=== PATIENT | female | born 1980 | race Caucasian/White ===

== ENCOUNTER 2017-11-23 13:15 | Emergency (ER) | payer OTHER ==
[2017-11-23 14:31] LABS: Absolute Lymphocytes (CBC) 1.9 K/uL (0.7-4.9); Absolute Monocytes 0.5 K/uL (0.1-1.3); Absolute Neutrophil 4.6 K/uL (1.8-8.0); Basophils % 0.6 % (0-1.3); Eosinophils % 3.3 % (0-4.4); Hematocrit 38.2 % (36.0-45.0); Lymphocytes % 26.2 % (15.3-44.8); MCH 28.2 pg (27.0-35.0); MCV 85.5 fL (80-100); MPV 8.3 fL (7.6-11.3); Monocytes % 6.8 % (3.3-12.3); RBC Red Blood Cell Count 4.46 M/uL (3.86-4.86)
[2017-11-23] MEDS ORDERED: METOCLOPRAMIDE 10 MG/2mL INJ ONE (14:46)
[2017-11-23] MEDS ORDERED: ONDANSETRON 4 MG/2 ML VIAL ONE (14:46)
[2017-11-23 14:48] LABS: Potassium 3.5 mEq/L (3.6-5.0)
[2017-11-23 14:55] LABS: Bilirubin Direct 0.1 mg/dL (0-0.2); Bilirubin Total 0.5 mg/dL (0.3-1.2); Magnesium 1.5 mg/dL (1.8-2.5); Protein, Total 8.1 g/dL (6.0-8.3)
[2017-11-23] MEDS ORDERED: POTASSIUM 25 MEQ EFFERV TAB ONE (15:29)
[2017-11-23] MEDS ORDERED: Magnesium Sulfate 2gm IVPB 2 G/50 ML BAG IV ONE (15:29)
--- NOTE | 2017-11-23 15:29 | EKG ---
Test Date: 2017-11-23 Test Time: 14:26:09 Internet Merchant: LEONOR MEASUREMENT RESULTS: Intervals: Rate: 73 CO: 142 QRSD: 68 QT: 378 QTc: 416 [place]: P: 28 CO: 142 QRS: 35 T: 39 INTERPRETIVE STATEMENTS: Normal sinus rhythm Normal ECG Compared to ECG 09/28/2016 11:22:09 Sinus tachycardia no longer present Electronically Signed On 11-23-17 15:28:46 CDT by Kris Wilson
--- NOTE | 2017-11-23 16:17 | ER ---
Nurse's Notes [facility] Name: Amanda Guillaume Age: 37 yrs Sex: Female : 1980 Arrival Date: 11/23/2017 Time: 13:17 Bed 5 Private MD: Raffi Prieto Diagnosis: Paresthesia of skin;Hypomagnesemia;Hypokalemia Presentation: 11/23 13:22 Presenting complaint: Patient states: Intermittent leg numbness, dizziness, blurred aj vision, abdominal bloating since Monday. Patient ambulated to triage with steady gait in NAD. Speech is clear, face is symmetrical. Transition of care: patient was not received from another setting of care. Onset of symptoms was November 19, 2017. Care prior to arrival: None. 13:22 Method Of Arrival: Ambulatory aj 13:22 Acuity: KATHI 3 aj Triage Assessment: 13:24 General: Appears in no apparent distress. comfortable, Behavior is calm, cooperative, aj appropriate for age. Pain: Denies pain. Neuro: Level of Consciousness is awake, alert, obeys commands, Oriented to person, place, time, situation. Neuro: Reports blurred vision numbness in abdomen, right leg and left leg. Respiratory: Airway is patent Respiratory effort is even, unlabored, Respiratory pattern is regular, symmetrical. GI: Reports bloating. Derm: Skin is intact, is healthy with good turgor, Skin is pink, warm \T\ dry. normal. 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 - Social history:: Smoking status: Patient uses tobacco products, smokes one-half pack cigarettes per day. Vital Signs: 13:24 BP 148 / 98; Pulse 88; Resp 20; Temp 98.4; Pulse Ox 97% on R/A; Weight 95.25 kg; Height aj 5 ft. 3 in. (160.02 cm); Pain 0/10; 14:35 BP 142 / 86; Pulse 66; Resp 20; Pulse Ox 97% on R/A; bm6 13:24 Body Mass Index 37.20 (95.25 kg, 160.02 cm) ED Course: 13:17 Patient arrived in ED. as 13:18 Raffi Prieto MD is Private Physician. as 13:23 Triage completed. aj 13:24 Arm band placed on right wrist. Patient placed. aj 13:28 Kwaku Jaime PA is PHCP. cp 13:28 Howard Hutton MD is Attending Physician. cp 13:34 Jaden Horton, QUIN is Primary Nurse. sg 14:19 Inserted saline lock: 20 gauge in left antecubital area, using aseptic technique. Blood bm6 collected. 14:28 EKG done, by cable television technician. reviewed by Kwaku ADAM. at1 17:17 No provider procedures requiring assistance completed. IV discontinued, intact, hb bleeding controlled, No redness/swelling at site. Pressure dressing applied. Administered Medications: 14:55 Drug: Reglan 10 mg Route: IVP; Site: left antecubital; sg 15:24 Follow up: Response: No adverse reaction sg 14:55 Drug: Zofran 4 mg Route: IVP; Site: left antecubital; sg 15:24 Follow up: Response: No adverse reaction; Nausea is decreased sg 15:42 Drug: Magnesium Sulfate 2 grams Route: IVPB; Infused Over: 2 hrs; Site: left sg antecubital; 15:42 Drug: Potassium Effervescent Tablet 25 mEq Route: PO; sg 17:00 Drug: TORadol 30 mg Route: IVP; Site: right antecubital; hb 17:17 Follow up: Response: Medication administered at discharge. hb Outcome: 16:16 Discharge ordered by . cp 17:17 Discharged to home ambulatory, with significant other. hb 17:17 Condition: stable 17:17 Discharge instructions given to patient, significant other, Instructed on discharge instructions, follow up and referral plans. medication usage, Demonstrated understanding of instructions, follow-up care, medications, Prescriptions given X 2. 17:17 Patient left the ED. hb Signatures: Jaden Horton RN RN sg Myers, Amanda, RN RN aj Martinez Cleo as patton, Zhanna, school lunch monitor EKG Tat1 Kwaku Jaime PA PA cp Baxter, Heather, RN RN Gabo Padgett bm6
--- NOTE | 2017-11-23 16:17 | EDPHYS ---
Physician Documentation [facility] Name: Amanda Guillaume Age: 37 yrs Sex: Female : 1980 Arrival Date: 11/23/2017 Time: 13:17 Bed 5 Private MD: Raffi Prieto ED Physician Howard Hutton HPI: 11/23 14:11 This 37 yrs old Female presents to ER via Ambulatory with complaints of cp "don't feel well". 14:11 The patient's problem is reported as paresthesias, in right upper extremity, in right cp lower extremity, in left upper extremity, in left lower extremity. 14:11 Onset: The symptoms/episode began/occurred 3 day(s) ago. Duration: The episodes are cp intermittent. Associated signs and symptoms: Pertinent positives: abdominal pain, blurred vision, chest pain, diarrhea, dizziness, nausea, Pertinent negatives: headache, numbness, palpitations, vomiting, weakness. Severity of symptoms: in the emergency department the symptoms are unchanged. Patient's baseline: Neuro: alert and fully oriented, Motor: no deficits, Ambulation: walks without assistance, Speech: normal. 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 - Social history:: Smoking status: Patient uses tobacco products, smokes one-half pack cigarettes per day. ROS: 14:20 Constitutional: Negative for body aches, chills, fever, poor PO intake. cp 14:20 Eyes: Negative for injury, pain, redness, and discharge. cp 14:20 ENT: Negative for drainage from ear(s), ear pain, sore throat, difficulty swallowing, difficulty handling secretions. 14:20 Cardiovascular: Negative for chest pain, edema, palpitations. 14:20 Respiratory: Negative for cough, shortness of breath, wheezing. 14:20 Abdomen/GI: Positive for abdominal pain, nausea, diarrhea, Negative for vomiting, constipation, black/tarry stool, rectal bleeding. 14:20 : Negative for urinary symptoms, vaginal bleeding, vaginal discharge. 14:20 Skin: Negative for cellulitis, rash. 14:20 Neuro: Positive for tingling, of the right hand and left hand, Negative for altered mental status, headache, weakness. 14:20 All other systems are negative. Exam: 14:25 Constitutional: The patient appears in no acute distress, alert, awake, cp non-diaphoretic, non-toxic, well developed, well nourished. 14:25 Head/Face: Normocephalic, atraumatic. Eyes: Pupils equal round and reactive to light, cp extra-ocular motions intact. Lids and lashes normal. Conjunctiva and sclera are non-icteric and not injected. Cornea within normal limits. Periorbital areas with no swelling, redness, or edema. ENT: Nares patent. No nasal discharge, no septal abnormalities noted. Tympanic membranes are normal and external auditory canals are clear. Oropharynx with no redness, swelling, or masses, exudates, or evidence of obstruction, uvula midline. Mucous membranes moist. Neck: Trachea midline, no thyromegaly or masses palpated, and no cervical lymphadenopathy. Supple, full range of motion without nuchal rigidity, or vertebral point tenderness. No Meningismus. Chest/axilla: Normal chest wall appearance and motion. Nontender with no deformity. No lesions are appreciated. 14:25 Cardiovascular: Rate: normal, Rhythm: regular, Pulses: Pulses are 2+ in right radial artery and left radial artery. Edema: is not appreciated, JVD: is not appreciated. 14:25 Respiratory: the patient does not display signs of respiratory distress, Respirations: normal, no use of accessory muscles, no retractions, no splinting, no tachypnea, labored breathing, is not present, Breath sounds: are clear throughout, no decreased breath sounds, no stridor, no wheezing. 14:25 Abdomen/GI: Inspection: abdomen appears normal, Bowel sounds: active, all quadrants, Palpation: soft, in all quadrants, mild abdominal tenderness, in the left upper quadrant and right lower quadrant, rebound tenderness, is not appreciated, voluntary guarding, is not appreciated, involuntary guarding, is not appreciated. 14:25 Back: CVA tenderness, is absent. 14:25 Skin: cellulitis, is not appreciated, no rash present. 14:25 Neuro: Orientation: to person, place \\T\\ time. Mentation: is normal, Cerebellar function: is grossly normal, Motor: moves all fours, strength is normal, Sensation: no obvious gross deficits, Gait: is steady, at a normal pace, without difficulty. 14:28 ECG was reviewed by the Attending Physician. cp 15:00 CT study not indicated or reported. Reason for not performing CT: exam negative for cp focal deficits Vital Signs: 13:24 BP 148 / 98; Pulse 88; Resp 20; Temp 98.4; Pulse Ox 97% on R/A; Weight 95.25 kg; Height aj 5 ft. 3 in. (160.02 cm); Pain 0/10; 14:35 BP 142 / 86; Pulse 66; Resp 20; Pulse Ox 97% on R/A; bm6 13:24 Body Mass Index 37.20 (95.25 kg, 160.02 cm) aj MDM: 13:28 Patient medically screened. cp 14:00 Differential diagnosis: TIA, metabolic disorder, drug effects, cardiac arrythmia, cp anxiety. 16:16 Data reviewed: vital signs, nurses notes, lab test result(s), EKG. 16:16 Test interpretation: by ED physician or midlevel provider: ECG. Counseling: I had a cp detailed discussion with the patient and/or guardian regarding: the historical points, exam findings, and any diagnostic results supporting the discharge/admit diagnosis, lab results, the need for outpatient follow up, a family practitioner, to return to the emergency department if symptoms worsen or persist or if there are any questions or concerns that arise at home. Response to treatment: the patient's symptoms have mildly improved after treatment. 11/23 13:45 Order name: Basic Metabolic Panel; Complete Time: 15:21 cp 11/23 15:21 Interpretation: Normal except: NA 134; K 3.5; CL 100; GFR 67. cp 11/23 13:45 Order name: CBC with Diff; Complete Time: 15:21 cp 11/23 15:21 Interpretation: Normal except: RDW 16.0. cp 11/23 13:45 Order name: Creatinine for Radiology; Complete Time: 15:21 cp 11/23 13:45 Order name: Hepatic Function; Complete Time: 15:21 cp 11/23 15:22 Interpretation: Normal except: SGOT 44; GLOB 4.1; A/G 1.0. cp 11/23 13:45 Order name: Lipase; Complete Time: 15:21 cp 11/23 13:45 Order name: Urine Microscopic Only; Complete Time: 16:57 cp 11/23 16:57 Interpretation: Normal except: SQEPI 5-10. cp 11/23 13:45 Order name: Magnesium; Complete Time: 15:21 cp 11/23 15:22 Interpretation: Abnormal: MG 1.5. cp 11/23 16:15 Order name: Urine Dipstick--Ancillary (enter results); Complete Time: 16:57 mw2 11/23 16:15 Order name: Urine --Ancillary (enter results); Complete Time: 16:57 mw2 11/23 13:45 Order name: IV Saline Lock; Complete Time: 14:23 cp 11/23 13:45 Order name: Labs collected and sent; Complete Time: 14:24 cp 11/23 13:45 Order name: EKG; Complete Time: 13:46 cp 11/23 13:45 Order name: EKG - Nurse/Tech; Complete Time: 14:24 cp EC:28 Rate is 73 beats/min. Rhythm is regular. IL interval is normal. QRS interval is normal. cp QT interval is normal. No ST changes noted. Interpreted by me. Reviewed by me. Administered Medications: 14:55 Drug: Reglan 10 mg Route: IVP; Site: left antecubital; sg 15:24 Follow up: Response: No adverse reaction sg 14:55 Drug: Zofran 4 mg Route: IVP; Site: left antecubital; sg 15:24 Follow up: Response: No adverse reaction; Nausea is decreased sg 15:42 Drug: Magnesium Sulfate 2 grams Route: IVPB; Infused Over: 2 hrs; Site: left sg antecubital; 15:42 Drug: Potassium Effervescent Tablet 25 mEq Route: PO; sg 17:00 Drug: TORadol 30 mg Route: IVP; Site: right antecubital; hb 17:17 Follow up: Response: Medication administered at discharge. hb Disposition: 11/24 08:10 Co-signature as Attending Physician, Howard Hutton MD I agree with the assessment and vt plan of care. Disposition: 11/23/17 16:16 Discharged to Home. Impression: Paresthesia of skin, Hypomagnesemia, Hypokalemia. - Condition is Stable. - Discharge Instructions: Potassium Content of Foods, Hypomagnesemia, Paresthesia, Hypokalemia. - Prescriptions for magnesium - take 400 milligram by ORAL route once daily for 3 days; 3 tablet. Potassium Chloride 10 mEq Oral Capsule, Sustained Release - take 1 tablet by ORAL route every 12 hours for 3 days; 6 tablet. - Work release form, Medication Reconciliation Form, Thank You Letter, Antibiotic Education, Prescription Opioid Use form. - Follow up: Private Physician; When: 1 - 2 days; Reason: Recheck today's complaints. - Problem is new. - Symptoms have improved. Signatures: Dispatcher [employer] EDMS Jaden Horton RN RN sg Myers, Amanda, RN RN aj Page, Corey, PA PA cp Baxter, Heather, RN RN hb Appiah, William, MD MD wa
[2017-11-23 16:19] LABS: Urine Blood NEGATIVE (NEG); Urine Glucose NEGATIVE (NEG); Urine Protein NEGATIVE (NEG); Urine pH 6.5 (5.0-7.0)
[2017-11-23 16:30] LABS: Urine Amorphous Sediment 1+ /HPF (NONE SEEN); Urine Bacteria <20 /HPF (<20); Urine Culture Reflex Order NOT NEEDED; Urine RBC <5 /HPF (NONE SEEN)
[2017-11-23] MEDS ORDERED: KETOROLAC 30 MG/ML INJ ONE (17:02)
[2017-11-23 17:26] VITALS: TEMP 98.4; O2SAT 97
[2017-11-23 17:27] VITALS: BP 142/86
== END 2017-11-23 17:17 | disposition home or self-care (01) ==
LOC: ER 13:15
DX: E83.42 Hypomagnesemia (principal); E87.6 Hypokalemia; F17.210 Nicotine dependence, cigarettes, uncomplicated; I10 Essential (primary) hypertension; F41.9 Anxiety disorder, unspecified; Z91.048 Other nonmedicinal substance allergy status
CPT/HCPCS: 36415; 80048; 80076; 81003; 81015; 81025; 83690; 83735; 85025; 93005; 99284; J2405; J2765; J3475

== ENCOUNTER 2018-08-30 08:07 | Emergency (ER) | payer BC, OTHER ==
[2018-08-30] MEDS ORDERED: NA CHLORIDE 0.9% 1,000 ML ONE (08:58)
[2018-08-30 09:13] LABS: Protime INR 0.87
[2018-08-30 09:18] LABS: Absolute Monocytes 0.6 K/uL (0.1-1.3); Absolute Neutrophil 3.4 K/uL (1.8-8.0); Basophils % 1.4 % (0-1.3); Eosinophils % 4.9 % (0-4.4); Hematocrit 39.5 % (36.0-45.0); Lymphocytes % 30.6 % (15.3-44.8); MPV 7.8 fL (7.6-11.3); Monocytes % 9.5 % (3.3-12.3); RBC Red Blood Cell Count 4.47 M/uL (3.86-4.86)
[2018-08-30 09:46] LABS: ALT/SGPT 52 U/L (12-78); AST/SGOT 41 U/L (15-37); Albumin 3.5 g/dL (3.4-5.0); Alkaline Phosphatase 86 U/L (45-117); BUN Blood Urea Nitrogen 15 mg/dL (7-18); Bicarbonate 26 mmol/L (21-32); Bilirubin Direct < 0.1 mg/dL (0-0.2); Bilirubin Total 0.2 mg/dL (0.2-1.0); Glucose Level 114 mg/dL (74-106); Magnesium 1.9 mg/dL (1.8-2.4); NT PRO-BNP 30 pg/mL (<125); Potassium 3.2 mmol/L (3.5-5.1); Protein, Total 7.7 g/dL (6.4-8.2); Sodium Level 140 mmol/L (136-145); Troponin (Emerg Dept Use Only) 0.03 ng/mL (0.0-0.045)
[2018-08-30 09:46] LABS: Barbiturates NEGATIVE (NEGATIVE); Benzodiazepines NEGATIVE (NEGATIVE); Cocaine NEGATIVE (NEGATIVE); METHAMPHETAM POSITIVE (NEGATIVE); Methadone NEGATIVE (NEGATIVE); Opiates NEGATIVE (NEGATIVE); Phencyclidine NEGATIVE (NEGATIVE); THC Cannibis NEGATIVE (NEGATIVE)
--- NOTE | 2018-08-30 10:04 | RAD REPORT ---
EXAM DESCRIPTION: Karla Single View08/30/2018 8:52 am CLINICAL HISTORY: Chest pain COMPARISON: 2017 FINDINGS: The lungs appear clear of acute infiltrate. The heart is normal size IMPRESSION: No acute abnormalities displayed
--- NOTE | 2018-08-30 10:16 | RAD REPORT ---
EXAM DESCRIPTION: CT - Abdomen Pelvis W Contrast - 08/30/2018 10:02 am CLINICAL HISTORY: Abdominal pain/lower abdominal pain COMPARISON: 2016 TECHNIQUE: Computed axial tomography of the abdomen pelvis was obtained. 100 cc Isovue-300 was admin istered intravenously. Oral contrast was not requested which limits evaluation of bowel. All CT scans are performed using dose optimization technique as appropriate and may include automated exposure control or mA/KV adjustment according to patient size. FINDINGS: Liver , spleen, pancreas, adrenal and kidneys appear unremarkable. There is no evidence of diverticulitis. The appendix is normal The gallbladder has been removed A 15 millimeter regularly shaped left ovarian follicle is present without significant free-fluid IMPRESSION: A 15 millimeter regularly shaped left ovarian follicle is present without significant fr ee-fluid .
[2018-08-30] MEDS ORDERED: ACETAMINOPHEN 325 MG TABLET ONE (10:29)
--- NOTE | 2018-08-30 10:56 | EDPHYS ---
Physician Documentation [facility] Name: Amanda Guillaume Age: 38 yrs Sex: Female : 1980 Arrival Date: 08/30/2018 Time: 08:10 Bed 18 Private MD: Raffi Prieto ED Physician Ernie Bey HPI: 08/30 10:02 This 38 yrs old Female presents to ER via Ambulatory with complaints of Chest kdr Pain, Shoulder Pain, Arm Pain, Palpitations. 10:02 The patient or guardian reports chest pain that is located primarily in the substernal kdr area, anterior chest wall, left. The pain radiates to the left arm, the left shoulder, the left scapula, left back. Associated signs and symptoms: Pertinent positives: abdominal pain, nausea, shortness of breath, The abdominal pain has been ongoing for months, Pertinent negatives: diaphoresis. The chest pain is described as aching, dull, a pressure. Duration: The patient or guardian reports multiple episodes, that are intermittent, that wax and wane, with no pattern. Modifying factors: The symptoms are alleviated by nothing. the symptoms are aggravated by breathing, cough, deep breath. Severity of pain: At its worst the pain was mild moderate just prior to arrival, in the emergency department the pain is unchanged. The patient has experienced similar episodes in the past, a few times, but today's symptoms are worse, more painful. The patient has not recently seen a physician. Historical: - Allergies: 08:32 adhesive; ss 08:32 unknown antibiotic that starts with a "B"; ss - PMHx: 08:32 Anxiety; Hypertension; ss - PSHx: 08:32 TUMMY TUCK; ; Tubal ligation; BREAST REDUCTION; ss - Immunization history:: Adult Immunizations up to date. - Social history:: Smoking status: Patient/guardian denies using tobacco. - Ebola Screening: : Patient denies exposure to infectious person Patient denies travel to an Ebola-affected area in the 21 days before illness onset. ROS: 10:02 Constitutional: Negative for fever, chills, and weight loss, Eyes: Negative for injury, kdr pain, redness, and discharge, Neck: Negative for injury, pain, and swelling, Respiratory: Negative for shortness of breath, cough, wheezing, and pleuritic chest pain, Abdomen/GI: Negative for abdominal pain, nausea, vomiting, diarrhea, and constipation, Back: Negative for injury and pain, : Negative for injury, bleeding, discharge, and swelling, MS/Extremity: Negative for injury and deformity, Skin: Negative for injury, rash, and discoloration, Neuro: Negative for headache, weakness, numbness, tingling, and seizure activity. Psych: Negative for depression, anxiety, suicide ideation, homicidal ideation, and hallucinations, Allergy/Immunology: Negative for hives, rash, and allergies, Endocrine: Negative for neck swelling, polydipsia, polyuria, polyphagia, and marked weight changes, Hematologic/Lymphatic: Negative for swollen nodes, abnormal bleeding, and unusual bruising. 10:02 Cardiovascular: Positive for chest pain, Negative for edema, orthopnea, palpitations, paroxysmal nocturnal dyspnea, acute changes. 10:02 Abdomen/GI: Positive for abdominal pain, nausea, Negative for diarrhea, constipation, abdominal cramps, abdominal distension, anorexia, dysphagia, hematemesis, black/tarry stool, rectal pain, rectal bleeding, bowel incontinence. Exam: 10:02 Constitutional: This is a well developed, well nourished patient who is awake, alert, kdr and in no acute distress. Head/Face: Normocephalic, atraumatic. Eyes: Pupils equal round and reactive to light, extra-ocular motions intact. Lids and lashes normal. Conjunctiva and sclera are non-icteric and not injected. Cornea within normal limits. Periorbital areas with no swelling, redness, or edema. Neck: Trachea midline, no thyromegaly or masses palpated, and no cervical lymphadenopathy. Supple, full range of motion without nuchal rigidity, or vertebral point tenderness. No Meningismus. Chest/axilla: Normal chest wall appearance and motion. Nontender with no deformity. No lesions are appreciated. Cardiovascular: Regular rate and rhythm with a normal S1 and S2. No gallops, murmurs, or rubs. Normal PMI, no JVD. No pulse deficits. Respiratory: Lungs have equal breath sounds bilaterally, clear to auscultation and percussion. No rales, rhonchi or wheezes noted. No increased work of breathing, no retractions or nasal flaring. Abdomen/GI: Soft, non-tender, with normal bowel sounds. No distension or tympany. No guarding or rebound. No evidence of tenderness throughout. Back: No spinal tenderness. No costovertebral tenderness. Full range of motion. MS/ Extremity: Pulses equal, no cyanosis. Neurovascular intact. Full, normal range of motion. Neuro: Awake and alert, GCS 15, oriented to person, place, time, and situation. Cranial nerves II-XII grossly intact. Motor strength 5/5 in all extremities. Sensory grossly intact. Cerebellar exam normal. Normal gait. Psych: Awake, alert, with orientation to person, place and time. Behavior, mood, and affect are within normal limits. Vital Signs: 08:32 BP 122 / 89; Pulse 88; Resp 17; Temp 98.8(TE); Pulse Ox 99% on R/A; Weight 87.09 kg; ss Height 5 ft. 3 in. (160.02 cm); Pain 4/10; 10:25 BP 100 / 58; Pulse 77; Resp 16; Temp 98.4(O); Pulse Ox 99% on R/A; Pain 5/10; ls4 08:32 Body Mass Index 34.01 (87.09 kg, 160.02 cm) ss MDM: 10:02 Data reviewed: vital signs, nurses notes, lab test result(s), EKG, radiologic studies. kdr 10:55 Patient medically screened. [facility] 08/30 08:30 Order name: Basic Metabolic Panel; Complete Time: 10:39 [facility] 08/30 08:30 Order name: CBC with Diff; Complete Time: 10:39 [facility] 08/30 08:30 Order name: LFT's; Complete Time: 10:39 [facility] 08/30 08:30 Order name: Magnesium; Complete Time: 10:39 [facility] 08/30 08:30 Order name: NT PRO-BNP; Complete Time: 10:39 [facility] 08/30 08:30 Order name: PT-INR; Complete Time: 10:39 [facility] 08/30 08:30 Order name: Troponin (emerg Dept Use Only); Complete Time: 10:39 [facility] 08/30 08:30 Order name: Acetaminophen; Complete Time: 10:39 [facility] 08/30 08:30 Order name: ETOH Level; Complete Time: 10:39 [facility] 08/30 08:30 Order name: Ptt, Activated; Complete Time: 10:39 [facility] 08/30 08:30 Order name: Salicylate; Complete Time: 10:39 [facility] 08/30 08:30 Order name: Urine Drug Screen; Complete Time: 10:39 kdr 08/30 08:44 Order name: Lipase; Complete Time: 10:39 kdr 08/30 08:46 Order name: Urine Dipstick--Ancillary (enter results) eb 08/30 08:30 Order name: XRAY Chest (1 view); Complete Time: 10:39 kdr 08/30 08:30 Order name: EKG; Complete Time: 08:31 kdr 08/30 08:30 Order name: Cardiac monitoring; Complete Time: 08:46 kdr 08/30 08:30 Order name: EKG - Nurse/Tech; Complete Time: 08:52 kdr 08/30 08:30 Order name: IV Saline Lock; Complete Time: 09:02 kdr 08/30 08:30 Order name: Labs collected and sent; Complete Time: 09:02 kdr 08/30 08:30 Order name: O2 Per Protocol; Complete Time: 08:46 kdr 08/30 08:30 Order name: O2 Sat Monitoring; Complete Time: 08:46 kdr 08/30 08:30 Order name: Urine Dipstick-Ancillary (obtain specimen); Complete Time: 08:46 kdr 08/30 08:44 Order name: CT Abd/Pelvis - W/Contrast; Complete Time: 10:39 kdr 08/30 08:46 Order name: Urine --Ancillary (enter results) eb Administered Medications: 09:02 Drug: NS 0.9% 1000 ml Route: IV; Rate: 1 bolus; Site: right forearm; hb 10:16 Follow up: Response: No adverse reaction; IV Status: Completed infusion; IV Intake: ls4 1000ml 10:24 Drug: Tylenol 1000 mg Route: PO; ls4 10:56 Follow up: Response: No adverse reaction; Marked relief of symptoms ls4 10:56 Drug: Potassium Chloride 40 mEq Route: PO; ls4 11:09 Follow up: Response: No adverse reaction ls4 Disposition: 08/30/18 10:55 Discharged to Home. Impression: Other chest pain, Hypokalemia. - Condition is Stable. - Discharge Instructions: Nonspecific Chest Pain. - Medication Reconciliation Form, Thank You Letter form. - Follow up: Raffi Prieto MD; When: 2 - 3 days; Reason: If symptoms return, Further diagnostic work-up, Recheck today's complaints, Continuance of care, Re-evaluation by your physician. - Problem is new. - Symptoms have improved. Signatures: Dispatcher [employer] EDMS Ernie Bye MD MD [facility] Kathryn Miranda RN RN Ellen Thrasher RN RN Rocio Mortensen, RN RN ls4 Corrections: (The following items were deleted from the chart) 11:09 10:55 08/30/2018 10:55 Discharged to Home. Impression: Other chest pain; Hypokalemia. ls4 Condition is Stable. Forms are Medication Reconciliation Form, Thank You Letter, Antibiotic Education, Prescription Opioid Use. Follow up: Raffi Prieto; When: 2 - 3 days; Reason: If symptoms return, Further diagnostic work-up, Recheck today's complaints, Continuance of care, Re-evaluation by your physician. Problem is new. Symptoms have improved. kdr
--- NOTE | 2018-08-30 10:56 | ER ---
Nurse's Notes [facility] Name: Amanda Guillaume Age: 38 yrs Sex: Female : 1980 Arrival Date: 08/30/2018 Time: 08:10 Bed 18 Private MD: Raffi Prieto Diagnosis: Other chest pain;Hypokalemia Presentation: 08/30 08:29 Presenting complaint: Patient states: chest discomfort that began yesterday with ss intermittent palpitations that have become more continuous today. Pt reports that her smart watch recorded her heart rate at 180, when she was standing at work. Transition of care: patient was not received from another setting of care. Onset of symptoms was August 29, 2018. Risk Assessment: Do you want to hurt yourself or someone else? Patient reports no desire to harm self or others. Initial Sepsis Screen: Does the patient meet any 2 criteria? No. Patient's initial sepsis screen is negative. Does the patient have a suspected source of infection? No. Patient's initial sepsis screen is negative. Care prior to arrival: None. 08:29 Method Of Arrival: Ambulatory ss 08:29 Acuity: KATHI 3 ss Historical: - Allergies: 08:32 adhesive; ss 08:32 unknown antibiotic that starts with a "B"; ss - PMHx: 08:32 Anxiety; Hypertension; ss - PSHx: 08:32 TUMMY TUCK; ; Tubal ligation; BREAST REDUCTION; ss - Immunization history:: Adult Immunizations up to date. - Social history:: Smoking status: Patient/guardian denies using tobacco. - Ebola Screening: : Patient denies exposure to infectious person Patient denies travel to an Ebola-affected area in the 21 days before illness onset. Screenin:40 Abuse screen: Denies threats or abuse. Denies injuries from another. Nutritional hb screening: No deficits noted. Tuberculosis screening: No symptoms or risk factors identified. Fall Risk None identified. Assessment: 08:40 General: Appears in no apparent distress. Behavior is calm, cooperative. Pain: hb Complains of pain in anterior aspect of left upper chest left shoulder Pain currently is 4 out of 10 on a pain scale. Pain began suddenly, 1 day ago. Neuro: Level of Consciousness is awake, alert, obeys commands, Oriented to person, place, time, situation. Cardiovascular: Heart tones S1 S2 present Capillary refill < 3 seconds Patient's skin is warm and dry. Respiratory: Airway is patent Trachea midline Respiratory effort is even, unlabored, Respiratory pattern is regular, symmetrical, Breath sounds are clear bilaterally. GI: No signs and/or symptoms were reported involving the gastrointestinal system. : No signs and/or symptoms were reported regarding the genitourinary system. EENT: No signs and/or symptoms were reported regarding the EENT system. Derm: Skin is intact, is healthy with good turgor. Musculoskeletal: No signs and/or symptoms reported regarding the musculoskeletal system. 09:30 Reassessment: Patient appears in no apparent distress at this time. No changes from hb previously documented assessment. Patient and/or family updated on plan of care and expected duration. Pain level reassessed. Patient is alert, oriented x 3, equal unlabored respirations, skin warm/dry/pink. 10:26 Reassessment: Patient appears in no apparent distress at this time. Patient and/or ls4 family updated on plan of care and expected duration. Pain level reassessed. Patient is alert, oriented x 3, equal unlabored respirations, skin warm/dry/pink. Patient states symptoms have improved. 11:00 Reassessment: Patient is alert, oriented x 3, equal unlabored respirations, skin ls4 warm/dry/pink. Vital Signs: 08:32 BP 122 / 89; Pulse 88; Resp 17; Temp 98.8(TE); Pulse Ox 99% on R/A; Weight 87.09 kg; ss Height 5 ft. 3 in. (160.02 cm); Pain 4/10; 10:25 BP 100 / 58; Pulse 77; Resp 16; Temp 98.4(O); Pulse Ox 99% on R/A; Pain 5/10; ls4 08:32 Body Mass Index 34.01 (87.09 kg, 160.02 cm) ED Course: 08:10 Patient arrived in ED. rg4 08:10 Raffi Prieto MD is Private Physician. rg4 08:26 EKG done, by sterile processing technician. reviewed by Ernie Bey MD. sm3 08:27 Ernie Bey MD is Attending Physician. kdr 08:31 Triage completed. ss 08:32 Arm band placed on right wrist. ss 08:40 Patient maintains SpO2 saturation greater than 95% on room air. hb 08:40 Patient has correct armband on for positive identification. Placed in gown. Bed in low hb position. Call light in reach. manager monitoring on. Pulse ox on. NIBP on. 08:45 Ellen Thrasher, RN is Primary Nurse. hb 08:51 X-ray completed. Portable x-ray completed in exam room. Patient tolerated procedure jb2 well. 08:51 XRAY Chest (1 view) In Process Unspecified. EDMS 09:08 Initial lab(s) drawn, by me, sent to lab. Inserted saline lock: 22 gauge in left em1 antecubital area, using aseptic technique. Blood collected. 10:01 CT completed. Patient tolerated procedure well. Patient moved to CT via wheelchair. Patient moved back from CT. 10:03 CT Abd/Pelvis - W/Contrast In Process Unspecified. EDMS 10:22 No provider procedures requiring assistance completed. ls4 10:54 Raffi Prieto MD is Referral Physician. kdr 11:10 IV discontinued, intact, bleeding controlled, No redness/swelling at site. Pressure ls4 dressing applied. Administered Medications: 09:02 Drug: NS 0.9% 1000 ml Route: IV; Rate: 1 bolus; Site: right forearm; hb 10:16 Follow up: Response: No adverse reaction; IV Status: Completed infusion; IV Intake: ls4 1000ml 10:24 Drug: Tylenol 1000 mg Route: PO; ls4 10:56 Follow up: Response: No adverse reaction; Marked relief of symptoms ls4 10:56 Drug: Potassium Chloride 40 mEq Route: PO; ls4 11:09 Follow up: Response: No adverse reaction ls4 Intake: 10:16 IV: 1000ml; Total: 1000ml. ls4 Outcome: 10:55 Discharge ordered by . kdr 11:09 Patient left the ED. ls4 11:10 Discharged to home ambulatory, with family. ls4 11:10 Condition: stable 11:10 Discharge instructions given to patient, Instructed on discharge instructions, follow up and referral plans. no drinking with medication, no driving heavy equipment, medication usage, safety practices, Demonstrated understanding of instructions, follow-up care, medications. Signatures: Dispatcher [employer] EDVT Ernie Bey MD MD [facility] Osvaldo Rutherford jb2 [place] Maxwell Eric em1 Kathryn Miranda, RN RN ss Ellen Thrasher, RN RN hb [place] rg4 Mamie Moncada sm3 Rocio Mortensen, RN RN ls4
[2018-08-30] MEDS ORDERED: POTASSIUM CL SA 10 MEQ TAB PO ONE (10:59)
[2018-08-30 11:00] LABS: Urine Blood NEGATIVE (NEG); Urine Glucose NEGATIVE (NEG); Urine Protein TRACE (NEG); Urine pH 6.5 (5.0-7.0)
[2018-08-30 11:15] VITALS: O2SAT 99
[2018-08-30 11:16] VITALS: BP 100/58; TEMP 98.4
--- NOTE | 2018-08-30 11:27 | EKG ---
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
== END 2018-08-30 11:09 | disposition home or self-care (01) ==
LOC: ER 08:07
DX: R07.9 Chest pain, unspecified (principal); E87.6 Hypokalemia; M25.512 Pain in left shoulder; F41.9 Anxiety disorder, unspecified; I10 Essential (primary) hypertension
CPT/HCPCS: 36415; 71045; 74177; 80048; 80076; 80307; 80320; 80329; 81003; 81025; 83690; 83735; 83880; 84484; 85025; 85610; 85730; 93005; J7030; Q9967

== ENCOUNTER 2018-12-25 21:12 | Emergency (ER) | payer BC ==
[2018-12-25] MEDS ORDERED: HYDROCODONE/APAP 10/325 TAB ONE (21:54)
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
[2018-12-26 09:42] VITALS: BP 122/77; TEMP 98.2; O2SAT 100
--- NOTE | 2018-12-26 10:19 | RAD REPORT ---
EXAM DESCRIPTION: RAD - Wrist Left 3 View - 12/25/2018 10:10 pm CLINICAL HISTORY: PAIN Trauma, pain COMPARISON: None FINDINGS: Left elbow, wrist and hand- multiple projections are submitted No acute fracture or dislocation is seen.
--- NOTE | 2018-12-26 10:20 | RAD REPORT ---
EXAM DESCRIPTION: RAD - Elbow Left 3 View - 12/25/2018 10:11 pm CLINICAL HISTORY: PAIN Trauma, pain COMPARISON: None FINDINGS: Left elbow, wrist and hand- multiple projections are submitted No acute fracture or dislocation is seen.
== END 2018-12-25 22:35 | disposition home or self-care (01) ==
LOC: ER 21:12
DX: S60.212A Contusion of left wrist, initial encounter (principal); S60.222A Contusion of left hand, initial encounter; S50.312A Abrasion of left elbow, initial encounter; S80.812A Abrasion, left lower leg, initial encounter; V18.2XXA Unspecified pedal cyclist injured in noncollision transport accident in nontraffic accident, initial encounter; I10 Essential (primary) hypertension; F41.9 Anxiety disorder, unspecified
CPT/HCPCS: 99283

== ENCOUNTER 2019-03-18 09:21 | Emergency (ER) | payer BC ==
[2019-03-18] MEDS ORDERED: HYDROCODONE/APAP 10/325 TAB ONE (10:03)
--- NOTE | 2019-03-18 10:24 | EDPHYS ---
Physician Documentation [facility] Name: Amanda Guillaume Age: 38 yrs Sex: Female : 1980 Arrival Date: 03/18/2019 Time: 09:25 Bed 19 Private MD: Raffi Prieto ED Physician Howard Hutton HPI: 03/18 09:50 This 38 yrs old Female presents to ER via Ambulatory with complaints of pm1 Hemorrhoids. 09:50 The patient presents to the emergency department with pain in the rectal area, pm1 hemorrhoids. Onset: The symptoms/episode began/occurred 2 day(s) ago. Context: the patient has a known history of hemorrhoids. Modifying factors: The symptoms are aggravated by sitting position. Associate signs and symptoms: Pertinent negatives: abdominal pain, constipation, fever. The patient has experienced similar episodes in the past, several times. Patient with history of hemorrhoids for the past 15 years. Patient reports worse for the past 2 days. Patient reports hemorrhoids have gotten softer with use of Anusol and tucks pad. Called Isaiah youngblood but no appointment available today. Contacted Manuel youngblood and directed to be evaluated in ER. Available appointment tomorrow with Isaiah per patient. 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 - Social history:: Smoking status: Patient/guardian denies using tobacco. - Ebola Screening: : No symptoms or risks identified at this time. ROS: 09:50 Constitutional: Negative for fever, chills, and weight loss, Eyes: Negative for injury, pm1 pain, redness, and discharge, ENT: Negative for injury, pain, and discharge, Neck: Negative for injury, pain, and swelling, Cardiovascular: Negative for chest pain, palpitations, and edema, Respiratory: Negative for shortness of breath, cough, wheezing, and pleuritic chest pain, Abdomen/GI: Negative for abdominal pain, nausea, vomiting, diarrhea, and constipation. 09:50 Back: Negative for injury and pain, MS/Extremity: Negative for injury and deformity, Skin: Negative for injury, rash, and discoloration. 09:50 Neuro: Negative for headache, weakness, numbness, tingling, and seizure. Exam: 09:50 Constitutional: This is a well developed, well nourished patient who is awake, alert, pm1 and in no acute distress. Head/Face: Normocephalic, atraumatic. Neck: Trachea midline, no thyromegaly or masses palpated, and no cervical lymphadenopathy. Supple, full range of motion without nuchal rigidity, or vertebral point tenderness. No Meningismus. Chest/axilla: Normal chest wall appearance and motion. Nontender with no deformity. No lesions are appreciated. Cardiovascular: Regular rate and rhythm with a normal S1 and S2. No gallops, murmurs, or rubs. Normal PMI, no JVD. No pulse deficits. Respiratory: Lungs have equal breath sounds bilaterally, clear to auscultation and percussion. No rales, rhonchi or wheezes noted. No increased work of breathing, no retractions or nasal flaring. Abdomen/GI: Soft, non-tender, with normal bowel sounds. No distension or tympany. No guarding or rebound. No evidence of tenderness throughout. 09:50 Back: No spinal tenderness. No costovertebral tenderness. Full range of motion. Skin: Warm, dry with normal turgor. Normal color with no rashes, no lesions, and no evidence of cellulitis. MS/ Extremity: Pulses equal, no cyanosis. Neurovascular intact. Full, normal range of motion. 09:50 Abdomen/GI: Rectal exam: hemorrhoid(s), external, with inflammation, with pain, without bleeding, without thrombosis, [employer]: [facility]. 09:50 Neuro: Orientation: is normal, Motor: is normal, moves all fours. Vital Signs: 09:26 BP 166 / 84; Pulse 83; Resp 16; Temp 97.8; Pulse Ox 100% ; Weight 90.72 kg; Height 5 hb ft. 3 in. (160.02 cm); Pain 6/10; 10:29 BP 151 / 81; Pulse 79; Resp 16; Temp 97.8; Pulse Ox 99% ; bp 09:26 Body Mass Index 35.43 (90.72 kg, 160.02 cm) hb MDM: 09:28 Patient medically screened. pm1 09:46 Data reviewed: vital signs. Data interpreted: Pulse oximetry: on room air is 100 %. pm1 Interpretation: normal. 10:20 Counseling: I had a detailed discussion with the patient and/or guardian regarding: the pm1 historical points, exam findings, and any diagnostic results supporting the discharge/admit diagnosis, the need for outpatient follow up, for definitive care, a general surgeon, to return to the emergency department if symptoms worsen or persist or if there are any questions or concerns that arise at home. Administered Medications: 10:04 Drug: [place] 10 mg-325 mg 1 tabs Route: PO; bp 10:30 Follow up: Response: Pain is decreased bp Disposition: 03/19 07:45 Co-signature as Attending Physician, Howard Hutton MD I agree with the assessment and wa plan of care. Disposition: 03/18/19 10:20 Discharged to Home. Impression: Hemorrhoids. - Condition is Stable. - Discharge Instructions: Hemorrhoids, Surgical Procedures for Hemorrhoids, Nonsurgical Procedures for Hemorrhoids. - Prescriptions for Colace 100 mg Oral Tablet - take 1 tablet by ORAL route every 12 hours; 14 tablet. Tylenol- Codeine #3 300-30 mg Oral Tablet - take 2 tablets by ORAL route every 6 hours As needed; 20 tablet. Anusol- HC 2.5 % Rectal Cream - Apply to affected area 1 application by TOPICAL route every 8 hours As needed; 30 gram. - Medication Reconciliation Form, Thank You Letter, Antibiotic Education, Prescription Opioid Use form. - Follow up: Corky Colon; When: 1 - 2 days; Reason: Recheck today's complaints, Continuance of care, Re-evaluation by your physician. - Problem is new. - Symptoms have improved. Signatures: Giacomo Tran, KEVIN RIVER RAFTING GUIDE pm1 Ellen Thrasher RN RN hb Appiah, William, MD MD md Rory Castro RN RN bp Corrections: (The following items were deleted from the chart) 03/18 10:30 10:20 03/18/2019 10:20 Discharged to Home. Impression: Hemorrhoids. Condition is bp Stable. Discharge Instructions: Hemorrhoids, Surgical Procedures for Hemorrhoids, Nonsurgical Procedures for Hemorrhoids. Prescriptions for Colace 100 mg Oral Tablet - take 1 tablet by ORAL route every 12 hours; 14 tablet, Tylenol-Codeine #3 300-30 mg Oral Tablet - take 2 tablets by ORAL route every 6 hours As needed; 20 tablet, Anusol-HC 2.5 % Rectal Cream - Apply to affected area 1 application by TOPICAL route every 8 hours As needed; 30 gram. and Forms are Medication Reconciliation Form, Thank You Letter, Antibiotic Education, Prescription Opioid Use. Follow up: Corky Colon; When: 1 - 2 days; Reason: Recheck today's complaints, Continuance of care, Re-evaluation by your physician. Problem is new. Symptoms have improved. pm1
--- NOTE | 2019-03-18 10:24 | ER ---
Nurse's Notes [facility] Name: Amanda Guillaume Age: 38 yrs Sex: Female : 1980 Arrival Date: 03/18/2019 Time: 09:25 Bed 19 Private MD: Raffi Prieto Diagnosis: Hemorrhoids Presentation: 03/18 09:25 Presenting complaint: Painful hemorrhoids x 2 days, unrelieved by OTC preparations. hb Transition of care: patient was not received from another setting of care. Onset of symptoms was March 18, 2019. Risk Assessment: Do you want to hurt yourself or someone else? Patient reports no desire to harm self or others. Initial Sepsis Screen: Does the patient meet any 2 criteria? No. Patient's initial sepsis screen is negative. Does the patient have a suspected source of infection? No. Patient's initial sepsis screen is negative. Care prior to arrival: None. 09:25 Method Of Arrival: Ambulatory hb 09:25 Acuity: KATHI 5 bp Triage Assessment: 09:30 General: Appears in no apparent distress. uncomfortable, Behavior is cooperative, bp appropriate for age, anxious. Pain: Complains of pain in gluteal cleft. EENT: No deficits noted. Neuro: No deficits noted. Cardiovascular: No deficits noted. Respiratory: No deficits noted. GI: No signs and/or symptoms were reported involving the gastrointestinal system. : No signs and/or symptoms were reported regarding the genitourinary system. Derm: No deficits noted. Musculoskeletal: No deficits noted. 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 - Social history:: Smoking status: Patient/guardian denies using tobacco. - Ebola Screening: : No symptoms or risks identified at this time. Screenin:31 Abuse screen: Denies threats or abuse. Denies injuries from another. Nutritional bp screening: No deficits noted. Tuberculosis screening: No symptoms or risk factors identified. Fall Risk None identified. Assessment: :31 General: SEE TRIAGE NOTE. bp 10:28 Reassessment: PT D/C HOME AMBULATORY WITH FAMILY, DX WITH HEMORRHOIDS. bp Vital Signs: 09: BP 166 / 84; Pulse 83; Resp 16; Temp 97.8; Pulse Ox 100% ; Weight 90.72 kg; Height 5 hb ft. 3 in. (160.02 cm); Pain 6/10; 10:29 BP 151 / 81; Pulse 79; Resp 16; Temp 97.8; Pulse Ox 99% ; bp 09:26 Body Mass Index 35.43 (90.72 kg, 160.02 cm) hb ED Course: 09:25 Patient arrived in ED. mr 09:25 Raffi Prieto MD is Private Physician. mr 09:26 Triage completed. hb 09:26 Arm band placed on. hb 09:28 Giacomo Tran NP is PHCP. pm1 09:28 Howard Hutton MD is Attending Physician. pm1 09:29 Rory Castro, RN is Primary Nurse. bp 09:31 Patient has correct armband on for positive identification. Bed in low position. Call bp light in reach. Side rails up X2. 09:32 Served as a pet counselor during rectal exam. bp 10:20 Corky Colon MD is Referral Physician. pm1 10:29 Patient did not have IV access during this emergency room visit. bp Administered Medications: 10:04 Drug: [place] 10 mg-325 mg 1 tabs Route: PO; bp 10:30 Follow up: Response: Pain is decreased bp Outcome: 10:20 Discharge ordered by . pm1 10:29 Discharged to home ambulatory, with family. bp 10:29 Condition: stable 10:29 Discharge instructions given to patient, Instructed on discharge instructions, follow up and referral plans. medication usage, Demonstrated understanding of instructions, follow-up care, medications, Prescriptions given X 3. 10:30 Patient left the ED. bp Signatures: Kulkarni, Saray mr Giacomo Tran, KEVIN HAT LACER pm1 Ellen Thrasher, RN RN hb Rory Castro, QUIN RN bp Corrections: (The following items were deleted from the chart) 09:30 09:25 Acuity: KATHI 3 hb bp
[2019-03-18 10:36] VITALS: TEMP 97.8
[2019-03-18 10:37] VITALS: BP 151/81; O2SAT 99
== END 2019-03-18 10:30 | disposition home or self-care (01) ==
LOC: ER 09:21
DX: K64.9 Unspecified hemorrhoids (principal); Z88.1 Allergy status to other antibiotic agents; Z91.048 Other nonmedicinal substance allergy status
CPT/HCPCS: 99283

== ENCOUNTER 2019-03-20 08:24 | Day surgery (SDC) | payer BC ==
--- NOTE | 2019-03-19 15:32 | RAD REPORT ---
EXAM DESCRIPTION: RAD - Chest Pa And Lat (2 Views) - 03/19/2019 3:20 pm CLINICAL HISTORY: Preop chest, pending hemorrhoid surgery COMPARISON: August 2018 TECHNIQUE: PA and lateral views of the chest were obtained. FINDINGS: The lungs are clear. Heart size is normal and central vasculature is within normal limit s. No pleural effusion or pneumothorax seen. No acute bony finding noted. No aortic abnormality. IMPRESSION: No acute cardiopulmonary process. No significant interval change.
[2019-03-19 15:37] LABS: Absolute Lymphocytes (CBC) 2.1 K/uL (0.7-4.9); Basophils % 1.1 % (0-1.3); Hematocrit 38.1 % (36.0-45.0); Lymphocytes % 30.9 % (15.3-44.8); MPV 8.5 fL (7.6-11.3); RBC Red Blood Cell Count 4.28 M/uL (3.86-4.86)
[2019-03-19 15:38] LABS: Potassium 3.8 mmol/L (3.5-5.1)
[2019-03-20] MEDS ORDERED: Ringers Lactate 1,000 ML IV ONE (08:48)
[2019-03-20] MEDS ORDERED: CEFAZOLIN/SWI 1gm 1 GM/10 ML SYR ONE (11:40)
[2019-03-20] MEDS ORDERED: FENTANYL CITR 100 MCG/2 ML ONE (12:06)
[2019-03-20] MEDS ORDERED: PROPOFOL 200 MG/20 ML VIAL IV ONE (12:06)
[2019-03-20] MEDS ORDERED: ONDANSETRON 4 MG/2 ML VIAL ONE (12:07)
[2019-03-20] MEDS ORDERED: MIDAZOLAM HCL 2 MG/2 ML INJ ONE ×2 (12:07→12:23)
[2019-03-20] MEDS ORDERED: LIDOCAINE 2% MPF 5 ML VIAL ONE (12:07)
[2019-03-20] MEDS ORDERED: GLYCOPYRROLATE 0.2 MG/ML SYR ONE ×2 (12:54→12:56)
[2019-03-20] MEDS ORDERED: KETOROLAC 30 MG/ML INJ ONE (12:59)
--- NOTE | 2019-03-20 13:03 | P.BOP ---
Preoperative diagnosis: perianal pain, BRBPR, prolapsed thrombosed necrotic hemorrhoid Postoperative diagnosis: same Primary procedure: 1. EUs, 2. Anoscopy, 3. Rigid proctoscopy, 4. hemorrhoidectomy two bundles Secondary procedure: Right posterolateral and left posterolateral Estimated blood loss: <10cc Specimen: prolapsed thrombosed necrotic hemorrhoid two bundles Findings: two bundles Anesthesia: General Complications: None Transferred to: Recovery Room Condition: Good
[2019-03-20] MEDS: HYDROMORPHONE HCL 1 MG/ML INJ ONE ×2 (13:29→13:35)
[2019-03-20] MEDS ORDERED: CODEINE 30MG/APAP 300MG TAB ONE (14:04)
[2019-03-20 14:25] VITALS: BP 108/55; TEMP 97.5; O2SAT 100
--- NOTE | 2019-03-21 00:22 | DS ---
Date of Discharge: 03/20/2019 Diagnoses: Perianal pain; prolapsed thrombosed necrotic hemorrhoids, 2 bundles; and bright red blood per rectum. Procedures: Examination under anesthesia; anoscopy; rigid proctoscopy; hemorrhoidectomy, 2 bundles, right posterolateral and left posterolateral. Specimen: Two prolapsed necrotic hemorrhoids. Anesthesia: General plus local. Disposition: Patient will be discharged home. Activity: As tolerated. No heavy lifting. Followup: Follow up in my office in 1 week. Call for appointment [phone]. Discharge Instructions: Keep area dry for 24 hours, then may use sitz baths 3 times a day and after every bowel movement. Medications: Tylenol No. 3 q.4 hours p.r.n. pain, Colace 100 p.o. t.i.d. p.r.n. constipation, and Ci pro 500 p.o. q.12. Patient was advised the importance of losing weight, avoid heavy lifting, and follow up with her radu roenterologist after she follow with me. CIRO Voice ID: [id number] Report ID: [id number]
--- NOTE | 2019-03-21 00:22 | OP ---
Date of Procedure: 03/20/2019 Surgeon: Corky Colon MD Preoperative Diagnoses: Perianal pain, bright red blood per rectum, prolapsed thrombosed necrotic he morrhoids x2. Postoperative Diagnoses: Perianal pain, bright red blood per rectum, prolapsed thrombosed necrotic h emorrhoids x2. Procedures: Examination under anesthesia; anoscopy; rigid proctoscopy; hemorrhoidectomy, 2 bundles, right posterolateral and left posterolateral. Specimen: Prolapsed thrombosed necrotic hemorrhoids. Anesthesia: General plus local. Indications: This is a case of a female who comes to us with bright red blood per rectum several ml rs ago with 2 necrotic hemorrhoids present. She was advised the examination under anesthesia, anosco py, rigid proctoscopy, hemorrhoidectomy x2 with benefits and risks including, but not limited to infe ction, bleeding, damage to adjacent structures as complication, anal stricture, anal incontinence, pe rianal pain, CT, and even . She also understands this may not relieve any symptoms. She might need more than one surgical intervention. She is seen not too long ago. She has a colonoscopy and s he said everything is clear with no evidence of bleeding proximally. I do not have the documentation on that. 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 Description Of Procedure: Patient was brought to the operating room, placed in supine position. Ane sthesia was done without complication. Patient was placed in lithotomy position with proper protecti on. Perianal area was prepped and draped in the usual sterile fashion. Rectal examination was done after the time-out was called. A rigid proctoscopy was placed to about 12 cm, cannot advance anymore due to presence of stools. We noticed internal and external hemorrhoids, but there were 2 external hemorrhoids that were prolapsed, thrombosed, hard. Two of them have necrotic tissue over the skin wi th some bleeding coming through them. There is one posterolateral in the left and another one in the right side, so we proceeded to address those 2 bundles. An anoscope was placed over the area with a window on the side once again to visualize the area and the anal canal. We started with the left po sterolateral area first. A wedge incision was made in the skin. Hemorrhoid was from the p vinh. Sphincter was protected and then the hemorrhoid plexus was transected with the Harmonic Scalp el. 3-0 chromic was used to close the anoderm after making sure there is complete hemostasis. The s phincter was protected at the same time. Then, after that, we went to the right posterolateral area. We made a wedge incision in the anoderm, the hemorrhoidal plexus from the sphincter, prot ected the sphincter, transected the hemorrhoid with a Harmonic scalpel. Anoderm approximated with 3- 0 chromic. Local anesthesia was applied to that area. No bleeding. Sphincter was protected at all times. At that moment, I removed the anoscope after putting Surgicel over the area. No bleeding. P atient tolerated the procedure well. Patient was sent to Recovery in stable condition. EMILIE/RAMAN Voice ID: [id number] Report ID: [id number]
== END 2019-03-20 15:05 | disposition home or self-care (01) ==
LOC: OR 08:24
PROVIDERS: ATTEND Surgery
PROC: 0DJD8ZZ Inspection of Lower Intestinal Tract, Via Natural or Artificial Opening Endoscopic (ICD-10-PCS; 2019-03-20)
PROC: 06BY0ZC Excision of Hemorrhoidal Plexus, Open Approach (ICD-10-PCS; principal; 2019-03-20 11:00)
DX: K64.5 Perianal venous thrombosis (principal); I10 Essential (primary) hypertension; Z90.49 Acquired absence of other specified parts of digestive tract; Z87.891 Personal history of nicotine dependence; Z88.2 Allergy status to sulfonamides; Z83.3 Family history of diabetes mellitus; Z82.49 Family history of ischemic heart disease and other diseases of the circulatory system
CPT/HCPCS: 85025; 80048; 36415; 84703; 88304; 71046; 46320; 45300; J2704; J2250; J3010; J1170; J0690; J2405; 88302

== ENCOUNTER 2020-04-18 20:23 | Emergency (ER) | payer BC ==
--- OUTSIDE RECORDS SUMMARY | 2020-04-18 20:27 | XMS REPORT | Summary of Care ---
:1980 Author Organization [facility] - [facility] Address [address] [place] [address] Care Team Providers Name Role Phone LambertkatarinapranavRaffi Madhavi Primary Care Provider Reason for Referral (Routine) Status Reason Specialty Diagnoses / Referred By Referred To Procedures Contact Contact New Request Obstetrics & Diagnoses Abnormal vaginal bleeding Pelvic pain Nuha Harper, Gynecology Procedures CONSULT/REFERRAL SALVAGE SUPERVISOR PASTING MACHINE OFFBEARER [address] [address] MRI/CAT Scan (CHIDI) Status Reason Specialty Diagnoses / Referred By Referred To Procedures Contact Contact New Request Diagnostic Diagnoses Abdominal pain, unspecified abdominal location Pelvic pain Nuha Harper, Radiology Procedures CT ABDOMEN PELVIS WO CONTRAST PASTING MACHINE OFFBEARER [address] [address] Reason for Visit Reason Comments Back Pain low. intermittent Bleeding/Bruising vaginhal, some clotting Abdominal Pain low abd pain Encounter Details Date Type Department Care Team Description 03/31/2020 Urgent Care [facility] Family Lissette Harper, PASTING MACHINE OFFBEARER [address] [address] Abdominal pain, unspecified abdominal lo cation (Primary Dx); Medicine - [place] Provider, [facility] Acute bilateral low back pain without sc iatica; [address] [place] [address] Abnormal v aginal bleeding; Drive Essential hypertension; [place], [place] Pelvic pain [phone] Allergies Active Allergy Reactions Severity Noted Date Comments Sulfa (Sulfonamide Antibiotics) Hives 0 documented as of this encounter (statuses as of 03/31/2020) Medications Medication Sig Dispensed Refills Start Date End Date Status methylPREDNISolone Take by mouth 0 Active (METHYLPRED DP) 4 mg SEE-INSTRUCTIONS tablets . follow package directions pantoprazole sodium Take 40 mg by 0 Active (PANTOPRAZOLE ORAL) mouth. hydroCHLOROthiazide 25 mg Take 25 mg by 0 Active tablet mouth daily. BUPROPION HCL ORAL Take 150 mg by 0 Active mouth. atenoloL 50 mg tablet Take 50 mg by 0 Active mouth daily. busPIRone 7.5 mg tablet Take 7.5 mg by 0 Active mouth 3 (three) times daily. baclofen 10 mg tablet Take 10 mg by 0 Active mouth 3 (three) times daily. documented as of this encounter (statuses as of 03/31/2020) Active Problems No known active problemsdocumented as of this encounter (statuses as of 03/31/2020) Social History Tobacco Use Types Packs/Day Years Used Date Former Smoker Smokeless Tobacco: Never Used Sex Assigned at Date Recorded Not on file COVID-19 Exposure Response Date Recorded In the last month, have you been in contact with No / Unsure 03/31/2020 1:27 PM CDT someone who was confirmed or suspected to have Coronavirus / COVID-19? documented as of this encounter Last Filed Vital Signs Vital Sign Reading Time Taken Comments Blood Pressure 129/91 03/31/2020 1:34 PM CDT Pulse 91 03/31/2020 1:31 PM CDT Temperature 36.4 C (97.5 F) 03/31/2020 1:31 PM CDT Respiratory Rate 20 03/31/2020 1:31 PM CDT Oxygen Saturation 98% 03/31/2020 1:31 PM CDT Inhaled Oxygen Concentration - - Weight 89.8 kg (198 lb) 03/31/2020 1:31 PM CDT Height 160 cm (5' 3") 03/31/2020 1:31 PM CDT Body Mass Index 35.07 03/31/2020 1:31 PM CDT documented in this encounter Patient Instructions Patient InstructionsNuha Harper FNP - 03/31/2020 1:40 PM CDT Patient Education Abdominal Pain Abdominal pain is pain in the stomach or belly area. Everyone has this pain from time to time. In many cases it goes away on its own. But abdominal pain can sometimes be due to a serious problem, such as appendicitis. So its important to know when to get help. Causes of abdominal pain There are many possible causes of abdominal pain. Common causes in adults include: Constipation, diarrhea, or gas Stomach acid flowing back up into the esophagus (acid reflux or heartburn) Severe acid reflux, called GERD (gastroesophageal reflux disease) A sore in the lining of the stomach or small intestine (peptic ulcer) Inflammation of the gallbladder, liver,or pancreas Gallstones or kidney stones Appendicitis Intestinal blockage An internal organ pushing through a muscle or other tissue (hernia) Urinary tract infections In women, menstrual cramps, fibroids, ovarian cysts, pelvic inflammatory disease, or endometriosis Inflammation or infection of the intestines, including Crohn's disease and ulcerative colitis Irritable bowel syndrome Diagnosing the cause of abdominal pain Your healthcare provider will give you a physical exam help find the cause of your pain. If needed, you will have tests. Belly pain has many possible causes. So it can be hard to find the reason for your pain. Giving details about your pain can help. Tell your provider where and when you feel the pain, and what makes it better or worse. Also let your provider know if you have other symptoms such as: Fever Tiredness Upset stomach (nausea) Vomiting Changes in bathroom habits Blood in the stool or black, tarry stool Weight loss that you can't explain (involuntary weight loss?) Also report any family history of stomach or intestinal problems, or cancers. Tell your provider about all your alcohol use and drug use. Tell your provider about all medicines you use, including herbs, vitamins, and supplements. Treating abdominal pain Some causes of pain need emergency medical treatment right away. These include appendicitis or a bowel blockage. Other problems can be treated with rest, fluids, or medicines. Your healthcare provider can give you specific instructions for treatment or self-care based on what is causing your pain. If you have vomiting or diarrhea,sip water or other clear fluids. When you are ready to eat solid foods again, start with small amounts of tobs-xu-zxbtav, low- fat foods. These include apple sauce, toast, or crackers. When to get medical care Call 911or go to the hospital right away if you: Cant pass stool and are vomiting Are vomiting blood or have bloody diarrhea or black, tarry diarrhea Have chest, neck, or shoulder pain Feel like you might pass out Have pain in your shoulder blades with nausea Have sudden, severe belly pain Have new, severepain unlike any you have felt before Have a belly that is rigid, hard, and hurts to touch Call your healthcare provider if you have: Pain for more jitr6svlh Bloating for more than 2days Diarrhea for more qxem0xunu A fever of 100.4F (38C) or higher, or as directed by your healthcare provider Pain that gets worse Weight loss for no reason Continued lack of appetite Blood in your stool How to prevent abdominal pain Here are some tips to help prevent abdominal pain: Eat smaller amounts of food at each meal. Don't eat greasy, fried, or other high-fat foods. Don't eat foods that give you gas. Exercise regularly. Drink plenty of fluids. To help prevent GERD symptoms: Quit smoking. Reduce alcohol and foods that increase stomach acid. Don't use aspirin or gdhn-duw-dfjnwfg pain and fever medicines, if possible. This includes nonsteroidal anti-inflammatory drugs (NSAIDs). Lose excess weight. Finish eating at least 2 hours before you go to bed or lie down. Raise the head of your bed. [employer] last reviewed this educational content on 11/12/201819995399-3673 [employer]. [address] [place] [address], [place] [address]. All rights reserved. This information is not intended as a substitute for professional medical care. Always follow your healthcare professional's instructions. documented in this encounter Progress Notes Nuha Harper FNP - 03/31/2020 1:40 PM CDT Cc: Chief Complaint Patient presents with Back Pain low. intermittent Bleeding/Bruising vaginhal, some clotting Abdominal Pain low abd pain Amanda Guillaume is a 39 year old female. Patient in the past month was having vaginal bleeding with clots, now in the past few days she having suprapubic pain that wraps around the back- sometimes it feels like the pain is just in the lower back. She has a hx of hypertension with elevated blood pressures this visit while complaint with her treatment plan. Abdominal Pain Pain location: Suprapubic Pain quality: shooting Pain radiates to: Back Pain severity: Moderate Onset quality: Gradual Timing: Constant Progression: Unchanged Chronicity: Recurrent Context: previous surgery Context: not alcohol use, not awakening from sleep, not diet changes, not eating, not laxative use, not recent illness, not recent sexual activity, not recent travel, not retching, not sick contacts, not suspicious food intake and not trauma Relieved by: Nothing Worsened by: Nothing Ineffective treatments: None tried Associated symptoms: nausea and vaginal bleeding Associated symptoms: no chest pain, no cough, no dysuria, no fever and no shortness of breath Associated symptoms comment: Vaginal bleeding Nausea: Severity: Mild Onset quality: Gradual Timing: Intermittent Progression: Unchanged Vaginal bleeding: Quality: Clots Severity: Moderate Onset quality: Gradual Progression: Improving Chronicity: Recurrent Risk factors: multiple surgeries and obesity Allergies Amanda is allergic to sulfa (sulfonamide antibiotics). Medications Outpatient Medications Prior to Visit Medication Sig Dispense Refill atenoloL 50 mg tablet Take 50 mg by mouth daily. baclofen 10 mg tablet Take 10 mg by mouth 3 (three) times daily. BUPROPION HCL ORAL Take 150 mg by mouth. busPIRone 7.5 mg tablet Take 7.5 mg by mouth 3 (three) times daily. hydroCHLOROthiazide 25 mg tablet Take 25 mg by mouth daily. methylPREDNISolone (METHYLPRED DP) 4 mg tablets Take by mouth SEE- INSTRUCTIONS. follow package directions pantoprazole sodium (PANTOPRAZOLE ORAL) Take 40 mg by mouth. No facility-administered medications prior to visit. Histories No past medical history on file. No past surgical history on file. Social History Socioeconomic History Marital status: Spouse name: Not on file Number of children: Not on file Years of education: Not on file Highest education level: Not on file Occupational History Not on file Social Needs Financial resource strain: Not on file Food insecurity Worry: Not on file Inability: Not on file Transportation needs Medical: Not on file Non-medical: Not on file Tobacco Use Smoking status: Former Smoker Smokeless tobacco: Never Used Substance and Sexual Activity Alcohol use: Not on file Drug use: Not on file Sexual activity: Not on file Lifestyle Physical activity Days per week: Not on file Minutes per session: Not on file Stress: Not on file Relationships Social connections Talks on phone: Not on file Gets together: Not on file Attends anabaptist service: Not on file Active member of club or organization: Not on file Attends meetings of clubs or organizations: Not on file Relationship status: Not on file Intimate partner violence Fear of current or ex partner: Not on file Emotionally abused: Not on file Physically abused: Not on file Forced sexual activity: Not on file Other Topics Concern Not on file Social History Narrative Not on file No family history on file. Review of Systems Constitutional: Negative. Negative for fever. Respiratory: Negative. Negative for apnea, cough, choking, chest tightness, shortness of breath andwheezing. Cardiovascular: Negative. Negative for chest pain, palpitations and leg swelling. Gastrointestinal: Positive for abdominal pain and nausea. Genitourinary: Positive for vaginal bleeding. Negative for dysuria. Musculoskeletal: Positive for back pain. Skin: Negative. Neurological: Negative. Endocrine: Endocrine negative Vital Signs BP (!) 129/91 | Pulse 91 | Temp 36.4 C (97.5 F) (Oral) | Resp 20 | Ht 5' 3" (1.6 m) | Wt 198 lb (89.8 kg) | SpO2 98% | BMI 35.07 kg/m Physical Exam Vitals signs and nursing note reviewed. Constitutional: Appearance: She is well-developed. HENT: Head: Normocephalic. Right Ear: External ear normal. Left Ear: External ear normal. Nose: Nose normal. Neck: Musculoskeletal: Normal range of motion and neck supple. Cardiovascular: Rate and Rhythm: Normal rate and regular rhythm. Heart sounds: Normal heart sounds. No murmur. No friction rub. No gallop. Pulmonary: Effort: Pulmonary effort is normal. No respiratory distress. Breath sounds: Normal breath sounds. No wheezing or rales. Chest: Chest wall: No tenderness. Abdominal: General: Bowel sounds are normal. There is no distension. Palpations: Abdomen is soft. Tenderness: There is abdominal tenderness in the suprapubic area. Skin: General: Skin is warm and dry. Capillary Refill: Capillary refill takes less than 2 seconds. Coloration: Skin is not pale. Findings: No erythema or rash. Neurological: Mental Status: She is alert and oriented to person, place, and time. Psychiatric: Mood and Affect: Mood normal. Assessment/Plan 1. Abdominal and pelvic pain: S/p tubal ligation, cholecystectomy. will get UA and culture, CBC, CMP, CT abdomen for further eval 2. Abnormal vaginal bleeding: referral made to RELIEF CHARGE NURSE for further eval and tx. 3. Lower back pain, UA and culture, X-ray back Further interventions to follow depending on study result, if worse , new onset of symptoms go to the ER. Clinical references for home care instructions reviewed and copy given. 4. Hypertension: continue current treatment plan and follow up with PCP if no improvement Watch blood pressure: check at least twice weekly. Low salt Low caffeine diet Low alcohol Avoid tobacco products. Heart Healthy Exercise: total of 150 minutes of cardio: walking,swimming, hiking, biking every week. Heart healthy diet: low fat/carb/sugar diet; increase lean meat-chicken, turkey, fish; increase vegetables/fruits ( still be careful because elevated sugar level) ER--> worsening condition; cp, shortness of breath, dizziness, syncope, palpitations, n/v, diaphoresis. Plan of care, desired health behaviors, goals, and medication discussed with patient. Education resources provided and reviewed with AVS. Patient/guardian/family verbalized understanding & agrees to plan of care. This visit did not involve counseling and coordination that comprised more than 50% of the visit time. If applicable, the [facility] database was accessed to review any controlled substance prescription claims data. The [employer] prescription claims data in [employer] was reviewed to assess patient compliance with the medication treatment plan. Miky Martinez RN - 03/31/2020 1:40 PM CDT Amanda Guillaume is a 39 year old female Chief Complaint Patient presents with Back Pain low. intermittent Bleeding/Bruising vaginhal, some clotting Abdominal Pain low abd pain Vitals: 03/31/20 1331 03/31/20 1334 BP: (!) 134/95 (!) 129/91 Pulse: 91 Resp: 20 Temp: 36.4 C (97.5 F) TempSrc: Oral SpO2: 98% Weight: 198 lb (89.8 kg) Height: 5' 3" (1.6 m) [id number] [place], [place] - [address] [facility] [address] Patient AAOx4 and in no acute distress. All Vitals taken, allergies and all medications reviewed, fall risk assessed. Pain level 6. documented in this encounter Miscellaneous Notes Addendum Note - Miky Becerril RN - 03/31/2020 1:40 PM CDT Addended by: MIKY BECERRIL RN on: 03/31/2020 02:11 PM Modules accepted: Orders documented in this encounter Plan of Treatment Date Type Specialty Care Team Description 04/06/2020 Office Visit Obstetrics & Gynecology Renae Caceres PA-C [address] [place] [phone] Name Type Priority Associated Diagnoses Order S chedule CBC WITH DIFF LAB Routine Abdominal pain, Ordered: unspecified abdominal location Pelvic pain COMP. METABOLIC PANEL LAB Routine Abdominal pain, Ord ered: 03/31/2020 ([id number]) unspecified abdominal location Pelvic pain URINALYSIS LAB Routine Abdominal pain, Ordered: unspecified abdominal location Acute bilateral low back pain without sci atica Pelvic pain URINE CULTURE LAB Routine Abdominal pain, Ordered: unspecified abdominal location Acute bilateral low back pain without sci atica Pelvic pain CT ABDOMEN PELVIS WO IMAGING CHIDI Abdominal pain, Expe cted: 03/31/2020, CONTRAST unspecified abdominal s: 03/31/2021 location Pelvic pain XR LUMBAR SPINE 2 VW IMAGING Routine Acute bilateral low back Expected: 03/31/2020, pain without sciatica s: 03/31/2021 Health Maintenance Due Date Last Done Comments VARICELLA VACCINES (1 of 2 - 1983 2-dose childhood series) Depression Screening 1994 DTaP,Tdap,and Td Vaccines (1 - 2001 Tdap) PAP SMEAR 2003 INFLUENZA VACCINE (#1) 2020 PNEUMOCOCCAL 0-64 YEARS COMBINED Aged Out No longer eligible based on SERIES patient's age to complete this topic documented as of this encounter Procedures Procedure Name Priority Date/Time Associated Diagnosis Comme nts POCT TEST Routine 03/31/2020 2:07 Abdominal pain, R esults for this PM CDT unspecified procedure are i n abdominal locati on the results Abnormal vaginal section. bleeding POCT URINALYSIS STAT 03/31/2020 1:41 Abdominal pain, Resul ts for this PM CDT unspecified procedure are i n abdominal locati on the results Pelvic pain section. documented in this encounter Results POCT TEST (03/31/2020 2:07 PM CDT) Pathologist Sig nature POCT PREG Negative On board controls acceptable Yes with C Line POCT PREG LOT # POCT PREG TEST DATE Specimen Urine - URINE, CLEAN CATCH Narrative Performed At accurate development and interpretation of all interna l controls POCT URINALYSIS W SPECIFIC GRAVITY (03/31/2020 1:41 PM CDT) Pathologist Sig nature POCT U SP GRAV 1.025 1.005 - 1.025 mg/dl POCT PH U 5 5 - 8 mg/dl POCT U LEUK EST neg Negative - Negative POCT U NIT neg Negative - Negative POCT U PROT neg Negative - Negative POCT U GLU neg Negative - Negative POCT U KETONE neg Negative - Negative POCT U UROBILI neg 0.2 - 1 mg/dl POCT U BILI neg Negative - Negative POCT U BLD neg Negative - Negative POCT U COLOR yellow POCT U APPEAR clear Specimen Urine - URINE, CLEAN CATCH Narrative Performed At accurate development and interpretation of all interna l controls documented in this encounter Visit Diagnoses Diagnosis Abdominal pain, unspecified abdominal lo cation - Primary Acute bilateral low back pain without sc iatica Abnormal vaginal bleeding Other specified noninflammatory disorder of vagina Essential hypertension Unspecified essential hypertension Pelvic pain Unspecified symptom associated with fema le genital organs documented in this encounter Insurance Payer Benefit Plan Subscriber ID Effective Dates Phone Address Type / Group BCBS OF [facility] [id number] 2018-Neel [phone] [address] [place] t 7 [id number] [place] [address] documented as of this encounter
--- OUTSIDE RECORDS SUMMARY | 2020-04-18 20:27 | XMS REPORT | Summary of Care ---
:1980 Author Organization [facility] - Health Address [address] [place] [address] Care Team Providers Name Role Phone Raffi Prieto Primary Care Provider Encounter Details Date Type Department Care Team Description 03/31/2020 Orders Only [facility] Doctor Unassigned, No [address] [facility] [place] [address] [address] [place] [address] Allergies Active Allergy Reactions Severity Noted Date [...] of this encounter Last Filed Vital Signs Not on filedocumented in this encounter Plan of Treatment Date Type Specialty Care Team Description 04/03/2020 Appointment Radiology Nuha Harper FNP [address] [facility] [facility] [address] [place], [place] [phone] 04/06/2020 Office Visit Obstetrics & Gynecology Renae Caceres PA-C [address] [facility] [address] [place], [place] [phone] Health Maintenance Due Date Last Done Comments [...] Name Priority Date/Time Associated Diagnosis Comme nts CONSENT/REFUSAL FOR Routine 03/31/2020 3:44 PM CDT DIAGNOSIS AND TREATMENT documented in this encounter Results Not on filedocumented in this encounter Insurance Payer Benefit Plan Subscriber ID Effective Dates Phone Address Type / Group [facility] OF [facility] [id number] 2018-Neel [phone] [address] P[place] t [id number] [place] [address] documented as of this encounter
--- OUTSIDE RECORDS SUMMARY | 2020-04-18 20:27 | XMS REPORT | Summary of Care ---
:1980 Author Organization [facility] - [facility] Address [address] [place] [address] Care Team Providers Name Role Phone LambertkatarinapranavRaffi Madhavi Primary Care Provider Reason for Referral (Routine) Status Reason Specialty Diagnoses / Referred By Referred To Procedures Contact Contact New Request Obstetrics & Diagnoses Abnormal vaginal bleeding Pelvic pain Nuha Harper, Gynecology Procedures CONSULT/REFERRAL ENGINEERING TECHNOLOGY INSTRUCTOR HYPO DIPPER [address] [address] MRI/CAT Scan (CHIDI) Status Reason Specialty Diagnoses / Referred By Referred To Procedures Contact Contact New Request Diagnostic Diagnoses Abdominal pain, unspecified abdominal location Pelvic pain Nuha Harper, Radiology Procedures CT ABDOMEN PELVIS WO CONTRAST HYPO DIPPER [address] [address] Reason for Visit Reason Comments Back Pain low. intermittent Bleeding/Bruising vaginhal, some clotting Abdominal Pain low abd pain Encounter Details Date Type Department Care Team Description 03/31/2020 Urgent Care [facility] Family Lissette Harper, HYPO DIPPER [address] [address] Abdominal pain, unspecified abdominal lo cation (Primary Dx); Medicine - [place] Provider, [facility] Acute bilateral low back pain without sc iatica; [address] [place] [address] Abnormal v aginal bleeding; Drive Essential hypertension; [place], [place] Pelvic pain [phone] Allergies Active Allergy Reactions Severity Noted Date [...] foods again, start with small amounts of jdiy-bo-ckwhql, low- fat foods. These include apple sauce, [...] provider if you have: Pain for more vrtz4qvns Bloating for more than 2days Diarrhea for more ospw0ynpi A fever of 100.4F (38C) or higher, [...] increase stomach acid. Don't use aspirin or kihd-scw-xakczai pain and fever medicines, if possible. This includes nonsteroidal anti-inflammatory drugs (NSAIDs). Lose excess weight. Finish eating at least 2 hours before you go to bed or lie down. Raise the head of your bed. [employer] last reviewed this educational content on 11/12/201819994838-9839 The [employer]. [address] [place] [address], [place] [address]. All rights reserved. This information is not [...] file Gets together: Not on file Attends judaism service: Not on file Active member of [...] 2. Abnormal vaginal bleeding: referral made to BUFFER INFLATED PAD for further eval and tx. 3. Lower [...] of the visit time. If applicable, the [facility] database was accessed to review any controlled substance prescription claims data. The [employer] Scripts prescription claims data in Park [employer] was reviewed to assess patient compliance with the medication treatment plan. Laury Martinez RN - 03/31/2020 1:40 PM CDT [...] 5' 3" (1.6 m) [id number] [place], [place] - [address] AT [facility] [address] Patient AAOx4 and in no acute distress. All Vitals taken, allergies and all medications reviewed, fall risk assessed. Pain level 6. documented in this encounter Plan of Treatment Name Type Priority Associated Diagnoses Order S chedule CBC WITH DIFF LAB Routine Abdominal pain, Ordered: unspecified abdominal location Pelvic pain COMP. METABOLIC PANEL LAB Routine Abdominal pain, Ord ered: 03/31/2020 (42719) unspecified abdominal location Pelvic pain URINALYSIS LAB [...] Priority Date/Time Associated Diagnosis Comme nts POCT URINALYSIS STAT 03/31/2020 1:41 PM Abdominal pain, Re sults for this CDT unspecified abdominal proced ure are in location the results Pelvic pain section. documented in this encounter Results POCT URINALYSIS W SPECIFIC GRAVITY (03/31/2020 1:41 [...] Phone Address Type / Group BCBS OF [facility] [id number] 2018-Neel [phone] [address] PPO/POS [place] [id number] [place] [address] documented as of this encounter
--- OUTSIDE RECORDS SUMMARY | 2020-04-18 20:27 | XMS REPORT | Summary of Care ---
:1980 Author Organization [facility] - [facility] Address [address] [place] [address] Care Team Providers Name Role Phone LambertkatarinapranavRaffi Madhavi Primary Care Provider Reason for Referral (Routine) Status Reason Specialty Diagnoses / Referred By Referred To Procedures Contact Contact New Request Obstetrics & Diagnoses Abnormal vaginal bleeding Pelvic pain Nuha Harper, Gynecology Procedures CONSULT/REFERRAL PLASTIC DESIGN APPLIER CONTRACTS ATTORNEY [address] [address] MRI/CAT Scan (CHIDI) Status Reason Specialty Diagnoses / Referred By Referred To Procedures Contact Contact New Request Diagnostic Diagnoses Abdominal pain, unspecified abdominal location Pelvic pain Nuha Harper, Radiology Procedures CT ABDOMEN PELVIS WO CONTRAST CONTRACTS ATTORNEY [address] [address] Reason for Visit Reason Comments Back Pain low. intermittent Bleeding/Bruising vaginhal, some clotting Abdominal Pain low abd pain Encounter Details Date Type Department Care Team Description 03/31/2020 Urgent Care [facility] Family Lissette Harper, CONTRACTS ATTORNEY [address] [address] Abdominal pain, unspecified abdominal lo cation (Primary Dx); Medicine - [place] Provider, [facility] Ur[facility] Care Acute bilateral low back pain without sc iatica; [address] [place] [address] Abnormal v aginal bleeding; Drive Essential hypertension; [place], [place] Pelvic pain [phone] Allergies Active Allergy Reactions Severity Noted Date [...] foods again, start with small amounts of fqgg-tg-vhsgox, low- fat foods. These include apple sauce, [...] provider if you have: Pain for more hpzb7cnej Bloating for more than 2days Diarrhea for more msgx8rbnv A fever of 100.4F (38C) or higher, [...] increase stomach acid. Don't use aspirin or hjxo-xkr-iyrmqzr pain and fever medicines, if possible. This includes nonsteroidal anti-inflammatory drugs (NSAIDs). Lose excess weight. Finish eating at least 2 hours before you go to bed or lie down. Raise the head of your bed. M-KOPA last reviewed this educational content on 11/12/201819994228-0612 The [employer]. [address] [place] [address], [place] [address]. All rights reserved. This information is not [...] file Gets together: Not on file Attends mormon service: Not on file Active member of [...] 2. Abnormal vaginal bleeding: referral made to DISTRICT AGENT for further eval and tx. 3. Lower [...] of the visit time. If applicable, the [facility] database was accessed to review any controlled substance prescription claims data. The [employer] Scripts prescription claims data in C[employer] was reviewed to assess patient compliance with [...] 5' 3" (1.6 m) [id number] [place], [place] - [address] [facility] [address] Patient AAOx4 and in no [...] Visit Obstetrics & Gynecology Renae Caceres PA-C [address] [place] [phone] Name Type Priority Associated Diagnoses Order S chedule CBC WITH DIFF LAB Routine Abdominal pain, Ordered: unspecified abdominal location Pelvic pain COMP. METABOLIC PANEL LAB Routine Abdominal pain, Ord ered: 03/31/2020 (29960) unspecified abdominal location Pelvic pain URINALYSIS LAB [...] Phone Address Type / Group BCBS OF [facility] [id number] 2018-Neel [phone] [address] PPO/POS [place] t 7 [id number] [place] [address] documented as of this encounter
--- OUTSIDE RECORDS SUMMARY | 2020-04-18 20:27 | XMS REPORT | Summary of Care ---
:1980 Author Organization [facility] Address [address] [place] [address] Care Team Providers Name Role Phone Raffi Prieto E Primary Care Provider Reason for Referral MRI/CAT Scan (STAT) Status Reason Specialty Diagnoses / Referred By Referred To Procedures Contact Contact New Request Diagnostic Diagnoses Abdominal pain, unspecified abdominal location Pelvic pain Abdominal pain, unspecified abdominal location Pelvic pain Juana Burnette, Radiology Procedures CT ABDOMEN PELVIS WO CONTRAST CT ABDOMEN PELVIS WO CONTRAST CHG CT SCAN,ABDOMENT AND PELVIS,W/O CONTRAST CT ABDOMEN PELVIS WO CONTRAST COMMERCIAL PEST CONTROL TECHNICIAN [address] [address] (Routine) Status Reason Specialty Diagnoses / Referred By Referred To Procedures Contact Contact New Request Obstetrics & Diagnoses Abnormal vaginal bleeding Pelvic pain Juana Burnette, Gynecology Procedures CONSULT/REFERRAL FIRE AND EXPLOSION INVESTIGATOR COMMERCIAL PEST CONTROL TECHNICIAN [address] [address] Reason for Visit Reason Comments Back Pain low. intermittent Bleeding/Bruising vaginhal, some clotting Abdominal Pain low abd pain Encounter Details Date Type Department Care Team Description 03/31/2020 Urgent Care [facility] Family Lissette Burnette, COMMERCIAL PEST CONTROL TECHNICIAN [address] [address] Abdominal pain, unspecified abdominal lo cation (Primary Dx); [facility] Provider, [facility] Ur[facility] Care Acute bilateral low back pain without sc iatica; [address] [place] [address] Abnormal v aginal bleeding; Drive Essential hypertension; [place], [place] Pelvic pain [phone] Allergies Active Allergy Reactions Severity Noted Date [...] documented in this encounter Patient Instructions Patient InstructionsJuana Burnette FNP - 03/31/2020 1:40 PM CDT Patient [...] foods again, start with small amounts of zydn-jv-hbtuzp, low- fat foods. These include apple sauce, [...] provider if you have: Pain for more mcar0unob Bloating for more than 2days Diarrhea for more tong3iarg A fever of 100.4F (38C) or higher, [...] increase stomach acid. Don't use aspirin or rfkr-uql-qfguymd pain and fever medicines, if possible. This includes nonsteroidal anti-inflammatory drugs (NSAIDs). Lose excess weight. Finish eating at least 2 hours before you go to bed or lie down. Raise the head of your bed. Eyefreight last reviewed this educational content on 11/12/201819999341-0731 The Tri[employer]. [address] [place] [address]. All rights reserved. This information is not intended as a substitute for professional medical care. Always follow your healthcare professional's instructions. documented in this encounter Progress Notes Juana Burnette FNP - 03/31/2020 1:40 PM CDT Cc: [...] file Gets together: Not on file Attends sikh service: Not on file Active member of [...] 2. Abnormal vaginal bleeding: referral made to IRONWORKER APPRENTICE for further eval and tx. 3. Lower [...] of the visit time. If applicable, the [place] FLOW MANAGER database was accessed to review any controlled substance prescription claims data. The [employer] Scripts prescription claims data in [employer] was reviewed to assess patient compliance with [...] (89.8 kg) Height: 5' 3" (1.6 m) [id number] - [place], [place] - [address] AT [facility] Patient AAOx4 and in no acute distress. All Vitals taken, allergies and all medications reviewed, fall risk assessed. Pain level 6. documented in this encounter Miscellaneous Notes Addendum Note - Juana Burnette FNP - 03/31/2020 1:40 PM CDT Addended by: DEBBIE BURNETTE DNP-JUAAN GRANT on: 03/31/2020 03:00 PM Modules accepted: Orders ddendum Note - Miky Becerril RN - 03/31/2020 1:40 PM CDT Addended by: MIKY BECERRIL RN on: 03/31/2020 02:11 PM Modules accepted: Orders documented in this encounter Plan of Treatment Date Type Specialty Care Team Description 03/31/2020 Appointment Radiology Juana Burnette FNP [address] [address] 04/03/2020 Appointment Radiology Juana Burnette FNP [address] [address] 04/06/2020 Office Visit Obstetrics & Gynecology Renae Caceres PA-C [address] [phone] Name Type Priority Associated Diagnoses Order S chedule CBC WITH DIFF LAB Routine Abdominal pain, Ordered: unspecified abdominal location Pelvic pain COMP. METABOLIC PANEL LAB Routine Abdominal pain, Ord ered: 03/31/2020 (26758) unspecified abdominal location Pelvic pain URINALYSIS LAB Routine Abdominal pain, Ordered: unspecified abdominal location Acute bilateral low back pain without sci atica Pelvic pain URINE CULTURE LAB Routine Abdominal pain, Ordered: unspecified abdominal location Acute bilateral low back pain without sci atica Pelvic pain XR LUMBAR SPINE 2 VW IMAGING Routine Acute bilateral low back Expected: 03/31/2020, pain without sciatica s: 03/31/2021 CT ABDOMEN PELVIS WO IMAGING STAT Abdominal pain, Expe cted: 03/31/2020, CONTRAST unspecified abdominal s: 03/31/2021 location Pelvic pain Health Maintenance Due Date Last Done Comments [...] Phone Address Type / Group BCBS OF [facility] [id number] 2018-Neel [phone] [address] PPO/POS [place] t 7 [id number] [place] [address] documented as of this encounter
--- OUTSIDE RECORDS SUMMARY | 2020-04-18 20:27 | XMS REPORT | Summary of Care ---
:1980 Author Organization [facility] Address [address] [place] [address] Care Team Providers Name Role Phone Raffi Prieto E Primary Care Provider Reason for Referral MRI/CAT Scan (STAT) Status Reason Specialty Diagnoses / Referred By Referred To Procedures Contact Contact New Request Diagnostic Diagnoses Abdominal pain, unspecified abdominal location Pelvic pain Abdominal pain, unspecified abdominal location Pelvic pain Juana Burentte, Radiology Procedures CT ABDOMEN PELVIS WO CONTRAST CT ABDOMEN PELVIS WO CONTRAST CHG CT SCAN,ABDOMENT AND PELVIS,W/O CONTRAST CT ABDOMEN PELVIS WO CONTRAST MOBILITY DEVELOPER [address] [address] (Routine) Status Reason Specialty Diagnoses / Referred By Referred To Procedures Contact Contact New Request Obstetrics & Diagnoses Abnormal vaginal bleeding Pelvic pain Juana Burnette, Gynecology Procedures CONSULT/REFERRAL COMPUTER SYSTEMS MANAGER MOBILITY DEVELOPER [address] [address] Reason for Visit Reason Comments Back Pain low. intermittent Bleeding/Bruising vaginhal, some clotting Abdominal Pain low abd pain Encounter Details Date Type Department Care Team Description 03/31/2020 Urgent Care [facility] Family Lissette Burnette, MOBILITY DEVELOPER [address] [address] Abdominal pain, unspecified abdominal lo cation (Primary Dx); [facility] Provider, [facility] Ur[facility] Care Acute bilateral low back pain without sc iatica; [address] [place] [address] Abnormal v aginal bleeding; Drive Essential hypertension; [place], [place] Pelvic pain [phone] Allergies Active Allergy Reactions Severity Noted Date [...] foods again, start with small amounts of uqfq-xy-oqzyaq, low- fat foods. These include apple sauce, [...] provider if you have: Pain for more pood1aqwp Bloating for more than 2days Diarrhea for more azgj4vtmv A fever of 100.4F (38C) or higher, [...] increase stomach acid. Don't use aspirin or hypk-cpw-mkdrdoy pain and fever medicines, if possible. This includes nonsteroidal anti-inflammatory drugs (NSAIDs). Lose excess weight. Finish eating at least 2 hours before you go to bed or lie down. Raise the head of your bed. WallCompass last reviewed this educational content on 11/12/201819992507-4183 The [employer]. [address] [place] [address]. All rights reserved. This information is not [...] file Gets together: Not on file Attends tenriism service: Not on file Active member of [...] 2. Abnormal vaginal bleeding: referral made to PATIENT CLERICAL ASSISTANT for further eval and tx. 3. Lower [...] of the visit time. If applicable, the [place] DIRECTOR DANCE database was accessed to review any controlled substance prescription claims data. The [employer] Script[employer] prescription claims data in iCAD was reviewed to assess patient compliance with [...] (89.8 kg) Height: 5' 3" (1.6 m) [id number] - [place], [place] - [address] AT [facility] Patient AAOx4 and in no acute distress. All Vitals taken, allergies and all medications reviewed, fall risk assessed. Pain level 6. documented in this encounter Miscellaneous Notes Addendum Note - Juana Burnette FNP - 03/31/2020 1:40 PM CDT Addended by: DEBBIE BURNETTE DNP-JUANA GRANT on: 03/31/2020 03:00 PM Modules accepted: Orders ddendum Note - Miky Becerril RN - 03/31/2020 1:40 PM CDT Addended by: MIKY BECERRIL RN on: 03/31/2020 02:11 PM Modules accepted: Orders documented in this encounter Plan of Treatment Date Type Specialty Care Team Description 04/03/2020 Appointment Radiology Juana Burnette FNP [address] [address] 04/03/2020 Appointment Radiology Juana Burnette FNP [address] [address] 04/06/2020 Office Visit Obstetrics & Gynecology Renae Caceres PA-C [address] [address] Name Type Priority Associated Diagnoses Order S chedule CBC WITH DIFF LAB Routine Abdominal pain, Ordered: unspecified abdominal location Pelvic pain COMP. METABOLIC PANEL LAB Routine Abdominal pain, Ord ered: 03/31/2020 (53137) unspecified abdominal location Pelvic pain URINALYSIS LAB [...] Phone Address Type / Group BCBS OF [facility] [id number] 2018-Neel [phone] [address] PPO/POS [place] t 7 [id number] [place] [address] documented as of this encounter
--- OUTSIDE RECORDS SUMMARY | 2020-04-18 20:27 | XMS REPORT | Continuity of Care Document ---
:1980 Author Organization [facility] t Address [address] [place] [address] [address] [place] [address] Care Team Providers Name Role Phone Gaurav TSAI Attending Clinician Unavailable Kallie Saini DO Attending Clinician Morris MARTINEZ Attending Clinician Problems This patient has no known problems. Allergies, Adverse Reactions, Alerts This patient has no known allergies or adverse reactions. Medications This patient has no known medications. Procedures This patient has no known procedures. Encounters Start End Encounter Admission Attending Care Care Encounter Source Date/Time Date/Time Type Type Clinicians Facility Department ID 2020-04-17 2020-04-17 Telephone LUIS Nolasco [id number] 00:00:00 00:00:00 Kwaku LOTT [id number] [facility] [id number] 2020-04-16 2020-04-16 Emergency BOUCHRA Saini [id number] 08:38:00 09:34:00 Ayala Ramos [id number] [facility] [id number] [place] [id number] 2020-04-06 2020-04-06 Office BOUCHRA Caceres [id number] 15:11:54 16:41:11 Visit Renae Ramos [id number] [facility] [id number] [facility] [phone] [facility] [address] Building Results This patient has no known results.
--- OUTSIDE RECORDS SUMMARY | 2020-04-18 20:27 | XMS REPORT | Summary of Care ---
:1980 Author Organization [facility] - [facility] Address [address] [place] [address] Care Team Providers Name Role Phone LambertRaffi amin Madhavi Primary Care Provider Encounter Details Date Type Department Care Team Description 03/31/2020 Letter (Out) [facility] Pulmatrix Message s Doctor Unassigned, No [address] [facility] [place] [address] [facility] [phone] [place] [address] Allergies Not on Filedocumented as of this encounter (statuses as of 03/31/2020) Medications Not on filedocumented as of this encounter (statuses as of 03/31/2020) Active Problems Not on filedocumented as of this encounter (statuses as of 03/31/2020) Social History Tobacco Use Types Packs/Day Years Used Date Never Assessed Sex Assigned at Date Recorded Not on file documented as of this encounter Last Filed Vital Signs Not on filedocumented in this encounter Plan of Treatment Date Type Specialty Care Team Description 03/31/2020 Urgent Care Family Medicine Nuha Harper FNP [address] [address] Arrived Provider, [facility] Health Maintenance Due Date Last Done Comments VARICELLA VACCINES (1 of 2 - 1983 2-dose childhood series) Depression Screening 1994 DTaP,Tdap,and Td Vaccines (1 - 2001 Tdap) PAP SMEAR 2003 INFLUENZA VACCINE (#1) 2020 PNEUMOCOCCAL 0-64 YEARS COMBINED Aged Out No longer eligible based on SERIES patient's age to complete this topic documented as of this encounter Results Not on filedocumented in this encounter Insurance Payer Benefit Plan Subscriber ID Effective Dates Phone Address Type / Group BCBS OF [employer] OF [place] [id number] 2018-Neel [phone] [address] PPO/POS [place] t 7 [id number] [place] [address] documented as of this encounter
--- OUTSIDE RECORDS SUMMARY | 2020-04-18 20:28 | XMS REPORT | Summary of Care ---
:1980 Author Organization [facility] Address [address] [place] [address] Care Team Providers Name Role Phone Raffi Prieto Primary Care Provider Reason for Referral (Routine) Status Reason Specialty Diagnoses / Referred By Referred To Procedures Contact Contact New Request OB-GYNECOLOGY Diagnoses Generalized abdominal pain Ayala Saini Procedures Discharge Follow-Up: Specialty Service OB-GYNECOLOGY; 1 Week J, DO [address] [phone] MRI/CAT Scan (STAT) Status Reason Specialty Diagnoses / Referred By Referred To Procedures Contact Contact New Request Diagnostic Diagnoses Generalized abdominal pain Ayala Saini Radiology Procedures CT ABDOMEN PELVIS W CONTRAST J, DO [address] [place] [address] Reason for Visit Auth/Cert Status Reason Specialty Diagnoses / Referred By Referred To Procedures Contact Contact Emergency Medicine Diagnoses NAUSEA;ABD PAIN;BACK PAIN [facility] [address] [phone] Fax: Encounter Details Date Type Department Care Team Description 03/31/2020 Emergency ADC-Emergency Ayala Saini General ized abdominal Department DO pain (Primary Dx) [address] [place] [address] [phone] Allergies Active Allergy Reactions Severity Noted Date [...] 0 Active mouth 3 (three) times daily. cefpodoxime 100 mg Take 1 tablet by 14 tablet 0 03/31/2020 Active tabletIndications: mouth 2 (two) 0 Generalized abdominal times daily for pain 7 days. ondansetron (ZOFRAN ODT) Take 1 tablet by 14 tablet 0 03/31/20 20 Active 4 mg disintegrating mouth every 8 tabletIndications: (eight) hours as Generalized abdominal needed for pain Nausea and Vomiting (N/V). acetaminophen-codeine Take 1 tablet by 30 tablet 0 03/31/2020 Active (TYLENOL-CODEINE #3) mouth every 4 300-30 mg (four) hours as tabletIndications: acute needed for Pain pain (scale 1-3). Indications: acute pain documented as of this encounter (statuses as [...] in contact with No / Unsure 03/31/2020 3:53 PM CDT someone who was confirmed or suspected to have Coronavirus / COVID-19? documented as of this encounter Last Filed Vital Signs Vital Sign Reading Time Taken Comments Blood Pressure 118/89 03/31/2020 7:00 PM CDT Pulse 61 03/31/2020 7:00 PM CDT Temperature 37.1 C (98.7 F) 03/31/2020 3:51 PM CDT Respiratory Rate 20 03/31/2020 6:00 PM CDT Oxygen Saturation 97% 03/31/2020 7:00 PM CDT Inhaled Oxygen Concentration - - Weight 89.8 kg (198 lb) 03/31/2020 3:51 PM CDT Height 160 cm (5' 3") 03/31/2020 3:51 PM CDT Body Mass Index 35.07 03/31/2020 3:51 PM CDT documented in this encounter Discharge Instructions Ayala Calixto DO - 03/31/2020DIAGNOSIS 1. Ovarian cyst 2. Nausea 3. UTI NO LIFE-THREATENING FINDINGS ON TODAY'S EXAM. PROCEDURES IN THE ER TODAY: Blood work Urine test CT abdomen/pelvis MEDICATIONS ADMINISTERED IN THE ER TODAY: Morphine Zofran IV fluids Rocephin YOUR PRESCRIPTIONS AND [id number] MEDICATION RECOMMENDATIONS: Vantin by mouth twice a day. Please complete your entire course of antibiotics. Zofran by mouth every 8 hours as needed for nausea. SPECIAL CARE INSTRUCTIONS: None FOLLOW-UP RECOMMENDATIONS: RECOMMEND FOLLOW-UP WITH A PRIMARY CARE PROVIDER OR SPECIALIST IN 2-5 DAYS, ESPECIALLY IF NO IMPROVEMENT IN SYMPTOMS. TO FOLLOW-UP WITHIN THE [facility], TRY THESE OPTIONS (CLINIC APPOINTMENTS AVAILABLE ON [id number] BASIS): 1. SCHEDULE AN APPOINTMENT ONLINE AT WWW.[facility] 2. OR CALL THE [facility] ACCESS CENTER AT OR 3. OR CALL YOUR [facility] PHYSICIAN'S OFFICE DIRECTLY IF YOU ARE ALREADY AN ESTABLISHED [facility] PATIENT. OR, YOU MAY FOLLOW-UP WITH A PROVIDER OF YOUR CHOICE, SUCH : 1. A PHYSICIAN OF YOUR CHOICE 2. [facility], . LOCATIONS IN [facility] 3. [facility], [address] [place] [address]; [phone] RETURN TO ER FOR WORSENING OF SYMPTOMS. AttachmentsThe following attachments cannot be sent through Care Everywhere. Abdominal Pain, Adult (Algerian)Bladder Infection, Female (Adult) (Algerian) documented in this encounter ED Notes Jovana Greer RN - 03/31/2020 3:53 PM CDTCC: Pt arrived to ER from home. Presents with abdominal pain x 4 days started Monday and got worse. Pt states she has been bleeding on and off for a month. PMHx: essential tremors, HTN, Anxiety, Depression, GERD, Chronic back pain. PSH: Cholie, x 2, tubal, tummy tuck, breast reduction. MEDS: See Hx LMP: 02/20 Tetanus: Not UTD Awake, alert, oriented, resp reg unlabored, skin warm, color appropriate for race, moves all ext without difficulty, amb without assit Appears in no distress Ayala Saini DO - 03/31/2020 3:44 PM CDT [facility] Emergency Department Note Patient Name: Amanda Guillaume Date of : 1980 39 year old female Treatment Room: MO1/MO1 Primary Care Physician: Raffi Prieto Jr Patient Escorted by: Self [9] Mode of Arrival: Personal means [1] EMS Treatment Prior to ED Arrival: Travel and Exposure Screening: Symptoms Does patient have any of these symptoms?: (not recorded) Exposure Screening Has patient had contact with someone with a communicable disease in the last month?: (not recorded) Diseases exposed to:: (not recorded) Is Patient ?: (not recorded) Exposure Date: (not recorded) Chief Complaint: No chief complaint on file. History of Present Illness: Patient presents for eval for abdominal pain to lower quadrants since Monday - today is Monday. Nausea but no vomiting. Did not eat today due to nausea. No dysuria. Had her menses for the past month and has just stopped bleeding. Tried Motrin and Tylenol for pain and not really helping. Has h/o GB removal as well as and tummy tuck. Went to urgent care and had UA that was clean and UPT that was negative and sent for eval. Past Medical History/Immunizations: History reviewed. No pertinent past medical history. Allergies: Allergies Allergen Reactions Sulfa (Sulfonamide Antibiotics) Hives Past Social History: Tobacco Use Former Smoker. Smokeless Tobacco: Never used smokeless tobacco. Past Surgical History: History reviewed. No pertinent surgical history. Review of Systems: Review of Systems Constitutional: Negative for chills and fever. Respiratory: Negative for choking and shortness of breath. Cardiovascular: Negative for chest pain. Gastrointestinal: Positive for abdominal pain and nausea. Negative for vomiting. Genitourinary: Negative for dysuria. Musculoskeletal: Negative for arthralgias, neck pain and neck stiffness. Skin: Negative for wound. Neurological: Negative for dizziness. Psychiatric/Behavioral: Negative for agitation. Endocrine: Negative for goiter. Physical Exam: ED Triage Vitals [03/31/20 1551] Weight 89.8 kg (198 lb) Actual or estimated Estimated by patient/family report Height 1.6 m (5' 3") BP (!) 141/96 Pulse 72 Resp 20 Temp 37.1 C (98.7 F) Temp source Oral SpO2 99 % Measured on Room air Physical Exam Vitals signs and nursing note reviewed. Constitutional: Appearance: Normal appearance. HENT: Head: Normocephalic and atraumatic. Cardiovascular: Rate and Rhythm: Normal rate. Pulmonary: Effort: Pulmonary effort is normal. No respiratory distress. Abdominal: General: Abdomen is flat. Palpations: Abdomen is soft. Tenderness: There is abdominal tenderness. There is no guarding or rebound. Comments: Tenderness to lower abdomen, no rebound or guarding Musculoskeletal: Normal range of motion. Skin: General: Skin is warm. Neurological: General: No focal deficit present. Mental Status: She is alert. Psychiatric: Mood and Affect: Mood normal. Radiology: Hospital Encounter on 03/31/20 CT ABDOMEN PELVIS W CONTRAST Narrative EXAM: CT ABDOMEN AND PELVIS WITH CONTRAST HISTORY: abdominal pain to lower quadrants since Monday - today is Monday. ?Nausea but no vomiting. COMPARISON: None. TECHNIQUE AND FINDINGS: Contiguous axial imaging from the level of the lung bases through the proximal thighs was performed after the administration of intravenous Omnipaque contrast. Coronal and sagittal reconstructions were obtained. Auto mA and/or iterative reconstruction were used to reduce radiation dose. FINDINGS: LOWER THORAX: The lungs bases are clear. LIVER: A 2.3 cm hyperattenuating focus is seen in hepatic segment III (2:28) Normal contour. GALLBLADDER AND BILIARY TREE: Cholecystectomy clips are noted. No biliary ductal dilation. SPLEEN: No splenomegaly. PANCREAS: No ductal dilation or masses. ADRENAL GLANDS: No adrenal nodules. KIDNEYS: No hydronephrosis, stones, or masses. PERITONEUM AND RETROPERITONEUM: No free air or fluid. LYMPH NODES: No lymphadenopathy. GI TRACT: No dilation or wall thickening. The appendix is normal (2:82). PELVIS/BLADDER: Unremarkable. A 1.7 cm right ovarian cyst with intermediate fluid density, may represent hemorrhagic or corpus luteal cyst. VESSELS: Unremarkable. BONES AND SOFT TISSUES: No suspicious lytic or sclerotic bony lesions. Impression No acute abdominopelvic process is identified. A 2.3 cm hyperattenuating hepatic segment III lesion. Further evaluation with multiphasic hepatic mass protocol CT/MR is recommended. Cholecystectomy. 1.7 cm right ovarian hemorrhagic/corpus luteal cyst. Preliminary Report Dictated by Resident: Glenda Preciado Lab Results (24h): Recent Results (from the past 24 hour(s)) POCT URINALYSIS W SPECIFIC GRAVITY Collection Time: 03/31/20 1:41 PM Result Value Ref Range POCT U SP GRAV 1.025 1.005 - [...] U COLOR yellow POCT U APPEAR clear POCT TEST Collection Time: 03/31/20 2:07 PM Result Value Ref Range POCT PREG Negative On board controls acceptable with C Line Yes POCT PREG LOT # POCT PREG TEST DATE Urinalysis Collection Time: 03/31/20 4:33 PM Result Value Ref Range APPEARANCE Hazy (A) Clear COLOR Yellow Yellow PH 6.0 4.8 - 8.0 SP GRAVITY 1.023 1.003 - 1.030 GLU U QUAL Normal Normal BLOOD Negative Negative KETONES Negative Negative PROTEIN 30 mg/dL (A) Negative UROBILIN Normal Normal BILIRUBIN Negative Negative NITRITE Negative Negative LEUK JOY 75/uL (A) Negative RBC/HPF 1 0 - 3 HPF WBC/HPF 1 0 - 5 HPF BACTERIA Few (A) Negative MUCOUS Slight (A) Negative LPF SQ EPITH 9 HPF HYAL CAST 1 <=2 LPF CBC with Differential Collection Time: 03/31/20 4:33 PM Result Value Ref Range WBC 10.81 4.30 - 11.10 10*3/L RBC 4.95 3.93 - 5.25 10*6/L HGB 15.3 (H) 11.6 - 15.0 g/dL HCT 44.2 35.7 - 45.2 % MCV 89.3 80.6 - 95.5 fL MCH 30.9 25.9 - 32.8 pg MCHC 34.6 31.6 - 35.1 g/dL RDW-SD 42.3 39.0 - 49.9 fL RDW-CV 13.2 12.0 - 15.5 % PLT 328 166 - 358 10*3/L MPV 9.9 9.5 - 12.9 fL NRBC/100 WBC 0.0 0.0 - 10.0 /100 WBCs NRBC x10^3 <0.01 10*3/L GRAN MAT (NEUT) % 79.9 % IMM GRAN % 0.50 % LYMPH % 14.7 % MONO % 3.6 % EOS % 0.7 % BASO % 0.6 % GRAN MAT x10^3(ANC) 8.63 (H) 1.88 - 7.09 10*3/uL IMM GRAN x10^3 0.05 0.00 - 0.06 10*3/uL LYMPH x10^3 1.59 1.32 - 3.29 10*3/uL MONO x10^3 0.39 0.33 - 0.92 10*3/uL EOS x10^3 0.08 0.03 - 0.39 10*3/uL BASO x10^3 0.07 0.01 - 0.07 10*3/uL Basic Metabolic Panel (NA, K, CL, CO2, GLUCOSE, BUN, CREATININE, CA) Collection Time: 03/31/20 4:33 PM Result Value Ref Range NA 138 135 - 145 mmol/L K 4.6 3.5 - 5.0 mmol/L CL 106 98 - 108 mmol/L CO2 TOTAL 21 (L) 23 - 31 mmol/L AGAP 11 2 - 16 BUN 18 7 - 23 mg/dL GLUCOSE 111 (H) 70 - 110 mg/dL CREATININE 1.01 0.50 - 1.04 mg/dL CALCIUM 9.7 8.6 - 10.6 mg/dL eGFR Calculation (Non-) 61.7 mL/min/1.73m2 eGFR Calculation () 74.8 mL/min/1.73m2 Hepatic Function Panel (ALB, T.PRO, BILI T, BU/BC, ALT, AST, ALK PHOS) Collection Time: 03/31/20 4:33 PM Result Value Ref Range TOTAL BILI 0.7 0.1 - 1.1 mg/dL BILI UNCON 0.6 0.1 - 1.1 mg/dL BILI CONJ 0.0 0.0 - 0.3 mg/dL T PROTEIN 8.8 (H) 6.3 - 8.2 g/dL ALBUMIN 4.8 3.5 - 5.0 g/dL ALK PHOS 77 34 - 122 U/L ALTv 38 (H) 5 - 35 U/L AST(SGOT) 57 (H) 13 - 40 U/L Lipase Serum Collection Time: 03/31/20 4:33 PM Result Value Ref Range LIPASE 147 0 - 220 U/L Orders and Treatments: Orders Placed This Encounter Procedures Urinalysis CBC with Differential Basic Metabolic Panel (NA, K, CL, CO2, GLUCOSE, BUN, CREATININE, CA) Hepatic Function Panel (ALB, T.PRO, BILI T, BU/BC, ALT, AST, ALK PHOS) Lipase Serum Orders Placed This Encounter Medications morpHINE injection 4 mg ondansetron (ZOFRAN (PF)) injection 4 mg NaCl 0.9% (NS) bolus infusion 1,000 mL ED COURSE patient presents for eval for abdominal pain since Monday - today is Monday. Nausea but no vomiting. No dysuria. Tried Tylenol and Motrin for pain and not helping. Did not eat today due to nausea. No diarrhea. Seen at urgent care and sent for eval. VSS here in the EC. Has mild tenderness to lower abdomen. UPT negative. UA clean. Will give pain meds. Will check labs. Will obtain CT a/p. Final dispo pending. 1700 - labs OK. UA shows infection. Will give rocephin IV. Pending CT a/p. 1855 - CT shows ovarian cyst right side. Patient doing better. Able to tolerate by mouth without difficulty. Stable here in the EC and is ok for discharge home with PCP f/u. MDM: Coding Diagnosis/Impression: ICD-10-CM ICD-9-CM 1. Generalized abdominal pain R10.84 789.07 Disposition/Condition: ED Disposition None Discharge Medications: Patient's Medications START taking these medications No medications on file CONTINUE taking these medications which have NOT CHANGED ATENOLOL 50 MG TABLET Take 50 mg by mouth daily. BACLOFEN 10 MG TABLET Take 10 mg by mouth 3 (three) times daily. BUPROPION HCL ORAL Take 150 mg by mouth. BUSPIRONE 7.5 MG TABLET Take 7.5 mg by mouth 3 (three) times daily. HYDROCHLOROTHIAZIDE 25 MG TABLET Take 25 mg by mouth daily. METHYLPREDNISOLONE (METHYLPRED DP) 4 MG TABLETS Take by mouth SEE- INSTRUCTIONS. follow package directions PANTOPRAZOLE SODIUM (PANTOPRAZOLE ORAL) Take 40 mg by mouth. START taking Modified Medications as Prescribed No medications on file STOP taking these medications No medications on file Follow-up: Electronically signed by: Ayala Saini DO 03/31/2020 4:16 PM documented in this encounter Miscellaneous Notes ED Nurse Note - Zhanna Sadler RN - 03/31/2020 7:04 PM CDTPt given printed and verbal discharge instructions regarding generalized abd pain, encouraged hydration, Prescriptions provided- Tylenol #3 Discussed Tylenol #3 side affects and to avoid driving/operating machinery/or engaging in activities requiring alertness while taking. Pt verbalized understanding of instructions,pt encouraged to follow up with pcp Advised to seek medical attention for new/prolonged/worsening of symptoms, No adverse reaction to meds given in ER noted upon discharge PIV d'cd, dressing to site, catheter in tact. Awake, alert oriented, resp reg unlabored, skin w/d, pt leaving in no apparent distress, documented in this encounter Plan of Treatment Date Type Specialty Care Team Description 04/03/2020 Appointment Radiology Nuha Harper FNP [address] [facility] [phone] 04/06/2020 Office Visit Obstetrics & Gynecology Renae Caceres PA-C [address] [facility] [address] [phone] Name Type Priority Associated Diagnoses Date/Ti me CT ABDOMEN PELVIS W IMAGING STAT Generalized abdominal 03/31/2020 5:44 PM CONTRAST pain CDT Health Maintenance Due Date Last Done Comments [...] Name Priority Date/Time Associated Diagnosis Comme nts CT ABDOMEN PELVIS W STAT 03/31/2020 5:44 PM Generalized ab dominal CONTRAST CDT pain Procedure Note - [facility], Radia nt Results Inft User - 03/31/2020 6:51 PM CDT EXAM: CT ABDOMEN AND PELVIS WITH CONTRAST HISTORY: abdominal pain to l ower quadrants since Monday - today is Monday. ?Nausea but no vomi ting. COMPARISON: None. TECHNIQUE AND FINDINGS: Cont iguous axial imaging from the level of the lung bases through the proximal t highs was performed after the administration of intravenous Omnipaque contra st. Coronal and sagittal reconstructions were obtained. Auto mA and/or it erative reconstruction were used to reduce radiation dose. FINDINGS: LOWER THORAX: The lungs base s are clear. LIVER: A 2.3 cm hyperattenua ting focus is seen in hepatic segment III (2:28) Normal contour. GALLBLADDER AND BILIARY TREE : Cholecystectomy clips are noted. No biliary ductal dilation. SPLEEN: No splenomegaly. PANCREAS: No ductal dilation or masses. ADRENAL GLANDS: No adrenal n odules. KIDNEYS: No hydronephrosis, stones, or masses. PERITONEUM AND RETROPERITONE UM: No free air or fluid. LYMPH NODES: No lymphadenopa thy. GI TRACT: No dilation or wal l thickening. The appendix is normal (2:82). PELVIS/BLADDER: Unremarkable . A 1.7 cm right ovarian cyst with intermediate fluid density, may represent hemorrhagic or corpus luteal cyst. VESSELS: Unremarkable. BONES AND SOFT TISSUES: No s uspicious lytic or sclerotic bony lesions. IMPRESSION No acute abdominopelvic proc ess is identified. A 2.3 cm hyperattenuating he patic segment III lesion. Further evaluation with multiphasic hepatic mas s protocol CT/MR is recommended. Cholecystectomy. 1.7 cm right ovarian hemorrh agic/corpus luteal cyst. Preliminary Report Dictated by Resident: Glenda Preciado URINALYSIS STAT 03/31/2020 4:33 PM Generalized Results for this CDT abdominal pain procedure are in the results section. CBC WITH DIFF STAT 03/31/2020 4:33 PM Generalized Results for this CDT abdominal pain procedure are in the results section. BASIC METABOLIC STAT 03/31/2020 4:33 PM Generalized Resul ts for this PANEL (NA, K, CL, CDT abdominal pain procedur e are in CO2, GLUCOSE, BUN, the resul ts CREATININE, CA) section. HEPATIC FUNCTION STAT 03/31/2020 4:33 PM Generalized Resu lts for this PANEL (88015) CDT abdominal pain procedure ar e in (ALB,T.PRO,BILI the results T,BU/BC,ALT,AST,ALK section. PHOS) LIPASE STAT 03/31/2020 4:33 PM Generalized Results for this CDT abdominal pain procedure are in the results section. NOTICE OF PRIVACY Routine 03/31/2020 3:44 PM PRACTICES CDT documented in this encounter Results Lipase Serum (03/31/2020 4:33 PM CDT) Pathologist Sig nature LIPASE 147 0 - 220 U/L [facility] Specimen Blood - VENOUS Performing Organization Address City/State/Zipcode Phone Number [facility] CLIA: [id number] [place], [place] [id number] LAB[address]AT[address] Hepatic Function Panel (ALB, T.PRO, BILI T, BU/BC, ALT, AST, ALK PHOS) (03/31/2020 4:33 PM CDT) Pathologist Sig nature TOTAL BILI 0.7 0.1 - 1.1 mg/dL [facility] BILI UNCON 0.6 0.1 - 1.1 mg/dL [facility] BILI CONJ 0.0 0.0 - 0.3 mg/dL [facility] T PROTEIN 8.8 (H) 6.3 - 8.2 g/dL [facility] ALBUMIN 4.8 3.5 - 5.0 g/dL [facility] ALK PHOS 77 34 - 122 U/L [facility] ALTv 38 (H) 5 - 35 U/L [facility] AST(SGOT) 57 (H) 13 - 40 U/L [facility] Specimen Blood - VENOUS Performing Organization Address City/State/Zipcode Phone Number [facility] CLIA: [id number] [place] [address] Basic Metabolic Panel (NA, K, CL, CO2, GLUCOSE, BUN, CREATININE, CA) (03/31/2020 4:33 PM CDT) [facility] NA 138 135 - 145 [facility] mmol/L [facility] K 4.6 3.5 - 5.0 [facility] mmol/L [facility] CL 106 98 - 108 mmol/L [facility] CO2 TOTAL 21 (L) 23 - 31 mmol/L [facility] AGAP 11 2 - 16 [facility] BUN 18 7 - 23 mg/dL [facility] GLUCOSE 111 (H) 70 - 110 mg/dL [facility] CREATININE 1.01 0.50 - 1.04 [facility] mg/dL [facility] CALCIUM 9.7 8.6 - 10.6 [facility] mg/dL [facility] eGFR Calculation 61.7 mL/min/1.73m2 [facility] ([facility] [place]) eGFR Calculation 74.8 mL/min/1.73m2 [facility] () [facility] Specimen Blood - VENOUS Narrative Performed At Association of Glomerular Filtration Rate (GFR) [facility] and Staging of Kidney Disease* + + +- + | GFR (mL/min/1.73 m2) | With Kidney Damage | Without Kidney Damage + + +- + | >90 | Stage one | Normal + + +- + | 60-89 | Stage two | Decreased GFR + + +- + | 30-59 | Stage three | Stage three + + +- + | 15-29 | Stage four | Stage four + + +- + | <15 (or dialysis) | Stage five | Stage five + + +- + *Each stage assumes the associated GFR level has been in effect for at least three months. Stages 1 to 5, with or without kidney disease, indicate chronic kidney disease. Notes: Determination of stages one and two (with eGFR >59mL/min/1.73 m2) requires estimation of kidney damage for at least three months as defined by structural or functional abnormalities of the kidney, manifested by either: Pathological abnormalities or Markers of kidney damage (including abnormalities in the composition of the blood or urine or abnormalities in imaging tests). Performing Organization Address City/State/Zipcode Phone Number [facility] CLIA: [id number] [place] [address] CBC with Differential (03/31/2020 4:33 PM CDT) Pathologist Sig nature WBC 10.81 4.30 - 11.10 [facility] 10*3/L [facility] RBC 4.95 3.93 - 5.25 [facility] 10*6/L [facility] HGB 15.3 (H) 11.6 - 15.0 [facility] g/dL [facility] HCT 44.2 35.7 - 45.2 % [facility] MCV 89.3 80.6 - 95.5 fL [facility] MCH 30.9 25.9 - 32.8 pg [facility] MCHC 34.6 31.6 - 35.1 [facility] g/dL [facility] RDW-SD 42.3 39.0 - 49.9 fL [facility] RDW-CV 13.2 12.0 - 15.5 % [facility] PLT 328 166 - 358 [facility] 10*3/L [facility] MPV 9.9 9.5 - 12.9 fL [facility] NRBC/100 WBC 0.0 0.0 - 10.0 /100 [facility] WBCs [facility] NRBC x10^3 <0.01 10*3/L [facility] GRAN MAT (NEUT) % 79.9 % [facility] IMM GRAN % 0.50 % [facility] LYMPH % 14.7 % [facility] MONO % 3.6 % [facility] EOS % 0.7 % [facility] BASO % 0.6 % [facility] GRAN MAT x10^3(ANC) 8.63 (H) 1.88 - 7.09 [facility] 10*3/uL [facility] IMM GRAN x10^3 0.05 0.00 - 0.06 [facility] 10*3/uL [facility] LYMPH x10^3 1.59 1.32 - 3.29 [facility] 10*3/uL [facility]ITAL [facility] MONO x10^3 0.39 0.33 - 0.92 [facility] 10*3/uL [facility]PITAL [facility] EOS x10^3 0.08 0.03 - 0.39 [facility] 10*3/uL [facility]ITAL [facility] BASO x10^3 0.07 0.01 - 0.07 [facility] 10*3/uL [facility] Specimen Blood - VENOUS Performing Organization Address [facility] Phone Number [facility] CLIA: [id number] [place] [address] Urinalysis (03/31/2020 4:33 PM CDT) APPEARANCE Hazy (A) Clear [facility] COLOR Yellow Yellow [facility] PH 6.0 4.8 - 8.0 [facility] SP GRAVITY 1.023 1.003 - 1.030 [facility] GLU U QUAL Normal Normal [facility] BLOOD NegativeComment: Negative [facility] INTERFERENCE FROM HOSPITAL LABORATORY ASCORBIC ACID MAY CAUSE FALSE NEGATIVE RESULT KETONES Negative Negative [facility] PROTEIN 30 mg/dL (A) Negative [facility] UROBILIN Normal Normal [facility] [facility] BILIRUBIN Negative Negative [facility] NITRITE Negative Negative [facility] LEUK JOY 75/uL (A) Negative [facility] RBC/HPF 1 0 - 3 HPF [facility] WBC/HPF 1 0 - 5 HPF [facility] BACTERIA Few (A) Negative [facility] MUCOUS Slight (A) Negative LPF [facility] SQ EPITH 9 HPF [facility] HYAL CAST 1 <=2 LPF [facility] Specimen Urine - URINE, CLEAN CATCH Performing Organization Address [facility] Phone Number [facility] CLIA: [id number] [place] [address] documented in this encounter Visit Diagnoses Diagnosis Generalized abdominal pain - Primary Abdominal pain, generalized documented in this encounter Administered Medications Medication Order MAR Action Action Date Dose Rate Site cefTRIAXone (ROCEPHIN) 1,000 mg Given 03/31/2020 5:52 PM CDT 1, 000 mg in NaCl 0.9% (NS) 50 mL MINI-BAG 1,000 mg, IV Piggyback, ONCE, 1 dose, 03/31/20 at 1830, 50 mL, Reason for Anti-Infective: Empiric Therapy for Suspected Infection, Empiric Therapy Site: Urine, Duration of therapy: 72 hours iohexol (OMNIPAQUE 350 BULK-100 mL) Given 03/31/2020 5:42 PM CD T 110 mL injection 110 mL 110 mL, Intravenous, ONCE, 1 dose, 03/31/20 at 1800, Routine morpHINE injection 4 mg Given 03/31/2020 4:32 PM CDT 4 mg 4 mg, Slow IV Push, ONCE, 1 dose, 03/31/20 at 1715, STAT NaCl 0.9% (NS) bolus infusion New Bag 03/31/2020 4:32 PM CDT 1,000 mL 999 mL/hr 1,000 mL at 999 mL/hr, 1,000 mL, IV Infusion, ONCE, 1 dose, 03/31/20 at 1615, CHIDI ondansetron (ZOFRAN (PF)) injection 4 mg Given 03/31/2020 4:32 PM CDT 4 mg 4 mg, Slow IV Push, ONCE, 1 dose, 03/31/20 at 1715, CHIDI documented in this encounter Insurance Payer Benefit Plan Subscriber ID Effective Dates Phone Address Type / Group BCBS [facility] [id number] 2018-Neel [phone] [address] PPO/POS [place] t 7 [id number] [place] [address] documented as of this encounter
--- OUTSIDE RECORDS SUMMARY | 2020-04-18 20:28 | XMS REPORT | Summary of Care ---
:1980 Author Organization [facility] Address [address] [place] [address] Care Team Providers Name Role Phone Raffi Prieto Primary Care Provider Reason for Referral Radiology Services (Routine) Status Reason Specialty Diagnoses / Referred By Referred To Procedures Contact Contact New Request Diagnostic Diagnoses Abnormal vaginal bleeding Pain pelvic Vanaphan, Radiology Procedures US PELVIS COMPLETE WITH TRANSVAGINAL MICHELLE Macdonald [address] [address] Reason for Visit Reason Comments Vaginal Bleeding (Routine) Status Reason Specialty Diagnoses / Referred By Referred To Procedures Contact Contact New Request Obstetrics & Diagnoses Abnormal vaginal bleeding Pelvic pain Anene, Nuha, Gynecology Procedures CONSULT/REFERRAL [facility] CONSULTANT [address] [address] Encounter Details Date Type Department Care Team Description 04/06/2020 Office Visit [facility] Women's Renae Caceres Abno rmal vaginal bleeding (Primary Dx); [facility] MICHELLE Pain pelvic 146 [facility] 146 [facility], [address] [place] [address] [place], [place] [phone] Allergies Active Allergy Reactions Severity Noted Date Comments Sulfa (Sulfonamide Antibiotics) Hives 0 documented as of this encounter (statuses as of 04/06/2020) Medications Medication Sig Dispensed Refills Start Date [...] Pain pain (scale 1-3). Indications: acute pain clonazePAM 0.5 mg tablet TAKE 1 TABLET 0 03/23/2020 Active (0.5 MG) BY MOUTH 2 TIMES PER DAY NEEDED documented as of this encounter (statuses as of 04/06/2020) Active Problems No known active problemsdocumented as of this encounter (statuses as of 04/06/2020) Social History Tobacco Use Types Packs/Day Years Used Date Former Smoker Cigarettes Quit: 2017 Smokeless Tobacco: Never Used Alcohol Use Drinks/Week oz/Week Comments Yes socially Alcohol Habits Answer Date Recorded How often do you have a drink containing alcohol? Monthly or less 04/06/2020 How many drinks containing alcohol do you have on a Not aske d 04/06/2020 typical day when you are drinking? How often do you have six or more drinks on one Not asked 04/06/2020 occasion? Sex Assigned at Date Recorded Not on file COVID-19 Exposure Response Date Recorded In the last month, have you been in contact with No / Unsure 04/06/2020 3:07 PM CDT someone who was confirmed or suspected to have Coronavirus / COVID-19? documented as of this encounter Last Filed Vital Signs Vital Sign Reading Time Taken Comments Blood Pressure 111/75 04/06/2020 3:54 PM CDT Pulse 74 04/06/2020 3:54 PM CDT Temperature 37.2 C (99 F) 04/06/2020 3:54 PM CDT Respiratory Rate 18 04/06/2020 3:54 PM CDT Oxygen Saturation - - Inhaled Oxygen Concentration - - Weight 90.7 kg (200 lb) 04/06/2020 3:54 PM CDT Height 161.3 cm (5' 3.5") 04/06/2020 3:54 PM CDT Body Mass Index 34.87 04/06/2020 3:54 PM CDT documented in this encounter Progress Notes Renae Caceres PA-C - 04/06/2020 3:30 PM CDT CC: Pelvic pain and AUB HPI: Amanda Guillaume is a 39 year old female presented for pelvic pain. Pain first started in in February.Patient reports her menses has always been regular and normal but in February 21 she had a period that lasted x 1 wk and it stopped for a few days, and then another menses that lasted for another week (very heavy /painful), and then stopped for a couple of days, then restarted again for another week. . Pain had worsened on 03/31/2020. Pelvic pain is usually located on right and does not radiate. (the cyst that was present was on the right side). Pain feels sharp/dull. nothing makes pain better. nothing make pain worse. Severity 6/10 currently. GI: no constipation. no diarrhea. no bloody stool. no straining. no pain relief with BM. no pain with BM. . Urinary: no urgency. no frequency. no nocturia. no dysuria. no UTI. no hematuria. no incontinence. Patient did report they dx her with a UTI at the ER. Patient was given abx and states she still has 2 days left. Dyspareunia: none. . Musculoskeletal: neg Sexually active: yes. H/o STDs: none EXAM: CT ABDOMEN AND PELVIS WITH CONTRAST on 03/31/2020 HISTORY: abdominal pain to lower quadrants since [...] No suspicious lytic or sclerotic bony lesions. IMPRESSION No acute abdominopelvic process is identified. A 2.3 cm hyperattenuating hepatic segment III lesion. Further evaluation with multiphasic hepatic mass protocol CT/MR is recommended. Cholecystectomy. 1.7 cm right ovarian hemorrhagic/corpus luteal cyst. ROS: no fever, no chills, no chest pain, no SOB, +RLQ abdominal pain, + nausea, no vomiting, no vaginal discharge, no vaginal bleeding Patient has had a BTL. Patient had last pap in 06/2019 with her PCP and it was normal. Patient reports does not want to take any control because she had a bad experience with them and has a fear of having a stroke. Patient reports had lab work done with her PCP. Will request records. Past Surgical History: Procedure Laterality Date BREAST SURGERY breast reduction SECTION CHOLECYSTECTOMY COLONOSCOPY COSMETIC SURGERY tummy tuck & breast reduction DILATION AND CURETTAGE (SHX) TUBAL LIGATION Past Medical History: Diagnosis Date Anxiety Depression Hypertension Pap smear abnormality of cervix HPV- 2007 Transfusion history when born Allergies Allergen Reactions Sulfa (Sulfonamide Antibiotics) Hives Social History Socioeconomic History Marital status: Spouse [...] file Tobacco Use Smoking status: Former Smoker Types: Cigarettes Quit date: 2017 Years since quittin.6 Smokeless tobacco: Never Used Substance and Sexual Activity Alcohol use: Yes Frequency: Monthly or less Comment: socially Drug use: Never Sexual activity: Yes Partners: Male Lifestyle Physical activity Days per week: Not on file Minutes per session: Not on file Stress: Not on file Relationships Social connections Talks on phone: Not on file Gets together: Not on file Attends religion service: Not on file Active member of [...] Concern Not on file Social History Narrative Denies physical and sexual abuse. Family History Problem Relation Age of Onset Thyroid Mother Hypertension Mother Hypertension Father Heart Father triple bypass PR (myocardial infarction) Maternal Grandmother PR (myocardial infarction) Paternal Grandfather BP: (111)/(75) Temp: [37.2 C (99 F)] Temp source: Oral (04/06 1554) Pulse: [74] Resp: [18] SpO2: -- Height: [5' 3.5" (161.3 cm)] Weight: [200 lb (90.7 kg)] BMI (calculated): [34.87] NAD RRR CTAB Soft, none tender. Pelvic exam: Normal external genitalia, normal contraction and relaxation of the bulbocavernous muscles, no tenderness to palpation of the levator ani muscles, no tenderness to palpation of the urethra or bladder, no tenderness to palpation of the obturator muscle Speculum exam: no pain with insertion of the speculum. +RLQ adnexal tenderness. Abnormal vaginal bleeding (primary encounter diagnosis) Plan: [facility] ONLY - VAGINAL PATHOGENS BY NUCLEIC ACID TESTING, US PELVIS COMPLETE WITH TRANSVAGINAL Pain pelvic Plan: US PELVIS COMPLETE WITH TRANSVAGINAL Follow-up prn WWE. Advised patient to follow-up with GI regarding liver. Patient advised to follow-up with PCP. Will request records of last pap and lab work. Otc Tylenol prn pain. Patient education given about lifestyle changes, exercise, sleep, stress control, and diet. Patient voices understanding. Renae Caceres PA-C 04/06/2020 4:41 PM documented in this encounter Plan of Treatment Date Type Specialty Care Team Description 04/12/2021 Office Visit Obstetrics & Gynecology Renae Caceres PA-C [address] [place] [phone] Name Type Priority Associated Diagnoses Order S chedule [facility] ONLY - VAGINAL LAB Routine Abnormal vaginal Orde red: 04/06/2020 PATHOGENS BY NUCLEIC ACID bleeding TESTING US PELVIS COMPLETE WITH IMAGING Routine Abnormal vaginal Expected: TRANSVAGINAL bleeding 04/06/2020, Expires: Pain pelvic 04/06/2021 Health Maintenance Due Date Last Done Comments [...] Results Not on filedocumented in this encounter Visit Diagnoses Diagnosis Abnormal vaginal bleeding - Primary Other specified noninflammatory disorder of vagina Pain pelvic Unspecified symptom associated with fema le genital organs documented in this encounter Insurance Payer Benefit Plan Subscriber ID Effective Dates Phone Address Type / Group [facility] [id number] 2018-Neel [phone] [address] PPO/POS [place] t 7 [id number] [place] [address] documented as of this encounter
--- OUTSIDE RECORDS SUMMARY | 2020-04-18 20:28 | XMS REPORT | Summary of Care ---
:1980 Author Organization [facility] Address [address] [place] [address] Care Team Providers Name Role Phone Raffi [...] PELVIS,W/O CONTRAST CT ABDOMEN PELVIS WO CONTRAST STARTER MECHANIC [address] [address] (Routine) Status Reason Specialty Diagnoses / Referred By Referred To Procedures Contact Contact New Request Obstetrics & Diagnoses Abnormal vaginal bleeding Pelvic pain Juana Burnette, Gynecology Procedures CONSULT/REFERRAL RV TECHNICIAN STARTER MECHANIC [address] [address] Reason for Visit Reason Comments Back Pain low. intermittent Bleeding/Bruising vaginhal, some clotting Abdominal Pain low abd pain Encounter Details Date Type Department Care Team Description 03/31/2020 Urgent Care [facility] Family Lissette Burnette, STARTER MECHANIC [address] [address] Abdominal pain, unspecified abdominal lo cation (Primary Dx); [facility] [place] Provider, [facility] Acute bilateral low back pain without sc iatica; [address] [place] [address] Abnormal v aginal bleeding; Drive Essential hypertension; [place], [place] Pelvic pain [phone] Allergies Active Allergy Reactions Severity Noted Date [...] foods again, start with small amounts of [id number], low- fat foods. These include apple sauce, [...] provider if you have: Pain for more [id number] Bloating for more than 2days Diarrhea for more [id number] A fever of 100.4F (38C) or higher, [...] increase stomach acid. Don't use aspirin or [id number] pain and fever medicines, if possible. This includes nonsteroidal anti-inflammatory drugs (NSAIDs). Lose excess weight. Finish eating at least 2 hours before you go to bed or lie down. Raise the head of your bed. [employer] last reviewed this educational content on 11/12/201819998115-8829 [employer]. [address] [place] [address]. All rights reserved. This information is not [...] file Gets together: Not on file Attends methodist service: Not on file Active member of [...] 2. Abnormal vaginal bleeding: referral made to [facility]ET[facility] for further eval and tx. 3. Lower [...] the visit time. If applicable, the [place] EMAIL [employer]IST database was accessed to review any controlled substance prescription claims data. The [employer] prescription claims data in [place] was reviewed to assess patient compliance with [...] (89.8 kg) Height: 5' 3" (1.6 m) [facility]/pharmacy #[id number] - [place], [place] - [address] AT [facility] Patient AAOx4 and in no acute distress. [...] Appointment Radiology Juana Burnette FNP [address] [place] [phone] 04/06/2020 Office Visit Obstetrics & Gynecology Renae Caceres PA-C [address] [phone] Name Type Priority Associated Diagnoses Order S chedule CBC WITH DIFF LAB Routine Abdominal pain, Ordered: unspecified abdominal location Pelvic pain COMP. METABOLIC PANEL LAB Routine Abdominal pain, Ord ered: 03/31/2020 ([id number]) unspecified abdominal location Pelvic pain URINALYSIS LAB [...] Phone Address Type / Group BCBS OF [facility] [id number] 2018-Neel [phone] [address] PPO/POS [place] t 7 [id number] [place] [address] documented as of this encounter
--- OUTSIDE RECORDS SUMMARY | 2020-04-18 20:28 | XMS REPORT | Summary of Care ---
:1980 Author Organization [facility] - Health Address [address] [place] [address] Care Team Providers Name Role Phone Lambertbrennan Madhavi Primary Care Provider Reason for Visit Reason Comments Chest Pain Auth/Cert Status Reason Specialty Diagnoses / Referred By Referred To Procedures Contact Contact Emergency Medicine [facility] Em ergency Dept [address] [place] [address] Fax: Encounter Details Date Type Department Care Team Description 04/16/2020 Emergency ADC-Emergency Ayala Saini DO Cough (Primary Dx) Department [address] [place] [address] Dr winn [address] [address] [phone] Allergies Active Allergy Reactions Severity Noted Date Comments Sulfa (Sulfonamide Antibiotics) Hives 0 documented as of this encounter (statuses as of 04/16/2020) Medications Medication Sig Dispensed Refills Start Date [...] 0 Active mouth 3 (three) times daily. ondansetron (ZOFRAN ODT) Take 1 tablet by [...] as of this encounter (statuses as of 04/16/2020) Active Problems No known active problemsdocumented as of this encounter (statuses as of 04/16/2020) Social History Tobacco Use Types Packs/Day Years Used Date Former Smoker Cigarettes Quit: 2018 Smokeless Tobacco: Never Used Alcohol Use Drinks/Week [...] been in contact with No / Unsure 04/16/2020 8:33 AM CDT someone who was confirmed or suspected to have Coronavirus / COVID-19? documented as of this encounter Last Filed Vital Signs Vital Sign Reading Time Taken Comments Blood Pressure 129/89 04/16/2020 8:35 AM CDT Pulse 96 04/16/2020 8:35 AM CDT Temperature 37 C (98.6 F) 04/16/2020 8:35 AM CDT Respiratory Rate 16 04/16/2020 8:35 AM CDT Oxygen Saturation 98% 04/16/2020 8:35 AM CDT Inhaled Oxygen Concentration - - Weight 90.7 kg (200 lb) 04/16/2020 8:35 AM CDT Height 160 cm (5' 3") 04/16/2020 8:35 AM CDT Body Mass Index 35.43 04/16/2020 8:35 AM CDT documented in this encounter Discharge Instructions Ayala Calixto, - 04/16/2020DIAGNOSIS 1. Sinus congestion 2. URI - possible COVID NO LIFE-THREATENING FINDINGS ON TODAY'S EXAM. PROCEDURES IN THE ER TODAY: Covid test MEDICATIONS ADMINISTERED IN THE ER TODAY: Motrin YOUR PRESCRIPTIONS AND [id number] MEDICATION RECOMMENDATIONS: You may use over the counter anti-inflammatories such as Advil or Motrin three times a day with foodas needed for pain. You may use over the counter decongestants such as seng-D or claritin-D. Please drink plenty of fluids and use sinus washes several times a day. SPECIAL CARE INSTRUCTIONS: None FOLLOW-UP RECOMMENDATIONS: RECOMMEND FOLLOW-UP WITH A PRIMARY CARE PROVIDER OR SPECIALIST IN 2-5 DAYS, ESPECIALLY IF NO IMPROVEMENT IN SYMPTOMS. TO FOLLOW-UP WITHIN THE [facility], TRY THESE OPTIONS (CLINIC APPOINTMENTS AVAILABLE ON IXCO-AF-FWVI BASIS): 1. SCHEDULE AN APPOINTMENT ONLINE AT [facility] 2. OR CALL THE [facility] AT OR 3. OR CALL YOUR [facility] PHYSICIAN'S OFFICE DIRECTLY IF YOU ARE ALREADY AN ESTABLISHED [facility] PATIENT. OR, YOU MAY FOLLOW-UP WITH A PROVIDER OF YOUR CHOICE, SUCH : 1. A PHYSICIAN OF YOUR CHOICE 2. [facility], . LOCATIONS IN [facility] 3. [facility], [address] [place] [address]; [phone] RETURN TO ER FOR WORSENING OF SYMPTOMS. AttachmentsThe following attachments cannot be sent through Care Everywhere. Coronavirus Disease 2019: Caring for Yourself and Others (Burkinan)Sinusitis (No Antibiotics) (Burkinan)documented in this encounter ED Notes Michelle Porras RN - 04/16/2020 8:34 AM CDTPatient states: "I started having chest pains the last few days but I thought it was anxiety, but the congestion and clearing my throat started last night." Patient reports many s/s of covid. Pmhx: HTN, anxiety, Ayala Cruz DO - 04/16/2020 8:30 AM CDT [facility] Emergency Department Note Patient Name: Amanda Guillaume Date of : 1980 39 year old female Treatment Room: [address] Primary Care Physician: Raffi Prieto Jr Patient Escorted by: Self [9] Mode of Arrival: Personal means [1] EMS Treatment Prior to ED Arrival: CHECKROOM CHIEF treatment: None Travel and Exposure Screening: Symptoms Does patient have any of these symptoms?: (not recorded) Exposure Screening Has patient had contact with someone with a communicable disease in the last month?: (not recorded) Diseases exposed to:: (not recorded) Is Patient ?: (not recorded) Exposure Date: (not recorded) Chief Complaint: Chief Complaint Patient presents with Chest Pain History of Present Illness: Patient presents for eval for chest pain x 4-5 days. Worse with coughing, deep breathing and movingarms. No change with exertion. Had Tylenol yesterday and helped a little bit. No Motrin use. C/o sweats but denies fevers. Also with cough, sore throat and facial congestion. 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 Does not smoke. Has htn but no DM. Also c/o loss of smell. Decreased po intake. No n/v or diarrhea. Here for eval. Past Medical History/Immunizations: Past Medical History: Diagnosis Date Anxiety Depression Hypertension Pap smear abnormality of cervix HPV- 2007 Transfusion history when born Tetanus received in last 5 years: No Childhood immunizations: Up-to-date Allergies: Allergies Allergen Reactions Sulfa (Sulfonamide Antibiotics) Hives Past Social History: Tobacco Use Former Smoker; Quit 2018; Smoked: Cigarettes. Smokeless Tobacco: Never used smokeless tobacco. Alcohol Use Yes. Frequency of alcohol consumption: Monthly or less Comments: socially Drug Use Never. Sexual Activity Sexually active; Partners: Male. Past Surgical History: Past Surgical History: Procedure Laterality Date BREAST SURGERY breast reduction SECTION CHOLECYSTECTOMY COLONOSCOPY COSMETIC SURGERY tummy tuck & breast reduction DILATION AND CURETTAGE (SHX) TUBAL LIGATION Review of Systems: Review of Systems Constitutional: Positive for fever. Negative for chills. HENT: Positive for congestion, sinus pressure and sore throat. Respiratory: Positive for cough. Negative for shortness of breath. Cardiovascular: Negative for chest pain. Gastrointestinal: Negative for abdominal pain, nausea and vomiting. Genitourinary: Negative for dysuria. Musculoskeletal: Positive for arthralgias. Negative for neck pain and neck stiffness. Skin: Negative for wound. Neurological: Negative for dizziness. Psychiatric/Behavioral: Negative for agitation. Physical Exam: ED Triage Vitals [04/16/20 0835] Weight 90.7 kg (200 lb) Actual or estimated Estimated by patient/family report Height 1.6 m (5' 3") BP 129/89 Pulse 96 Resp 16 Temp 37 C (98.6 F) Temp source Oral SpO2 98 % Measured on Room air Physical Exam Vitals signs and nursing note reviewed. Constitutional: Appearance: Normal appearance. She is normal weight. HENT: Head: Normocephalic and atraumatic. Nose: Nose normal. Neck: Musculoskeletal: Normal range of motion and neck supple. Cardiovascular: Rate and Rhythm: Normal rate. Pulmonary: Effort: Pulmonary effort is normal. No respiratory distress. Chest: Chest wall: Tenderness (anterior chest wall tenderness) present. Abdominal: General: Abdomen is flat. There is no distension. Tenderness: There is no abdominal tenderness. There is no guarding. Musculoskeletal: Normal range of motion. Comments: Tenderness to right SCM with tightness Skin: General: Skin is warm and dry. Neurological: General: No focal deficit present. Mental Status: She is alert. Radiology: No results found for this visit on 04/16/20. Lab Results (24h): No results found for this or any previous visit (from the past 24 hour(s)). Orders and Treatments: Orders Placed This Encounter Procedures CORONAVIRUS COVID-19 TESTING Orders Placed This Encounter Medications ibuprofen (IBU) tablet 400 mg ED COURSE patient presents for eval for chest/back pain for several days. Worse with coughing or moving arms. Subjective fevers. Denies sick contacts. Does not smoke. No sense of smell. Also with facial congestion and sore throat. Used Tylenol yesterday. 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 VSS here in the [place]. Has anterior chest wall tenderness. Right SCM tenderness and tightness. Suspect covid. Will give Motrin. Will send PCR. Stable here in the [facility] and is ok for discharge home with PCP f/u. MDM: Coding Diagnosis/Impression: ICD-10-CM ICD-9-CM 1. Cough R05 786.2 Disposition/Condition: ED Disposition None Discharge Medications: Patient's Medications START taking these medications No medications on file CONTINUE taking these medications which have NOT CHANGED ACETAMINOPHEN-CODEINE (TYLENOL-CODEINE #3) 300-30 MG TABLET Take 1 tablet by mouth every 4 (four) hours as needed for Pain (scale 1-3). Indications: acute pain ATENOLOL 50 MG TABLET Take 50 mg by mouth daily. BACLOFEN 10 MG TABLET Take 10 mg by mouth 3 (three) times daily. BUPROPION HCL ORAL Take 150 mg by mouth. BUSPIRONE 7.5 MG TABLET Take 7.5 mg by mouth 3 (three) times daily. CLONAZEPAM 0.5 MG TABLET TAKE 1 TABLET (0.5 MG) BY MOUTH 2 TIMES PER DAY NEEDED HYDROCHLOROTHIAZIDE 25 MG TABLET Take 25 mg by mouth daily. METHYLPREDNISOLONE (METHYLPRED DP) 4 MG TABLETS Take by mouth SEE- INSTRUCTIONS. follow package directions ONDANSETRON (ZOFRAN ODT) 4 MG DISINTEGRATING TABLET Take 1 tablet by mouth every 8 (eight) hoursas needed for Nausea and Vomiting (N/V). PANTOPRAZOLE SODIUM (PANTOPRAZOLE ORAL) Take 40 mg by mouth. START taking Modified Medications as Prescribed No medications on file STOP taking these medications No medications on file Follow-up: Electronically signed by: Ayala Saini DO 04/16/2020 9:04 AM documented in this encounter Miscellaneous Notes ED Nurse Note - Evelyn East RN - 04/16/2020 9:33 AM CDTPt given printed and verbal discharge instructions regarding COVID symptoms, encouraged hydration. 0 Prescriptions provided Discussed ibuprofen and to take with food to avoid GI distress. Pt verbalized understanding of instructions, pt awake alert oriented, resp reg unlabored, skin w/d, color appropriate for race, moves all ext well,pt encouraged to follow up with PCP. Advised to seek medical attention for new/prolonged/worsening of symptoms, Symptoms improved No adverse reaction to meds given in ER noted upon discharge Awake, alert oriented, resp reg unlabored, skin w/d, pt leaving amb with steady gait, in no apparent distress. Discussed CDC Guidelines regarding self quarantine. Patient given detailed instructions regarding the specifications of self quarantine and the [place] Public Health Department regulations regarding COVID-19 Isolation practices. Handout given to patient by Atilio East RN. documented in this encounter Plan of Treatment Date Type Specialty Care Team Description 04/12/2021 Office Visit Obstetrics & Gynecology Renae Caceres PA-C [address] [place] [address] [phone] Name Type Priority Associated Diagnoses Order S chedule CORONAVIRUS COVID-19 LAB Routine Cough ONCE fo r 1 Occurrences TESTING starting 2019 until 04/16/2020 Health Maintenance Due Date Last Done Comments [...] Name Priority Date/Time Associated Diagnosis Comme nts NOTICE OF PRIVACY Routine 04/16/2020 8:31 AM CDT PRACTICES CONSENT/REFUSAL FOR Routine 04/16/2020 8:31 AM CDT DIAGNOSIS AND TREATMENT documented in this encounter Results Not on filedocumented in this encounter Visit Diagnoses Diagnosis Cough - Primary documented in this encounter Administered Medications Medication Order MAR Action Action Date Dose Rate Site ibuprofen (IBU) tablet 400 mg Given 04/16/2020 9:14 AM CDT 400 mg 400 mg, Oral, ONCE, 1 dose, Cindy 04/16/20 at 0915, CHIDI documented in this encounter Additional Health Concerns Infection Onset Date Last Indicated Resolved Time COVID-19 Rule Out 04/16/2020 04/16/2020 documented as of this encounter Insurance Payer Benefit Plan Subscriber ID Effective Dates Phone Address Type / Group BCBS OF [facility] [id number] 2018-Neel [phone] [address] PPO/POS [place] t [id number] [place] [address] documented as of this encounter
--- OUTSIDE RECORDS SUMMARY | 2020-04-18 20:28 | XMS REPORT | Summary of Care ---
:1980 Author Organization [facility] - Health Address [address] [place] [address] Care Team Providers Name Role Phone Raffi Prieto Primary Care Provider Encounter Details Date Type Department Care Team Description 04/06/2020 Orders Only [facility] Doctor Unassigned, No [address] [facility] [place] [address] [address] [place] [address] Allergies Active Allergy Reactions Severity Noted Date [...] Visit Obstetrics & Gynecology Renae Caceres PA-C [address] [place] [address] [phone] Health Maintenance Due Date Last Done [...] Name Priority Date/Time Associated Diagnosis Comme nts NO SHOW OR MISSED Routine 04/06/2020 3:10 PM APPOINTMENT POLICY CDT ACKNOWLEDGEMENT documented in this encounter Results Not on filedocumented in this encounter Insurance Payer Benefit Plan Subscriber ID Effective Dates Phone Address Type / Group BCBS OF [facility] [id number] 2018-Neel [phone] [address] PPO/POS [place] t 7 [id number] [place] [address] documented as of this encounter
--- OUTSIDE RECORDS SUMMARY | 2020-04-18 20:28 | XMS REPORT | Summary of Care ---
:1980 Author Organization [facility] Address [address] [place] [address] Care Team Providers Name Role Phone Raffi Prieto Primary Care Provider Reason for Referral Radiology Services (Routine) Status Reason Specialty Diagnoses / Referred By Referred To Procedures Contact Contact New Request Diagnostic Diagnoses Abnormal vaginal bleeding Pain pelvic Vanaphan, Radiology Procedures US PELVIS COMPLETE WITH TRANSVAGINAL MICHELLE Macdonald [address] [address] Reason for Visit Reason Comments Vaginal Bleeding (Routine) Status Reason Specialty Diagnoses / Referred By Referred To Procedures Contact Contact New Request Obstetrics & Diagnoses Abnormal vaginal bleeding Pelvic pain Anene, Nuha, Gynecology Procedures 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 [address] [address] Encounter Details Date Type Department Care Team Description 04/06/2020 Office Visit [facility] Women's Renae Caceres Abno rmal vaginal bleeding (Primary Dx); [facility] MICHELLE Pain pelvic 146 [facility] 146 [facility], [address] [place] [address] [place], [place] [phone] Allergies Active Allergy Reactions Severity Noted [...] file Gets together: Not on file Attends scientology service: Not on file Active member of [...] Mother Hypertension Father Heart Father triple bypass [place] (myocardial infarction) Maternal Grandmother [place] (myocardial infarction) Paternal Grandfather BP: (111)/(75) Temp: [...] Visit Obstetrics & Gynecology Renae Caceres PA-C [address] [place] [address] [phone] Name Type Priority Associated Diagnoses Order [...] Effective Dates Phone Address Type / Group [facility] [id number] 2018-Neel [phone] [address] PPO/POS [place] t 7 [id number] [place] [address] documented as of this encounter
--- OUTSIDE RECORDS SUMMARY | 2020-04-18 20:29 | XMS REPORT | Summary of Care ---
:1980 Author Organization [facility] - [facility] Address [address] [place] [address] Care Team Providers Name Role Phone Ida Madhavi Primary Care Provider Reason for Visit Reason Comments Results covid Encounter Details Date Type Department Care Team Description 04/17/2020 Telephone [facility]ESS [facility]ENTER Kwaku Nolasco RN Results (covid) [address] [place] [phone] [place] [id number] Allergies Active Allergy Reactions Severity Noted Date Comments Sulfa (Sulfonamide Antibiotics) Hives 0 documented as of this encounter (statuses as of 04/17/2020) Medications Medication Sig Dispensed Refills Start Date [...] as of this encounter (statuses as of 04/17/2020) Active Problems No known active problemsdocumented as of this encounter (statuses as of 04/17/2020) Social History Tobacco Use Types Packs/Day Years [...] Signs Not on filedocumented in this encounter Miscellaneous Notes Telephone Encounter - Kwaku Nolasco RN - 04/17/2020 12:31 AM CDT Access Center Nurse: Chart Review: Results CORONAVIRUS COVID-19 TESTING (Order [id number]) Patient Release Status: This result is viewable by the patient in [facility]. Result Information Flag: Normal Status: Final result (Collected: 04/16/2020 09:15) Provider Status: Open CORONAVIRUS COVID-19 TESTING Order: [id number] Status: Final result Visible to patient: Yes [facility] Dx: Cough Specimen Information: NASOPHARYNGEAL SWAB Component Ref Range & Units 1d ago SARS-CoV-2 PCR Not Detected Not Detected Results for AMANDA GILLIAM ( ) as of 04/17/2020 00:32 Ref. Range 04/16/2020 09:15 SARS-CoV-2 PCR Latest Ref Range: Not Detected Not Detected TraceLink message sent to patient to notify of negative COVID 19 test results. Kwaku Nolasco RN [facility] - Telephone Triage Nurse documented in this encounter Plan of Treatment Date Type Specialty Care Team Description 04/12/2021 Office Visit Obstetrics & Gynecology Renae Caceres PA-C [address] [place] [address] [phone] Health Maintenance Due Date Last Done [...] Phone Address Type / Group BCBS OF [facility] [id number] 2018-Neel [phone] [address] PPO/POS [place] t [id number] [place] [address] documented as of this encounter
[2020-04-18 20:57] LABS: Basophils % 0.7 % (0-1.3); Lymphocytes % 33.1 % (15.3-44.8); MPV 7.9 fL (7.6-11.3); RBC Red Blood Cell Count 4.71 M/uL (3.86-4.86)
[2020-04-18 21:03] LABS: Protime INR 0.94
--- NOTE | 2020-04-18 21:04 | RAD REPORT ---
EXAM DESCRIPTION: RAD - Chest Single View - 04/18/2020 8:56 pm CLINICAL HISTORY: PAIN Chest pain. COMPARISON: Chest Pa And Lat (2 Views) dated 03/19/2019; Chest Single View dated 08/30/2018; Chest Sing le View dated 12/07/2016; Chest Single View dated 03/08/2016 FINDINGS: Portable technique limits examination quality. The lungs are grossly clear. The heart is normal in size. No displaced fractures. IMPRESSION: No acute intrathoracic process suspected.
[2020-04-18 21:29] LABS: ALT/SGPT 36 U/L (12-78); AST/SGOT 20 U/L (15-37); Albumin 3.9 g/dL (3.4-5.0); Alkaline Phosphatase 79 U/L (45-117); BUN Blood Urea Nitrogen 13 mg/dL (7-18); Bicarbonate 25 mmol/L (21-32); Bilirubin Direct < 0.1 mg/dL (0-0.2); Bilirubin Total 0.3 mg/dL (0.2-1.0); Glucose Level 96 mg/dL (74-106); Magnesium 1.8 mg/dL (1.8-2.4); NT PRO-BNP 37 pg/mL (<125); Potassium 3.4 mmol/L (3.5-5.1); Protein, Total 8.3 g/dL (6.4-8.2); Sodium Level 140 mmol/L (136-145); Troponin (Emerg Dept Use Only) < 0.02 ng/mL (0.0-0.045)
--- NOTE | 2020-04-18 22:04 | EDPHYS ---
Physician Documentation [facility] Name: Amanda Guillaume Age: 39 yrs Sex: Female : 1980 Arrival Date: 04/18/2020 Time: 20:25 Bed 6 Private MD: Raffi Prieto ED Physician Neftaly Chandler HPI: 04/18 22:29 This 39 yrs old Female presents to ER via Ambulatory with complaints of Blood tw4 Pressure Problem, Chest Pain. 22:29 The patient or guardian reports chest pain that is located primarily in the anterior tw4 chest wall. The pain does not radiate. Associated signs and symptoms: The patient has no apparent associated signs or symptoms. The chest pain is described as aching. Duration: The patient or guardian reports a single episode, that is now resolved. Duration: The patient or guardian reports a single episode. Severity of pain: At its worst the pain was mild in the emergency department the pain is unchanged. The patient has not experienced similar symptoms in the past. 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 - Social history:: Smoking status: Patient/guardian denies using tobacco, the patient reports quitting approximately 2 years ago. ROS: 22:29 Constitutional: Negative for fever, chills, and weight loss, Eyes: Negative for injury, tw4 pain, redness, and discharge, Respiratory: Negative for shortness of breath, cough, wheezing, and pleuritic chest pain, Back: Negative for injury and pain, MS/Extremity: Negative for injury and deformity, Skin: Negative for injury, rash, and discoloration. 22:29 Abdomen/GI: Negative for abdominal pain, nausea, vomiting, diarrhea, and constipation. 22:29 Cardiovascular: Positive for chest pain, Negative for edema, orthopnea, palpitations, paroxysmal nocturnal dyspnea. Exam: 22:31 Constitutional: This is a well developed, well nourished patient who is awake, alert, tw4 and in no acute distress. Head/Face: Normocephalic, atraumatic. Chest/axilla: Normal chest wall appearance and motion. Nontender with no deformity. No lesions are appreciated. Cardiovascular: Regular rate and rhythm with a normal S1 and S2. No gallops, murmurs, or rubs. Normal PMI, no JVD. No pulse deficits. Respiratory: Lungs have equal breath sounds bilaterally, clear to auscultation and percussion. No rales, rhonchi or wheezes noted. No increased work of breathing, no retractions or nasal flaring. Abdomen/GI: Soft, non-tender, with normal bowel sounds. No distension or tympany. No guarding or rebound. No evidence of tenderness throughout. Back: No spinal tenderness. No costovertebral tenderness. Full range of motion. MS/ Extremity: Pulses equal, no cyanosis. Neurovascular intact. Full, normal range of motion. Neuro: Awake and alert, GCS 15, oriented to person, place, time, and situation. Cranial nerves II-XII grossly intact. Motor strength 5/5 in all extremities. Sensory grossly intact. Cerebellar exam normal. Normal gait. Vital Signs: 20:35 BP 136 / 95; Pulse 91; Resp 16 S; Temp 98.6(TE); Pulse Ox 100% on R/A; Weight 90.72 kg ca1 (R); Height 5 ft. 3 in. (160.02 cm) (R); 21:10 BP 114 / 81; Pulse 82; Resp 19; Pulse Ox 97% ; ea 22:10 BP 98 / 61; Pulse 78; Resp 18; Temp 98.4; Pulse Ox 98% ; ea 20:35 Body Mass Index 35.43 (90.72 kg, 160.02 cm) ca1 MDM: 20:31 Patient medically screened. tw4 22:31 Differential diagnosis: acute pericarditis, coronary artery disease pneumonia, tw4 pulmonary embolus, stable angina. HEART Score: History: Slightly Suspicious (0), ECG: Normal (0), Age: < or = 45 years (0), Risk Factors: No Risk Factors Known (0), Troponin: < or = 1 x Normal Limit (0), Total Score = 0. Data reviewed: vital signs, nurses notes. Data reviewed: lab test result(s), cardiac enzymes, CBC, hepatic panel, EKG. Counseling: I had a detailed discussion with the patient and/or guardian regarding: the historical points, exam findings, and any diagnostic results supporting the discharge/admit diagnosis, lab results, radiology results. Special discussion: I discussed with the patient/guardian in detail that at this point there is no indication for admission to the hospital. It is understood, however, that if the symptoms persist or worsen the patient needs to return immediately for re-evaluation. 04/18 20:31 Order name: Basic Metabolic Panel 04/18 20: Order name: CBC with Diff; Complete Time: 22:03 04/18 20:31 Order name: LFT's; Complete Time: 22:04/18 20:31 Order name: Magnesium; Complete Time: 22:04/18 20:31 Order name: NT PRO-BNP; Complete Time: 22:03 04/18 20:31 Order name: PT-INR; Complete Time: 22:04/18 20:31 Order name: Troponin (emerg Dept Use Only); Complete Time: 22:03 04/18 20:31 Order name: XRAY Chest (1 view); Complete Time: 22:03 04/18 20:31 Order name: EKG; Complete Time: 20:33 04/18 20:31 Order name: Cardiac monitoring; Complete Time: 20:44 04/18 20:31 Order name: EKG - Nurse/Tech; Complete Time: 20:44 04/18 20:31 Order name: IV Saline Lock; Complete Time: 20:44 04/18 20:31 Order name: Labs collected and sent; Complete Time: 20:44 04/18 20:33 Order name: Basic Metabolic Panel; Complete Time: 22:03 EDMS 04/18 20:31 Order name: O2 Per Protocol; Complete Time: 20:38 04/18 20:31 Order name: O2 Sat Monitoring; Complete Time: 20:38 tw4 EC:31 Rate is 94 beats/min. Rhythm is regular. QRS [place] is Normal. IN interval is normal. QRS tw4 interval is normal. QT interval is normal. No Q waves. T waves are Normal. No ST changes noted. Clinical impression: Normal ECG. Interpreted by me. Reviewed by me. Administered Medications: No medications were administered Disposition: 04/18/20 22:04 Discharged to Home. Impression: Other chest pain, Anxiety disorder, unspecified. - Condition is Stable. - Discharge Instructions: Nonspecific Chest Pain, Generalized Anxiety Disorder. - Medication Reconciliation Form, Thank You Letter, Antibiotic Education, Prescription Opioid Use form. - Follow up: Raffi Prieto MD; When: Upon discharge from the Emergency Department; Reason: Recheck today's complaints, Continuance of care, Re-evaluation by your physician. - Problem is new. - Symptoms have improved. Signatures: Dispatcher [employer] EDLA Snow Martinez RN RN Neftaly Ching MD MD tw4 Taryn Snow RN RN ca1 Corrections: (The following items were deleted from the chart) 22:18 22:04 04/18/2020 22:04 Discharged to Home. Impression: Other chest pain; Anxiety ea disorder, unspecified. Condition is Stable. Forms are Medication Reconciliation Form, Thank You Letter, Antibiotic Education, Prescription Opioid Use. Follow up: Raffi Prieto; When: Upon discharge from the Emergency Department; Reason: Recheck today's complaints, Continuance of care, Re-evaluation by your physician. Problem is new. Symptoms have improved. tw4
--- NOTE | 2020-04-18 22:04 | ER ---
Nurse's Notes [facility] Name: Amanda Guillaume Age: 39 yrs Sex: Female : 1980 Arrival Date: 04/18/2020 Time: 20:25 Bed 6 Private MD: Raffi Prieto Diagnosis: Other chest pain;Anxiety disorder, unspecified Presentation: 04/18 20:35 Chief complaint: Patient states: Lightheaded since last night. BP goes up and down. ca1 Chest pain x 3 days ago. Appears crying and anxious at triage. Reports tingling on whole face. Coronavirus screen: Client denies travel out of the [place] in the last 14 days. At this time, the client does not indicate any symptoms associated with coronavirus-19. The client reports previous COVID testing was negative. Date of collection: April 16, 2020. Ebola Screen: Patient negative for fever greater than or equal to 101.5 degrees Fahrenheit, and additional compatible Ebola Virus Disease symptoms Patient denies exposure to infectious person. Patient denies travel to an Ebola-affected area in the 21 days before illness onset. No symptoms or risks identified at this time. Initial Sepsis Screen: Does the patient meet any 2 criteria? No. Patient's initial sepsis screen is negative. Does the patient have a suspected source of infection? No. Patient's initial sepsis screen is negative. Risk Assessment: Do you want to hurt yourself or someone else? Patient reports no desire to harm self or others. Onset of symptoms was April 16, 2020. 20:35 Method Of Arrival: Ambulatory ca1 20:35 Acuity: KATHI 3 ca1 Triage Assessment: 20:38 General: Appears in no apparent distress. comfortable, Behavior is cooperative, ca1 anxious, crying. Pain: Complains of pain in chest Pain does not radiate. Pain currently is 6 out of 10 on a pain scale. Pain began 2-3 days ago. Is intermittent. EENT: No deficits noted. No signs and/or symptoms were reported regarding the EENT system. Neuro: Level of Consciousness is awake, alert, obeys commands, Oriented to person, place, time, situation. Cardiovascular: Heart tones S1 S2 present Capillary refill < 3 seconds Patient's skin is warm and dry. Respiratory: Airway is patent Respiratory effort is even, unlabored, Respiratory pattern is regular, symmetrical, Breath sounds are clear bilaterally. GI: Abdomen is round non-distended, Bowel sounds present X 4 quads. Abd is soft and non tender X 4 quads. : No signs and/or symptoms were reported regarding the genitourinary system. Derm: Skin is intact, is healthy with good turgor, Skin is pink, warm \\T\\ dry. Musculoskeletal: Circulation, motion, and sensation intact. Capillary refill < 3 seconds. 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 - Social history:: Smoking status: Patient/guardian denies using tobacco, the patient reports quitting approximately 2 years ago. Screenin:40 Abuse screen: Denies threats or abuse. Denies injuries from another. Nutritional ca1 screening: No deficits noted. Tuberculosis screening: No symptoms or risk factors identified. Fall Risk IV access (20 points). Assessment: 20:40 Reassessment: see triage assessment. Pain:. ca1 21:04 Reassessment: Patient and/or family updated on plan of care and expected duration. Pain ea level reassessed. Patient is alert, oriented x 3, equal unlabored respirations, skin warm/dry/pink. 22:17 Reassessment: Patient and/or family updated on plan of care and expected duration. Pain ea level reassessed. Patient is alert, oriented x 3, equal unlabored respirations, skin warm/dry/pink. Discharge instruction given to patient, verbalized the understanding of instruction. Pt left ED ambulatory tolerating well. Vital Signs: 20:35 BP 136 / 95; Pulse 91; Resp 16 S; Temp 98.6(TE); Pulse Ox 100% on R/A; Weight 90.72 kg ca1 (R); Height 5 ft. 3 in. (160.02 cm) (R); 21:10 BP 114 / 81; Pulse 82; Resp 19; Pulse Ox 97% ; ea 22:10 BP 98 / 61; Pulse 78; Resp 18; Temp 98.4; Pulse Ox 98% ; ea 20:35 Body Mass Index 35.43 (90.72 kg, 160.02 cm) ca1 ED Course: 20:25 Patient arrived in ED. am2 20:26 Raffi Prieto MD is Private Physician. am2 20:31 Neftaly Chandler MD is Attending Physician. tw4 20:35 Taryn Snow, QUIN is Primary Nurse. ca1 20:37 Triage completed. ca1 20:38 Arm band placed on right wrist. ca1 20:40 Patient has correct armband on for positive identification. Placed in gown. Bed in low ca1 position. Call light in reach. Side rails up X 1. radiation monitor on. Pulse ox on. NIBP on. Warm blanket given. 20:41 No provider procedures requiring assistance completed. Patient maintains SpO2 ca1 saturation greater than 95% on room air. 20:44 Taryn Snow RN is Primary Nurse. ca1 20:51 PT-INR Sent. ds4 20:52 EKG done, by ED staff, reviewed by Neftaly Chandler MD. ds4 20:52 Inserted saline lock: 20 gauge in left antecubital area, using aseptic technique. Blood mg2 collected. 20:56 XRAY Chest (1 view) In Process Unspecified. EDMS 22:03 Raffi Prieto MD is Referral Physician. tw4 22:15 IV discontinued, intact, bleeding controlled, No redness/swelling at site. Pressure ea dressing applied. Administered Medications: No medications were administered Outcome: 22:04 Discharge ordered by . tw4 22:16 Discharged to home ambulatory. ea 22:16 Condition: stable 22:16 Discharge instructions given to patient, Instructed on discharge instructions, follow up and referral plans. Demonstrated understanding of instructions, follow-up care. 22:18 Patient left the ED. ea Signatures: Dispatcher [employer] EDMS [place] ds4 Zhanna Waldron am2 Snow Martinez RN Neftaly Martinez ea, MD MD tw4 Blake Collier RN RN mg2 Taryn Snow RN RN ca1 Corrections: (The following items were deleted from the chart) 20:38 20:35 Chief complaint: Patient states: Lightheaded since last night. BP goes up and ca1 down. Chest pain x 3 days ago. Appears crying and anxious at triage. ca1 22:18 22:17 Reassessment: Patient and/or family updated on plan of care and expected ea duration. Pain level reassessed. Patient is alert, oriented x 3, equal unlabored respirations, skin warm/dry/pink. Discharge instruction given to patient, verbalized the understanding of instruction. ea
[2020-04-19 19:54] VITALS: TEMP 98.6
[2020-04-19 19:55] VITALS: BP 114/81; O2SAT 97
--- NOTE | 2020-04-21 05:22 | EKG ---
Test Date: 2020-04-18 Test Time: 20:46:01 Client Technical Professional: FARRUKH MEASUREMENT RESULTS: Intervals: Rate: 94 CA: 150 QRSD: 78 QT: 346 QTc: 432 [place]: P: 54 CA: 150 QRS: 49 T: 52 INTERPRETIVE STATEMENTS: Normal sinus rhythm Normal ECG Compared to ECG 08/30/2018 08:19:15 No significant changes Electronically Signed On 04-21-20 05:20:41 CDT by Kris Wilson
== END 2020-04-18 22:18 | disposition home or self-care (01) ==
LOC: ER 20:23
DX: F41.9 Anxiety disorder, unspecified (principal); R07.89 Other chest pain; I10 Essential (primary) hypertension; Z88.1 Allergy status to other antibiotic agents; Z91.048 Other nonmedicinal substance allergy status
CPT/HCPCS: 36415; 71045; 80048; 80076; 83735; 83880; 84484; 85025; 85610; 93005; 99285

== ENCOUNTER 2022-10-27 09:24 | Day surgery (SDC) | payer BC ==
[2022-10-25 09:53] LABS: Absolute Lymphocytes (CBC) 1.7 K/uL (0.7-4.9); Hematocrit 40.7 % (36.0-45.0); MCV 92.5 fL (80-100); RBC Red Blood Cell Count 4.41 M/uL (3.86-4.86)
[2022-10-25 09:58] LABS: Specific Gravity 1.016 (1.005-1.030); Urine Bacteria None Seen /HPF (<20); Urine Bilirubin NEGATIVE (Negative); Urine Blood Negative (Negative); Urine Clarity Clear (Clear); Urine Color Light-Yellow (Yellow); Urine Glucose NEGATIVE (Negative); Urine Mucus Slight /HPF (None Seen); Urine Protein NEGATIVE (Negative); Urine RBC <5 /HPF (None Seen); Urine Urobilinogen Normal (Normal)
[2022-10-27] MEDS ORDERED: Ringers Lactate 1,000 ML IV ONE (10:03)
[2022-10-27] MEDS ORDERED: SCOPOLAMINE HYDROBROMIDE PATCH TD ONE (10:04)
[2022-10-27] MEDS: CEFAZOLIN SODIUM 2 GM/VIAL ONE ×2 (10:37→11:19)
[2022-10-27] MEDS: BUPIVACAINE 0.25% PF 30 ML VIAL ONE ×2 (10:37→12:07)
[2022-10-27 10:38] VITALS: O2SAT 100
[2022-10-27] MEDS ORDERED: propofoL 200 MG/20 ML VIAL IV ONE (10:40)
[2022-10-27] MEDS ORDERED: MIDAZOLAM HCL 2 MG/2 ML INJ ONE (10:41)
[2022-10-27] MEDS ORDERED: ROCURONIUM 50 MG/5 ML VIAL IV ONE (10:41)
[2022-10-27] MEDS ORDERED: FENTANYL CITR 250 MCG/5 ML ONE (10:42)
[2022-10-27] MEDS ORDERED: NEOSTIGMINE 1 MG/ML -10 ML VIAL ONE (10:47)
[2022-10-27] MEDS ORDERED: GLYCOPYRROLATE 0.2 MG/ML SYR ONE (10:47)
[2022-10-27] MEDS ORDERED: LIDOCAINE 2% MPF 5 ML VIAL ONE (10:47)
[2022-10-27] MEDS ORDERED: ONDANSETRON 4 MG/2 ML VIAL ONE (10:47)
[2022-10-27] MEDS ORDERED: clonazePAM 0.5 MG TAB PO PRN (13:52)
[2022-10-27] MEDS ORDERED: MEPERIDINE HCL 25 MG/ML SYR ONE (13:52)
[2022-10-27] MEDS ORDERED: SIMETHICONE 80 MG TAB PO PRN (13:52)
[2022-10-27] MEDS: HYDROMORPHONE HCL 1 MG/ML INJ ONE ×4 (13:52→14:02)
[2022-10-27] MEDS ORDERED: IBUPROFEN 200 MG TAB PO PRN (13:53)
[2022-10-27] MEDS ORDERED: MEPERIDINE HCL 25 MG/ML SYR IM PRN (13:53)
[2022-10-27] MEDS ORDERED: HYDROCODONE/APAP 5/325 MG TAB PO PRN (13:53)
[2022-10-27] MEDS ORDERED: PROMETHAZINE INJ 25 MG/ML AMP IV PRN (13:53)
--- NOTE | 2022-10-27 14:01 | P.BOP ---
Preoperative diagnosis: Menorrhagia(AUB-A/O)Dysmenorrhea, Deep dyspareunia Postoperative diagnosis: same, Endometriosis (b/l USL, post CDS, b/l mesosalpinges) Primary procedure: Diag Hysteroscopy, Endometrial ablation w/Novasure,Diag laparoscopy, Secondary procedure: Bilateral salpingectomy, Endometriosis excision Tin Worker: Shruthi Calvo Estimated blood loss: min Specimen: endo rt and left USL, bilat tubes Findings: DiscreteEndoImplants,b/l USL excised,CDS fulgration,mesosalpinges scar?endo Anesthesia: General Complications: None Transferred to: Recovery Room Condition: Good
[2022-10-27] MEDS ORDERED: HYDROCODONE/APAP 5/325 MG TAB ONE (15:07)
[2022-10-27 15:18] VITALS: BP 104/47; TEMP 97.6
--- NOTE | 2022-10-27 15:42 | OP ---
Date of Procedure: 10/27/2022 Surgeon: Karoline Hendricks MD [place] Production Line: Shruthi Reyna. Preoperative Diagnoses: Menorrhagia (AUB-O/A), dysmenorrhea, deep dyspareunia. Postoperative Diagnoses: Menorrhagia (AUB-O/A), dysmenorrhea, deep dyspareunia and endometriosis of the bilateral uterosacral ligaments, posterior cul-de-sac, bilateral nasal salpinges. Procedures Performed: Diagnostic hysteroscopy, endometrial ablation with NovaSure, diagnostic laparo scopy, bilateral salpingectomy for removal of endometriosis and for pain, and endometriosis excision for the endometriotic implants on bilateral uterosacral ligaments, fulguration of the posterior cul-d e-sac implants, and excision of the medial salpinges alongside the tubes to remove the scar and possi ble endometriosis implants. Anesthesia: General endotracheal. Estimated Blood Loss: Minimal. Specimens: Endometriosis from the right and left uterosacral ligaments, bilateral tubes along with m esosalpinges on their respective sides. For the ablation, her cavity length was 4.5 cm, width 3.6 cm . Power 87 farmer and T was 1 minute 50 seconds. Excellent ablation effect noted after the ablation was performed and there were no interruptions. Discrete endometriosis implants were seen on bilateral uterosacral ligaments, especially more on the right than the left. These were completely excised until normal tissues were seen and posterior cul- de-sac single very small implant was seen in the posterior cul-de-sac, which was picked up and fulgur ated. No other posterior cul-de-sac implants were seen. The deep dyspareunia could be related to th e endometriosis on her uterosacral ligaments, which has been excised. Complications: No other complications. Drains: No drains. Condition: Stable. Indications: The patient is a 42-year-old female with heavy bleeding, severe cramps with periods, an d deep dyspareunia. She had preoperative testing including transvaginal ultrasound and endometrial s ampling. No atypia or malignancy was seen. Offered all the conservative treatment options. She has had a tubal ligation for control with a second section; however, with a deep dyspareu aiden and dysmenorrhea, there was possibility of endometriosis. Offered the conservative treatment opt ions, she had failed conservative management in the past, so offered the endometrial ablation alone o r endometrial ablation with laparoscopy, endometriosis excision due to her deep dyspareunia. This wa s found to be beneficial to her and therefore we discussed about removing the tubes and en dosalpingiosis, which could also be contributing to her pain, so she was consented and brought to the OR. After informed consent was verified, she was taken back to the OR. She had started her period today. 2 g of Ancef were given. SCDs were placed. She was placed in a supine fashion on the operating ta ble. General anesthesia was given. She was then placed in a dorsal lithotomy position using Ruddy s tirrups. Abdomen prepped with ChloraPrep, vulva, vagina, and perineum with Betadine and draped in a sterile fashion. Speculum placed to expose the cervix. Anterior lip grasped with 2 Allis clamps. Cervix was dilated to 20-Sing[place]an. Then, the diagnostic SlimLine hysteroscope was introduced into the uterine cavity and cavity was assessed. Measurements taken directly off the uterine cavity, which came up to 4.5 cm. T hen, the device was primed and inserted into the uterine cavity and deployed. Cavity integrity test was done once the cervix was plugged with the occluder. The cavity test passed without any problems quickly. Then, the ablation cycle was started and continued for 1 minute 50 seconds in an interrupte d fashion. Then, the device was undeployed in the usual way and hysteroscopy was performed. There w as excellent ablation effect. A diagnostic uterine manipulator was introduced into the place and fix ed here. Simon was placed to drain the bladder and connected to a drainage bag. This area was drape d. A 1 cm infraumbilical similar incision was made with a scalpel using the open laparoscopy technique. Fascia was incised, tagged with 0 Vicryl sutures. There were 2 layers of fascia here as she had an abdominoplasty. Then, I went through the peritoneum sharply with scissors. Then, tagged 0 Vicryl ordaz tures were placed on each edge for retraction. S retractor was placed and Andres introduced. Site o f entry was checked and was unremarkable. Upper abdominal surfaces were checked as well. No gross e vidence of hemangioma on the liver. No endometriosis in the upper abdominal cavity. The patient was placed in Trendelenburg. Two 5 ports were placed, 1 in the left lower quadrant and 1 in the suprapubic area under direct vision. Then, after survey of the peritoneal cavity, the impres michael was as above dictated in the findings, so was to proceed with the surgery. The mesosalpinges were visualized and the dissection of the distal tube was taken down carefully with out disturbing the IP ligament and the ovarian blood supply. Once the tube was removed all the way t o the cornual end, this was detached and left in the anterior cul-de-sac. Similar dissection perform ed on the right side to take the tube out from the cornual end all the way to the distal mesosalpinx including the scar tissue, possible endometriosis, and this was excised and placed in the anterior cu l-de-sac. All these specimens were pulled out through the suprapubic site and [facility] and labeled. Endometriosis was noted on the uterosacral ligaments on both sides, the right more prominent than the left as there were hemosiderin like deposits here with tissue. The peritoneum between the distal ureter and the uterosacral ligament implants were incised with the help of sharp scissors and this was extended superiorly and inferiorly. Then using the LigaSure, the implant was excised off the uterosacral ligament and then the entire implants surrounding peritoneal tissues were excised. Similarly on the right side, circumferentially incision was made along the pe ritoneum. Then, the implant was excised and handed out for permanent pathology. Dissection was louise ied to the medial aspect of the ureter on the peritoneum on the right side carefully dissecting and e xcising the end. Thorough irrigation and suction were performed. The endometriosis on the superficial peritoneum and posterior cul-de-sac was picked up with a curved Agnes and fulgurated with bipolar. Thorough irrig ation and suction were performed, completely hemostatic all pedicles. Tolerated the procedure well. All the trocars were removed under direct vision. Fascia and skin injected with Marcaine 0.25% 30 c c in total at the beginning and the end of the case. Fascia at the umbilicus closed with the help of 0 Vicryl sutures, tied to each other after the gas was desufflated. The patient was placed in supin e fashion. Two sutures were placed in the midline and then 5-0 Monocryl in a continuous running fas ion was used to close the infraumbilical incision and interrupted same sutures placed in the other 2. Instrument, needle, and sponge counts were correct at the end of the case. The patient tolerated t he procedure well. EBL was minimal. Her was called and debriefed on her findings. She will follow up in 1 week and then later in a month. BENTLEY/RAMAN Voice ID: [id number] Report ID: [id number]
[2022-10-27] MEDS ORDERED: BUSPIRONE HCL 15 MG TABLET PO SCH (21:00)
[2022-10-27] MEDS ORDERED: BUPROPION HCL XL 150 MG TAB PO SCH (21:00)
[2022-10-28] MEDS ORDERED: HOME MED 1 EA UNK (Omeprazole [Omeprazole] 20 MG Capsule.Dr) PO SCH (09:00)
[2022-10-28] MEDS ORDERED: MV MIN PO SCH (09:00)
[2022-10-28] MEDS ORDERED: VIT C PO SCH (09:00)
[2022-10-28] MEDS ORDERED: atenoloL 50 MG TAB PO SCH (09:00)
[2022-10-28] MEDS ORDERED: HOME MED 1 EA UNK (L.Acidoph,Paracasei, B.Lactis [Probiotic] Capsule) PO SCH (09:00)
[2022-10-28] MEDS ORDERED: [UNRECOGNIZED DRUG - OTHER] PO SCH (09:00)
[2022-10-28] MEDS ORDERED: VITAMIN C PO SCH (09:00)
[2022-10-28] MEDS ORDERED: hydroCHLOROthiazide 25 MG TAB PO SCH (09:00)
[2022-10-28] MEDS ORDERED: BIOTIN PO SCH (09:00)
[2022-10-28] MEDS ORDERED: LYSINE PO SCH (09:00)
[2022-10-28] MEDS ORDERED: GLUT PO SCH (09:00)
== END 2022-10-27 15:35 | disposition home or self-care (01) ==
LOC: PRE 09:24 → OR 15:35
PROVIDERS: ADMIT Obstetrics & Gynecology; ATTEND Obstetrics & Gynecology
PROC: 0UT74ZZ Resection of Bilateral Fallopian Tubes, Percutaneous Endoscopic Approach (ICD-10-PCS; 2022-10-27)
PROC: 0UBF4ZZ Excision of Cul-de-sac, Percutaneous Endoscopic Approach (ICD-10-PCS; 2022-10-27)
PROC: 0DBW4ZZ Excision of Peritoneum, Percutaneous Endoscopic Approach (ICD-10-PCS; 2022-10-27)
PROC: 0U5B8ZZ Destruction of Endometrium, Via Natural or Artificial Opening Endoscopic (ICD-10-PCS; principal; 2022-10-27 11:00)
DX: N92.0 Excessive and frequent menstruation with regular cycle (principal); N94.6 Dysmenorrhea, unspecified; N94.12 Deep dyspareunia; N93.9 Abnormal uterine and vaginal bleeding, unspecified; N80.3C3 Endometriosis of bilateral uterosacral ligament(s), unspecified depth; N80.329 Endometriosis of the posterior cul-de-sac, unspecified depth
CPT/HCPCS: 36415; 81001; 81025; 85025; 86850; 86900; 86901; 88305; J1170; J2001; J2175; J2250; J2405; J2704; J2710; J3010; J7120

== ENCOUNTER 2023-01-29 20:16 | Observation (INO) | payer BC ==
--- OUTSIDE RECORDS SUMMARY | 2023-01-29 20:20 | XMS REPORT | Continuity of Care Document ---
:1980 Author Organization [facility] t Address [address] [place] [id number] [place] [id number] Care Team Providers Name Role Phone TAD LONGORIA JR Primary Care Physician Unavailable RENAE VILLARREAL Attending Clinician Unavailable ROHITH DARLING Attending Clinician Unavailable Rohith Darling MD Attending Clinician Doctor Unassigned, [place] Attending Clinician Unavailable 2, [facility] Attending Clinician Unavailable Renae Villarreal PA-C Attending Clinician Mariana Joy MA Attending Clinician Unavailable NYDIA BOBBY Attending Clinician Unavailable Valentin Montilla DO Attending Clinician Gaurav TSAI, Kwaku Attending Clinician Unavailable Ayala Saini DO Attending Clinician NUHA HARPER Attending Clinician Unavailable Provider, [facility] Attending Clinician Unavailable Nuha Oviedo Attending Clinician Payers Payer Name Policy Type Policy Number Effective Date Expiration Date S jennie [facility] [id number] 2018 00:00:00 Problems Condition Condition Condition Status Onset Resolution Last Treating Co mments Source Name Details Category Date Date Treatment Clinician Date Obesity Obesity Disease Active Univers (BMI (BMI 4-26 ity of 30-39.9) 30-39.9) 00:00: [address] Restless Restless Disease Active Unive rs legs legs 4-18 ity of 00:00: [address] Infectious Infectious Disease Active U nivers mononucleo mononucleo 4-18 it y of sis sis 00:00: [place] [facility] Hypertensi Hypertensi Disease Active U nivers ve ve 4-18 ity of disorder disorder 00:00: [place] [facility] Depressive Depressive Disease Active U nivers disorder disorder 4-18 ity of 00:00: [facility] Insomnia Insomnia Disease Active Unive rs 9-17 ity of 00:00: [facility] Branch Hypoglycem Hypoglycem Disease Active U nivers ia ia 9-17 ity of 00:00: [place] [facility] No known No known Disease Unive rs active active ity of problems problems [facility] Allergies, Adverse Reactions, Alerts Allergy Allergy Status Severity Reaction(s) Onset Inactive Treating Comm ents Source Name Type Date Date Clinician SULFAMET DRUG Active Hives Univers HOXAZOLE 1-04 ity of -TRIMETH 00:00: [place] OPR [facility] Sulfamet Drug Active Hives Univers hoxazole Allergy 1-04 ity of -Trimeth 00:00: [place] opr 00 [facility] Sulfa Drug Active Hives 2019-0 Univers (Sulfona Allergy 8-18 ity of mide 00:00: [place] Antibiot 00 Medical ics) Branch SULFA Drug Active Hives 2020-0 Univers (SULFONA Class 8-18 ity of MIDE 00:00: [place] ANTIBIOT 00 Medical ICS) Branch Sulfa Drug Active Hives 2020-0 Univers (Sulfona Allergy 8-18 ity of mide 00:00: [place] Antibiot 00 Medical ics) Branch NO KNOWN Drug Active Univers ALLERGIE Class ity of S [facility] Social History Social Habit Start Date Stop Date Quantity Comments Source History of Cigarette Smoker Universi ty of tobacco use [facility] Exposure to 2022-09-02 2022-09-12 Not sure University of SARS-CoV-2 00:00:00 12:40:00 [facility] (event) [place] Alcohol intake 2022-09-12 2022-09-12 Current drinker of Un iversity of 00:00:00 00:00:00 alcohol (finding) [facility] edical [place] Alcohol Comment 2022-08-24 2022-08-24 occasionally Univers ity of 00:00:00 00:00:00 [facility] Tobacco use and 2022-08-24 2022-08-24 Smokeless tobacco Un iversity of exposure 00:00:00 00:00:00 non-user [place] [facility] History [facility] 2020-04-06 2020-04-06 2 University o f Alcohol Frequency 00:00:00 00:00:00 [place] M edical Branch History [facility] 2020-04-06 2020-04-06 99 University o f Alcohol Std 00:00:00 00:00:00 [place] Medical Drinks Branch History [facility] 2020-04-06 2020-04-06 99 University o f Alcohol Binge 00:00:00 00:00:00 [place] Medic al Branch Sex [birth year] At [birth year] Universit y of 00:00:00 00:00:00 [facility] Smoking Status Start Date Stop Date Source Unknown if ever smoked [facility] y [facility] Ex-smoker 2022-08-24 00:00:00 2022-08-24 00:00:00 [facility] ty [facility] Medications Ordered Filled Start Stop Current Ordering Indication Dosage Frequency Signature Comments Components Source Medication Medication Date Date Medication? Clinician (SIG) Name Name baclofen 10 Yes 10mg Take 10 mg Univers mg tablet 1-11 by mouth 3 ity of 14:05: (three) [place] 06 times Medical daily. Branch baclofen 10 Yes 10mg Take 10 mg Univers mg tablet 1-11 by mouth 3 ity of 14:05: (three) [place] 06 times Medical daily. Branch baclofen 10 Yes 10mg Take 10 mg Univers mg tablet 1-11 by mouth 3 ity of 14:05: (three) [place] 06 times Medical daily. Branch baclofen 10 Yes 10mg Take 10 mg Univers mg tablet 1-11 by mouth 3 ity of 14:05: (three) [place] 06 times Medical daily. Branch baclofen 10 Yes 10mg Take 10 mg Univers mg tablet 1-11 by mouth 3 ity of 14:05: (three) [place] 06 times Medical daily. Branch baclofen 10 Yes 10mg Take 10 mg Univers mg tablet 1-11 by mouth 3 ity of 14:05: (three) [place] 06 times Medical daily. Branch miSOPROStoL Yes [id number] Take one Univers 200 mcg 1-11 tablet ity of tablet 00:00: night [place] 00 before Medical procedure, Branch then take one tablet morning of procedure miSOPROStoL 0 Yes [id number] Take one Univers 200 mcg 1-11 tablet ity of tablet 00:00: night [place] 00 before Medical procedure, Branch then take one tablet morning of procedure miSOPROStoL 0 3- No [id number] Take one Univers 200 mcg 1-11 -30 tablet ity of tablet 00:00: 00:00 night [place] 00 :00 before Medical procedure, Branch then take one tablet morning of procedure miSOPROStoL 0 2022- No [id number] Take one Univers 200 mcg 1-11 -30 tablet ity of tablet 00:00: 00:00 night [place] 00 :00 before Medical procedure, Branch then take one tablet morning of procedure omeprazole 2022-0 Yes Univers 20 mg 1-03 ity of capsule 00:00: [address] omeprazole 2022-0 Yes Univers 20 mg 1-03 ity of capsule 00:00: [place] [facility] omeprazole 2022-0 Yes Univers 20 mg 1-03 ity of capsule 00:00: [place] [facility] omeprazole 2022-0 Yes Univers 20 mg 1-03 ity of capsule 00:00: [address] omeprazole 2022-0 Yes Univers 20 mg 1-03 ity of capsule 00:00: [place] [facility] omeprazole 2022-0 Yes Univers 20 mg 1-03 ity of capsule 00:00: [address] omeprazole 2022-0 Yes Univers 20 mg 1-03 ity of capsule 00:00: [address] omeprazole 2022-0 Yes Univers 20 mg 1-03 ity of capsule 00:00: [address] ibuprofen 2019-0 2020- No 400mg 400 mg, Uni vers (IBU) 04-16 09-03 Oral, ity of tablet 400 14:15: 14:14 ONCE, 1 [place] as mg 00 :00 dose, [facility] Medical 04/16/20 at [place] 0915, CHIDI methylPREDN 2019-0 Yes Take by Uni vers ISolone 8-24 mouth ity of (METHYLPRED 21:02: SEE-INSTRU [facility]) 4 mg 36 CTIONS. Medical tablets follow [place] package directions pantoprazol 2019-0 Yes 40mg Take 40 mg Univers e sodium 8-24 by mouth. ity of (PANTOPRAZO 21:02: [place] LE ORAL) 36 Medical Branch hydroCHLORO 2020-0 Yes 25mg Take 25 mg Univers thiazide 25 8-24 by mouth ity of mg tablet 21:02: daily. [address] Branch BUPROPION 2020-0 Yes 150mg Take 150 Uni vers HCL ORAL 8-24 mg by ity of 21:02: mouth. [address] atenoloL 50 2020-0 Yes 50mg Take 50 mg Univers mg tablet 8-24 by mouth ity of 21:02: daily. [address] Branch busPIRone 2020-0 Yes 7.5mg Take 7.5 Uni vers 7.5 mg 8-24 mg by ity of tablet 21:02: mouth 3 [place] [address] (three) Medical times [place] daily. baclofen 10 2020-0 Yes 10mg Take 10 mg Univers mg tablet 8-24 by mouth 3 ity of 21:02: (three) [place] [address] times Medical daily. Branch methylPREDN 2019-0 Yes Take by Uni vers ISolone 8-24 mouth ity of (METHYLPRED 21:02: SEE-INSTRU [facility]) 4 mg 36 CTIONS. Medical tablets follow Branch package directions pantoprazol 2020-0 Yes 40mg Take 40 mg Univers e sodium 8-24 by mouth. ity of (PANTOPRAZO 21:02: [place] LE ORAL) [address] [place] [address] Branch hydroCHLORO 2020-0 Yes 25mg Take 25 mg Univers thiazide 25 8-24 by mouth ity of mg tablet 21:02: daily. [address] BUPROPION 2020-0 Yes 150mg Take 150 Uni vers HCL ORAL 8-24 mg by ity of 21:02: mouth. [address] Branch atenoloL 50 2020-0 Yes 50mg Take 50 mg Univers mg tablet 8-24 by mouth ity of 21:02: daily. [address] busPIRone 2020-0 Yes 7.5mg Take 7.5 Uni vers 7.5 mg 8-24 mg by ity of tablet 21:02: mouth 3 [place] [address] (three) Medical times Branch daily. baclofen 10 2020-0 Yes 10mg Take 10 mg Univers mg tablet 8-24 by mouth 3 ity of 21:02: (three) [place] [address] times Medical daily. Branch methylPREDN 2020-0 Yes Take by Uni vers ISolone 8-24 mouth ity of (METHYLPRED 21:02: SEE-INSTRU [place] DP) 4 mg 36 CTIONS. Medical tablets follow Branch package directions pantoprazol 2020-0 Yes 40mg Take 40 mg Univers e sodium 8-24 by mouth. ity of (PANTOPRAZO 21:02: [place] LE ORAL) [address] [place] [address] Branch hydroCHLORO 2020-0 Yes 25mg Take 25 mg Univers thiazide 25 8-24 by mouth ity of mg tablet 21:02: daily. [address] Branch BUPROPION 2020-0 Yes 150mg Take 150 Uni vers HCL ORAL 8-24 mg by ity of 21:02: mouth. [address] atenoloL 50 2020-0 Yes 50mg Take 50 mg Univers mg tablet 8-24 by mouth ity of 21:02: daily. [address] busPIRone 2020-0 Yes 7.5mg Take 7.5 Uni vers 7.5 mg 8-24 mg by ity of tablet 21:02: mouth 3 [place] [address] ([facility]) Medical times [place] daily. baclofen 10 2019-0 Yes 10mg Take 10 mg Univers mg tablet 8-24 by mouth 3 ity of 21:02: (three) [address] daily[address] Branch methylPREDN 2019-0 Yes Take by Uni vers ISolone 8-24 mouth ity of (METHYLPRED 21:02: SEE-INSTRU [place] DP) 4 mg 36 CTIONS. Medical tablets follow Branch package directions pantoprazol 2020-0 Yes 40mg Take 40 mg Univers e sodium 8-24 by mouth. ity of (PANTOPRAZO 21:02: [place] LE ORAL) [address] [place] [address] Branch hydroCHLORO 2020-0 Yes 25mg Take 25 mg Univers thiazide 25 8-24 by mouth ity of mg tablet 21:02: daily. [address] BUPROPION 2020-0 Yes 150mg Take 150 Uni vers HCL ORAL 8-24 mg by ity of 21:02: mouth. [address] atenoloL 50 2020-0 Yes 50mg Take 50 mg Univers mg tablet 8-24 by mouth ity of 21:02: daily. [address] busPIRone 2020-0 Yes 7.5mg Take 7.5 Uni vers 7.5 mg 8-24 mg by ity of tablet 21:02: mouth 3 [place] [address] (three) Medical times [place] daily. baclofen 10 2020-0 Yes 10mg Take 10 mg Univers mg tablet 8-24 by mouth 3 ity of 21:02: (three) [place] [address] times Medical daily. Branch methylPREDN 2020-0 Yes Take by Uni vers ISolone 8-24 mouth ity of (METHYLPRED 21:02: SEE-INSTRU [place] DP) 4 mg 36 CTIONS. Medical tablets follow Branch package directions pantoprazol 2020-0 Yes 40mg Take 40 mg Univers e sodium 8-24 by mouth. ity of (PANTOPRAZO 21:02: [place] LE ORAL) Medical Branch hydroCHLORO 2020-0 Yes 25mg Take 25 mg Univers thiazide 25 8-24 by mouth ity of mg tablet 21:02: daily. [address] BUPROPION 2020-0 Yes 150mg Take 150 Uni vers HCL ORAL 8-24 mg by ity of 21:02: mouth. [address] atenoloL 50 2019-0 Yes 50mg Take 50 mg Univers mg tablet 8-24 by mouth ity of 21:02: daily. [address] busPIRone 2020-0 Yes 7.5mg Take 7.5 Uni vers 7.5 mg 8-24 mg by ity of tablet 21:02: mouth 3 [place] [address] (three) Medical times [place] daily. baclofen 10 2020-0 Yes 10mg Take 10 mg Univers mg tablet 8-24 by mouth 3 ity of 21:02: (three) [place] [address] times Medical daily. Branch methylPREDN 2019-0 Yes Take by Uni vers ISolone 8-24 mouth ity of (METHYLPRED 21:02: SEE-INSTRU [place] DP) 4 mg 36 CTIONS. Medical tablets follow Branch package directions pantoprazol 2020-0 Yes 40mg Take 40 mg Univers e sodium 8-24 by mouth. ity of (PANTOPRAZO 21:02: [place] LE ORAL) [address] [place] [address] Branch hydroCHLORO 2020-0 Yes 25mg Take 25 mg Univers thiazide 25 8-24 by mouth ity of mg tablet 21:02: daily. [address] BUPROPION 2020-0 Yes 150mg Take 150 Uni vers HCL ORAL 8-24 mg by ity of 21:02: mouth. [address] atenoloL 50 2019-0 Yes 50mg Take 50 mg Univers mg tablet 8-24 by mouth ity of 21:02: daily. [place] 36 Medical Branch busPIRone 2020-0 Yes 7.5mg Take 7.5 Uni vers 7.5 mg 8-24 mg by ity of tablet 21:02: mouth 3 [place] [address] (three) Medical times [place] daily. baclofen 10 2020-0 Yes 10mg Take 10 mg Univers mg tablet 8-24 by mouth 3 ity of 21:02: (three) [place] [address] times Medical daily. Branch methylPREDN 2020-0 Yes Take by Uni vers ISolone 8-24 mouth ity of (METHYLPRED 21:02: SEE-INSTRU [place] DP) 4 mg 36 CTIONS. Medical tablets follow Branch package directions pantoprazol 2020-0 Yes 40mg Take 40 mg Univers e sodium 8-24 by mouth. ity of (PANTOPRAZO 21:02: [place] LE ORAL) 36 Medical Branch hydroCHLORO 2020-0 Yes 25mg Take 25 mg Univers thiazide 25 8-24 by mouth ity of mg tablet 21:02: daily. [place] [address] Medical Branch BUPROPION 2020-0 Yes 150mg Take 150 Uni vers HCL ORAL 8-24 mg by ity of 21:02: mouth. [place] [address] Medical Branch atenoloL 50 2020-0 Yes 50mg Take 50 mg Univers mg tablet 8-24 by mouth ity of 21:02: daily. [place] [address] Medical Branch busPIRone 2020-0 Yes 7.5mg Take 7.5 Uni vers 7.5 mg 8-24 mg by ity of tablet 21:02: mouth 3 [place] [address] (three) Medical times [place] daily. baclofen 10 2020-0 Yes 10mg Take 10 mg Univers mg tablet 8-24 by mouth 3 ity of 21:02: (three) [place] [address] times Medical daily. Branch methylPREDN 2020-0 Yes Take by Uni vers ISolone 8-24 mouth ity of (METHYLPRED 21:02: SEE-INSTRU [place] DP) 4 mg 36 CTIONS. Medical tablets follow Branch package directions pantoprazol 2020-0 Yes 40mg Take 40 mg Univers e sodium 8-24 by mouth. ity of (PANTOPRAZO 21:02: [place] LE ORAL) Medical Branch hydroCHLORO 2020-0 Yes 25mg Take 25 mg Univers thiazide 25 8-24 by mouth ity of mg tablet 21:02: daily. [place] [address] Medical Branch BUPROPION 2020-0 Yes 150mg Take 150 Uni vers HCL ORAL 8-24 mg by ity of 21:02: mouth. [address] atenoloL 50 2020-0 Yes 50mg Take 50 mg Univers mg tablet 8-24 by mouth ity of 21:02: daily. [address] Branch busPIRone 2020-0 Yes 7.5mg Take 7.5 Uni vers 7.5 mg 8-24 mg by ity of tablet 21:02: mouth 3 [place] [address] (three) Medical times [place] daily. baclofen 10 2020-0 Yes 10mg Take 10 mg Univers mg tablet 8-24 by mouth 3 ity of 21:02: (three) [place] [address] times Medical daily. Branch methylPREDN 2020-0 Yes Take by Uni vers ISolone 8-24 mouth ity of (METHYLPRED 21:02: SEE-INSTRU [place] DP) 4 mg 36 CTIONS. Medical tablets follow Branch package directions pantoprazol 2020-0 Yes 40mg Take 40 mg Univers e sodium 8-24 by mouth. ity of (PANTOPRAZO 21:02: [place] LE ORAL) [address] [place] [address] hydroCHLORO 2020-0 Yes 25mg Take 25 mg Univers thiazide 25 8-24 by mouth ity of mg tablet 21:02: daily. [address] Branch BUPROPION 2020-0 Yes 150mg Take 150 Uni vers HCL ORAL 8-24 mg by ity of 21:02: mouth. [address] atenoloL 50 2020-0 Yes 50mg Take 50 mg Univers mg tablet 8-24 by mouth ity of 21:02: daily. [address] busPIRone 2020-0 Yes 7.5mg Take 7.5 Uni vers 7.5 mg 8-24 mg by ity of tablet 21:02: mouth 3 [place] [address] (three) Medical times [place] daily. baclofen 10 2020-0 Yes 10mg Take 10 mg Univers mg tablet 8-24 by mouth 3 ity of 21:02: (three) [place] [address] times Medical daily. Branch methylPREDN 2020-0 Yes Take by Uni vers ISolone 8-24 mouth ity of (METHYLPRED 21:02: SEE-INSTRU [place] DP) 4 mg 36 CTIONS. Medical tablets follow Branch package directions pantoprazol 2020-0 Yes 40mg Take 40 mg Univers e sodium 8-24 by mouth. ity of (PANTOPRAZO 21:02: [place] LE ORAL) Medical Branch hydroCHLORO 2020-0 Yes 25mg Take 25 mg Univers thiazide 25 8-24 by mouth ity of mg tablet 21:02: daily. [address] Branch BUPROPION 2020-0 Yes 150mg Take 150 Uni vers HCL ORAL 8-24 mg by ity of 21:02: mouth. [address] Branch atenoloL 50 2020-0 Yes 50mg Take 50 mg Univers mg tablet 8-24 by mouth ity of 21:02: daily. [address] Branch busPIRone 2020-0 Yes 7.5mg Take 7.5 Uni vers 7.5 mg 8-24 mg by ity of tablet 21:02: mouth 3 [place] [address] (three) Medical times [place] daily. baclofen 10 2020-0 Yes 10mg Take 10 mg Univers mg tablet 8-24 by mouth 3 ity of 21:02: ([facility]) [place] [address] times Medical daily. Branch methylPREDN 2020-0 Yes Take by Uni vers ISolone 8-24 mouth ity of (METHYLPRED 21:02: SEE-INSTRU [place] DP) 4 mg 36 CTIONS. Medical tablets follow Branch package directions pantoprazol 2020-0 Yes 40mg Take 40 mg Univers e sodium 8-24 by mouth. ity of (PANTOPRAZO 21:02: [place] LE ORAL) Medical Branch hydroCHLORO 2020-0 Yes 25mg Take 25 mg Univers thiazide 25 8-24 by mouth ity of mg tablet 21:02: daily. [address] BUPROPION 2020-0 Yes 150mg Take 150 Uni vers HCL ORAL 8-24 mg by ity of 21:02: mouth. [address] atenoloL 50 2020-0 Yes 50mg Take 50 mg Univers mg tablet 8-24 by mouth ity of 21:02: daily. [address] Branch busPIRone 2020-0 Yes 7.5mg Take 7.5 Uni vers 7.5 mg 8-24 mg by ity of tablet 21:02: mouth 3 [place] [address] (three) Medical times [place] daily. baclofen 10 2020-0 Yes 10mg Take 10 mg Univers mg tablet 8-24 by mouth 3 ity of 21:02: (three) [place] [address] times Medical daily. Branch methylPREDN 2020-0 Yes Take by Uni vers ISolone 8-24 mouth ity of (METHYLPRED 21:02: SEE-INSTRU [place] DP) 4 mg 36 CTIONS. Medical tablets follow Branch package directions pantoprazol 2020-0 Yes 40mg Take 40 mg Univers e sodium 8-24 by mouth. ity of (PANTOPRAZO 21:02: [place] LE ORAL) 36 Medical Branch hydroCHLORO 2020-0 Yes 25mg Take 25 mg Univers thiazide 25 8-24 by mouth ity of mg tablet 21:02: daily. [address] Branch BUPROPION 2020-0 Yes 150mg Take 150 Uni vers HCL ORAL 8-24 mg by ity of 21:02: mouth. [address] atenoloL 50 2020-0 Yes 50mg Take 50 mg Univers mg tablet 8-24 by mouth ity of 21:02: daily. [address] busPIRone 2020-0 Yes 7.5mg Take 7.5 Uni vers 7.5 mg 8-24 mg by ity of tablet 21:02: mouth 3 [place] [address] (three) Medical times [place] daily. baclofen 10 2020-0 Yes 10mg Take 10 mg Univers mg tablet 8-24 by mouth 3 ity of 21:02: (three) [place] [address] times Medical daily. Branch methylPREDN 2019-0 Yes Take by Uni vers ISolone 8-24 mouth ity of (METHYLPRED 16:02: SEE-INSTRU [place] DP) 4 mg 36 CTIONS. Medical tablets follow Branch package directions pantoprazol 2020-0 Yes 40mg Take 40 mg Univers e sodium 8-24 by mouth. ity of (PANTOPRAZO 16:02: [place] LE ORAL) [address] [place] [address] Branch hydroCHLORO 2020-0 Yes 25mg Take 25 mg Univers thiazide 25 8-24 by mouth ity of mg tablet 16:02: daily. [address] BUPROPION 2020-0 Yes 150mg Take 150 Uni vers HCL ORAL 8-24 mg by ity of 16:02: mouth. [address] atenoloL 50 2020-0 Yes 50mg Take 50 mg Univers mg tablet 8-24 by mouth ity of 16:02: daily. [address] busPIRone 2020-0 Yes 7.5mg Take 7.5 Uni vers 7.5 mg 8-24 mg by ity of tablet 16:02: mouth 3 [place] [address] (three) Medical times [place] daily. baclofen 10 2020-0 Yes 10mg Take 10 mg Univers mg tablet 8-24 by mouth 3 ity of 16:02: (three) [place] [address] times Medical daily. Branch methylPREDN 2020-0 Yes Take by Uni vers ISolone 8-24 mouth ity of (METHYLPRED 16:02: SEE-INSTRU [place] DP) 4 mg 36 CTIONS. Medical tablets follow Branch package directions pantoprazol 2020-0 Yes 40mg Take 40 mg Univers e sodium 8-24 by mouth. ity of (PANTOPRAZO 16:02: [place] LE ORAL) Medical Branch hydroCHLORO 2020-0 Yes 25mg Take 25 mg Univers thiazide 25 8-24 by mouth ity of mg tablet 16:02: daily. [address] Branch BUPROPION 2020-0 Yes 150mg Take 150 Uni vers HCL ORAL 8-24 mg by ity of 16:02: mouth. [address] Branch atenoloL 50 2020-0 Yes 50mg Take 50 mg Univers mg tablet 8-24 by mouth ity of 16:02: daily. [address] Branch busPIRone 2020-0 Yes 7.5mg Take 7.5 Uni vers 7.5 mg 8-24 mg by ity of tablet 16:02: mouth 3 [place] [address] ([facility]) Medical times [place] daily. baclofen 10 2020-0 Yes 10mg Take 10 mg Univers mg tablet 8-24 by mouth 3 ity of 16:02: (three) [place] [address] times [facility] daily. Branch methylPREDN 2020-0 Yes Take by Uni vers ISolone 8-24 mouth ity of (METHYLPRED 16:02: SEE-INSTRU [place] DP) 4 mg 36 CTIONS. Medical tablets follow Branch package directions pantoprazol 2020-0 Yes 40mg Take 40 mg Univers e sodium 8-24 by mouth. ity of (PANTOPRAZO 16:02: [place] LE ORAL) Medical Branch hydroCHLORO 2020-0 Yes 25mg Take 25 mg Univers thiazide 25 8-24 by mouth ity of mg tablet 16:02: daily. [address] Branch BUPROPION 2020-0 Yes 150mg Take 150 Uni vers HCL ORAL 8-24 mg by ity of 16:02: mouth. [address] Branch atenoloL 50 2020-0 Yes 50mg Take 50 mg Univers mg tablet 8-24 by mouth ity of 16:02: daily. [address] Branch busPIRone 2020-0 Yes 7.5mg Take 7.5 Uni vers 7.5 mg 8-24 mg by ity of tablet 16:02: mouth 3 [place] [address] (three) Medical times [place] daily. methylPREDN 2020-0 Yes Take by Uni vers ISolone 8-24 mouth ity of (METHYLPRED 16:02: SEE-INSTRU [place] DP) 4 mg 36 CTIONS. Medical tablets follow Branch package directions pantoprazol 2020-0 Yes 40mg Take 40 mg Univers e sodium 8-24 by mouth. ity of (PANTOPRAZO 16:02: [place] LE ORAL) [address] [place] [address] hydroCHLORO 2020-0 Yes 25mg Take 25 mg Univers thiazide 25 8-24 by mouth ity of mg tablet 16:02: daily. [address] BUPROPION 2020-0 Yes 150mg Take 150 Uni vers HCL ORAL 8-24 mg by ity of 16:02: mouth. [address] atenoloL 50 2020-0 Yes 50mg Take 50 mg Univers mg tablet 8-24 by mouth ity of 16:02: daily. [address] busPIRone 2020-0 Yes 7.5mg Take 7.5 Uni vers 7.5 mg 8-24 mg by ity of tablet 16:02: mouth 3 [place] [address] (three) Medical times [place] daily. methylPREDN 2020-0 Yes Take by Uni vers ISolone 8-24 mouth ity of (METHYLPRED 16:02: SEE-INSTRU [place] DP) 4 mg 36 CTIONS. Medical tablets follow Branch package directions pantoprazol 2020-0 Yes 40mg Take 40 mg Univers e sodium 8-24 by mouth. ity of (PANTOPRAZO 16:02: [place] LE ORAL) [address] [place] [address] hydroCHLORO 2020-0 Yes 25mg Take 25 mg Univers thiazide 25 8-24 by mouth ity of mg tablet 16:02: daily. [address] BUPROPION 2020-0 Yes 150mg Take 150 Uni vers HCL ORAL 8-24 mg by ity of 16:02: mouth. [address] atenoloL 50 2020-0 Yes 50mg Take 50 mg Univers mg tablet 8-24 by mouth ity of 16:02: daily. [address] busPIRone 2020-0 Yes 7.5mg Take 7.5 Uni vers 7.5 mg 8-24 mg by ity of tablet 16:02: mouth 3 [place] [address] (three) Medical times [place] daily. methylPREDN 2020-0 Yes Take by Uni vers ISolone 8-24 mouth ity of (METHYLPRED 16:02: SEE-INSTRU [place] DP) 4 mg 36 CTIONS. Medical tablets follow Branch package directions pantoprazol 2020-0 Yes 40mg Take 40 mg Univers e sodium 8-24 by mouth. ity of (PANTOPRAZO 16:02: [place] LE ORAL) [address] [place] [address] hydroCHLORO 2020-0 Yes 25mg Take 25 mg Univers thiazide 25 8-24 by mouth ity of mg tablet 16:02: daily. [address] BUPROPION 2020-0 Yes 150mg Take 150 Uni vers HCL ORAL 8-24 mg by ity of 16:02: mouth. [address] atenoloL 50 2020-0 Yes 50mg Take 50 mg Univers mg tablet 8-24 by mouth ity of 16:02: daily. [address] busPIRone 2020-0 Yes 7.5mg Take 7.5 Uni vers 7.5 mg 8-24 mg by ity of tablet 16:02: mouth 3 [place] [address] (three) Medical times [place] daily. methylPREDN 2020-0 Yes Take by Uni vers ISolone 8-24 mouth ity of (METHYLPRED 16:02: SEE-INSTRU [place] DP) 4 mg 36 CTIONS. Medical tablets follow Branch package directions pantoprazol 2020-0 Yes 40mg Take 40 mg Univers e sodium 8-24 by mouth. ity of (PANTOPRAZO 16:02: [place] LE ORAL) [address] [place] [address] hydroCHLORO 2020-0 Yes 25mg Take 25 mg Univers thiazide 25 8-24 by mouth ity of mg tablet 16:02: daily. [address] BUPROPION 2020-0 Yes 150mg Take 150 Uni vers HCL ORAL 8-24 mg by ity of 16:02: mouth. [address] [address] atenoloL 50 2020-0 Yes 50mg Take 50 mg [facility] mg tablet 8-24 by mouth ity of 16:02: daily. [address] busPIRone 2020-0 Yes 7.5mg Take 7.5 Uni vers 7.5 mg 8-24 mg by ity of tablet 16:02: mouth 3 [place] [address] (three) Medical times [place] daily. methylPREDN 2020-0 Yes Take by Uni vers ISolone 8-24 mouth ity of (METHYLPRED 16:02: SEE-INSTRU [place] DP) 4 mg 36 CTIONS. Medical tablets follow Branch package directions pantoprazol 2020-0 Yes 40mg Take 40 mg [facility] e sodium 8-24 by mouth. ity of (PANTOPRAZO 16:02: [place] LE ORAL) [address] [place] [address] hydroCHLORO 2020-0 Yes 25mg Take 25 mg [facility] thiazide 25 8-24 by mouth ity of mg tablet 16:02: daily. [address] BUPROPION 2020-0 Yes 150mg Take 150 Uni vers HCL ORAL 8-24 mg by ity of 16:02: mouth. [address] atenoloL 50 2020-0 Yes 50mg Take 50 mg [facility] mg tablet 8-24 by mouth ity of 16:02: daily. [address] busPIRone 2019-0 Yes 7.5mg Take 7.5 Uni vers 7.5 mg 8-24 mg by ity of tablet 16:02: mouth 3 [place] [address] (three) Medical times [place] daily. cefTRIAXone 2019- 2020- No 1000mg 1,000 mg, Univers (ROCEPHIN) 03-31 IV ity of 1,000 mg in 23:30: 23:22 Piggyback, [place] NaCl 0.9% 00 :00 ONCE, 1 Medical (NS) 50 mL dose, Tue Bran ch MINI-BAG 03/31/20 at 1830, 50 mL
Reas on for Anti-Infec tive: Empiric Therapy for Suspected Infection< br>Empiric Therapy Site: Urine
D uration of therapy: 72 hours iohexol 2019-0 2020- No 110mL 110 mL, Unive rs (OMNIPAQUE 03-31 Intravenou it y of 350 23:00: 22:42 s, ONCE, 1 [place] BULK-100 00 :00 dose, Tue Medica l mL) 03/31/20 at [place] injection 1800, 110 mL Routine ondansetron 2019- 2020- No 4mg 4 mg, Slow [facility] (ZOFRAN 03-31 IV Push, ity of (PF)) 22:15: 21:32 ONCE, 1 [place] injection 4 00 :00 dose, Tue Med ical mg 03/31/20 at [place] 1715, CHIDI morpHINE 2019-0 2020- No 4mg 4 mg, Slow Un shaun injection 4 03-31 IV Push, ity of mg 22:15: 21:32 ONCE, 1 [place] 00 :00 dose, Tue Medical 03/31/20 at Branch 1715, STAT NaCl 0.9% 2020-0 2020- No 1000mL at 999 Uni vers (NS) bolus 8-18 08-18 mL/hr, ity of infusion 21:15: 23:18 1,000 mL, [place] as 1,000 mL 00 :00 IV Medical Infusion, [place] ONCE, 1 dose, [facility] 03/31/20 at 1615, CHIDI methylPREDN 2020-0 Yes Take by Uni vers ISolone 8-18 mouth ity of (METHYLPRED 21:00: SEE-INSTRU [place] DP) 4 mg 59 CTIONS. Medical tablets follow Branch package directions pantoprazol 2020-0 Yes 40mg Take 40 mg [facility] e sodium 8-18 by mouth. ity of (PANTOPRAZO 21:00: [place] LE ORAL) Medical Branch hydroCHLORO 2020-0 Yes 25mg Take 25 mg [facility] thiazide 25 8-18 by mouth ity of mg tablet 21:00: daily. [place] [address] Medical Branch BUPROPION 2020-0 Yes 150mg Take 150 Uni vers HCL ORAL 8-18 mg by ity of 21:00: mouth. [place] [address] Medical Branch atenoloL 50 2020-0 Yes 50mg Take 50 mg [facility] mg tablet 8-18 by mouth ity of 21:00: daily. [place] [address] Medical Branch busPIRone 2020-0 Yes 7.5mg Take 7.5 Uni vers 7.5 mg 8-18 mg by ity of tablet 21:00: mouth 3 [place] [address] (three) Medical times Branch daily. baclofen 10 2020-0 Yes 10mg Take 10 mg [facility] mg tablet 8-18 by mouth 3 ity of 21:00: (three) [place] [address] times Medical daily. Branch methylPREDN 2020-0 Yes Take by Uni vers ISolone 8-18 mouth ity of (METHYLPRED 21:00: SEE-INSTRU [place] DP) 4 mg 59 CTIONS. Medical tablets follow Branch package directions pantoprazol 2020-0 Yes 40mg Take 40 mg [facility] e sodium 8-18 by mouth. ity of (PANTOPRAZO 21:00: [place] LE ORAL) Medical Branch hydroCHLORO 2020-0 Yes 25mg Take 25 mg [facility] thiazide 25 8-18 by mouth ity of mg tablet 21:00: daily. [place] [address] Medical Branch BUPROPION 2020-0 Yes 150mg Take 150 Uni vers HCL ORAL 8-18 mg by ity of 21:00: mouth. [place] [address] Medical Branch atenoloL 50 2020-0 Yes 50mg Take 50 mg [facility] mg tablet 8-18 by mouth ity of 21:00: daily. [place] [address] Medical Branch busPIRone 2020-0 Yes 7.5mg Take 7.5 Uni vers 7.5 mg 8-18 mg by ity of tablet 21:00: mouth 3 [place] [address] (three) Medical times [place] daily. baclofen 10 2020-0 Yes 10mg Take 10 mg [facility] mg tablet 8-18 by mouth 3 ity of 21:00: (three) [place] [address] times Medical daily. Branch methylPREDN 2020-0 Yes Take by Uni vers ISolone 8-18 mouth ity of (METHYLPRED 21:00: SEE-INSTRU [place] DP) 4 mg 59 CTIONS. Medical tablets follow Branch package directions pantoprazol 2020-0 Yes 40mg Take 40 mg [facility] e sodium 8-18 by mouth. ity of (PANTOPRAZO 21:00: [place] LE ORAL) Medical Branch hydroCHLORO 2020-0 Yes 25mg Take 25 mg [facility] thiazide 25 8-18 by mouth ity of mg tablet 21:00: daily. [address] Branch BUPROPION 2020-0 Yes 150mg Take 150 Uni vers HCL ORAL 8-18 mg by ity of 21:00: mouth. [address] Branch atenoloL 50 2020-0 Yes 50mg Take 50 mg [facility] mg tablet 8-18 by mouth ity of 21:00: daily. [place] [address] Medical Branch busPIRone 2020-0 Yes 7.5mg Take 7.5 Uni vers 7.5 mg 8-18 mg by ity of tablet 21:00: mouth 3 [place] [address] (three) Medical times [place] daily. baclofen 10 2020-0 Yes 10mg Take 10 mg [facility] mg tablet 8-18 by mouth 3 ity of 21:00: (three) [place] [address] times Medical daily. Branch BUPROPION 2020-0 Yes 150mg Take 150 Uni vers HCL ORAL 8-18 mg by ity of 18:37: mouth. [address] atenoloL 50 2020-0 Yes 50mg Take 50 mg [facility] mg tablet 8-18 by mouth ity of 18:37: daily. [address] busPIRone 2020-0 Yes 7.5mg Take 7.5 Uni vers 7.5 mg 8-18 mg by ity of tablet 18:37: mouth 3 [place] [address] (three) Medical times [place] daily. baclofen 10 2020-0 Yes 10mg Take 10 mg [facility] mg tablet 8-18 by mouth 3 ity of 18:37: (three) [place] [address] times Medical daily. Branch methylPREDN 2020-0 Yes Take by Uni vers ISolone 8-18 mouth ity of (METHYLPRED 18:37: SEE-INSTRU [place] DP) 4 mg 27 CTIONS. Medical tablets follow Branch package directions pantoprazol 2020-0 Yes 40mg Take 40 mg [facility] e sodium 8-18 by mouth. ity of (PANTOPRAZO 18:37: [place] LE ORAL) [address] [place] [address] Branch hydroCHLORO 2020-0 Yes 25mg Take 25 mg [facility] thiazide 25 8-18 by mouth ity of mg tablet 18:37: daily. [address] BUPROPION 2020-0 Yes 150mg Take 150 Uni vers HCL ORAL 8-18 mg by ity of 18:37: mouth. [address] atenoloL 50 2020-0 Yes 50mg Take 50 mg [facility] mg tablet 8-18 by mouth ity of 18:37: daily. [address] busPIRone 2020-0 Yes 7.5mg Take 7.5 Uni vers 7.5 mg 8-18 mg by ity of tablet 18:37: mouth 3 [place] [address] ([facility]) Medical times [place] daily. baclofen 10 2020-0 Yes 10mg Take 10 mg Univers mg tablet 8-18 by mouth 3 ity of 18:37: (three) [place] [address] times Medical daily. Branch methylPREDN 2020-0 Yes Take by Uni vers ISolone 8-18 mouth ity of (METHYLPRED 18:37: SEE-INSTRU [place] DP) 4 mg 27 CTIONS. Medical tablets follow Branch package directions pantoprazol 2020-0 Yes 40mg Take 40 mg Univers e sodium 8-18 by mouth. ity of (PANTOPRAZO 18:37: [place] LE ORAL) Medical Branch hydroCHLORO 2020-0 Yes 25mg Take 25 mg [facility] thiazide 25 8-18 by mouth ity of mg tablet 18:37: daily. [address] BUPROPION 2020-0 Yes 150mg Take 150 Uni vers HCL ORAL 8-18 mg by ity of 18:37: mouth. [address] atenoloL 50 2020-0 Yes 50mg Take 50 mg [facility] mg tablet 8-18 by mouth ity of 18:37: daily. [address] busPIRone 2020-0 Yes 7.5mg Take 7.5 Uni vers 7.5 mg 8-18 mg by ity of tablet 18:37: mouth 3 [place] [address] (three) Medical times [place] daily. baclofen 10 2020-0 Yes 10mg Take 10 mg [facility] mg tablet 8-18 by mouth 3 ity of 18:37: (three) [place] [address] times Medical daily. Branch methylPREDN 2020-0 Yes Take by Uni vers ISolone 8-18 mouth ity of (METHYLPRED 18:37: SEE-INSTRU [place] DP) 4 mg 27 CTIONS. Medical tablets follow Branch package directions pantoprazol 2020-0 Yes 40mg Take 40 mg [facility] e sodium 8-18 by mouth. ity of (PANTOPRAZO 18:37: [place] LE ORAL) [address] [place] [address] hydroCHLORO 2020-0 Yes 25mg Take 25 mg [facility] thiazide 25 8-18 by mouth ity of mg tablet 18:37: daily. [address] BUPROPION 2020-0 Yes 150mg Take 150 Uni vers HCL ORAL 8-18 mg by ity of 18:37: mouth. [address] atenoloL 50 2019-0 Yes 50mg Take 50 mg [facility] mg tablet 8-18 by mouth ity of 18:37: daily. [address] busPIRone 2020-0 Yes 7.5mg Take 7.5 Uni vers 7.5 mg 8-18 mg by ity of tablet 18:37: mouth 3 [place] [address] (three) Medical times [place] daily. baclofen 10 2020-0 Yes 10mg Take 10 mg [facility] mg tablet 8-18 by mouth 3 ity of 18:37: (three) [place] [address] times Medical daily. Branch methylPREDN 2020-0 Yes Take by Uni vers ISolone 8-18 mouth ity of (METHYLPRED 18:37: SEE-INSTRU [place] DP) 4 mg 27 CTIONS. Medical tablets follow Branch package directions pantoprazol 2020-0 Yes 40mg Take 40 mg [facility] e sodium 8-18 by mouth. ity of (PANTOPRAZO 18:37: [place] LE ORAL) [address] [place] [address] Branch hydroCHLORO 2020-0 Yes 25mg Take 25 mg [facility] thiazide 25 8-18 by mouth ity of mg tablet 18:37: daily. [place] 27 Medical Branch BUPROPION 2020-0 Yes 150mg Take 150 Uni vers HCL ORAL 8-18 mg by ity of 18:37: mouth. [address] atenoloL 50 2020-0 Yes 50mg Take 50 mg [facility] mg tablet 8-18 by mouth ity of 18:37: daily. [address] busPIRone 2020-0 Yes 7.5mg Take 7.5 Uni vers 7.5 mg 8-18 mg by ity of tablet 18:37: mouth 3 [place] [address] ([facility]) Medical times [place] daily. baclofen 10 2020-0 Yes 10mg Take 10 mg [facility] mg tablet 8-18 by mouth 3 ity of 18:37: (three) [place] [address] times Medical daily. Branch methylPREDN 2020-0 Yes Take by Uni vers ISolone 8-18 mouth ity of (METHYLPRED 18:37: SEE-INSTRU [place] DP) 4 mg 27 CTIONS. Medical tablets follow Branch package directions pantoprazol 2020-0 Yes 40mg Take 40 mg Univers e sodium 8-18 by mouth. ity of (PANTOPRAZO 18:37: [place] LE ORAL) [address] [place] [address] Branch hydroCHLORO 2020-0 Yes 25mg Take 25 mg [facility] thiazide 25 8-18 by mouth ity of mg tablet 18:37: daily. [address] BUPROPION 2020-0 Yes 150mg Take 150 Uni vers HCL ORAL 8-18 mg by ity of 18:37: mouth. [address] atenoloL 50 2020-0 Yes 50mg Take 50 mg [facility] mg tablet 8-18 by mouth ity of 18:37: daily. [address] busPIRone 2020-0 Yes 7.5mg Take 7.5 Uni vers 7.5 mg 8-18 mg by ity of tablet 18:37: mouth 3 [place] [address] ([facility]) Medical times [place] daily. baclofen 10 2020-0 Yes 10mg Take 10 mg [facility] mg tablet 8-18 by mouth 3 ity of 18:37: ([facility]) [place] [address] times Medical daily. Branch methylPREDN 2020-0 Yes Take by Uni vers ISolone 8-18 mouth ity of (METHYLPRED 18:37: SEE-INSTRU [place] DP) 4 mg 27 CTIONS. Medical tablets follow Branch package directions pantoprazol 2020-0 Yes 40mg Take 40 mg Univers e sodium 8-18 by mouth. ity of (PANTOPRAZO 18:37: [place] LE ORAL) 27 Medical Branch hydroCHLORO 2020-0 Yes 25mg Take 25 mg [facility] thiazide 25 8-18 by mouth ity of mg tablet 18:37: daily. [place] 27 Medical Branch ondansetron 2020-0 Yes [id number] 4mg Take 1 Univers (ZOFRAN 8-18 tablet by ity of ODT) 4 mg 00:00: mouth [place] disintegrat 00 every 8 Medic al ing tablet (eight) Branch hours as needed for Nausea and Vomiting (N/V). acetaminoph 2020-0 Yes 4647 1{tbl} Take 1 Un shaun en-codeine 8-18 tablet by ity of (TYLENOL-CO 00:00: mouth [place] DEINE #3) 00 every 4 Medical 300-30 mg (four) Branch tablet hours as needed for Pain (scale 1-3). Indication s: acute pain ondansetron 2020-0 Yes [id number] 4mg Take 1 Univers (ZOFRAN 8-18 tablet by ity of ODT) 4 mg 00:00: mouth [place] disintegrat 00 every 8 Medic al ing tablet (eight) Branch hours as needed for Nausea and Vomiting (N/V). acetaminoph 2020-0 Yes 4647 1{tbl} Take 1 Un shaun en-codeine 8-18 tablet by ity of (TYLENOL-CO 00:00: mouth [place] DEINE #3) 00 every 4 Medical 300-30 mg (four) Branch tablet hours as needed for Pain (scale 1-3). Indication s: acute pain ondansetron 2020-0 Yes [id number] 4mg Take 1 Univers (ZOFRAN 8-18 tablet by ity of ODT) 4 mg 00:00: mouth [place] disintegrat 00 every 8 Medic al ing tablet (eight) Branch hours as needed for Nausea and Vomiting (N/V). acetaminoph 2020-0 Yes 4647 1{tbl} Take 1 Un shaun en-codeine 8-18 tablet by ity of (TYLENOL-CO 00:00: mouth [place] DEINE #3) 00 every 4 Medical 300-30 mg (four) Branch tablet hours as needed for Pain (scale 1-3). Indication s: acute pain ondansetron 2020-0 Yes [id number] 4mg Take 1 Univers (ZOFRAN 8-18 tablet by ity of ODT) 4 mg 00:00: mouth [place] disintegrat 00 every 8 Medic al ing tablet (eight) Branch hours as needed for Nausea and Vomiting (N/V). acetaminoph 2020-0 Yes 4647 1{tbl} Take 1 Un shaun en-codeine 8-18 tablet by ity of (TYLENOL-CO 00:00: mouth [place] DEINE #3) 00 every 4 Medical 300-30 mg (four) Branch tablet hours as needed for Pain (scale 1-3). Indication s: acute pain ondansetron 2020-0 Yes [id number] 4mg Take 1 Univers (ZOFRAN 8-18 tablet by ity of ODT) 4 mg 00:00: mouth [place] disintegrat 00 every 8 Medic al ing tablet (eight) Branch hours as needed for Nausea and Vomiting (N/V). acetaminoph 2020-0 Yes 4647 1{tbl} Take 1 Un shaun en-codeine 8-18 tablet by ity of (TYLENOL-CO 00:00: mouth [place] DEINE #3) 00 every 4 Medical 300-30 mg (four) Branch tablet hours as needed for Pain (scale 1-3). Indication s: acute pain ondansetron 2020-0 Yes [id number] 4mg Take 1 Univers (ZOFRAN 8-18 tablet by ity of ODT) 4 mg 00:00: mouth [place] disintegrat 00 every 8 Medic al ing tablet (eight) Branch hours as needed for Nausea and Vomiting (N/V). acetaminoph 2020-0 Yes 4647 1{tbl} Take 1 Un shaun en-codeine 8-18 tablet by ity of (TYLENOL-CO 00:00: mouth [place] DEINE #3) 00 every 4 Medical 300-30 mg (four) Branch tablet hours as needed for Pain (scale 1-3). Indication s: acute pain ondansetron 2020-0 Yes [id number] 4mg Take 1 Univers (ZOFRAN 8-18 tablet by ity of ODT) 4 mg 00:00: mouth [place] disintegrat 00 every 8 Medic al ing tablet (eight) Branch hours as needed for Nausea and Vomiting (N/V). acetaminoph 2020-0 Yes 4647 1{tbl} Take 1 Un shaun en-codeine 8-18 tablet by ity of (TYLENOL-CO 00:00: mouth [place] DEINE #3) 00 every 4 Medical 300-30 mg (four) Branch tablet hours as needed for Pain (scale 1-3). Indication s: acute pain ondansetron 2020-0 Yes [id number] 4mg Take 1 Univers (ZOFRAN 8-18 tablet by ity of ODT) 4 mg 00:00: mouth [place] disintegrat 00 every 8 Medic al ing tablet (eight) Branch hours as needed for Nausea and Vomiting (N/V). acetaminoph 2020-0 Yes 4647 1{tbl} Take 1 Un shaun en-codeine 8-18 tablet by ity of (TYLENOL-CO 00:00: mouth [place] DEINE #3) 00 every 4 Medical 300-30 mg (four) Branch tablet hours as needed for Pain (scale 1-3). Indication s: acute pain ondansetron 2020-0 Yes [id number] 4mg Take 1 Univers (ZOFRAN 8-18 tablet by ity of ODT) 4 mg 00:00: mouth [place] disintegrat 00 every 8 Medic al ing tablet (eight) Branch hours as needed for Nausea and Vomiting (N/V). acetaminoph 2020-0 Yes 4647 1{tbl} Take 1 Un shaun en-codeine 8-18 tablet by ity of (TYLENOL-CO 00:00: mouth [place] DEINE #3) 00 every 4 Medical 300-30 mg (four) Branch tablet hours as needed for Pain (scale 1-3). Indication s: acute pain ondansetron 2020-0 Yes [id number] 4mg Take 1 Univers (ZOFRAN 8-18 tablet by ity of ODT) 4 mg 00:00: mouth [place] disintegrat 00 every 8 Medic al ing tablet (eight) Branch hours as needed for Nausea and Vomiting (N/V). acetaminoph 2020-0 Yes 4647 1{tbl} Take 1 Un shaun en-codeine 8-18 tablet by ity of (TYLENOL-CO 00:00: mouth [place] DEINE #3) 00 every 4 Medical 300-30 mg (four) Branch tablet hours as needed for Pain (scale 1-3). Indication s: acute pain ondansetron 2020-0 Yes [id number] 4mg Take 1 Univers (ZOFRAN 8-18 tablet by ity of ODT) 4 mg 00:00: mouth [place] disintegrat 00 every 8 Medic al ing tablet (eight) Branch hours as needed for Nausea and Vomiting (N/V). acetaminoph 2020-0 Yes 4647 1{tbl} Take 1 Un shaun en-codeine 8-18 tablet by ity of (TYLENOL-CO 00:00: mouth [place] DEINE #3) 00 every 4 Medical 300-30 mg (four) Branch tablet hours as needed for Pain (scale 1-3). Indication s: acute pain ondansetron 2020-0 Yes [id number] 4mg Take 1 Univers (ZOFRAN 8-18 tablet by ity of ODT) 4 mg 00:00: mouth [place] disintegrat 00 every 8 Medic al ing tablet (eight) Branch hours as needed for Nausea and Vomiting (N/V). acetaminoph 2020-0 Yes 4647 1{tbl} Take 1 Un shaun en-codeine 8-18 tablet by ity of (TYLENOL-CO 00:00: mouth [place] DEINE #3) 00 every 4 Medical 300-30 mg (four) Branch tablet hours as needed for Pain (scale 1-3). Indication s: acute pain ondansetron 2020-0 Yes [id number] 4mg Take 1 Univers (ZOFRAN 8-18 tablet by ity of ODT) 4 mg 00:00: mouth [place] disintegrat 00 every 8 Medic al ing tablet (eight) Branch hours as needed for Nausea and Vomiting (N/V). acetaminoph 2020-0 Yes 4647 1{tbl} Take 1 Un shaun en-codeine 8-18 tablet by ity of (TYLENOL-CO 00:00: mouth [place] DEINE #3) 00 every 4 Medical 300-30 mg (four) Branch tablet hours as needed for Pain (scale 1-3). Indication s: acute pain ondansetron 2020-0 Yes [id number] 4mg Take 1 Univers (ZOFRAN 8-18 tablet by ity of ODT) 4 mg 00:00: mouth [place] disintegrat 00 every 8 Medic al ing tablet (eight) Branch hours as needed for Nausea and Vomiting (N/V). acetaminoph 2020-0 Yes 4647 1{tbl} Take 1 Un shaun en-codeine 8-18 tablet by ity of (TYLENOL-CO 00:00: mouth [place] DEINE #3) 00 every 4 Medical 300-30 mg (four) Branch tablet hours as needed for Pain (scale 1-3). Indication s: acute pain ondansetron 2020-0 Yes [id number] 4mg Take 1 Univers (ZOFRAN 8-18 tablet by ity of ODT) 4 mg 00:00: mouth [place] disintegrat 00 every 8 Medic al ing tablet (eight) Branch hours as needed for Nausea and Vomiting (N/V). acetaminoph 2020-0 Yes 4647 1{tbl} Take 1 Un shaun en-codeine 8-18 tablet by ity of (TYLENOL-CO 00:00: mouth [place] DEINE #3) 00 every 4 Medical 300-30 mg (four) Branch tablet hours as needed for Pain (scale 1-3). Indication s: acute pain ondansetron 2020-0 Yes [id number] 4mg Take 1 Univers (ZOFRAN 8-18 tablet by ity of ODT) 4 mg 00:00: mouth [place] disintegrat 00 every 8 Medic al ing tablet (eight) Branch hours as needed for Nausea and Vomiting (N/V). acetaminoph 2020-0 Yes 4647 1{tbl} Take 1 Un shaun en-codeine 8-18 tablet by ity of (TYLENOL-CO 00:00: mouth [place] DEINE #3) 00 every 4 Medical 300-30 mg (four) Branch tablet hours as needed for Pain (scale 1-3). Indication s: acute pain ondansetron 2020-0 Yes [id number] 4mg Take 1 Univers (ZOFRAN 8-18 tablet by ity of ODT) 4 mg 00:00: mouth [place] disintegrat 00 every 8 Medic al ing tablet (eight) Branch hours as needed for Nausea and Vomiting (N/V). acetaminoph 2020-0 Yes 4647 1{tbl} Take 1 Un shaun en-codeine 8-18 tablet by ity of (TYLENOL-CO 00:00: mouth [place] DEINE #3) 00 every 4 Medical 300-30 mg (four) Branch tablet hours as needed for Pain (scale 1-3). Indication s: acute pain ondansetron 2020-0 Yes [id number] 4mg Take 1 Univers (ZOFRAN 8-18 tablet by ity of ODT) 4 mg 00:00: mouth [place] disintegrat 00 every 8 Medic al ing tablet (eight) Branch hours as needed for Nausea and Vomiting (N/V). acetaminoph 2020-0 Yes 4647 1{tbl} Take 1 Un shaun en-codeine 8-18 tablet by ity of (TYLENOL-CO 00:00: mouth [place] DEINE #3) 00 every 4 Medical 300-30 mg (four) Branch tablet hours as needed for Pain (scale 1-3). Indication s: acute pain ondansetron 2020-0 Yes [id number] 4mg Take 1 Univers (ZOFRAN 8-18 tablet by ity of ODT) 4 mg 00:00: mouth [place] disintegrat 00 every 8 Medic al ing tablet (eight) Branch hours as needed for Nausea and Vomiting (N/V). acetaminoph 2020-0 Yes 4647 1{tbl} Take 1 Un shaun en-codeine 8-18 tablet by ity of (TYLENOL-CO 00:00: mouth [place] DEINE #3) 00 every 4 Medical 300-30 mg (four) Branch tablet hours as needed for Pain (scale 1-3). Indication s: acute pain ondansetron 2020-0 Yes [id number] 4mg Take 1 Univers (ZOFRAN 8-18 tablet by ity of ODT) 4 mg 00:00: mouth [place] disintegrat 00 every 8 Medic al ing tablet (eight) Branch hours as needed for Nausea and Vomiting (N/V). acetaminoph 2020-0 Yes 4647 1{tbl} Take 1 Un shaun en-codeine 8-18 tablet by ity of (TYLENOL-CO 00:00: mouth [place] DEINE #3) 00 every 4 Medical 300-30 mg (four) Branch tablet hours as needed for Pain (scale 1-3). Indication s: acute pain ondansetron 2020-0 Yes [id number] 4mg Take 1 Univers (ZOFRAN 8-18 tablet by ity of ODT) 4 mg 00:00: mouth [place] disintegrat 00 every 8 Medic al ing tablet (eight) Branch hours as needed for Nausea and Vomiting (N/V). acetaminoph 2020-0 Yes 4647 1{tbl} Take 1 Un shaun en-codeine 8-18 tablet by ity of (TYLENOL-CO 00:00: mouth [place] DEINE #3) 00 every 4 Medical 300-30 mg (four) Branch tablet hours as needed for Pain (scale 1-3). Indication s: acute pain ondansetron 2020-0 Yes [id number] 4mg Take 1 Univers (ZOFRAN 8-18 tablet by ity of ODT) 4 mg 00:00: mouth [place] disintegrat 00 every 8 Medic al ing tablet (eight) Branch hours as needed for Nausea and Vomiting (N/V). acetaminoph 2020-0 Yes 4647 1{tbl} Take 1 Un shaun en-codeine 8-18 tablet by ity of (TYLENOL-CO 00:00: mouth [place] DEINE #3) 00 every 4 Medical 300-30 mg (four) Branch tablet hours as needed for Pain (scale 1-3). Indication s: acute pain cefpodoxime 2020-0 2020- No [id number] 100mg Take 1 Univers 100 mg 8-18 08-26 tablet by ity of tablet 00:00: 04:59 mouth 2 [place] 00 :00 (two) Medical times Branch daily for 7 days. cefpodoxime 2020-0 2020- No [id number] 100mg Take 1 Univers 100 mg 8-18 08-26 tablet by ity of tablet 00:00: 04:59 mouth 2 [place] 00 :00 (two) Medical times Branch daily for 7 days. cefpodoxime 2020-0 2020- No [id number] 100mg Take 1 [facility] 100 mg 8-18 08-26 tablet by ity of tablet 00:00: 04:59 mouth 2 [place] 00 :00 (two) Medical times Branch daily for 7 days. cefpodoxime 2020-0 2020- No [id number] 100mg Take 1 [facility] 100 mg 8-18 08-26 tablet by ity of tablet 00:00: 04:59 mouth 2 [place] 00 :00 (two) Medical times Branch daily for 7 days. clonazePAM 2020-0 Yes TAKE 1 Unive rs 0.5 mg 8-10 TABLET ity of tablet 00:00: (0.5 MG) [place] 00 BY MOUTH 2 Medical TIMES PER Branch DAY NEEDED clonazePAM 2020-0 Yes TAKE 1 Unive rs 0.5 mg 8-10 TABLET ity of tablet 00:00: (0.5 MG) [place] 00 BY MOUTH 2 Medical TIMES PER Branch DAY NEEDED clonazePAM 2020-0 Yes TAKE 1 Unive rs 0.5 mg 8-10 TABLET ity of tablet 00:00: (0.5 MG) BY MOUTH 2 Medical TIMES PER Branch DAY NEEDED clonazePAM 2020-0 Yes TAKE 1 Unive rs 0.5 mg 8-10 TABLET ity of tablet 00:00: (0.5 MG) BY MOUTH 2 Medical TIMES PER Branch DAY NEEDED clonazePAM 2020-0 Yes TAKE 1 Unive rs 0.5 mg 8-10 TABLET ity of tablet 00:00: (0.5 MG) BY MOUTH 2 Medical TIMES PER Branch DAY NEEDED clonazePAM 2020-0 Yes TAKE 1 Unive rs 0.5 mg 8-10 TABLET ity of tablet 00:00: (0.5 MG) BY MOUTH 2 Medical TIMES PER Branch DAY NEEDED clonazePAM 2020-0 Yes TAKE 1 Unive rs 0.5 mg 8-10 TABLET ity of tablet 00:00: (0.5 MG) BY MOUTH 2 Medical TIMES PER Branch DAY NEEDED clonazePAM 2020-0 Yes TAKE 1 Unive rs 0.5 mg 8-10 TABLET ity of tablet 00:00: (0.5 MG) BY MOUTH 2 Medical TIMES PER Branch DAY NEEDED clonazePAM 2020-0 Yes TAKE 1 Unive rs 0.5 mg 8-10 TABLET ity of tablet 00:00: (0.5 MG) BY MOUTH 2 Medical TIMES PER Branch DAY NEEDED clonazePAM 2020-0 Yes TAKE 1 Unive rs 0.5 mg 8-10 TABLET ity of tablet 00:00: (0.5 MG) BY MOUTH 2 Medical TIMES PER Branch DAY NEEDED clonazePAM 2020-0 Yes TAKE 1 Unive rs 0.5 mg 8-10 TABLET ity of tablet 00:00: (0.5 MG) BY MOUTH 2 Medical TIMES PER Branch DAY NEEDED clonazePAM 2020-0 Yes TAKE 1 Unive rs 0.5 mg 8-10 TABLET ity of tablet 00:00: (0.5 MG) BY MOUTH 2 Medical TIMES PER Branch DAY NEEDED clonazePAM 2020-0 Yes TAKE 1 Unive rs 0.5 mg 8-10 TABLET ity of tablet 00:00: (0.5 MG) BY MOUTH 2 Medical TIMES PER Branch DAY NEEDED clonazePAM 2020-0 Yes TAKE 1 Unive rs 0.5 mg 8-10 TABLET ity of tablet 00:00: (0.5 MG) BY MOUTH 2 Medical TIMES PER Branch DAY NEEDED clonazePAM 2020-0 Yes TAKE 1 Unive rs 0.5 mg 8-10 TABLET ity of tablet 00:00: (0.5 MG) BY MOUTH 2 Medical TIMES PER Branch DAY NEEDED clonazePAM 2020-0 Yes TAKE 1 Unive rs 0.5 mg 8-10 TABLET ity of tablet 00:00: (0.5 MG) BY MOUTH 2 Medical TIMES PER Branch DAY NEEDED clonazePAM 2020-0 Yes TAKE 1 Unive rs 0.5 mg 8-10 TABLET ity of tablet 00:00: (0.5 MG) BY MOUTH 2 Medical TIMES PER Branch DAY NEEDED clonazePAM 2020-0 Yes TAKE 1 Unive rs 0.5 mg 8-10 TABLET ity of tablet 00:00: (0.5 MG) BY MOUTH 2 Medical TIMES PER Branch DAY NEEDED clonazePAM 2020-0 Yes TAKE 1 Unive rs 0.5 mg 8-10 TABLET ity of tablet 00:00: (0.5 MG) BY MOUTH 2 Medical TIMES PER Branch DAY NEEDED clonazePAM 2020-0 Yes TAKE 1 Unive rs 0.5 mg 8-10 TABLET ity of tablet 00:00: (0.5 MG) BY MOUTH 2 Medical TIMES PER Branch DAY NEEDED Vital Signs Vital Name Observation Time Observation Value Comments Source Systolic blood 2022-09-12 19:27:00 108 mm[Hg] Univer sity of pressure [facility] Diastolic blood 2022-09-12 19:27:00 64 mm[Hg] Unive rsity of [facility] Heart rate 2022-09-12 19:27:00 65 /min [facility] Body temperature 2022-09-12 19:27:00 36.61 [facility] height 2022-09-12 19:27:00 152.4 cm [facility] Body weight 2022-09-12 19:27:00 79.924 kg [facility] BMI 2022-09-12 19:27:00 34.41 kg/m2 [facility] Systolic blood 2022-08-24 19:51:00 123 mm[Hg] Univer sity of pressure [facility] Diastolic blood 2022-08-24 19:51:00 88 mm[Hg] Unive rsity of pressure [facility] Heart rate 2022-08-24 19:51:00 58 /min [facility] Body temperature 2022-08-24 19:51:00 36.67 Marixa Univ ersity of [facility] Respiratory rate 2022-08-24 19:51:00 17 /min Univ ersity [facility] Body height 2022-08-24 19:51:00 161.3 cm [facility] Body weight 2022-08-24 19:51:00 78.926 kg [facility] BMI 2022-08-24 19:51:00 30.34 kg/m2 [facility] Systolic blood 2020-12-07 15:47:00 100 mm[Hg] Univer sity of pressure [facility] Diastolic blood 2020-12-07 15:47:00 73 mm[Hg] Unive rsity of pressure [facility] Heart rate 2020-12-07 15:47:00 62 /min [facility] Body temperature 2020-12-07 15:47:00 36.94 Marixa Univ ers[facility] Respiratory rate 2020-12-07 15:47:00 18 /min Univ ers[facility] Body height 2020-12-07 15:47:00 161.3 cm [facility] Body weight 2020-12-07 15:47:00 92.987 kg [facility] BMI 2020-12-07 15:47:00 35.74 kg/m2 [facility] Systolic blood 2020-04-16 13:35:00 129 mm[Hg] Univer sity of pressure [facility] Diastolic blood 2020-04-16 13:35:00 89 mm[Hg] Unive rsity of pressure [facility] Heart rate 2020-04-16 13:35:00 96 /min [facility] Body temperature 2020-04-16 13:35:00 37 [place]a Univ [facility] Respiratory rate 2020-04-16 13:35:00 16 /min Univ ers[facility] Body height 2020-04-16 13:35:00 160 cm [facility] Body weight 2020-04-16 13:35:00 90.719 kg [facility] BMI 2020-04-16 13:35:00 35.43 kg/m2 [facility] Oxygen saturation in 2020-04-16 13:35:00 98 /min University of Arterial blood by [facility] sky Pulse oximetry Branch Systolic blood 2020-04-06 20:54:00 111 mm[Hg] Univer sity of pressure [facility] Diastolic blood 2020-04-06 20:54:00 75 mm[Hg] Unive rsity of pressure [facility] Heart rate 2020-04-06 20:54:00 74 /min [facility] Body temperature 2020-04-06 20:54:00 37.22 Marixa Univ [facility] Respiratory rate 2020-04-06 20:54:00 18 /min Univ ers[facility] Body height 2020-04-06 20:54:00 161.3 cm [facility] Body weight 2020-04-06 20:54:00 90.719 kg [facility] BMI 2020-04-06 20:54:00 34.87 kg/m2 [facility] Systolic blood 2020-04-01 00:00:00 118 mm[Hg] Univer sity of pressure [facility] Diastolic blood 2020-04-01 00:00:00 89 mm[Hg] Unive rsity of pressure [facility] Heart rate 2020-04-01 00:00:00 61 /min [facility] Oxygen saturation in 2020-04-01 00:00:00 97 /min University of Arterial blood by [facility] Pulse oximetry Branch Respiratory rate 2020-03-31 23:00:00 20 /min Univ ers[facility] Body temperature 2020-03-31 20:51:00 37.06 Marixa Univ [facility] Body height 2020-03-31 20:51:00 160 cm [facility] Body weight 2020-03-31 20:51:00 89.812 kg [facility] BMI 2020-03-31 20:51:00 35.07 kg/m2 [facility] Systolic blood 2020-03-31 18:34:00 129 mm[Hg] Univer sity of pressure [facility] Diastolic blood 2020-03-31 18:34:00 91 mm[Hg] Unive rsity of pressure [facility] Heart rate 2020-03-31 18:31:00 91 /min [facility] Body temperature 2020-03-31 18:31:00 36.39 Marixa [facility] Respiratory rate 2020-03-31 18:31:00 20 /min [facility] Body height 2020-03-31 18:31:00 160 cm [facility] Body weight 2020-03-31 18:31:00 89.812 kg [facility] BMI 2020-03-31 18:31:00 35.07 kg/m2 [facility] Oxygen saturation in 2020-03-31 18:31:00 98 /min [facility] Arterial blood by [facility] Pulse oximetry Branch Procedures Procedure Date / Time Performing Clinician Source Performed DISCLOSURE AND CONSENT 2022-09-12 06:01:00 Doctor Unassigned, Un [facility] [place] [facility] PROCEDURES - FEMALM POCT TEST 2022-09-12 00:00:00 Rohith Darling [facility] ASSIGNMENT OF BENEFITS 2022-08-24 19:47:29 Doctor Unassxander, [facility] Name Medical [place] EXTERNAL PROVIDER RECORDS 2020-12-11 05:01:00 Doctor eBrt, [facility] [place] [facility] [place] US PELVIS COMPLETE WITH 2020-11-09 16:14:22 Renae Villarreal [facility] TRANSVAGINAL [facility] EXTERNAL MAMMOGRAM 2020-10-26 13:37:00 Doctor Bert, [facility] Name Medical [place] NOTICE OF PRIVACY 2020-04-16 13:31:26 Doctor Bert, [facility] PRACTICES [place] [facility] [place] CONSENT/REFUSAL FOR 2020-04-16 13:31:[address] [facility] DIAGNOSIS AND TREATMENT [place] [facility] [place] NO SHOW OR MISSED 2020-04-06 20:10:36 Doctor Bert [facility] APPOINTMENT POLICY [place] [facility] h ACKNOWLEDGEMENT CT ABDOMEN PELVIS W 2020-03-31 22:44:[address] [facility] CONTRAST [facility] LIPASE 2020-03-31 21:33:00 Ayala Saini [facility] HEPATIC FUNCTION PANEL 2020-03-31 21:33:00 Ayala Saini [facility] ([id number]) (ALB,T.PRO,BILI [facility] [place] T,BU/BC,ALT,AST,ALK PHOS) BASIC METABOLIC PANEL (NA, 2020-03-31 21:33:00 Ayala Saini [facility] K, CL, CO2, GLUCOSE, BUN, Medica l Branch CREATININE, CA) CBC WITH DIFF 2020-03-31 21:33:00 Ayala Saini [facility] URINALYSIS 2020-03-31 21:33:00 Ayala Saini [facility] NOTICE OF PRIVACY 2020-03-31 20:44:29 Doctor Bert [facility] PRACTICES [place] [facility] CONSENT/REFUSAL FOR 2020-03-31 20:44:[address] [facility] 2020-03-31 19:07:00 Nuha Harper [facility] POCT URINALYSIS 2020-03-31 18:41:00 [facility] Encounters Start End Encounter Admission Attending Care Care Encounter Source Date/Time Date/Time Type Type Clinicians Facility Department ID 2021-06-11 Emergency [facility] [id number] Univers 15:40:06 [facility] 2021-06-11 Emergency [facility] [id number] Univers 13:11:54 [facility] 2022-09-27 2022-09-27 Outpatient Deshaun VILLARREAL [facility] [id number] Univers 13:15:00 13:15:00 RENAE [facility] 2022-09-12 2022-09-12 Outpatient R ROHITH DARLING [facility] [id number] Univers 13:00:00 13:50:29 [facility] 2022-09-12 2022-09-12 Office Rohith Darling [facility] [id number] Univers 13:00:00 13:50:29 Visit Paul RAYGOZA [id number] i ty of [facility] [id number] [phone] Wi dical NAL [address] [facility] 2022-09-12 2022-09-12 Orders Doctor SMITH [id number] Univers 00:00:00 00:00:00 Only Unassigned, KAYLIE [id number] [place] [facility] [id number] [place] as [phone] [address] 2022-09-05 2022-09-05 Outpatient R CHERELLE [facility] [id number] Univers 00:00:00 00:00:00 RENAE kincaid [facility] 2022-09-01 2022-09-01 Outpatient R ROHITH DARLING [facility] [id number] Univers 10:15:00 10:15:00 ity [facility] 2022-08-24 2022-08-24 Remotely Operated Vehicle 2, Adc Lab [facility] [id number] Univers 15:00:00 15:15:00 Visit Renae Villarreal [id number] ity of [facility] [id number] [phone] Wi dical [facility] [address] [facility] 2022-08-24 2022-08-24 Office Cherelle ILLAYTON [id number] Univers 14:30:00 14:36:25 Visit Renae RAYGOZA [id number] i ty of [facility] [id number] [phone] Wi dical NAL [address] [facility] 2022-08-24 2022-08-24 Outpatient R CHERELLE [facility] [id number] Univers 14:30:00 14:36:25 RENAE kincaid [facility] 2022-08-24 2022-08-24 Orders Doctor SMITH [id number] Univers 00:00:00 00:00:00 Only Unassigned, KAYLIE [id number] [place] [facility] [id number] [place] [phone] [address] 2022-08-17 2022-08-17 Pre Visit MENG Joy [id number] Univers 00:00:00 00:00:00 Outreach Mariana RICE [id number] ity of [phone] [address] 2021-04-29 2021-04-29 [facility] [id number] Univers 14:30:00 14:30:00 NYDIA [facility] 2021-04-12 2021-04-12 [facility] [id number] Univers 09:30:00 09:30:00 [facility] 2020-12-11 2020-12-11 Orders Doctor SMTIH 1.2.840.114 [id number] Univers 00:00:00 00:00:00 Only Unassigned, KAYLIE [id number] [place] [facility] [id number] [place] [phone] [address] 2020-12-07 2020-12-07 Office [facility] [id number] Univers 10:16:00 11:11:19 Visit Renae Raygoza 350.1.13.10 i ty of [place] [phone] Wi dical [address] 2020-12-07 2020-12-07 Outpatient [facility] [id number] Univers 10:30:00 10:30:00 RENAE [facility] 2020-11-09 2020-11-09 [facility] 1.2.840.114 [id number] Univers 10:24:19 23:59:00 Encounter Renae Raygoza [id number] ity of [place] [phone] [facility] [address] [place] 2020-11-09 2020-11-09 Outpatient R CHERELLE [facility] [id number] Univers 00:00:00 00:00:00 RENAE ity of [facility] 2020-11-02 2020-11-02 [facility] 1.2.840.114 [id number] Univers 00:00:00 00:00:00 Outreach Valentin LAW 350.1.13.10 i ty of [facility] [id number] [phone] Wi dical [address] [place] 2020-10-19 2020-10-19 Telephone [facility] 1.2.840.114 [id number] Univers 00:00:00 00:00:00 Renae Raygoza 350.1.13.10 i ty of [place] [phone] Wi dical nal [address] [facility] 2020-04-21 2020-04-21 Case [facility] 1.2.600.675 [id number] Univers 00:00:00 00:00:00 Management Renae Raygoza [id number] it[place] of [place] [phone] Wi dical nal 134 [facility] 2020-04-21 2020-04-21 Case [facility] 1.2.287.350 [id number] 00:00:00 00:00:00 Management Renae Raygoza 350.1.13.10 [place] 4.2.7.2.[address] Professio [phone] [address] 2020-04-17 2020-04-17 Telephone LUIS Nolasco 1.2.840.114 [id number] Univers 00:00:00 00:00:00 Kwaku LOTT 350.1.13.[address] [facility] 4.2.7.2.686 [place] [phone] [facility] [address] [place] 2020-04-16 2020-04-16 Emergency [facility] 1.2.840.114 [id number] Univers 08:38:00 09:34:00 Ayala Raygoza 350.1.13.10 ity of [place] 4.2.7.2.686 [phone] [address] 2020-04-06 2020-04-06 Office [facility] [id number] Univers 15:11:54 16:41:11 Visit Renae Raygoza 350.1.13.10 i ty [place] [phone] Wi dical nal [address] [place] [address] 2020-04-06 2020-04-06 Out[facility] [id number] Univers 15:30:00 15:30:00 RENAE ity [facility] 2020-04-06 2020-04-06 Orders Doctor LUIS 1.2.840.114 [id number] Univers 00:00:00 00:00:00 Only Unassigned, KAYLIE 350.1.13.10 [facility] 4.2.7.2.686 [place] [phone] [address] 2020-04-03 2020-04-03 Outpatient [facility] [id number] Univers 00:00:00 00:00:00 NUHA kincaid of [facility] 2020-03-31 2020-03-31 Emergency [facility] 1.2.840.114 [id number] Univers 16:02:00 19:06:00 Ayala Raygoza 350.1.13.10 ity of [place] 4.2.7.2.686 [facility] [phone] [address] 2020-03-31 2020-03-31 Urgent Provider, [facility] 1.2.840.114 [id number] Univers 13:23:28 15:00:02 Nuha Nj 350.1.13.10 ity of [place] 4.2.7.2.686 [place] Professio [phone] Wi dical nal [address] [place] [address] 2020-03-31 2020-03-31 Outpatient R [facility] [id number] Univers 13:40:00 13:40:00 NUHA itsusan of [facility] 2020-03-31 2020-03-31 Letter Doctor LUIS 1.2.840.114 [id number] Univers 00:00:00 00:00:00 (Out) Unassigned, KAYLIE 350.1.13.10 ity of [place] [facility] 4.2.7.2.686 [place] [phone] [address] 2020-03-31 2020-03-31 Orders Doctor LUIS 1.2.840.114 [id number] Univers 00:00:00 00:00:00 Only Unassigned, KAYLIE 350.1.13.10 ity of [place] [facility] 4.2.7.2.686 [place] as [phone] [facility] [address] [place] Results Test Description Test Time Test Comments Results Result Comments Source POCT TEST 2022-09-12 19:23:00 Test Item Value Reference Range Interpretation Comme nts POCT PREG (test code = 1605) Negative On board controls acceptable with C Line (test code = 3574) Yes POCT PREG LOT # (test code = 3575) POCT PREG TEST DATE (test code = 3576) [id number] 19:23:00 Test Item Value Reference Range Interpretation Comments POCT PREG (test code = 1605) Negative On board controls acceptable with C Yes Line (test code = 3574) POCT PREG LOT # (test code = 3575) POCT PREG TEST DATE (test code = 3576) [facility] COMPLETE WITH [id number] 17:23:46 Endometrial stripe measures up to 1.4 cm and is within limits forpremenopausal status. No discernible endometrial lesions identified. Left ovarian cystic structure measuring up to 2.3 cm probably represents acyst or crenulated follicle. PELVIC ULTRASOUND (TRANSVAGINAL AND LIMITED TRANSABDOMINAL) TECHNIQUE: Transvaginal and limited transabdominal sonography of the pelviswas performed. INDICATION: vaginal bleeding, pelvic pain COMPARISON: CT from 03/31/2020 FINDINGS: Uterus measures 9.0 x 4.3 x 5.2 cm. The endometrial echo measures 1.4 cm inthickness. Posterior uterine fundus contains a 1.6 x 1.4 x 1.3 cm fibroidCervix contains a few nabothian cysts. Suggestion of scar inanterior lower uterine segment. Ovaries are normal in size and configuration. The right ovary measures 2.3x 2.3 x 2.1 cm. The left ovary measures 3.8 x 2.8 x 2.8 cm and contains acomplex 2.3 cm cystic structure thought to represent a cyst. No free fluid. [facility], Radiant Results Inft User - 11/09/2020 12:24 PM CDTPELVIC ULTRASOUND (TRANSVAGINAL AND LIMITED TRANSABDOMINAL)TECHNIQUE: Transvaginal and limited transabdominal sonography of the pelviswas performed.INDICATION: vaginal bleeding, pelvic pain COMPARISON: CT from FINDINGS:Uterus measures 9.0 x 4.3 x 5.2 cm. The endometrial echo measures 1.4 cm inthickness. Posterior uterine fundus contains a 1.6 x 1.4 x 1.3 cm fibroidCervix contains a few nabothian cysts. Suggestion of scar inanterior lower uterine segment.Ovaries are normal in size and configuration. The right ovary measures 2.3x 2.3 x 2.1 cm. The left ovary measures 3.8 x 2.8 x 2.8 cm and contains acomplex 2.3 cm cystic structure thought to represent a cyst.No free fluid.IMPRESSIONEndometrial stripe measures up to 1.4 cm and is within limits forpremenopausal status. No discernible endometrial lesions identified.Left ovarian cystic structure measuring up to 2.3 cm probably represents acyst or crenulated follicle.[facility] [id number] 22:01:00 Test Item Value Reference Range Interpretation Comments APPEARANCE (test code = Hazy Clear A 9757867862) COLOR (test code = Yellow Yellow 4109490573) PH (test code = 4.8-8.0 5968637937) SP GRAVITY (test code = 1.003-1.030 5185866951) GLU U QUAL (test code = Normal Normal 5562280800) BLOOD (test code = Negative Negative INTERFERE NCE FROM 8405601857) ASCORBIC ACID M AY CAUSE FALSE NEG ATIVE RESULT KETONES (test code = Negative Negative 0714270118) PROTEIN (test code = 30 mg/dL Negative A 2887-8) UROBILIN (test code = Normal Normal 6000797176) BILIRUBIN (test code = Negative Negative 7667540052) NITRITE (test code = Negative Negative 1219525201) LEUK JOY (test code = 75/uL Negative A 9217660269) RBC/HPF (test code = See_Comment [Autom ated message] 7848016564) The system [employer] generated this result transmitted ref erence range: 0 - 3 HP F. The reference range was not used to int erpret this result as normal/abnormal . WBC/HPF (test code = See_Comment [Autom ated message] 6368886268) The system [employer] generated this result transmitted ref erence range: 0 - 5 HP F. The reference range was not used to int erpret this result as normal/abnormal . BACTERIA (test code = Few Negative A 9305594623) MUCOUS (test code = Slight Negative LPF A 9296676894) SQ EPITH (test code = HPF 4133715378) HYAL CAST (test code = See_Comment [Aut omated message] 5298634433) The system [employer] generated this result transmitted ref erence range: <=2 LPF. The reference range was not used to int erpret this result as normal/abnormal . Lab Interpretation (test Abnormal code = 24070-6) [facility] Metabolic Panel (NA, K, CL, CO2, GLUCOSE, BUN, CREATININE, CA)2020-03-31 22:00:00 Test Item Value Reference Range Interpretation Comments NA (test code = 138 mmol/L 135-145 2180711188) K (test code = 4.6 mmol/L 3.5-5 3963205929) CL (test code = 106 mmol/L 98-108 8860828260) CO2 TOTAL (test code = 21 mmol/L 23-31 L 4559580142) AGAP (test code = 2-16 0002483557) BUN (test code = 18 mg/dL 7-23 3515476857) GLUCOSE (test code = 111 mg/dL 70-110 H 3482067709) CREATININE (test code = 1.01 mg/dL 0.5-1.04 0007735940) CALCIUM (test code = 9.7 mg/dL 8.6-10.6 4091104985) eGFR Calculation mL/min/1.73m2 (Non-) (test code = 1537556356) eGFR Calculation mL/min/1.73m2 () (test code = 5657571411) CHRISTIAN (test code = CHRISTIAN) Association of Glomerular Filtration Rate (GFR) and Staging of Kidney Disease* + --+ --+ ------+| GFR (mL/min/1.73 m2) ?| With Kidney Damage ?| ?Without Kidney Damage+ --------+ --------+ +| ?>90 ?| ?Stage one ?| ? Normal ?+ ---+ ---+ -------+| ?60-89 ?| ?Stage two ?| ? Decreased GFR ? + --+ --+ ------+| ?30-59 ?| ?Stage three ?| ? Stage three ? + --+ --+ ------+| ?15-29 ?| ?Stage four ? | ? Stage four ?+ ---+ ---+ -------+| ?<15 (or dialysis) ? ?| ?Stage five ? | ? Stage five ?+ ---+ ---+ -------+ *Each stage assumes the associated GFR level has been in effect for at least three months. ?Stages 1 to 5, with or without kidney disease, indicate chronic kidney disease. Notes: Determination of stages one and two (with eGFR >59mL/min/1.73 m2) requires estimation of kidney damage for at least three months as defined by structural or functional abnormalities of the kidney, manifested by either:Pathological abnormalities or Markers of kidney damage (including abnormalities in the composition of the blood or urine or abnormalities in imaging tests). Lab Interpretation Abnormal (test code = 56804-7) [facility] (ALB, T.PRO, BILI T, BU/BC, ALT, AST, ALK PHOS)2020-03-31 22:00:00 Test Item Value Reference Range Interpretation Comments TOTAL BILI (test code = 9320134819) 0.7 mg/dL 0.1-1.1 BILI UNCON (test code = 4985365254) 0.6 mg/dL 0.1-1.1 BILI CONJ (test code = 1945095818) 0.0 mg/dL 0-0.3 T PROTEIN (test code = 5772967865) 8.8 g/dL 6.3-8.2 H ALBUMIN (test code = 8381063212) 4.8 g/dL 3.5-5 ALK PHOS (test code = 5028315596) 77 U/L 34-122 ALTv (test code = 1742-6) 38 U/L 5-35 H AST(SGOT) (test code = 3639105832) 57 U/L 13-40 H Lab Interpretation (test code = Abnormal 00597-0) [facility] Center[facility] [id number] 22:00:00 Test Item Value Reference Range Interpretation Comments LIPASE (test code = 1102738805) 147 U/L 0-220 Lab Interpretation (test code = Normal 50723-6) [facility] with [id number] 21:49:00 Test Item Value Reference Range Interpretation Comments WBC (test code = See_Comment [Automated 5076-2) message] The sy stem which generated this result transmitted reference range : 4.30 - 11.10 10*3/?L. The reference range was not used to interpret this result as normal/abnormal . RBC (test code = See_Comment [Automated 712-8) message] The sy stem which generated this result transmitted reference range : 3.93 - 5.25 10*6/?L. The reference range was not used to interpret this result as normal/abnormal . HGB (test code = 15.3 g/dL 11.6-15 H 718-7) HCT (test code = 44.2 % 35.7-45.2 4544-3) MCV (test code = 89.3 fL 80.6-95.5 787-2) MCH (test code = 30.9 pg 25.9-32.8 785-6) MCHC (test code = 34.6 g/dL 31.6-35.1 786-4) RDW-SD (test code = 42.3 fL 39-49.9 57789-5) RDW-CV (test code = 13.2 % 12-15.5 788-0) PLT (test code = See_Comment [Automated 227-3) message] The sy stem which generated this result transmitted reference range : 166 - 358 10*3/ ?L. The reference r jesika was not used to interpret this result as normal/abnormal . MPV (test code = 9.9 fL 9.5-12.9 36774-6) NRBC/100 WBC (test See_Comment [Automat ed code = 4494080246) message] The system which generated this result transmitted reference range : 0.0 - 10.0 /100 WBCs. The refer ence range was not u sed to interpret th is result as normal/abnormal . NRBC x10^3 (test code <0.01 See_Comment [Auto mated = 0617592750) message] The s ystem which generated this result transmitted reference range : 10*3/?L. The reference range was not used to interpret this result as normal/abnormal . GRAN MAT (NEUT) % 79.9 % (test code = 770-8) IMM GRAN % (test code 0.50 % = 9829735758) LYMPH % (test code = 14.7 % 736-9) MONO % (test code = 3.6 % 5905-5) EOS % (test code = 0.7 % 713-8) BASO % (test code = 0.6 % 706-2) GRAN MAT x10^3(ANC) 8.63 10*3/uL 1.88-7.09 H (test code = 9621364591) IMM GRAN x10^3 (test 0.05 10*3/uL 0-0.06 code = 8662180684) LYMPH x10^3 (test code 1.59 10*3/uL 1.32-3.29 = 731-0) MONO x10^3 (test code 0.39 10*3/uL 0.33-0.92 = 742-7) EOS x10^3 (test code = 0.08 10*3/uL 0.03-0.39 711-2) BASO x10^3 (test code 0.07 10*3/uL 0.01-0.07 = 704-7) Lab Interpretation Abnormal (test code = 79440-1) [facility]PO[facility] [id number] 19:11:00 Test Item Value Reference Range Interpretation Comments POCT PREG (test code = Negative 1605) On board controls Yes acceptable with C Line (test code = 3574) POCT PREG LOT # (test code = 3575) POCT PREG TEST DATE (test code = 3576) CHRISTIAN (test code = CHRISTIAN) accurate development and interpretation of all internal controls Lab Interpretation Normal (test code = 38571-4) [facility] [id number] 19:11:00 Test Item Value Reference Range Interpretation Comments POCT PREG (test code = Negative 1605) On board controls Yes acceptable with C Line (test code = 3574) POCT PREG LOT # (test code = 3575) POCT PREG TEST DATE (test code = 3576) CHRISTIAN (test code = CHRISTIAN) accurate development and interpretation of all internal controls Lab Interpretation Normal (test code = 76660-1) [facility] [id number] 19:11:00 Test Item Value Reference Range Interpretation Comments POCT PREG (test code = Negative 1605) On board controls Yes acceptable with C Line (test code = 3574) POCT PREG LOT # (test code = 3575) POCT PREG TEST DATE (test code = 3576) CHRISTIAN (test code = CHRISTIAN) accurate development and interpretation of all internal controls Lab Interpretation Normal (test code = 97981-9) [facility] [id number] 19:11:00 Test Item Value Reference Range Interpretation Comments POCT PREG (test code = Negative 1605) On board controls Yes acceptable with C Line (test code = 3574) POCT PREG LOT # (test code = 3575) POCT PREG TEST DATE (test code = 3576) CHRISTIAN (test code = CHRISTIAN) accurate development and interpretation of all internal controls Lab Interpretation Normal (test code = 97663-8) [facility] [id number] 19:11:00 Test Item Value Reference Range Interpretation Comments POCT PREG (test code = Negative 1605) On board controls Yes acceptable with C Line (test code = 3574) POCT PREG LOT # (test code = 3575) POCT PREG TEST DATE (test code = 3576) CHRISTIAN (test code = CHRISTIAN) accurate development and interpretation of all internal controls Lab Interpretation Normal (test code = 20178-9) [facility] URINALYSIS W SPECIFIC [id number] 18:42:00 Test Item Value Reference Range Interpretation Comments POCT U SP GRAV (test 1.025 mg/dl 1.005-1.025 code = 3255) POCT PH U (test code = 5 mg/dl 5-8 3254) POCT U LEUK EST (test neg Negative - code = 3263) Negative POCT U NIT (test code neg Negative - = 3262) Negative POCT U PROT (test code neg Negative - = 3259) Negative POCT U GLU (test code neg Negative - = 3256) Negative POCT U KETONE (test neg Negative - code = 3258) Negative POCT U UROBILI (test neg 0.2-1 code = 3260) POCT U BILI (test code neg Negative - = 3261) Negative POCT U BLD (test code neg Negative - = 3257) Negative POCT U COLOR (test yellow code = 3266) POCT U APPEAR (test clear code = 3267) CHRISTIAN (test code = CHRISTIAN) accurate development and interpretation of all internal controls Lab Interpretation Normal (test code = 28545-2) [facility] URINALYSIS W SPECIFIC [id number] 18:42:00 Test Item Value Reference Range Interpretation Comments POCT U SP GRAV (test 1.025 mg/dl 1.005-1.025 code = 3255) POCT PH U (test code = 5 mg/dl 5-8 3254) POCT U LEUK EST (test neg Negative - code = 3263) Negative POCT U NIT (test code neg Negative - = 3262) Negative POCT U PROT (test code neg Negative - = 3259) Negative POCT U GLU (test code neg Negative - = 3256) Negative POCT U KETONE (test neg Negative - code = 3258) Negative POCT U UROBILI (test neg 0.2-1 code = 3260) POCT U BILI (test code neg Negative - = 3261) Negative POCT U BLD (test code neg Negative - = 3257) Negative POCT U COLOR (test yellow code = 3266) POCT U APPEAR (test clear code = 3267) CHRISTIAN (test code = CHRISTIAN) accurate development and interpretation of all internal controls Lab Interpretation Normal (test code = 65120-1) [facility] URINALYSIS W SPECIFIC [id number] 18:42:00 Test Item Value Reference Range Interpretation Comments POCT U SP GRAV (test 1.025 mg/dl 1.005-1.025 code = 3255) POCT PH U (test code = 5 mg/dl 5-8 3254) POCT U LEUK EST (test neg Negative - code = 3263) Negative POCT U NIT (test code neg Negative - = 3262) Negative POCT U PROT (test code neg Negative - = 3259) Negative POCT U GLU (test code neg Negative - = 3256) Negative POCT U KETONE (test neg Negative - code = 3258) Negative POCT U UROBILI (test neg 0.2-1 code = 3260) POCT U BILI (test code neg Negative - = 3261) Negative POCT U BLD (test code neg Negative - = 3257) Negative POCT U COLOR (test yellow code = 3266) POCT U APPEAR (test clear code = 3267) CHRISTIAN (test code = CHRISTIAN) accurate development and interpretation of all internal controls Lab Interpretation Normal (test code = 47260-6) [facility] URINALYSIS W SPECIFIC [id number] 18:42:00 Test Item Value Reference Range Interpretation Comments POCT U SP GRAV (test 1.025 mg/dl 1.005-1.025 code = 3255) POCT PH U (test code = 5 mg/dl 5-8 3254) POCT U LEUK EST (test neg Negative - code = 3263) Negative POCT U NIT (test code neg Negative - = 3262) Negative POCT U PROT (test code neg Negative - = 3259) Negative POCT U GLU (test code neg Negative - = 3256) Negative POCT U KETONE (test neg Negative - code = 3258) Negative POCT U UROBILI (test neg 0.2-1 code = 3260) POCT U BILI (test code neg Negative - = 3261) Negative POCT U BLD (test code neg Negative - = 3257) Negative POCT U COLOR (test yellow code = 3266) POCT U APPEAR (test clear code = 3267) CHRISTIAN (test code = CHRISTIAN) accurate development and interpretation of all internal controls Lab Interpretation Normal (test code = 49418-6) [facility] URINALYSIS W SPECIFIC [id number] 18:42:00 Test Item Value Reference Range Interpretation Comments POCT U SP GRAV (test 1.025 mg/dl 1.005-1.025 code = 3255) POCT PH U (test code = 5 mg/dl 5-8 3254) POCT U LEUK EST (test neg Negative - code = 3263) Negative POCT U NIT (test code neg Negative - = 3262) Negative POCT U PROT (test code neg Negative - = 3259) Negative POCT U GLU (test code neg Negative - = 3256) Negative POCT U KETONE (test neg Negative - code = 3258) Negative POCT U UROBILI (test neg 0.2-1 code = 3260) POCT U BILI (test code neg Negative - = 3261) Negative POCT U BLD (test code neg Negative - = 3257) Negative POCT U COLOR (test yellow code = 3266) POCT U APPEAR (test clear code = 3267) CHRISTIAN (test code = CHRISTIAN) accurate development and interpretation of all internal controls Lab Interpretation Normal (test code = 83703-0) [facility] [id number] 18:42:00 Test Item Value Reference Range Interpretation Comments POCT U SP GRAV (test 1.025 mg/dl 1.005-1.025 code = 3255) POCT PH U (test code = 5 mg/dl 5-8 3254) POCT U LEUK EST (test neg Negative - code = 3263) Negative POCT U NIT (test code neg Negative - = 3262) Negative POCT U PROT (test code neg Negative - = 3259) Negative POCT U GLU (test code neg Negative - = 3256) Negative POCT U KETONE (test neg Negative - code = 3258) Negative POCT U UROBILI (test neg 0.2-1 code = 3260) POCT U BILI (test code neg Negative - = 3261) Negative POCT U BLD (test code neg Negative - = 3257) Negative POCT U COLOR (test yellow code = 3266) POCT U APPEAR (test clear code = 3267) CHRISTIAN (test code = CHRISTIAN) accurate development and interpretation of all internal controls Lab Interpretation Normal (test code = 46243-9) [facility]"
[2023-01-29 21:45] LABS: Absolute Lymphocytes (CBC) 2.3 K/uL (0.7-4.9); Hematocrit 44.5 % (36.0-45.0); Lymphocytes % 35.3 % (15.3-44.8); MCV 91.6 fL (80-100); MPV 7.9 fL (7.6-11.3); RBC Red Blood Cell Count 4.86 M/uL (3.86-4.86); Specific Gravity < 1.005 (1.005-1.030)
[2023-01-29 21:52] LABS: Protime INR 1.01
--- NOTE | 2023-01-29 22:01 | RAD REPORT ---
EXAM DESCRIPTION: [place] Single View01/29/2023 9:48 pm CLINICAL HISTORY: CHEST PAIN COMPARISON: Chest Single View dated 04/18/2020; Chest Pa And Lat (2 Views) dated 03/19/2019; Chest Singl e View dated 08/30/2018; Chest Single View dated 12/07/2016 TECHNIQUE: Portable AP view of the chest. FINDINGS: The lungs are clear. No pneumothorax or effusion. The cardiomediastinal contours are unre markable. IMPRESSION: No acute cardiopulmonary process.
[2023-01-29 22:05] LABS: ALT/SGPT 44 U/L (13-56); AST/SGOT 33 U/L (15-37); Albumin 3.9 g/dL (3.4-5.0); Alkaline Phosphatase 69 U/L (45-117); BUN Blood Urea Nitrogen 15 mg/dL (7-18); Bicarbonate 28 mEq/L (21-32); Bilirubin Direct 0.1 mg/dL (0-0.2); Bilirubin Indirect, Calculated 0.3 mg/dL (0.2-0.8); Bilirubin Total 0.4 mg/dL (0.2-1.0); Glomerular Filtration Rate 66 ml/min (=/>90); Glucose Level 86 mg/dL (74-106); NT PRO-BNP 251 pg/mL (<125); Potassium 3.5 mEq/L (3.5-5.1); Sodium Level 137 mEq/L (136-145)
[2023-01-29 22:06] LABS: C-Reactive Protein < 2.90 mg/L (<3.00); Specific Gravity < 1.005 (1.005-1.030); Urine Bacteria None Seen /HPF (<20); Urine Bilirubin NEGATIVE (Negative); Urine Blood Negative (Negative); Urine Clarity Clear (Clear); Urine Color Colorless (Yellow); Urine Glucose NEGATIVE (Negative); Urine Protein NEGATIVE (Negative); Urine RBC None Seen /HPF (None Seen); Urine Urobilinogen Normal (Normal)
[2023-01-29 22:08] LABS: Troponin High Sensitivity 64.2 pg/mL (<58.9)
--- NOTE | 2023-01-29 22:21 | EDPHYS ---
Physician Documentation [facility] Name: Amanda Guillaume Age: 42 yrs Sex: Female : 1980 Arrival Date: 01/29/2023 Time: 20:16 Bed 4 Private MD: ED Physician Monroe Arroyo HPI: 01/29 20:28 This 42 yrs old Female presents to ER via Unassigned with complaints of sp4 Shortness Of Breath, Numbness Of Face, Dizziness. 20:52 42-year-old female presents with 2 weeks of generalized dizziness, feeling unwell, sp4 shortness of breath, chest discomfort, facial numbness, and overall not feeling right. Patient was told by her physician that her kidney function is suboptimal and that her potassium is low. Patient takes losartan, atenolol, buspirone. Patient has history of anxiety, depression, hypertension. . Historical: - Allergies: 20:35 adhesive; kd3 20:35 Bactrim; kd3 - PMHx: 20:36 Anxiety; Hypertension; Depression; kd3 - Immunization history:: Adult Immunizations up to date. - Social history:: Smoking status: Patient denies any tobacco usage or history of. - Family history:: not pertinent. ROS: 20:52 Constitutional: Negative for fever, chills, and weight loss, positive generalized sp4 weakness, dizziness, facial numbness, chest discomfort, shortness of breath Eyes: Negative for injury, pain, redness, and discharge, ENT: Negative for injury, pain, and discharge, Neck: Negative for injury, pain, and swelling, Cardiovascular: Negative for chest pain, palpitations, and edema, positive for chest discomfort Respiratory: Negative for cough, wheezing, and pleuritic chest pain, positive for dyspnea Abdomen/GI: Negative for abdominal pain, nausea, vomiting, diarrhea, and constipation, Back: Negative for injury and pain, : Negative for injury, bleeding, discharge, and swelling, MS/Extremity: Negative for injury and deformity, Skin: Negative for injury, rash, and discoloration, Neuro: Negative for headache, weakness, numbness, tingling, and seizure, Psych: Negative for depression, anxiety, Allergy/Immunology: Negative for hives, rash, and allergies Endocrine: Negative for neck swelling, polydipsia, polyuria, polyphagia, and weight changes Hematologic/Lymphatic: Negative for swollen nodes, abnormal bleeding, and unusual bruising Exam: 20:52 Constitutional: This is a well developed, well nourished patient who is awake, alert, sp4 and in no acute distress. Head/Face: Normocephalic, atraumatic. Eyes: Pupils equal round and reactive to light, extra-ocular motions intact. Lids and lashes normal. Conjunctiva and sclera are not injected. Cornea within normal limits. Periorbital areas with no swelling, redness, or edema. ENT: Nares patent. No nasal discharge, no septal abnormalities noted. Tympanic membranes are normal and external auditory canals are clear. Oropharynx with no redness, swelling, or masses, exudates, or evidence of obstruction, uvula midline. Mucous membranes moist. Neck: Trachea midline, no thyromegaly or masses palpated, and no cervical lymphadenopathy. Supple, full range of motion without nuchal rigidity, or vertebral point tenderness. Chest/axilla: Normal chest wall appearance and motion. Nontender with no deformity. No lesions are appreciated. Cardiovascular: Regular rate and rhythm with a normal S1 and S2. No gallops, murmurs, or rubs. Normal PMI, no JVD. No pulse deficits. Respiratory: Lungs have equal breath sounds bilaterally, clear to auscultation and percussion. No rales, rhonchi or wheezes noted. No increased work of breathing, no retractions or nasal flaring. Abdomen/GI: Soft, non-tender, with normal bowel sounds. No distension or tympany. No guarding or rebound. No evidence of tenderness throughout. Back: No spinal tenderness. No costovertebral tenderness. Skin: Warm, dry with normal turgor. Normal color with no rashes, no lesions, and no evidence of cellulitis. MS/ Extremity: Pulses equal, no cyanosis. Neurovascular intact. Full, normal range of motion. Neuro: Awake and alert, GCS 15, oriented to person, place, time, and situation. Cranial nerves II-XII grossly intact. Motor strength 5/5 in all extremities. Sensory grossly intact. Psych: Awake, alert, with orientation to person, place and time. Behavior, mood, and affect are within normal limits 22:03 ECG was reviewed by the Attending Physician. EKG reveals normal sinus rhythm at a rate sp4 of 67, no ST elevation or depression, no ectopy, normal EKG, EKG time 2138 Vital Signs: 20:32 Weight 73.94 kg; Height 5 ft. 3 in. ; kd3 20:56 BP 125 / 83; Pulse 72; Resp 16; Pulse Ox 98% on R/A; ll3 21:30 BP 115 / 87; Pulse 82; Resp 16 S; Pulse Ox 99% on R/A; ha1 22:30 BP 124 / 90; Pulse 78; Resp 14; Pulse Ox 100% on R/A; ll3 23:45 BP 126 / 74; Pulse 85; Resp 15; Pulse Ox 100% on R/A; ll3 20:32 Body Mass Index 28.87 (73.94 kg, 160.02 cm) kd3 MDM: 20:37 Patient medically screened. sp4 22:03 Differential diagnosis: Anemia Anxiety Reaction asthma, pneumonia, Pneumothorax sp4 Psychogenic Unstable Angina. Data reviewed: vital signs, nurses notes, old medical records, lab test result(s), EKG, radiologic studies, plain films. 22:18 ED course: Patient has elevated troponin which is a mild elevation but significant to sp4 admit patient for cardiac work-up, patient was staffed with admitting team and will consult cardiology as well for in-hospital work-up for NSTEMI. 01/29 20:35 Order name: Basic Metabolic Panel; Complete Time: 22:08 [facility] 01/29 20:35 Order name: CBC with Diff; Complete Time: 21:47 4 01/29 20:35 Order name: LFT's; Complete Time: 22:08 [facility] 01/29 20:35 Order name: Magnesium; Complete Time: 22:08 [facility] 01/29 20:35 Order name: NT PRO-BNP; Complete Time: 22:08 [facility] 01/29 20:35 Order name: PT-INR; Complete Time: 22:04 [facility] 01/29 20:35 Order name: Troponin HS; Complete Time: 22:08 [facility] 01/29 20:36 Order name: TSH; Complete Time: 22:08 [facility] 01/29 20:36 Order name: T4 Free; Complete Time: 22:08 [facility] 01/29 20:36 Order name: CRP; Complete Time: 22:08 [facility] 01/29 20:36 Order name: Test, Urine; Complete Time: 22:04 4 01/29 20:36 Order name: Urinalysis W/Microscopic; Complete Time: 22:07 4 01/29 20:35 Order name: XRAY Chest (1 view); Complete Time: 22:04 4 01/29 20:37 Order name: CT Head Brain wo Cont; Complete Time: 00:05 4 01/29 22:27 Order name: Chest For PE Angio CT; Complete Time: 00:05 4 01/29 20:35 Order name: EKG; Complete Time: 20:36 sp4 01/29 20:35 Order name: Cardiac monitoring; Complete Time: 20:50 4 01/29 20:35 Order name: EKG - Nurse/Tech; Complete Time: 21:44 [facility] 01/29 20:35 Order name: IV Saline Lock; Complete Time: 21:30 4 01/29 20:35 Order name: Labs collected and sent; Complete Time: 21:30 [facility] 01/29 20:35 Order name: O2 Per Protocol; Complete Time: 20:50 [facility] 01/29 20:35 Order name: O2 Sat Monitoring; Complete Time: 20:50 sp4 Administered Medications: 22:29 Drug: LORazepam PO 2 mg Route: PO; 3 01/30 00:52 Follow up: Response: No adverse reaction 3 01/29 22:29 Drug: Aspirin PO Chewable Tablet 324 mg Route: PO; ll3 01/30 00:51 Follow up: Response: No adverse reaction 3 01/29 22:29 Drug: Enoxaparin Sub-Q 80 mg Route: Sub-Q; Site: abdomen; ll3 01/30 00:51 Follow up: Response: No adverse reaction 3 01/29 23:51 Drug: Diazepam IVP 5 mg Route: IVP; Site: left antecubital; 3 01/30 00:51 Follow up: Response: No adverse reaction ll3 Disposition Summary: 01/29/23 22:20 Hospitalization Ordered Hospitalization Status: Inpatient Admission sp4 Provider: Huey Taylor sp4 Location: Telemetry/MedSurg (Inpatient) sp4 Condition: Stable sp4 Problem: new sp4 Symptoms: have improved sp4 Bed/Room Type: Standard sp4 Room Assignment: 229(01/29/23 23:18) kd3 Diagnosis - Non-ST elevated PA, dizziness, generalized weakness sp4 Forms: - Medication Reconciliation Form sp4 - SBAR form sp4 Signatures: Dispatcher [employer] EDJo-Ann Marx RN RN ll3 Lela Lan RN RN kd3 Amy Reddy, PAManoj MARTINEZ sb4 Monroe Arroyo MD MD sp4 Corrections: (The following items were deleted from the chart) 01/29 20:36 20:35 Allergies: unknown antibiotic that starts with a "B"; kd3 kd3 23:18 22:20 sp4 kd3
--- NOTE | 2023-01-29 22:21 | ER ---
Nurse's Notes [facility] Name: Amanda Guillaume Age: 42 yrs Sex: Female : 1980 Arrival Date: 01/29/2023 Time: 20:16 Bed 4 Private MD: Diagnosis: Non-ST elevated MO, dizziness, generalized weakness Presentation: 01/29 20:32 Chief complaint: Patient states: I have been feeling bad for about 2 weeks now and I kd3 have been feeling dizziness with some shortness of breath on and off. I think that maybe I am dehydrated. I have been told that my potassium is low. I have not had any nausea, vomiting or diarrhea. I just generally don't feel well. Coronavirus screen: Vaccine status: Patient reports being unvaccinated. Ebola Screen: No symptoms or risks identified at this time. Initial Sepsis Screen: Does the patient meet any 2 criteria? No. Patient's initial sepsis screen is negative. Does the patient have a suspected source of infection? No. Patient's initial sepsis screen is negative. Risk Assessment: Do you want to hurt yourself or someone else? Patient reports no desire to harm self or others. Onset of symptoms was January 29, 2023. 20:32 Method Of Arrival: Ambulatory kd3 20:32 Acuity: KATHI 3 kd3 Triage Assessment: 20:36 General: Appears in no apparent distress. Behavior is calm, cooperative. Pain: Denies kd3 pain. Respiratory: Reports shortness of breath at rest Onset: The symptoms/episode began/occurred gradually, the patient has moderate shortness of breath. Historical: - Allergies: 20:35 adhesive; kd3 20:35 Bactrim; kd3 - PMHx: 20:36 Anxiety; Hypertension; Depression; kd3 - Immunization history:: Adult Immunizations up to date. - Social history:: Smoking status: Patient denies any tobacco usage or history of. - Family history:: not pertinent. Screenin:00 Abuse screen: Denies threats or abuse. Denies injuries from another. Nutritional ha1 screening: No deficits noted. Tuberculosis screening: No symptoms or risk factors identified. 01/30 00:51 [facility] ED Fall Risk Assessment (Adult) History of falling in the last 3 months, ll3 including since admission No falls in past 3 months (0 pts) Confusion or Disorientation No (0 pts) Intoxicated or Sedated No (0 pts) Impaired Gait No (0 pts) Mobility Assist Device Used No (0 pt) Altered Elimination No (0 pt) Score/Fall Risk Level 0 - 2 = Low Risk Oriented to surroundings, Maintained a safe environment, Educated pt \\T\\ family on fall prevention, incl call for assistance when getting out of bed. Assessment: 01/29 20:30 General: Appears comfortable, Behavior is calm, cooperative. Pain: Denies pain. Neuro: ha1 Level of Consciousness is awake, alert, obeys commands, Oriented to person, place, time, situation. Cardiovascular: Heart tones S1 S2 present Patient's skin is warm and dry. Rhythm is sinus rhythm. Respiratory: Airway is patent Respiratory effort is even, unlabored, Breath sounds are clear bilaterally. Musculoskeletal: Circulation, motion, and sensation intact. Range of motion: intact in all extremities, Reports weakness in generelized. 21:30 Reassessment: Patient and/or family updated on plan of care and expected duration. Pain ha1 level reassessed. Patient is alert, oriented x 3, equal unlabored respirations, skin warm/dry/pink. 22:30 Reassessment: Patient and/or family updated on plan of care and expected duration. Pain ha1 level reassessed. Patient is alert, oriented x 3, equal unlabored respirations, skin warm/dry/pink. 23:30 Reassessment: Patient and/or family updated on plan of care and expected duration. Pain ha1 level reassessed. Patient is alert, oriented x 3, equal unlabored respirations, skin warm/dry/pink. patient reports tingling on the left side of her body. Notified Dr. Arroyo. Vital Signs: 20:32 Weight 73.94 kg; Height 5 ft. 3 in. ; kd3 20:56 BP 125 / 83; Pulse 72; Resp 16; Pulse Ox 98% on R/A; ll3 21:30 BP 115 / 87; Pulse 82; Resp 16 S; Pulse Ox 99% on R/A; ha1 22:30 BP 124 / 90; Pulse 78; Resp 14; Pulse Ox 100% on R/A; ll3 23:45 BP 126 / 74; Pulse 85; Resp 15; Pulse Ox 100% on R/A; ll3 20:32 Body Mass Index 28.87 (73.94 kg, 160.02 cm) kd3 ED Course: 20:20 Patient arrived in ED. ja2 20:28 Monroe Arroyo MD is Attending Physician. sp4 20:35 Triage completed. kd3 20:36 Arm band placed on right wrist. kd3 21:30 Urinalysis W/Microscopic Sent. ha1 21:30 Test, Urine Sent. ha1 21:30 CRP Sent. ha1 21:30 T4 Free Sent. ha1 21:30 TSH Sent. ha1 21:30 Basic Metabolic Panel Sent. ha1 21:30 CBC with Diff Sent. ha1 21:30 LFT's Sent. ha1 21:30 Magnesium Sent. ha1 21:31 NT PRO-BNP Sent. ha1 21:31 PT-INR Sent. ha1 21:31 Troponin HS Sent. ha1 21:49 XRAY Chest (1 view) In Process Unspecified. EDMS 22:19 Huey Taylor is Hospitalizing Provider. sp4 01/30 00:04 CT Head Brain wo Cont Sent. sb4 00:04 Chest For PE Angio CT Sent. sb4 00:50 No provider procedures requiring assistance completed. Patient admitted, IV remains in ll3 place. 00:51 Patient has correct armband on for positive identification. Bed in low position. Call ll3 light in reach. Side rails up X 1. Adult w/ patient. Administered Medications: 01/29 22:29 Drug: LORazepam PO 2 mg Route: PO; ll3 01/30 00:52 Follow up: Response: No adverse reaction ll3 01/29 22:29 Drug: Aspirin PO Chewable Tablet 324 mg Route: PO; ll3 01/30 00:51 Follow up: Response: No adverse reaction ll3 01/29 22:29 Drug: Enoxaparin Sub-Q 80 mg Route: Sub-Q; Site: abdomen; ll3 01/30 00:51 Follow up: Response: No adverse reaction ll3 01/29 23:51 Drug: Diazepam IVP 5 mg Route: IVP; Site: left antecubital; kd3 01/30 00:51 Follow up: Response: No adverse reaction ll3 Medication: 00:51 VIS not applicable for this client. ll3 Outcome: 01/29 22:20 Decision to Hospitalize by Provider. sp4 01/30 00:50 Admitted to Med/surg accompanied by tech, via wheelchair, room 229, with chart, Report ll3 called to QUIN Mccoy Condition: stable Instructed on the need for admit, Demonstrated understanding of instructions. 00:56 Patient left the ED. ll3 Signatures: Dispatcher [employer] EDMS Andrea ThaoJo-Ann Pizarro RN RN ll3 Lela Lan RN RN kd3 Lizzeth Connolly RN RN ha1 Amy Reddy PABreannaC PA-C [email or web address] Monroe Arroyo MD MD sp4 Corrections: (The following items were deleted from the chart) 01/29 20:36 20:35 Allergies: unknown antibiotic that starts with a "B"; kd3 kd3
--- NOTE | 2023-01-29 22:27 | P.HP ---
Certification for Inpatient Patient admitted to: Observation With expected LOS: <2 Midnights Patient will require the following post-hospital care: None Practitioner: I am a practitioner with admitting privileges, knowledge of patient current condition, hospital course, and medical plan of care. Services: Services provided to patient in accordance with Admission requirements found in Title 42 Section 412.3 of the Code of Federal Regulations Patient History Date of Service: 01/29/23 Primary Care Provider: Ida Reason for admission: NSTEMI History of Present Illness: Ms. Guillaume is a 42 year old female with past medical history of hypertension and depression/anxiety who presented to the emergency department with 2 weeks of shortness of breath, chest discomfort, dizziness, and overall feeling unwell. She was found to have a slightly elevated troponin- 64.2. Her EKG showed NSR. Chest xray negative. TSH was also elevated but T4 within normal limits. She was given aspirin and lovenox in the emergency department. Vital signs have been stable. Will admit for further management. Allergies Sulfa (Sulfonamide Antibiotics) Allergy (Verified 10/25/22 09:13) Itching/Hives/Rash adhesive Adverse Reaction (Verified 10/25/22 09:13) Blisters Home medications list reviewed: Yes Home Medications: hydroCHLOROthiazide [Hydrodiuril] 25 mg PO DAILY 12/12/16 Bupropion *Xl* [Wellbutrin XL] 150 mg PO BID 03/19/19 Buspirone HCl [Buspar] 7.5 mg PO BID 03/19/19 atenoloL [Atenolol] 50 mg PO DAILY 03/19/19 L.acidoph,Paracasei, B.lactis [Probiotic] 1 each PO DAILY 10/25/22 Mv-Min/Vit C/Glut/Lysine/Hb124 [Immune Support Chewable Tablet] 1 each PO DAILY 10/25/22 Omeprazole 20 mg PO DAILY 10/25/22 Simethicone [Gas Relief] 80 mg PO BIDP PRN 10/25/22 Vitamin C/Biotin [Qxwq-Depq-Mzmtz Gummies] 1 each PO DAILY 10/25/22 clonazePAM [Klonopin] 0.5 mg PO BEDTIME PRN PRN 10/25/22 - Past Medical/Surgical History Diabetic: No -: Hypertension -: Anxiety -: Depression Psychosocial/ Personal History: Patient is . - Family History Father -: Heart disease - Social History Place of Residence: Home Review of Systems General: Other (Dizziness) Respiratory: Shortness of Breath Cardiovascular: Chest Pain Physical Examination - Vital Signs Blood Pressure: 115/87 Pulse: 82 Respirations: 16 Pulse Ox (%): 99 - Physical Exam General: Alert, In no apparent distress HEENT: Atraumatic, EOMI, Sclerae nonicteric Neck: Supple, 2+ carotid pulse no bruit Respiratory: Clear to auscultation bilaterally, Normal air movement Cardiovascular: Regular rate/rhythm, Normal S1 S2 Gastrointestinal: Normal bowel sounds, No tenderness Musculoskeletal: No tenderness Integumentary: No rashes Neurological: Normal speech, Normal affect - Studies Laboratory Data (last 24 hrs) 01/29/23 21:26: PT 11.1, INR 1.01 01/29/23 21:26: WBC 6.60, Hgb 14.9, Hct 44.5, Plt Count 286 01/29/23 21:26: Sodium 137, Potassium 3.5, BUN 15, Creatinine 1.09 H, Glucose 86, Magnesium 2.0, Total Bilirubin 0.4, AST 33, ALT 44, Alkaline Phosphatase 69 Assessment and Plan - Problems (Diagnosis) (1) NSTEMI (non-ST elevation myocardial infarction) Current Visit: Yes Status: Acute (2) Hypertension Current Visit: Yes Status: Chronic Qualifiers: Hypertension type: primary hypertension Qualified Code(s): I10 - Essential (primary) hypertension (3) Anxiety Current Visit: Yes Status: Acute - Plan Patient is admitted for further management of NSTEMI. Cardiology consult. Monitor on telemetry. Trend troponin. Initial 64.2. Aspirin, atorvastatin, therapeutic lovenox. Obtain lipid panel and echocardiogram. Monitor and replete electrolytes per protocol. Reconcile and continue home medications. Of note, she has been taking Wegovy for weight loss for about 3 months, her dose was significantly increased last week. Discharge Plan: Home Plan to discharge in: 24 Hours - Advance Directives Does patient have a Living Will: No Does patient have a Durable POA for Healthcare: No - Code Status/Comfort Care Code Status Assessed: Yes Code Status: Full Code Physician Review: Patient Assessed, Agree with Above Assessment and Plan Critical Care: No Time Spent Managing Pts Care (In Minutes): 50
[2023-01-29] MEDS ORDERED: ASPIRIN 81 MG CHEWABLE TABLET ONE (22:29)
[2023-01-29] MEDS ORDERED: LORAZEPAM 1 MG TABLET ONE (22:29)
[2023-01-29] MEDS ORDERED: ENOXAPARIN 80 MG/0.8 ML SQ ONE (22:30)
[2023-01-29] MEDS ORDERED: DIAZEPAM 10 MG/2 ML INJ SYRINGE ONE (23:54)
[2023-01-30] MEDS ORDERED: ONDANSETRON 4 MG/2 ML VIAL IV PRN (00:18)
[2023-01-30] MEDS ORDERED: ACETAMINOPHEN 500 MG TAB PO PRN (00:18)
[2023-01-30 01:25] VITALS: BMI 29.2
[2023-01-30 01:28] VITALS: O2SAT 99
[2023-01-30] MEDS ORDERED: clonazePAM 0.5 MG TAB PO PRN (02:54)
[2023-01-30 02:57] LABS: Troponin High Sensitivity 68.7 pg/mL (<58.9)
[2023-01-30] MEDS ORDERED: KCL 20 MEQ/100 mL IVPB 20 MEQ/100 ML BAG IV ONE (06:15)
[2023-01-30] MEDS ORDERED: NA CHLORIDE 0.9% 250 ML ONE (06:28)
[2023-01-30] MEDS ORDERED: PANTOPRAZOLE 40MG TABLET PO SCH (06:30)
[2023-01-30] MEDS ORDERED: atenoloL 50 MG TAB PO SCH (09:00)
[2023-01-30] MEDS ORDERED: BUSPIRONE HCL 15 MG TABLET PO SCH (09:00)
[2023-01-30] MEDS ORDERED: LOSARTAN POTASSIUM 50 MG TABLET PO SCH (09:00)
[2023-01-30] MEDS ORDERED: REGADENOSON 0.4 MG/5 ML SYR IV ONE (09:00)
[2023-01-30] MEDS ORDERED: ASPIRIN EC 81 MG TAB PO SCH (09:00)
[2023-01-30] MEDS ORDERED: BUPROPION HCL XL 150 MG TAB PO SCH (09:00)
[2023-01-30] MEDS ORDERED: ENOXAPARIN 80 MG/0.8 ML SQ SCH (09:00)
--- NOTE | 2023-01-30 09:35 | RAD REPORT ---
EXAM DESCRIPTION: NM - Rest Stress Cardiac Imaging - 01/30/2023 9:19 am CLINICAL HISTORY: Chest pain. /elevated troponin COMPARISON: None. TECHNIQUE: The patient was administered 10.2 mCi of Tc 99m Sestamibi prior to resting SPECT imaging of the heart. The patient was then administered 30.1 MCi of Tc 99m Sestamibi following exercise or ph armacologic stress. Multiplanar SPECT images were reviewed. FINDINGS: There is uniformity of radiotracer uptake involving the entire left ventricular myocardiu m on rest and stress images. The left ventricular ejection fraction equals 77% IMPRESSION: Negative for a myocardial perfusion defect
[2023-01-30 09:40] VITALS: BP 111/69; TEMP 98.5
--- NOTE | 2023-01-30 11:02 | P.DS ---
Admission Date: 01/29/23 Discharge Date: 01/30/23 Primary Care Provider: Ida Disposition: ROUTINE DISCHARGE Discharge Condition: FAIR Reason for Admission: NSTEMI - Problems (1) Elevated troponin Status: Acute (2) Anxiety Status: Acute (3) Hypertension Status: Chronic Qualifiers: Hypertension type: primary hypertension Qualified Code(s): I10 - Essential (primary) hypertension Brief History of Present Illness: Ms. Guillaume is a 42 year old female with past medical history of hypertension and depression/anxiety who presented to the emergency department with 2 weeks of shortness of breath, chest discomfort, dizziness, and overall feeling unwell. She was found to have a slightly elevated troponin- 64.2. Her EKG showed NSR. Chest xray negative. TSH was also elevated but T4 within normal limits. She was given aspirin and lovenox in the emergency department. Vital signs have been stable. Patient hospitalized for further management. Hospital Course: Patient placed under observation on the medical floor. Troponin was mildly elevated but trended flat. Nuclear stress test done did not show any stress- induced ischemia. It was reported as normal. No ACS. Patient noted to have borderline low BP which could be contributing to his symptoms of dizziness and fatigue. She also mentioned she has lost weight considerably over the past 10 to 12-months. She is informed to stop taking her antihypertensives and to monitor her BP daily for need to restart them. She is discharged to follow-up with her PCP for further work-up. Vital Signs/Physical Exam: Temp Pulse Resp BP Pulse Ox 98.5 F 76 14 111/69 99 01/30/23 08:00 01/30/23 08:00 01/30/23 08:00 01/30/23 08:00 01/30/23 08:00 General: Alert, In no apparent distress, Oriented x3 HEENT: Atraumatic, PERRLA, Mucous membr. moist/pink Neck: Supple, JVD not distended, No Thyromegaly Respiratory: Clear to auscultation bilaterally, Normal air movement Cardiovascular: No edema, Regular rate/rhythm, Normal S1 S2 Gastrointestinal: Soft and benign, Non-distended, No tenderness Musculoskeletal: No swelling Integumentary: No rashes, No cyanosis Neurological: Normal strength at 5/5 x4 extr Laboratory Data at Discharge: WBC 6.60 thou/uL (4.3-10.9) 06/18/23 21:26 Hgb 14.9 g/dL (12.0-15.0) 01/29/23 21:26 Hct 44.5 % (36.0-45.0) 01/29/23 21:26 Plt Count 286 thou/uL (152-406) 01/29/23 21:26 PT 11.1 SECONDS (9.5-12.5) 01/29/23 21:26 INR 1.01 01/29/23 21:26 Sodium 137 mEq/L (136-145) 01/29/23 21:26 Potassium 3.5 mEq/L (3.5-5.1) 01/29/23 21:26 BUN 15 mg/dL (7-18) 01/29/23 21:26 Creatinine 1.09 mg/dL (0.55-1.02) H 01/29/23 21:26 Glucose 86 mg/dL (74-106) 01/29/23 21:26 Magnesium 2.0 mg/dL (1.6-2.4) 01/29/23 21:26 Total Bilirubin 0.4 mg/dL (0.2-1.0) 01/29/23 21:26 AST 33 U/L (15-37) 01/29/23 21:26 ALT 44 U/L (13-56) 01/29/23 21:26 Alkaline Phosphatase 69 U/L (45-117) 01/29/23 21:26 Triglycerides 146 mg/dL (<150) 01/30/23 02:19 Cholesterol 141 mg/dL (<200) 01/30/23 02:19 HDL Cholesterol 41 mg/dL (40-60) 01/30/23 02:19 Cholesterol/HDL Ratio 3.44 01/30/23 02:19 Home Medications: Bupropion *Xl* [Wellbutrin XL*] 150 mg PO DAILY 03/19/19 Buspirone HCl [Buspar] 7.5 mg PO BID 03/19/19 L.acidoph,Paracasei, B.lactis [Probiotic] 1 each PO DAILY 10/25/22 Omeprazole 20 mg PO DAILY 10/25/22 Simethicone [Gas Relief] 80 mg PO BIDP PRN 10/25/22 Vitamin C/Biotin [Hair, Skin and Nails Gummies] 1 each PO DAILY 10/25/22 clonazePAM [Klonopin] 0.5 mg PO BEDTIME PRN PRN 10/25/22 Physician Discharge Instructions: PROBLEM: (NSTEMI) GOAL: Clear understanding of disease process INSTRUCTIONS: Return to ER if symptoms worsen. Call second floor nursing station for any questions at [phone]. Follow up with PCP in 1-2 weeks. Diet: AHA Activity: Ad amanda Diet: AHA Activity: Ad amanda Followup: Raffi Prieto MD [Primary Care Provider] - Time spent managing pt's care (in minutes): 28
--- NOTE | 2023-01-30 13:43 | RAD REPORT ---
EXAM DESCRIPTION: CT - Chest For Pe Angio - 01/30/2023 6:16 am CLINICAL HISTORY: The patient is 42 years old and is Female; DYSPNEA TECHNIQUE: Axial computed tomographic angiography images of the chest with intravenous contrast. S agittal and coronal reformatted images were created and reviewed. This CT exam was performed using one or more of the following dose reduction techniques: automated exposure control, adjustment of t he mA and/or kV according to patient size, and/or use of iterative reconstruction technique. MIP reconstructed images were created and reviewed. COMPARISON: No relevant prior studies available. FINDINGS: PULMONARY ARTERIES: Unremarkable. No pulmonary embolism. AORTA: No acute findings. No thoracic aortic aneurysm. LUNGS: Unremarkable. No mass. No consolidation. PLEURAL SPACE: Unremarkable. No significant effusion. No pneumothorax. HEART: Unremarkable. No cardiomegaly. No significant pericardial effusion. No evidence of R V dysfunction. BONES/JOINTS: No acute fracture. No dislocation. SOFT TISSUES: Unremarkable. LYMPH NODES: Unremarkable. No enlarged lymph nodes. IMPRESSION: Normal chest CTA. No pulmonary embolism. Electronically signed by: Holly You MD 01/29/2023 11:42 PM CDT Due to temporary technical issues with the PACS/Fluency reporting system, reports are being signed by the in house radiologist without review as a courtesy to ensure prompt reporting. The interpreting r adiologist is fully responsible for the content of the report.
--- NOTE | 2023-01-30 13:45 | RAD REPORT ---
EXAM DESCRIPTION: CT - Head Brain Wo Cont - 01/30/2023 6:15 am CLINICAL HISTORY: The patient is 42 years old and is Female; DIZZINESS TECHNIQUE: Axial computed tomography images of the head/brain without intravenous contrast. Sagitt al and coronal reformatted images were created and reviewed. This CT exam was performed using one o r more of the following dose reduction techniques: automated exposure control, adjustment of the mA and/or kV according to patient size, and/or use of iterative reconstruction technique. COMPARISON: No relevant prior studies available. FINDINGS: BRAIN: Unremarkable. The coles-white matter differentiation is preserved . No hemorrhag e. No significant white matter disease. No edema. No extra-axial fluid collections. VENTRICLES: Unremarkable. No ventriculomegaly. BONES/JOINTS: No acute fracture. SOFT TISSUES: Unremarkable. SINUSES: Unremarkable as visualized. No acute sinusitis. MASTOID AIR CELLS: Unremarkable as visualized. No mastoid effusion. ORBITS: Unremarkable as visualized. IMPRESSION: No acute intracranial findings. Electronically signed by: Holly You MD 01/29/2023 11:39 PM CDT Due to temporary technical issues with the PACS/Fluency reporting system, reports are being signed by the in house radiologist without review as a courtesy to ensure prompt reporting. The interpreting r adiologist is fully responsible for the content of the report.
--- NOTE | 2023-01-30 17:50 | EKG ---
Test Date: 2023-01-29 Test Time: 21:38:13 Medicaid Biller: [place] MEASUREMENT RESULTS: Intervals: Rate: 67 FL: 148 QRSD: 80 QT: 386 QTc: 407 [place]: P: 46 FL: 148 QRS: 59 T: 69 INTERPRETIVE STATEMENTS: Normal sinus rhythm Normal ECG Compared to ECG 04/18/2020 20:46:01 No significant changes Electronically Signed On 01-30-23 17:48:56 CDT by Jonathan Pena
[2023-01-30] MEDS ORDERED: ATORVASTATIN 40 MG TAB PO SCH (21:00)
--- NOTE | 2023-01-31 07:09 | TREADPHA ---
DX: POSITIVE TROPONIN Date of Study: 01/30/2023 Ht: 5' 3 " Wt: 165 lb 6.4 oz Consulting Physician: ISABEL MEDICATIONS: TYLENOL, ASPIRIN, TENORMIM, LIPITOR, WELLBUTRIN, BUSPIRONE, KLONOPIN, LOVENOX, COZAAR, ZOFRAN, PROTONIX, POTASSIUM CHLORIDE HISTORY: 42 YEAR OLD WITH COMPLAINTS OF CHEST PAIN. HISTORY OF HYPERTENSION, HYPERLIPIDEMIA, FORMER SMOKER ONE PACK PER DAY, QUIT SIX YEARS AGO. SMOKED FOR TWENTY YEARS. FAMILY HISTORY OF CORONARY ARTERY DISEASE. REPORTS OF MARIJUANA USE. DENIES ALCOHOL USE OR PREVIOUS HEART SURGERIES. PHYSICIAL EXAMINATION: RESTING B.P.: 119/84 RESTING H.R.: 73 RESTING EKG: NORMAL SINUS RHYTHM, WITHIN NORMAL LIMITS PROTOCOL: PHARMACOLOGIC EXERCISE TIME: 3:30 B.P. AT PEAK STRESS: 110/78 IMPRESSION: LEXISCAN INJECTED. CARDIOLITE GIVEN PER PROTOCOL. SEE NUCLEAR MEDICINE REPORT. NO SUPRAVENTRICULAR TACHYCARDIA, VENTRICULAR TACHYCARDIA, PREMATURE VENTRICULAR COMPLEXES, PREMATURE ATRIAL COMPLEXES NOTED. COMPLAINTS OF CHEST DISCOMFORT THREE OUT OF TEN ON PAIN SCALE, DOES NOT RADIATE. DENIES SHORTNESS OF BREATH. NO ELECTROCARDIOGRAM CHANGES WITH LEXISCAN.
== END 2023-01-30 11:44 | disposition home or self-care (01) ==
LOC: ER 20:16 → ERHOLD 22:21 → 2ND 23:22
PROVIDERS: ADMIT Internal Medicine; ATTEND Internal Medicine
DX: I21.4 Non-ST elevation (NSTEMI) myocardial infarction (principal); I10 Essential (primary) hypertension; F41.9 Anxiety disorder, unspecified; R77.8 Other specified abnormalities of plasma proteins; F32.A Depression, unspecified
CPT/HCPCS: 93005; 93017; 85025; 81001; 80048; 36415; 83735; 81025; 85610; 80061; 80076; 84443; 84484 ×3; 84439; 83880; 86140; 70450; 71275; 71045; 78452; 96372; 96374; 99285; Q9967; J3480; J2785; J3360; J2405; J7050; A9500; G0378 ×3

== ENCOUNTER 2023-04-16 20:34 | Emergency (ER) | payer BC ==
--- OUTSIDE RECORDS SUMMARY | 2023-04-16 21:24 | XMS REPORT | Continuity of Care Document ---
:1980 Author Organization [facility] t Address [address] [facility] [address] [place] [id number] Care Team Providers Name Role Phone TAD LONGORIA JR Primary Care Physician Unavailable RADHA ROJAS Attending Clinician Unavailable [email or web address] Attending Clinician Unavailable RENAE VILLARREAL Attending Clinician Unavailable ROHITH DARLING Attending Clinician Unavailable Rohith Darling MD Attending Clinician Doctor Unassigned, [place] Attending Clinician Unavailable 2, [facility] Attending Clinician Unavailable Renae Villarreal PA-C Attending Clinician Mariana Joy MA Attending Clinician Unavailable NYDIA BOBBY Attending Clinician Unavailable Valentin Montilla DO Attending Clinician Kwaku Nolasco RN Attending Clinician Unavailable Ayala Saini DO Attending Clinician NUHA HARPER Attending Clinician Unavailable [facility] Attending Clinician Unavailable Nuha [place]o Attending Clinician [email or web address] Admitting Clinician Unavailable Payers Payer Name Policy Type Policy Number Effective Date Expiration Date S ource [employer] [id number] 2018 00:00:00 [place] [id number] 2018 00:00:00 [place] Problems Condition Condition Condition Status Onset Resolution Last Treating Co mments Source Name Details Category Date Date Treatment Clinician Date Obesity Obesity Disease Active Univers (BMI (BMI 4-26 ity of 30-39.9) 30-39.9) 00:00: [place] [facility] Restless Restless Disease Active Unive rs legs legs 4-18 ity of 00:00: [place] [facility] Branch Infectious Infectious Disease Active U nivers mononucleo mononucleo 4-18 it y of sis sis 00:00: [facility] Hypertensi Hypertensi Disease Active U nivers ve ve 4-18 ity of disorder disorder 00:00: [place] [facility] Depressive Depressive Disease Active U nivers disorder disorder 4-18 ity of 00:00: [facility] Branch Insomnia Insomnia Disease Active Unive rs 9-17 ity of 00:00: [facility] Branch Hypoglycem Hypoglycem Disease Active U nivers ia ia 9-17 ity of 00:00: [place] [facility] No known No known Disease Unive rs active active ity of problems problems [facility] Allergies, Adverse Reactions, Alerts Allergy Allergy Status Severity Reaction(s) Onset Inactive Treating Comm ents Source Name Type Date Date Clinician SULFAMET DRUG Active Hives Univers HOXAZOLE 1-04 ity of -TRIMETH 00:00: [place] OPR 00 [facility] Sulfamet Drug Active Hives Univers hoxazole Allergy 1-04 ity of -Trimeth 00:00: [place] opr 00 [facility] Sulfa Drug Active Hives 0 Univers (Sulfona Allergy 8-18 ity of mide 00:00: [place] Antibiot 00 Medical ics) Branch SULFA Drug Active Hives 0 Univers (SULFONA Class 8-18 ity of MIDE 00:00: [place] ANTIBIOT 00 Medical ICS) Branch Sulfa Drug Active Hives 2020-0 Univers (Sulfona Allergy 8-18 ity of mide 00:00: [place] Antibiot 00 Medical ics) Branch NO KNOWN Drug Active Univers ALLERGIE Class ity of S [facility] Social History Social Habit Start Date Stop Date Quantity Comments Source History of Cigarette Smoker Universi ty of tobacco use [facility] Exposure to 2022-09-02 2022-09-12 Not sure University of SARS-CoV-2 00:00:00 12:40:00 [facility] (event) Branch Alcohol intake 2022-09-12 2022-09-12 Current drinker of Un iversity of 00:00:00 00:00:00 alcohol (finding) [place] [facility] Alcohol Comment 2022-08-24 2022-08-24 occasionally Univers ity of 00:00:00 00:00:00 [facility] Tobacco use and 2022-08-24 2022-08-24 Smokeless tobacco Un iversity of exposure 00:00:00 00:00:00 non-user [place] [facility] History [facility] 2020-04-06 2020-04-06 2 University o f Alcohol Frequency 00:00:00 00:00:00 [place] M edical Branch History [facility] 2020-04-06 2020-04-06 99 University o f Alcohol Std 00:00:00 00:00:00 [place] Medical Drinks Branch History [facility] 2020-04-06 2020-04-06 99 University o f Alcohol Binge 00:00:00 00:00:00 [facility] Sex Ass[birth year] At [birth year] Universit y of 00:00:00 00:00:00 [facility] Smoking Status Start Date Stop Date Source Unknown if ever smoked [facility] acute hospital Ex-smoker 2022-08-24 00:00:00 2022-08-24 [facility] Medications Ordered Filled Start Stop Current [...] by mouth 3 ity of 14:05: (three) [place] 06 times Medical daily. Branch baclofen 10 2022-0 Yes 10mg Take 10 mg Univers mg tablet 1-11 by mouth 3 ity of 14:05: (three) [place] 06 times Medical daily. Branch miSOPROStoL 2022-0 Yes [id number] Take one Univers 200 mcg 1-11 tablet ity of tablet 00:00: night [place] 00 before Medical procedure, Branch then take one tablet morning of procedure miSOPROStoL 2022-0 Yes [id number] Take one Univers 200 mcg 1-11 tablet ity of tablet 00:00: night [place] 00 before Medical procedure, Branch then take one tablet morning of procedure miSOPROStoL 2022-0 2023- No [id number] Take one Univers 200 mcg 1-11 -30 tablet ity of tablet 00:00: 00:00 night [place] 00 :00 before Medical procedure, Branch then take one tablet morning of procedure miSOPROStoL 2022-0 2023- No [id number] Take one Univers 200 mcg 1-11 -30 tablet ity of tablet 00:00: 00:00 night [place] 00 :00 before Medical procedure, Branch then take one tablet morning of procedure omeprazole 3-0 Yes Univers 20 mg 1-03 ity of capsule 00:00: [place] 00 [facility] Branch omeprazole 3-0 Yes Univers 20 mg 1-03 ity of capsule 00:00: [place] [facility] omeprazole 3-0 Yes Univers 20 mg 1-03 ity of capsule 00:00: [place] [facility] omeprazole 3-0 Yes Univers 20 mg 1-03 ity of capsule 00:00: [place] [facility] Branch omeprazole 3-0 Yes Univers 20 mg 1-03 ity of capsule 00:00: [place] [facility] Branch omeprazole 3-0 Yes Univers 20 mg 1-03 ity of capsule 00:00: [place] [facility] omeprazole 3-0 Yes Univers 20 mg 1-03 ity of capsule 00:00: [address] omeprazole 3-0 Yes Univers 20 mg 1-03 ity of capsule 00:00: [place] [id number] Medical [place] ibuprofen 2020-0 2020- No 400mg 400 mg, Uni vers (IBU) 04-16 Oral, ity of tablet 400 14:15: 14:14 ONCE, 1 [place] as mg 00 :00 dose, [facility] 04/16/20 at Branch 0915, [facility] methylPREDN 2020-0 Yes Take by Uni vers ISolone 8-24 mouth ity of (METHYLPRED 21:02: SEE-INSTRU [place] DP) 4 mg 36 CTIONS. Medical tablets follow Branch package directions pantoprazol 2020-0 Yes 40mg Take 40 mg Univers e sodium 8-24 by mouth. ity of (PANTOPRAZO 21:02: [place] LE ORAL) [address] [place] [address] hydroCHLORO 2020-0 Yes 25mg Take 25 mg Univers thiazide 25 8-24 by mouth ity of mg tablet 21:02: daily. [address] BUPROPION 2020-0 Yes 150mg Take 150 Uni vers HCL ORAL 8-24 mg by ity of 21:02: mouth. [address] atenoloL 50 2020-0 Yes 50mg Take 50 mg Univers mg tablet 8-24 by mouth ity of 21:02: daily. [address] busPIRone 2020-0 Yes 7.5mg Take 7.5 Uni vers 7.5 mg 8-24 mg by ity of tablet 21:02: mouth 3 [place] [address] (three) Medical times Branch daily. baclofen 10 2020-0 Yes 10mg Take 10 mg Univers mg tablet 8-24 by mouth 3 ity of 21:02: (three) [place] [address] times [facility] daily. Branch methylPREDN 2020-0 Yes Take by Uni vers ISolone 8-24 mouth ity of ([facility]PRED [facility] mg 36 CTIONS. Medical tablets follow Branch package directions pantoprazol 2020-0 Yes 40mg Take 40 mg Univers e sodium 8-24 by mouth. ity of (PANTOPRAZO 21:02: [place] LE ORAL) [address] [place] [address] hydroCHLORO 2020-0 Yes 25mg Take 25 mg Univers thiazide 25 8-24 by mouth ity of mg tablet 21:02: daily. [address] BUPROPION 2020-0 Yes 150mg Take 150 Uni vers HCL ORAL 8-24 mg by ity of 21:02: mouth. [address] atenoloL 50 2020-0 Yes 50mg Take 50 mg Univers mg tablet 8-24 by mouth ity of 21:02: daily. [address] busPIRone 2020-0 Yes 7.5mg Take 7.5 Uni vers 7.5 mg 8-24 mg by ity of tablet 21:02: mouth 3 [place] [address] (three) Medical times [place] daily. baclofen 10 2020-0 Yes 10mg Take 10 mg Univers mg tablet 8-24 by mouth 3 ity of 21:02: (three) [place] [address] times Medical daily. Branch methylPREDN 2020-0 Yes [...] mouth ity of mg tablet 21:02: daily. [address] Branch BUPROPION 2020-0 Yes 150mg Take 150 Uni vers HCL ORAL 8-24 mg by ity of 21:02: mouth. [address] atenoloL 50 2020-0 Yes 50mg Take 50 mg Univers mg tablet 8-24 by mouth ity of 21:02: daily. [address] Branch busPIRone 2020-0 Yes 7.5mg Take 7.5 Uni vers 7.5 mg 8-24 mg by ity of tablet 21:02: mouth 3 [place] [address] ([facility]) Medical times [place] daily. baclofen 10 2020-0 Yes 10mg Take 10 mg Univers mg tablet 8-24 by mouth 3 ity of 21:02: (three) [place] [address] times Medical daily. Branch methylPREDN 2020-0 Yes [...] mouth ity of mg tablet 21:02: daily. [address] BUPROPION 2020-0 Yes 150mg Take 150 Uni vers HCL ORAL 8-24 mg by ity of 21:02: mouth. [address] Branch atenoloL 50 2020-0 Yes 50mg Take 50 mg Univers mg tablet 8-24 by mouth ity of 21:02: daily. [address] busPIRone 2020-0 Yes 7.5mg Take 7.5 Uni vers 7.5 mg 8-24 mg by ity of tablet 21:02: mouth 3 [place] [address] (three) Medical times [place] daily. baclofen 10 2020-0 Yes 10mg Take 10 mg Univers mg tablet 8-24 by mouth 3 ity of 21:02: (three) [place] [address] times Medical daily. Branch methylPREDN 2020-0 Yes Take by Uni vers ISolone 8-24 mouth ity of (METHYLPRED 21:02: SEE-INSTRU [place] DP) 4 mg 36 CTIONS. Medical tablets follow Branch package directions pantoprazol 2020-0 Yes 40mg Take 40 mg Univers e sodium 8-24 by mouth. ity of (PANTOPRAZO 21:02: [place] LE ORAL) [address] [place] [address] hydroCHLORO 2020-0 Yes 25mg Take 25 mg Univers thiazide 25 8-24 by mouth ity of mg tablet 21:02: daily. [address] BUPROPION 2020-0 Yes 150mg Take 150 Uni vers HCL ORAL 8-24 mg by ity of 21:02: mouth. [address] atenoloL 50 2020-0 Yes 50mg Take 50 mg Univers mg tablet 8-24 by mouth ity of 21:02: daily. [address] busPIRone 2020-0 Yes 7.5mg Take 7.5 Uni vers 7.5 mg 8-24 mg by ity of tablet 21:02: mouth 3 [place] [address] (three) Medical times [place] daily. baclofen 10 2020-0 Yes 10mg Take 10 mg Univers mg tablet 8-24 by mouth 3 ity of 21:02: (three) [place] [address] times Medical daily. Branch methylPREDN 2020-0 Yes [...] mouth ity of mg tablet 21:02: daily. [place] 36 Medical Branch BUPROPION 2020-0 Yes 150mg Take 150 Uni vers HCL ORAL 8-24 mg by ity of 21:02: mouth. [address] Branch atenoloL 50 2020-0 Yes 50mg Take 50 mg Univers mg tablet 8-24 by mouth ity of 21:02: daily. [address] Branch busPIRone 2020-0 Yes 7.5mg Take 7.5 Uni vers 7.5 mg 8-24 mg by ity of tablet 21:02: mouth 3 [place] [address] (three) Medical times [place] daily. baclofen 10 2020-0 Yes 10mg Take 10 mg Univers mg tablet 8-24 by mouth 3 ity of 21:02: (three) [place] [address] times Medical daily. Branch methylPREDN 2020-0 Yes Take by Uni vers ISolone 8-24 mouth ity of (METHYLPRED 21:02: SEE-INSTRU [place] DP) 4 mg 36 CTIONS. Medical tablets follow Branch package directions pantoprazol 2020-0 Yes 40mg Take 40 mg Univers e sodium 8-24 by mouth. ity of (PANTOPRAZO 21:02: [place] LE ORAL) Medical Branch hydroCHLORO 2020-0 Yes 25mg Take 25 mg Univers thiazide 25 8-24 by mouth ity of mg tablet 21:02: daily. [address] Branch BUPROPION 2020-0 Yes 150mg Take 150 Uni vers HCL ORAL 8-24 mg by ity of 21:02: mouth. [address] Branch atenoloL 50 2020-0 Yes 50mg Take 50 mg Univers mg tablet 8-24 by mouth ity of 21:02: daily. [address] Branch busPIRone 2020-0 Yes 7.5mg Take 7.5 Uni vers 7.5 mg 8-24 mg by ity of tablet 21:02: mouth 3 [place] [address] ([facility]) Medical times [place] daily. baclofen 10 2020-0 Yes 10mg Take 10 mg Univers mg tablet 8-24 by mouth 3 ity of 21:02: ([facility]) [place] [address] times Medical daily. Branch methylPREDN 2020-0 Yes Take by Uni vers ISolone 8-24 mouth ity of (METHYLPRED 21:02: SEE-INSTRU [place] DP) 4 mg 36 CTIONS. Medical tablets follow Branch package directions pantoprazol 2020-0 Yes 40mg Take 40 mg Univers e sodium 8-24 by mouth. ity of (PANTOPRAZO 21:02: [place] LE ORAL) [address] [place] [address] Branch hydroCHLORO 2020-0 Yes 25mg Take 25 mg Univers thiazide 25 8-24 by mouth ity of mg tablet 21:02: daily. [address] Branch BUPROPION 2020-0 Yes 150mg Take 150 Uni vers HCL ORAL 8-24 mg by ity of 21:02: mouth. [address] Branch atenoloL 50 2020-0 Yes 50mg Take 50 mg Univers mg tablet 8-24 by mouth ity of 21:02: daily. [address] Branch busPIRone 2020-0 Yes 7.5mg Take 7.5 Uni vers 7.5 mg 8-24 mg by ity of tablet 21:02: mouth 3 [place] [address] (three) Medical times [place] daily. baclofen 10 2020-0 Yes 10mg Take 10 mg Univers mg tablet 8-24 by mouth 3 ity of 21:02: (three) [place] [address] times Medical daily. Branch methylPREDN 2020-0 Yes Take by Uni vers ISolone 8-24 mouth ity of (METHYLPRED 21:02: SEE-INSTRU [place] DP) 4 mg 36 CTIONS. Medical tablets follow Branch package directions pantoprazol 2020-0 Yes 40mg Take 40 mg Univers e sodium 8-24 by mouth. ity of (PANTOPRAZO 21:02: [place] LE ORAL) [address] [place] [address] Branch hydroCHLORO 2020-0 Yes 25mg Take 25 mg Univers thiazide 25 8-24 by mouth ity of mg tablet 21:02: daily. [address] BUPROPION 2020-0 Yes 150mg Take 150 Uni vers HCL ORAL 8-24 mg by ity of 21:02: mouth. [address] Branch atenoloL 50 2020-0 Yes 50mg Take 50 mg Univers mg tablet 8-24 by mouth ity of 21:02: daily. [address] Branch busPIRone 2020-0 Yes 7.5mg Take 7.5 Uni vers 7.5 mg 8-24 mg by ity of tablet 21:02: mouth 3 [place] [address] (three) Medical times [place] daily. baclofen 10 2020-0 Yes 10mg Take 10 mg Univers mg tablet 8-24 by mouth 3 ity of 21:02: (three) [place] [address] times Medical daily. Branch methylPREDN 2020-0 Yes Take by Uni vers ISolone 8-24 mouth ity of (METHYLPRED 21:02: SEE-INSTRU [place] DP) 4 mg 36 CTIONS. Medical tablets follow Branch package directions pantoprazol 2020-0 Yes 40mg Take 40 mg Univers e sodium 8-24 by mouth. ity of (PANTOPRAZO 21:02: [place] LE ORAL) [address] [place] [address] Branch hydroCHLORO 2020-0 Yes 25mg Take 25 mg Univers thiazide 25 8-24 by mouth ity of mg tablet 21:02: daily. [address] BUPROPION 2020-0 Yes 150mg Take 150 Uni vers HCL ORAL 8-24 mg by ity of 21:02: mouth. [address] atenoloL 50 2020-0 Yes 50mg Take 50 mg Univers mg tablet 8-24 by mouth ity of 21:02: daily. [address] busPIRone 2020-0 Yes 7.5mg Take 7.5 Uni vers 7.5 mg 8-24 mg by ity of tablet 21:02: mouth 3 [place] [address] (three) Medical times [place] daily. baclofen 10 2019-0 Yes 10mg Take 10 mg Univers mg tablet 8-24 by mouth 3 ity of 21:02: (three) [place] [address] times [facility] daily. Branch methylPREDN 2019-0 Yes Take by Uni vers ISolone 8-24 mouth ity of (METHYLPRED 21:02: SEE-INSTRU [place] DP) 4 mg 36 CTIONS. Medical tablets follow Branch package directions pantoprazol 2020-0 Yes 40mg Take 40 mg Univers e sodium 8-24 by mouth. ity of (PANTOPRAZO 21:02: [place] LE ORAL) [address] [place] [address] Branch hydroCHLORO 2020-0 Yes 25mg Take 25 mg Univers thiazide 25 8-24 by mouth ity of mg tablet 21:02: daily. [address] BUPROPION 2020-0 Yes 150mg Take 150 Uni vers HCL ORAL 8-24 mg by ity of 21:02: mouth. [address] atenoloL 50 2020-0 Yes 50mg Take 50 mg Univers mg tablet 8-24 by mouth ity of 21:02: daily. [address] busPIRone 2020-0 Yes 7.5mg Take 7.5 Uni vers 7.5 mg 8-24 mg by ity of tablet 21:02: mouth 3 [place] [address] (three) Medical times [place] daily. baclofen 10 2020-0 Yes 10mg Take 10 mg Univers mg tablet 8-24 by mouth 3 ity of 21:02: (three) [place] [address] times Medical daily. Branch methylPREDN 2020-0 Yes Take by Uni vers ISolone 8-24 mouth ity of (METHYLPRED 21:02: SEE-INSTRU [place] DP) 4 mg 36 CTIONS. Medical tablets follow Branch package directions pantoprazol 2020-0 Yes 40mg Take 40 mg Univers e sodium 8-24 by mouth. ity of (PANTOPRAZO 21:02: [place] LE ORAL) [address] [place] [address] Branch hydroCHLORO 2020-0 Yes 25mg Take 25 mg Univers thiazide 25 8-24 by mouth ity of mg tablet 21:02: daily. [address] BUPROPION 2020-0 Yes 150mg Take 150 Uni vers HCL ORAL 8-24 mg by ity of 21:02: mouth. [address] atenoloL 50 2019-0 Yes 50mg Take 50 mg Univers mg tablet 8-24 by mouth ity of 21:02: daily. [address] busPIRone 2020-0 Yes 7.5mg Take 7.5 Uni vers 7.5 mg 8-24 mg by ity of tablet 21:02: mouth 3 [place] [address] ([facility]) Medical times Branch daily. baclofen 10 2019-0 Yes 10mg Take 10 mg Univers mg tablet 8-24 by mouth 3 ity of 21:02: (three) [place] [address] times Medical daily. Branch methylPREDN 2019-0 Yes Take by Uni vers ISolone 8-24 mouth ity of (METHYLPRED 16:02: SEE-INSTRU [place] DP) 4 mg 36 CTIONS. Medical tablets follow Branch package directions pantoprazol 2020-0 Yes 40mg Take 40 mg Univers e sodium 8-24 by mouth. ity of (PANTOPRAZO 16:02: [place] LE ORAL) [address] [place] [address] Branch hydroCHLORO 2020-0 Yes 25mg Take 25 mg Univers thiazide 25 8-24 by mouth ity of mg tablet 16:02: daily. [address] BUPROPION 2020-0 Yes 150mg Take 150 Uni vers HCL ORAL 8-24 mg by ity of 16:02: mouth. [address] atenoloL 50 2020-0 Yes 50mg Take 50 mg Univers mg tablet 8-24 by mouth ity of 16:02: daily. [address] busPIRone 2020-0 Yes 7.5mg Take 7.5 Uni vers 7.5 mg 8-24 mg by ity of tablet 16:02: mouth 3 [place] [address] (three) Medical times [place] daily. baclofen 10 2020-0 Yes 10mg Take 10 mg Univers mg tablet 8-24 by mouth 3 ity of 16:02: (three) [place] [address] times Medical daily. Branch methylPREDN 2020-0 Yes Take by Uni vers ISolone 8-24 mouth ity of (METHYLPRED 16:02: SEE-INSTRU [place] DP) 4 mg 36 CTIONS. Medical tablets follow Branch package directions pantoprazol 2020-0 Yes 40mg Take 40 mg Univers e sodium 8-24 by mouth. ity of (PANTOPRAZO 16:02: [place] LE ORAL) Medical Branch hydroCHLORO 2020-0 Yes 25mg Take 25 mg Univers thiazide 25 8-24 by mouth ity of mg tablet 16:02: daily. [address] Branch BUPROPION 2020-0 Yes 150mg Take 150 Uni vers HCL ORAL 8-24 mg by ity of 16:02: mouth. [address] atenoloL 50 2020-0 Yes 50mg Take 50 mg Univers mg tablet 8-24 by mouth ity of 16:02: daily. [address] Branch busPIRone 2020-0 Yes 7.5mg Take 7.5 Uni vers 7.5 mg 8-24 mg by ity of tablet 16:02: mouth 3 [place] [address] ([facility]) Medical times [place] daily. baclofen 10 2020-0 Yes 10mg Take 10 mg Univers mg tablet 8-24 by mouth 3 ity of 16:02: (three) [place] [address] times Medical daily. Branch methylPREDN 2020-0 Yes Take by Uni vers ISolone 8-24 mouth ity of (METHYLPRED 16:02: SEE-INSTRU [place] DP) 4 mg 36 CTIONS. Medical tablets follow Branch package directions pantoprazol 2020-0 Yes 40mg Take 40 mg Univers e sodium 8-24 by mouth. ity of (PANTOPRAZO 16:02: [place] LE ORAL) Medical Branch hydroCHLORO 2020-0 Yes 25mg Take 25 mg Univers thiazide 25 8-24 by mouth ity of mg tablet 16:02: daily. [address] BUPROPION 2020-0 Yes 150mg Take 150 Uni vers HCL ORAL 8-24 mg by ity of 16:02: mouth. [address] Branch atenoloL 50 2020-0 Yes 50mg Take 50 mg Univers mg tablet 8-24 by mouth ity of 16:02: daily. [address] busPIRone 2020-0 Yes 7.5mg Take 7.5 Uni vers 7.5 mg 8-24 mg by ity of tablet 16:02: mouth 3 [place] [address] (three) Medical times [place] daily. methylPREDN 2020-0 Yes Take by Uni vers ISolone 8-24 mouth ity of (METHYLPRED 16:02: SEE-INSTRU [place] DP) 4 mg 36 CTIONS. Medical tablets follow Branch package directions pantoprazol 2020-0 Yes 40mg Take 40 mg Univers e sodium 8-24 by mouth. ity of (PANTOPRAZO 16:02: [place] LE ORAL) [address] [place] [address] hydroCHLORO 2020-0 Yes 25mg Take 25 mg Univers thiazide 25 8-24 by mouth ity of mg tablet 16:02: daily. [address] BUPROPION 2020-0 Yes 150mg Take 150 Uni vers HCL ORAL 8-24 mg by ity of 16:02: mouth. [address] atenoloL 50 2020-0 Yes 50mg Take 50 mg Univers mg tablet 8-24 by mouth ity of 16:02: daily. [address] busPIRone 2020-0 Yes 7.5mg Take 7.5 Uni vers 7.5 mg 8-24 mg by ity of tablet 16:02: mouth 3 [place] [address] (three) Medical times [place] daily. methylPREDN 2020-0 Yes Take by Uni vers ISolone 8-24 mouth ity of (METHYLPRED 16:02: SEE-INSTRU [place] DP) 4 mg 36 CTIONS. Medical tablets follow Branch package directions pantoprazol 2020-0 Yes 40mg Take 40 mg Univers e sodium 8-24 by mouth. ity of (PANTOPRAZO 16:02: [place] LE ORAL) [address] [place] [address] hydroCHLORO 2020-0 Yes 25mg Take 25 mg Univers thiazide 25 8-24 by mouth ity of mg tablet 16:02: daily. [address] BUPROPION 2020-0 Yes 150mg Take 150 Uni vers HCL ORAL 8-24 mg by ity of 16:02: mouth. [address] atenoloL 50 2020-0 Yes 50mg Take 50 mg Univers mg tablet 8-24 by mouth ity of 16:02: daily. [address] busPIRone 2020-0 Yes 7.5mg Take 7.5 Uni vers 7.5 mg 8-24 mg by ity of tablet 16:02: mouth 3 [place] [address] (three) Medical times [place] daily. methylPREDN 2020-0 Yes Take by Uni vers ISolone 8-24 mouth ity of (METHYLPRED 16:02: SEE-INSTRU [place] DP) 4 mg 36 CTIONS. Medical tablets follow Branch package directions pantoprazol 2020-0 Yes 40mg Take 40 mg Univers e sodium 8-24 by mouth. ity of (PANTOPRAZO 16:02: [place] LE ORAL) Medical Branch hydroCHLORO 2020-0 Yes 25mg Take 25 mg Univers thiazide 25 8-24 by mouth ity of mg tablet 16:02: daily. [address] BUPROPION 2020-0 Yes 150mg Take 150 Uni vers HCL ORAL 8-24 mg by ity of 16:02: mouth. [address] atenoloL 50 2020-0 Yes 50mg Take 50 mg Univers mg tablet 8-24 by mouth ity of 16:02: daily. [address] busPIRone 2020-0 Yes 7.5mg Take 7.5 Uni vers 7.5 mg 8-24 mg by ity of tablet 16:02: mouth 3 [place] [address] (three) Medical times [place] daily. methylPREDN 2020-0 Yes Take by Uni vers ISolone 8-24 mouth ity of (METHYLPRED 16:02: SEE-INSTRU [place] DP) 4 mg 36 CTIONS. Medical tablets follow Branch package directions pantoprazol 2020-0 Yes 40mg Take 40 mg Univers e sodium 8-24 by mouth. ity of (PANTOPRAZO 16:02: [place] LE ORAL) [address] [place] [address] Branch hydroCHLORO 2020-0 Yes 25mg Take 25 mg Univers thiazide 25 8-24 by mouth ity of mg tablet 16:02: daily. [address] Branch BUPROPION 2020-0 Yes 150mg Take 150 Uni vers HCL ORAL 8-24 mg by ity of 16:02: mouth. [address] atenoloL 50 2020-0 Yes 50mg Take 50 mg Univers mg tablet 8-24 by mouth ity of 16:02: daily. [address] busPIRone 2020-0 Yes 7.5mg Take 7.5 Uni vers 7.5 mg 8-24 mg by ity of tablet 16:02: mouth 3 [place] [address] (three) Medical times [place] daily. methylPREDN 2020-0 Yes Take by Uni vers ISolone 8-24 mouth ity of (METHYLPRED 16:02: SEE-INSTRU [place] DP) 4 mg 36 CTIONS. Medical tablets follow [place] package directions pantoprazol 2020-0 Yes 40mg Take 40 mg Univers e sodium 8-24 by mouth. ity of (PANTOPRAZO 16:02: [place] LE ORAL) [address] [place] [address] Branch hydroCHLORO 2020-0 Yes 25mg Take 25 mg Univers thiazide 25 8-24 by mouth ity of mg tablet 16:02: daily. [address] BUPROPION 2020-0 Yes 150mg Take 150 Uni vers HCL ORAL 8-24 mg by ity of 16:02: mouth. [address] atenoloL 50 2020-0 Yes 50mg Take 50 mg Univers mg tablet 8-24 by mouth ity of 16:02: daily. [address] busPIRone 2020-0 Yes 7.5mg Take 7.5 Uni vers 7.5 mg 8-24 mg by ity of tablet 16:02: mouth 3 [place] [address] (three) Medical times [place] daily. cefTRIAXone 2019-0 2020- No 1000mg 1,000 mg, Univers (ROCEPHIN) 03-31 IV ity of 1,000 mg in 23:30: 23:22 [place], [place] NaCl 0.9% 00 :00 ONCE, 1 Medical (NS) 50 mL dose, Tue Bran ch MINI-BAG 03/31/20 at 1830, 50 mL
Reas on for Anti-Infec tive: Empiric Therapy for Suspected Infection< br>Empiric Therapy Site: Urine
D uration of therapy: 72 hours iohexol 2019-0 2020- No 110mL 110 mL, Unive rs (OMNIPAQUE 03-31 Intravenou it y of 350 23:00: 22:42 s, ONCE, 1 [place] BULK-100 00 :00 dose, Tue Medica l mL) 03/31/20 at [place] injection 1800, 110 mL Routine ondansetron 2019-0 2020- No 4mg 4 mg, Slow Univers (ZOFRAN 03-31 IV Push, ity of (PF)) 22:15: 21:32 ONCE, 1 [place] injection 4 00 :00 dose, Tue Med ical mg 03/31/20 at Branch 1715, CHIDI morpHINE 2020-0 2020- No 4mg 4 mg, Slow Un shaun injection 4 03-31 08-18 IV Push, ity of mg 22:15: 21:32 ONCE, 1 [place] 00 :00 dose, Tue Medical 03/31/20 at Branch 1715, STAT NaCl 0.9% 2020-0 2020- No 1000mL at 999 Uni vers (NS) bolus 03-31 08-18 mL/hr, ity of infusion 21:15: 23:18 1,000 mL, [place] as 1,000 mL 00 :00 IV Medical Infusion, [place] ONCE, 1 dose, 03/31/20 at 1615, CHIDI methylPREDN 2020-0 Yes Take by Uni vers ISolone 8-18 mouth ity of (METHYLPRED 21:00: SEE-INSTRU [place] DP) 4 mg 59 CTIONS. Medical tablets follow Branch package directions pantoprazol 2020-0 Yes 40mg Take 40 mg Univers e sodium 8-18 by mouth. ity of (PANTOPRAZO 21:00: [place] LE ORAL) 59 Medical Branch hydroCHLORO 2020-0 Yes 25mg Take 25 mg Univers thiazide 25 8-18 by mouth ity of mg tablet 21:00: daily. [place] [address] Medical Branch BUPROPION 2020-0 Yes 150mg Take 150 Uni vers HCL ORAL 8-18 mg by ity of 21:00: mouth. [place] [address] Medical Branch atenoloL 50 2020-0 Yes 50mg Take 50 mg Univers mg tablet 8-18 by mouth ity of 21:00: daily. [address] Branch busPIRone 2020-0 Yes 7.5mg Take 7.5 Uni vers 7.5 mg 8-18 mg by ity of tablet 21:00: mouth 3 [place] [address] (three) Medical times Branch daily. baclofen 10 2020-0 Yes 10mg Take 10 mg Univers mg tablet 8-18 by mouth 3 ity of 21:00: (three) [place] 59 times Medical daily. Branch methylPREDN 2020-0 Yes Take by Uni vers ISolone 8-18 mouth ity of (METHYLPRED 21:00: SEE-INSTRU [place] DP) 4 mg 59 CTIONS. Medical tablets follow Branch package directions pantoprazol 2020-0 Yes 40mg Take 40 mg Univers e sodium 8-18 by mouth. ity of (PANTOPRAZO 21:00: [place] LE ORAL) 59 Medical Branch hydroCHLORO 2020-0 Yes 25mg Take 25 mg Univers thiazide 25 8-18 by mouth ity of mg tablet 21:00: daily. [place] [address] Medical Branch BUPROPION 2020-0 Yes 150mg Take 150 Uni vers HCL ORAL 8-18 mg by ity of 21:00: mouth. [place] [address] Medical Branch atenoloL 50 2020-0 Yes 50mg Take 50 mg Univers mg tablet 8-18 by mouth ity of 21:00: daily. [place] [address] Medical Branch busPIRone 2020-0 Yes 7.5mg Take 7.5 Uni vers 7.5 mg 8-18 mg by ity of tablet 21:00: mouth 3 [place] [address] (three) Medical times Branch daily. baclofen 10 2020-0 Yes 10mg Take 10 mg Univers mg tablet 8-18 by mouth 3 ity of 21:00: (three) [place] [address] times Medical daily. Branch methylPREDN 2020-0 Yes Take by Uni vers ISolone 8-18 mouth ity of (METHYLPRED 21:00: SEE-INSTRU [facility]) 4 mg 59 CTIONS. Medical tablets follow Branch package directions pantoprazol 2020-0 Yes 40mg Take 40 mg Univers e sodium 8-18 by mouth. ity of (PANTOPRAZO 21:00: [place] LE ORAL) 59 Medical Branch hydroCHLORO 2020-0 Yes 25mg Take 25 mg Univers thiazide 25 8-18 by mouth ity of mg tablet 21:00: daily. [place] [address] Medical Branch BUPROPION 2020-0 Yes 150mg Take 150 Uni vers HCL ORAL 8-18 mg by ity of 21:00: mouth. [place] [address] Medical Branch atenoloL 50 2020-0 Yes 50mg Take 50 mg Univers mg tablet 8-18 by mouth ity of 21:00: daily. [place] [address] Medical Branch busPIRone 2020-0 Yes 7.5mg Take 7.5 Uni vers 7.5 mg 8-18 mg by ity of tablet 21:00: mouth 3 [place] [address] (three) Medical times Branch daily. baclofen 10 2020-0 Yes 10mg Take 10 mg Univers mg tablet 8-18 by mouth 3 ity of 21:00: (three) [place] 59 times Medical daily. Branch BUPROPION 2020-0 Yes 150mg Take 150 Uni vers HCL ORAL 8-18 mg by ity of 18:37: mouth. [address] atenoloL 50 2020-0 Yes 50mg Take 50 mg Univers mg tablet 8-18 by mouth ity of 18:37: daily. [address] busPIRone 2020-0 Yes 7.5mg Take 7.5 Uni vers 7.5 mg 8-18 mg by ity of tablet 18:37: mouth 3 [place] [address] (three) Medical times [place] daily. baclofen 10 2020-0 Yes 10mg Take 10 mg Univers mg tablet 8-18 by mouth 3 ity of 18:37: (three) [place] [address] times Medical daily. Branch methylPREDN 2020-0 Yes Take by Uni vers ISolone 8-18 mouth ity of (METHYLPRED 18:37: SEE-INSTRU [place] DP) 4 mg 27 CTIONS. Medical tablets follow Branch package directions pantoprazol 2020-0 Yes 40mg Take 40 mg Univers e sodium 8-18 by mouth. ity of (PANTOPRAZO 18:37: [place] LE ORAL) [address] [place] [address] hydroCHLORO 2020-0 Yes 25mg Take 25 mg Univers thiazide 25 8-18 by mouth ity of mg tablet 18:37: daily. [address] BUPROPION 2020-0 Yes 150mg Take 150 Uni vers HCL ORAL 8-18 mg by ity of 18:37: mouth. [address] atenoloL 50 2020-0 Yes 50mg Take 50 mg Univers mg tablet 8-18 by mouth ity of 18:37: daily. [address] busPIRone 2020-0 Yes 7.5mg Take 7.5 Uni vers 7.5 mg 8-18 mg by ity of tablet 18:37: mouth 3 [place] [address] ([facility]) Medical times [place] daily. baclofen 10 2020-0 Yes 10mg Take 10 mg Univers mg tablet 8-18 by mouth 3 ity of 18:37: ([facility]) [place] [address] times Medical daily. Branch methylPREDN 2020-0 Yes [...] mouth ity of mg tablet 18:37: daily. [address] BUPROPION 2020-0 Yes 150mg Take 150 Uni vers HCL ORAL 8-18 mg by ity of 18:37: mouth. [address] atenoloL 50 2020-0 Yes 50mg Take 50 mg Univers mg tablet 8-18 by mouth ity of 18:37: daily. [address] busPIRone 2020-0 Yes 7.5mg Take 7.5 Uni vers 7.5 mg 8-18 mg by ity of tablet 18:37: mouth 3 [place] [address] (three) Medical times [place] daily. baclofen 10 2020-0 Yes 10mg Take 10 mg Univers mg tablet 8-18 by mouth 3 ity of 18:37: ([facility]) [place] [address] times Medical daily. Branch methylPREDN 2020-0 Yes Take by Uni vers ISolone 8-18 mouth ity of (METHYLPRED 18:37: SEE-INSTRU [place] DP) 4 mg 27 CTIONS. Medical tablets follow Branch package directions pantoprazol 2020-0 Yes 40mg Take 40 mg Univers e sodium 8-18 by mouth. ity of (PANTOPRAZO 18:37: [place] LE ORAL) [address] [place] [address] Branch hydroCHLORO 2020-0 Yes 25mg Take 25 mg Univers thiazide 25 8-18 by mouth ity of mg tablet 18:37: daily. [address] BUPROPION 2020-0 Yes 150mg Take 150 Uni vers HCL ORAL 8-18 mg by ity of 18:37: mouth. [address] atenoloL 50 2020-0 Yes 50mg Take 50 mg Univers mg tablet 8-18 by mouth ity of 18:37: daily. [address] busPIRone 2020-0 Yes 7.5mg Take 7.5 Uni vers 7.5 mg 8-18 mg by ity of tablet 18:37: mouth 3 [place] [address] (three) Medical times [place] daily. baclofen 10 2020-0 Yes 10mg Take 10 mg Univers mg tablet 8-18 by mouth 3 ity of 18:37: (three) [place] [address] times Medical daily. Branch methylPREDN 2020-0 Yes Take by Uni vers ISolone 8-18 mouth ity of (METHYLPRED 18:37: SEE-INSTRU [place] DP) 4 mg 27 CTIONS. Medical tablets follow Branch package directions pantoprazol 2020-0 Yes 40mg Take 40 mg Univers e sodium 8-18 by mouth. ity of (PANTOPRAZO 18:37: [place] LE ORAL) [address] [place] [address] hydroCHLORO 2020-0 Yes 25mg Take 25 mg Univers thiazide 25 8-18 by mouth ity of mg tablet 18:37: daily. [address] BUPROPION 2020-0 Yes 150mg Take 150 Uni vers HCL ORAL 8-18 mg by ity of 18:37: mouth. [address] atenoloL 50 2020-0 Yes 50mg Take 50 mg Univers mg tablet 8-18 by mouth ity of 18:37: daily. [address] busPIRone 2020-0 Yes 7.5mg Take 7.5 Uni vers 7.5 mg 8-18 mg by ity of tablet 18:37: mouth 3 [place] [address] (three) Medical times [place] daily. baclofen 10 2020-0 Yes 10mg Take 10 mg Univers mg tablet 8-18 by mouth 3 ity of 18:37: (three) [address] daily[address] Branch methylPREDN 2019-0 Yes Take by Uni vers ISolone 8-18 mouth ity of (METHYLPRED 18:37: SEE-INSTRU [place] DP) [facility] follow Branch package directions pantoprazol 2020-0 Yes 40mg Take 40 mg Univers e sodium 8-18 by mouth. ity of (PANTOPRAZO 18:37: [place] LE ORAL) [address] [place] [address] hydroCHLORO 2020-0 Yes 25mg Take 25 mg Univers thiazide 25 8-18 by mouth ity of mg tablet 18:37: daily. [address] BUPROPION 2020-0 Yes 150mg Take 150 Uni vers HCL ORAL 8-18 mg by ity of 18:37: mouth. [address] atenoloL 50 2020-0 Yes 50mg Take 50 mg Univers mg tablet 8-18 by mouth ity of 18:37: daily. [address] busPIRone 2020-0 Yes 7.5mg Take 7.5 Uni vers 7.5 mg 8-18 mg by ity of tablet 18:37: mouth 3 [place] [address] (three) Medical times [place] daily. baclofen 10 2020-0 Yes 10mg Take 10 mg Univers mg tablet 8-18 by mouth 3 ity of 18:37: (three) [place] [address] times Medical daily. Branch methylPREDN 2020-0 Yes [...] mouth ity of mg tablet 18:37: daily. [place] [address] Medical Branch ondansetron 2020-0 Yes [id number] 4mg Take 1 Univers (ZOFRAN 8-18 tablet [...] Indication s: acute pain ondansetron 2020-0 Yes [id number] 4mg Take 1 Univers (ZOFRAN 8-18 tablet [...] Indication s: acute pain ondansetron 2020-0 Yes [id number] 4mg Take 1 Univers (ZOFRAN 8-18 tablet [...] Indication s: acute pain ondansetron 2020-0 Yes [id number] 4mg Take 1 Univers (ZOFRAN 8-18 tablet [...] Indication s: acute pain ondansetron 2020-0 Yes [id number] 4mg Take 1 Univers (ZOFRAN 8-18 tablet [...] Indication s: acute pain ondansetron 2020-0 Yes [id number] 4mg Take 1 Univers (ZOFRAN 8-18 tablet [...] Indication s: acute pain ondansetron 2020-0 Yes [id number] 4mg Take 1 Univers (ZOFRAN 8-18 tablet [...] Indication s: acute pain ondansetron 2020-0 Yes [id number] 4mg Take 1 Univers (ZOFRAN 8-18 tablet [...] Indication s: acute pain ondansetron 2020-0 Yes [id number] 4mg Take 1 Univers (ZOFRAN 8-18 tablet [...] Indication s: acute pain ondansetron 2020-0 Yes [id number] 4mg Take 1 Univers (ZOFRAN 8-18 tablet [...] Indication s: acute pain ondansetron 2020-0 Yes [id number] 4mg Take 1 Univers (ZOFRAN 8-18 tablet [...] Indication s: acute pain ondansetron 2020-0 Yes [id number] 4mg Take 1 Univers (ZOFRAN 8-18 tablet [...] Indication s: acute pain ondansetron 2020-0 Yes [id number] 4mg Take 1 Univers (ZOFRAN 8-18 tablet [...] Indication s: acute pain ondansetron 2020-0 Yes [id number] 4mg Take 1 Univers (ZOFRAN 8-18 tablet [...] Indication s: acute pain ondansetron 2020-0 Yes [id number] 4mg Take 1 Univers (ZOFRAN 8-18 tablet [...] Indication s: acute pain ondansetron 2020-0 Yes [id number] 4mg Take 1 Univers (ZOFRAN 8-18 tablet [...] Indication s: acute pain ondansetron 2020-0 Yes [id number] 4mg Take 1 Univers (ZOFRAN 8-18 tablet [...] Indication s: acute pain ondansetron 2020-0 Yes [id number] 4mg Take 1 Univers (ZOFRAN 8-18 tablet [...] Indication s: acute pain ondansetron 2020-0 Yes [id number] 4mg Take 1 Univers (ZOFRAN 8-18 tablet [...] Indication s: acute pain ondansetron 2020-0 Yes [id number] 4mg Take 1 Univers (ZOFRAN 8-18 tablet [...] Indication s: acute pain ondansetron 2020-0 Yes [id number] 4mg Take 1 Univers (ZOFRAN 8-18 tablet [...] Indication s: acute pain ondansetron 2020-0 Yes [id number] 4mg Take 1 Univers (ZOFRAN 8-18 tablet [...] s: acute pain cefpodoxime 2020-0 2020- No [id number] 100mg Take 1 Univers 100 mg 8-18 08-26 tablet by ity of tablet 00:00: 04:59 mouth 2 [place] 00 :00 (two) Medical times Branch daily for 7 days. cefpodoxime 2020-0 2020- No [id number] 100mg Take 1 Univers 100 mg 8-18 08-26 tablet by ity of tablet 00:00: 04:59 mouth 2 [place] 00 :00 (two) Medical times Branch daily for 7 days. cefpodoxime 2020-0 2020- No [id number] 100mg Take 1 Univers 100 mg 8-18 08-26 tablet by ity of tablet 00:00: 04:59 mouth 2 [place] 00 :00 (two) Medical times Branch daily for 7 days. cefpodoxime 2020-0 2020- No [id number] 100mg Take 1 Univers 100 mg 8-18 [...] 19:27:00 108 mm[Hg] Univer sity of pressure [facility] Diastolic blood 2022-09-12 19:27:00 64 mm[Hg] Unive rsity of pressure [facility] Heart rate 2022-09-12 19:27:00 65 /[facility] Body temperature 2022-09-12 19:27:00 36.61 Marixa Univ ersity of [place] [facility] Body height 2022-09-12 19:27:00 152.4 cm Universi ty of [place] [facility] Body weight 2022-09-12 19:27:00 79.924 kg Universi ty of [place] [facility] BMI 2022-09-12 19:27:00 34.41 kg/m2 Universi ty of [place] [facility] Systolic blood 2022-08-24 19:51:00 123 mm[Hg] Univer sity of pressure [place] [facility] Diastolic blood 2022-08-24 19:51:00 88 mm[Hg] Unive rsity of pressure [place] [facility] Heart rate 2022-08-24 19:51:00 58 /min Universi ty of [place] [facility] Body temperature 2022-08-24 19:51:00 36.67 [place] Univ ersity of [place] [facility] Respiratory rate 2022-08-24 19:51:00 17 /min Univ ersity of [place] [facility] Body height 2022-08-24 19:51:00 161.3 cm Universi ty [facility] [place] [facility] Body weight 2022-08-24 19:51:00 78.926 kg Universi ty of [place] [facility] BMI 2022-08-24 19:51:00 30.34 kg/m2 Universi ty [facility] [place] [facility] Systolic blood 2020-12-07 15:47:00 100 mm[Hg] Univer sity of pressure [place] [facility] Diastolic blood 2020-12-07 15:47:00 73 mm[Hg] Unive rsity of pressure [place] [facility] Heart rate 2020-12-07 15:47:00 62 /min Universi ty of [place] [facility] Body temperature 2020-12-07 15:47:00 36.94 [place] Univ ersity of [place] [facility] Respiratory rate 2020-12-07 15:47:00 18 /min Univ ersity of [place] [facility] Body height 2020-12-07 15:47:00 161.3 cm Universi ty [facility] [place] [facility] Body weight 2020-12-07 15:47:00 92.987 kg Universi ty [facility] [place] [facility] BMI 2020-12-07 15:47:00 35.74 kg/m2 Universi ty [facility] [place] [facility] Systolic blood 2020-04-16 13:35:00 129 mm[Hg] Univer sity of pressure [place] [facility] Diastolic blood 2020-04-16 13:35:00 89 mm[Hg] Unive rsity of pressure [place] [facility] Heart rate 2020-04-16 13:35:00 96 /min Universi ty [facility] [place] [facility] Body temperature 2020-04-16 13:35:00 37 [place] Univ ersity of [place] [facility] Respiratory rate 2020-04-16 13:35:00 16 /min Univ ersity of [place] [facility] Body height 2020-04-16 13:35:00 160 cm Universi ty [facility] [place] [facility] Body weight 2020-04-16 13:35:00 90.719 kg Universi ty [facility] [place] [facility] BMI 2020-04-16 13:35:00 35.43 kg/m2 Universi ty [facility] [place] [facility] Oxygen saturation in 2020-04-16 13:35:00 98 /min University of Arterial blood by [place] [employer] Pulse oximetry Branch Systolic blood 2020-04-06 20:54:00 111 mm[Hg] Univer sity of pressure [place] [facility] Diastolic blood 2020-04-06 20:54:00 75 mm[Hg] Unive rsity of pressure [place] [facility] Heart rate 2020-04-06 20:54:00 74 /min Universi ty [facility] [place] [facility] Body temperature 2020-04-06 20:54:00 37.22 Marixa Univ ersity [facility] [place] [facility] Respiratory rate 2020-04-06 20:54:00 18 /min Univ ersity of [place] [facility] Body height 2020-04-06 20:54:00 161.3 cm Universi ty [facility] [place] [facility] Body weight 2020-04-06 20:54:00 90.719 kg [facility]i ty [facility] [place] [facility] BMI 2020-04-06 20:54:00 34.87 kg/m2 [facility]i [facility] [place] [facility] Systolic blood 2020-04-01 00:00:00 118 mm[Hg] Univer sity of pressure [place] [facility] Diastolic blood 2020-04-01 00:00:00 89 mm[Hg] Unive rsity of pressure [place] [facility] Heart rate 2020-04-01 00:00:00 61 /min Universi ty [facility] [place] [facility] Oxygen saturation in 2020-04-01 00:00:00 97 /min University of Arterial blood by [employer] sky Pulse oximetry Branch Respiratory rate 2020-03-31 23:00:00 20 /min Univ ersity of [place] [facility] Body temperature 2020-03-31 20:51:00 37.06 Marixa [facility] Body height 2020-03-31 20:51:00 160 cm Universi ty of [facility] Body weight 2020-03-31 20:51:00 89.812 kg Universi ty [facility] BMI 2020-03-31 20:51:00 35.07 kg/m2 Universi ty [facility] Systolic blood 2020-03-31 18:34:00 129 mm[Hg] Univer sity of pressure [facility] Diastolic blood 2020-03-31 18:34:00 91 mm[Hg] Unive rsity of pressure [facility] Heart rate 2020-03-31 18:31:00 91 /min Universi ty [facility] Body temperature 2020-03-31 18:31:00 36.39 Marixa [facility] Respiratory rate 2020-03-31 18:31:00 20 /min [facility] Body height 2020-03-31 18:31:00 160 cm Universi ty [facility] Body weight 2020-03-31 18:31:00 89.812 kg Universi ty [facility] BMI 2020-03-31 18:31:00 35.07 kg/m2 Universi ty [facility] Oxygen saturation in 2020-03-31 18:31:00 98 /min [facility] Arterial blood by [facility] Pulse oximetry Branch Procedures Procedure Date / Time Performing Clinician Source Performed DISCLOSURE AND CONSENT 2022-09-12 06:01:00 [facility] [place] [facility] PROCEDURES - FEMALM POCT TEST 2022-09-12 00:00:00 Rohith Darling [facility] ASSIGNMENT OF BENEFITS 2022-08-24 19:47:29 Doctor Unassigned, Un [facility] [place] [facility] EXTERNAL PROVIDER RECORDS 2020-12-11 05:01:00 Doctor Bert, [facility] [place] [facility] [place] US PELVIS COMPLETE WITH 2020-11-09 16:14:22 Renae Villarreal [facility] TRANSVAGINAL [facility] EXTERNAL MAMMOGRAM 2020-10-26 13:37:00 Doctor Bert, [facility] [place] [facility] [place] NOTICE OF PRIVACY 2020-04-16 13:31:26 Doctor Bert, [facility] PRACTICES [place] [facility] [place] CONSENT/REFUSAL FOR 2020-04-16 13:31:16 Doctor Bert [facility] NO [facility] OR MISSED 2020-04-06 20:10:36 Doctor Bert [facility] APPOINTMENT POLICY [place] [facility] h ACKNOWLEDGEMENT CT ABDOMEN PELVIS W 2020-03-31 22:44:57 Ayala Saini [facility] CONTRAST [facility] Branch LIPASE 2020-03-31 21:33:00 Ayala Saini [facility] HEPATIC FUNCTION PANEL 2020-03-31 21:33:00 Ayala Saini [facility] ([id number]) (ALB,T.PRO,BILI Medical Branch T,BU/BC,ALT,AST,ALK PHOS) BASIC METABOLIC PANEL (NA, 2020-03-31 21:33:00 Ayala Saini [facility] K, CL, CO2, GLUCOSE, BUN, Medica l Branch CREATININE, CA) CBC WITH DIFF 2020-03-31 21:33:00 Ayala aSini [facility] URINALYSIS 2020-03-31 21:33:00 Ayala Saini [facility] NOTICE OF PRIVACY 2020-03-31 20:44:29 Doctor Bert, [facility] CONSENT/REFUSAL FOR 2020-03-31 20:44:20 Doctor Noel [facility] DIAGNOSIS AND TREATMENT [place] [facility] [place] POCT TEST 2020-03-31 19:07:00 Nuha Harper [facility] POCT URINALYSIS 2020-03-31 18:41:00 [facility] Encounters Start End Encounter Admission Attending Care Care Encounter Source Date/Time Date/Time Type Type Clinicians Facility Department ID 2023-03-13 [facility] [id number] [place] 13:30:00 [id number] 2021-06-11 Emergency [facility] [id number] [facility] 15:40:06 [facility] 2021-06-11 Emergency [facility] [id number] Univers 13:11[facility] 2023-04-10 2023-04-10 Outpatient JORGE ROJAS [facility] [id number] [place] 11:32:00 11:32:00 RADHA [id number] [facility] 2023-02-28 2023-02-28 Outpatient [id number] [id number] PRIV [id number] [facility] 00:00:00 00:00:00 diyala_S [id number] Medic al 2022-09-27 2022-09-27 Outpatient Deshaun VILLARREAL [facility] [id number] Univers 13:15:00 13:15:00 RENAE kincaid [facility] 2022-09-12 2022-09-12 Outpatient ROHITH OCONNELL [facility] [id number] Univers 13:00:00 13:50:[facility] 2022-09-12 2022-09-12 Office Rohith Darling [facility] [id number] Univers 13:00:00 13:50:29 Visit Paul RAYGOZA [id number] i ty of [id number] [id number] Ny dical [address] 2022-09-12 2022-09-12 Orders Doctor LUIS [id number] Univers 00:00:00 00:00:00 Only Unassigned, KAYLIE [id number] ity of [place] [facility] [id number] [place] [id number] [address] 2022-09-05 2022-09-05 Outpatient Deshaun VILLARREAL [facility] [id number] Univers 00:00:00 00:00:00 RENAE kincaid [facility] 2022-09-01 2022-09-01 Outpatient R ROHITH DARLING [facility] [id number] Univers 10:15:00 10:15:00 itsusan [facility] 2022-08-24 2022-08-24 Weigher Packing 2, Adc Lab [facility] [id number] Univers 15:00:00 15:15:00 Visit Renae Villarreal [id number] ity of [facility] [id number] [id number] Ny dical [facility] [address] [facility] 2022-08-24 2022-08-24 Outpatient [facility] [id number] Univers 14:30:00 14:36:25 RENAE kincaid [facility] 2022-08-24 2022-08-24 Office [facility] [id number] Univers 14:30:00 14:36:25 Visit Renae RAYGOZA [id number] i ty of [facility] [id number] [id number] Ny dical [facility] 134 [facility] 2022-08-24 2022-08-24 Orders Doctor LUIS [id number] Univers 00:00:00 00:00:00 Only Unassigned, KAYLIE [id number] ity of [place] [facility] [id number] [place] [id number] [facility] 009 [place] 2022-08-17 2022-08-17 Pre Visit MENG Joy [id number] Univers 00:00:00 00:00:00 Outreach Mariana RICE [id number] [id number] [id number] [facility] 086 [place] 2021-04-29 2021-04-29 Outpatient R KANU [facility] [id number] Univers 14:30:00 14:30:00 NYDIA kincaid [facility] 2021-04-12 2021-04-12 Outpatient R [facility] [id number] Univers 09:30:00 09:30:00 RENAE kincaid [facility] 2020-12-11 2020-12-11 Orders Doctor LUIS [id number] Univers 00:00:00 00:00:00 Only Unassigned, KAYLIE [id number] ity of [place] [facility] [id number] [place] [id number] [facility] 009 Branch 2020-12-07 2020-12-07 Office [facility] [id number] Univers 10:16:00 11:11:19 Visit Renae Raygoza [id number] i ty of [id number] Profess[place] [id number] [facility] [address] [facility] 2020-12-07 2020-12-07 Outpatient R [facility] [id number] Univers 10:30:00 10:30:00 RENAE kincaid [facility] 2020-11-09 2020-11-09 [facility] [id number] Univers 10:24:19 23:59:00 Encounter Renae Raygoza [id number] ity of [id number] [id number] [facility] 806 [place] 2020-11-09 2020-11-09 Outpatient R [facility] [id number] Univers 00:00:00 00:00:00 RENAE kincaid [facility] 2020-11-02 2020-11-02 Patient RoldanLOVELACE [facility] [id number] Univers 00:00:00 00:00:00 Outreach Valentin PRIMARY [id number] i ty of [facility] [place] [phone] [facility] [address] [place] 2020-10-19 2020-10-19 Telephone [facility] [place] 1.2.840.114 [id number] Univers 00:00:00 00:00:00 Renae Raygoza [id number] i ty of [place] [phone] Ny dical nal 134 [facility] 2020-04-21 2020-04-21 Case [facility] [place] [id number] Univers 00:00:00 00:00:00 Management Renae Raygoza [id number] ity of [place] [phone] Ny dic[address] 2020-04-21 2020-04-21 Case [facility] [id number] 00:00:00 00:00:00 Management Renae Rachel [id number] [place] 4.2.7.2.686 Professio [phone] [address] 2020-04-17 2020-04-17 Telephone LUIS Nolasco 1.2.840.114 [id number] Univers 00:00:00 00:00:00 Kwaku KAYLIE 350.1.13.10 it y of [facility] 4.2.7.2.686 [place] [phone] [facility] [address] [place] 2020-04-16 2020-04-16 Emergency [facility] 1.2.840.114 [id number] Univers 08:38:00 09:34:00 Ayala Raygoza 350.1.13.10 ity of [place] [phone] [facility] [address] [place] 2020-04-06 2020-04-06 Office [facility] [id number] [id number] Univers 15:11:54 16:41:11 Visit Renae Raygoza 350.1.13.10 i ty of [place] [phone] [address] 2020-04-06 2020-04-06 Outpatient R [facility] [id number] Univers 15:30:00 15:30:00 RENAE kincaid of [facility] 2020-04-06 2020-04-06 Orders Doctor LUIS 1.2.840.114 [id number] Univers 00:00:00 00:00:00 Only Unassigned, KAYLIE 350.1.13.10 ity of [place] [facility] 4.2.7.2.686 [place] [phone] [facility] [address] [place] 2020-04-03 2020-04-03 Outpatient R YOAMIRA [facility] [id number] Univers 00:00:00 00:00:00 NUHA ity [facility] 2020-03-31 2020-03-31 Emergency Parveen, [facility] 1.2.840.114 [id number] Univers 16:02:00 19:06:00 Ayala Raygoza 350.1.13.10 ity of [place].2.686 [place] [facility] [phone] [address] 2020-03-31 2020-03-31 Urgent Provider, [facility] 1.2.840.114 [id number] Univers 13:23:28 15:00:02 Nuha Nj 350.1.13.10 ity of [place] 4.2.7.2.686 [place] Romulo [phone] [address] Office [address] [facility] 2020-03-31 2020-03-31 Outpatient R YOMAIRA [facility] [id number] Univers 13:40:00 13:40:00 NUHA kincaid [facility] 2020-03-31 2020-03-31 Letter Doctor LUIS 1.2.840.114 [id number] Univers 00:00:00 00:00:00 (Out) Unassigned, KAYLIE 350.1.13.10 ity of [place] [facility] 4.2.7.2.686 [place] [phone] [address] 2020-03-31 2020-03-31 Orders Doctor LUIS 1.2.840.114 [id number] Univers 00:00:00 00:00:00 Only Unassigned, KAYLIE 350.1.13.10 ity of [place] [facility] 4.2.7.2.686 [place] [phone] [address] Results Test Description Test Time Test Comments Results Result Comments Source POCT TEST 2022-09-12 19:23:00 Test Item Value Reference Range Interpretation Comme nts POCT PREG (test code = 1605) Negative On board controls acceptable with C Line (test code = 3574) Yes POCT PREG LOT # (test code = 3575) POCT PREG TEST DATE (test code = 3576) [id number] 19:23:00 Test Item Value Reference Range Interpretation Comments POCT PREG (test code = 1605) Negative On board controls acceptable with C Yes Line (test code = 3574) POCT PREG LOT # (test code = 3575) POCT PREG TEST DATE (test code = 3576) [facility] PELVIS COMPLETE WITH [id number] 17:23:46 Endometrial stripe measures up to 1.4 [...] 2.3 cm probably represents acyst or crenulated follicle.[facility] [id number] 22:01:00 Test Item Value Reference Range Interpretation Comments APPEARANCE (test code = Hazy Clear A 7628683007) COLOR (test code = Yellow Yellow 3799022704) PH (test code = 4.8-8.0 5647105667) SP GRAVITY (test code = 1.003-1.030 0058952661) GLU U QUAL (test code = Normal Normal 7413083952) BLOOD (test code = Negative Negative INTERFERE NCE FROM 4113071046) ASCORBIC ACID M AY CAUSE FALSE NEG ATIVE RESULT KETONES (test code = Negative Negative 1340679751) PROTEIN (test code = 30 mg/dL Negative A 2887-8) UROBILIN (test code = Normal Normal 6889638384) BILIRUBIN (test code = Negative Negative 2083903368) NITRITE (test code = Negative Negative 5687527579) LEUK JOY (test code = 75/uL Negative A 1331206737) RBC/HPF (test code = See_Comment [Autom ated message] 6153535663) The system [employer] generated this result transmitted ref erence range: 0 - 3 HP F. The reference range was not used to int erpret this result as normal/abnormal . WBC/HPF (test code = See_Comment [Autom ated message] 4427896224) The system [employer] generated this result transmitted ref erence range: 0 - 5 HP F. The reference range was not used to int erpret this result as normal/abnormal . BACTERIA (test code = Few Negative A 5436088295) MUCOUS (test code = Slight Negative LPF A 9347005526) SQ EPITH (test code = HPF 3099104084) HYAL CAST (test code = See_Comment [Aut omated message] 7887083079) The system [employer] generated this result transmitted ref erence range: <=2 LPF. The reference range was not used to int erpret this result as normal/abnormal . Lab Interpretation (test Abnormal code = 31891-9) [facility] (NA, K, CL, CO2, GLUCOSE, BUN, CREATININE, CA)2020-03-31 22:00:00 Test Item Value Reference Range Interpretation Comments NA (test code = 138 mmol/L 135-145 0376418397) K (test code = 4.6 mmol/L 3.5-5 8893576144) CL (test code = 106 mmol/L 98-108 4196694792) CO2 TOTAL (test code = 21 mmol/L 23-31 L 8887213539) AGAP (test code = 2-16 1413271188) BUN (test code = 18 mg/dL 7-23 7623172749) GLUCOSE (test code = 111 mg/dL 70-110 H 8460054239) CREATININE (test code = 1.01 mg/dL 0.5-1.04 6333611200) CALCIUM (test code = 9.7 mg/dL 8.6-10.6 0742077237) eGFR Calculation mL/min/1.73m2 (Non-) (test code = 7712434109) eGFR Calculation mL/min/1.73m2 () (test code = 5371657507) CHRISTIAN (test code = CHRISTIAN) Association of [...] tests). Lab Interpretation Abnormal (test code = 92518-2) [facility] (ALB, T.PRO, BILI T, BU/BC, ALT, AST, ALK PHOS)2020-03-31 22:00:00 Test Item Value Reference Range Interpretation Comments TOTAL BILI (test code = 6104966303) 0.7 mg/dL 0.1-1.1 BILI UNCON (test code = 2209390133) 0.6 mg/dL 0.1-1.1 BILI CONJ (test code = 4742410863) 0.0 mg/dL 0-0.3 T PROTEIN (test code = 7695615003) 8.8 g/dL 6.3-8.2 H ALBUMIN (test code = 6415348549) 4.8 g/dL 3.5-5 ALK PHOS (test code = 1998155503) 77 U/L 34-122 ALTv (test code = 1742-6) 38 U/L 5-35 H AST(SGOT) (test code = 3398108945) 57 U/L 13-40 H Lab Interpretation (test code = Abnormal 19833-5) [facility] [id number] 22:00:00 Test Item Value Reference Range Interpretation Comments LIPASE (test code = 1348916292) 147 U/L 0-220 Lab Interpretation (test code = Normal 33268-5) [facility] with [id number] 21:49:00 Test Item Value Reference Range Interpretation Comments WBC (test code = See_Comment [Automated 3954-2) message] The sy stem which generated this result transmitted reference range : 4.30 - 11.10 10*3/?L. The reference range was not used to interpret this result as normal/abnormal . RBC (test code = See_Comment [Automated 111-8) message] The sy stem which generated this [...] RDW-SD (test code = 42.3 fL 39-49.9 03364-2) RDW-CV (test code = 13.2 % 12-15.5 788-0) PLT (test code = See_Comment [Automated 777-3) message] The sy stem which generated this result transmitted reference range : 166 - 358 10*3/ ?L. The reference r jesika was not used to interpret this result as normal/abnormal . MPV (test code = 9.9 fL 9.5-12.9 04423-6) NRBC/100 WBC (test See_Comment [Automat ed code = 5551536585) message] The system which generated this result transmitted reference range : 0.0 - 10.0 /100 WBCs. The refer ence range was not u sed to interpret th is result as normal/abnormal . NRBC x10^3 (test code <0.01 See_Comment [Auto mated = 1790340248) message] The s ystem which generated this result transmitted reference range : 10*3/?L. The reference range was not used to interpret this result as normal/abnormal . GRAN MAT (NEUT) % 79.9 % (test code = 770-8) IMM GRAN % (test code 0.50 % = 0250799027) LYMPH % (test code = 14.7 % 736-9) MONO % (test code = 3.6 % 5905-5) EOS % (test code = 0.7 % 713-8) BASO % (test code = 0.6 % 706-2) GRAN MAT x10^3(ANC) 8.63 10*3/uL 1.88-7.09 H (test code = 8711625887) IMM GRAN x10^3 (test 0.05 10*3/uL 0-0.06 code = 3889734455) LYMPH x10^3 (test code 1.59 10*3/uL 1.32-3.29 = 731-0) MONO x10^3 (test code 0.39 10*3/uL 0.33-0.92 = 742-7) EOS x10^3 (test code = 0.08 10*3/uL 0.03-0.39 711-2) BASO x10^3 (test code 0.07 10*3/uL 0.01-0.07 = 704-7) Lab Interpretation Abnormal (test code = 40335-4) [facility] [id number] 19:11:00 Test Item Value Reference Range Interpretation Comments POCT PREG (test code = Negative 1605) On board controls Yes acceptable with C Line (test code = 3574) POCT PREG LOT # (test code = 3575) POCT PREG TEST DATE (test code = 3576) CHRISTIAN (test code = CHRISTIAN) accurate development and interpretation of all internal controls Lab Interpretation Normal (test code = 93576-6) [facility] [id number] 19:11:00 Test Item Value Reference Range Interpretation Comments POCT PREG (test code = Negative 1605) On board controls Yes acceptable with C Line (test code = 3574) POCT PREG LOT # (test code = 3575) POCT PREG TEST DATE (test code = 3576) CHRISTIAN (test code = CHRISTIAN) accurate development and interpretation of all internal controls Lab Interpretation Normal (test code = 09524-9) [facility] [id number] 19:11:00 Test Item Value Reference Range Interpretation Comments POCT PREG (test code = Negative 1605) On board controls Yes acceptable with C Line (test code = 3574) POCT PREG LOT # (test code = 3575) POCT PREG TEST DATE (test code = 3576) CHRISTIAN (test code = CHRISTIAN) accurate development and interpretation of all internal controls Lab Interpretation Normal (test code = 85531-7) [facility] [id number] 19:11:00 Test Item Value Reference Range Interpretation Comments POCT PREG (test code = Negative 1605) On board controls Yes acceptable with C Line (test code = 3574) POCT PREG LOT # (test code = 3575) POCT PREG TEST DATE (test code = 3576) CHRISTIAN (test code = CHRISTIAN) accurate development and interpretation of all internal controls Lab Interpretation Normal (test code = 28156-7) [facility] [id number] 19:11:00 Test Item Value Reference Range Interpretation Comments POCT PREG (test code = Negative 1605) On board controls Yes acceptable with C Line (test code = 3574) POCT PREG LOT # (test code = 3575) POCT PREG TEST DATE (test code = 3576) CHRISTIAN (test code = CHRISTIAN) accurate development and interpretation of all internal controls Lab Interpretation Normal (test code = 64893-0) [facility] URINALYSIS W SPECIFIC [id number] 18:42:00 Test Item Value Reference Range Interpretation [...] controls Lab Interpretation Normal (test code = 25346-3) [facility] URINALYSIS W SPECIFIC [id number] 18:42:00 Test Item Value Reference Range Interpretation [...] controls Lab Interpretation Normal (test code = 55467-6) [facility] URINALYSIS W SPECIFIC [id number] 18:42:00 Test Item Value Reference Range Interpretation [...] controls Lab Interpretation Normal (test code = 11860-9) [facility] URINALYSIS W SPECIFIC [id number] 18:42:00 Test Item Value Reference Range Interpretation [...] controls Lab Interpretation Normal (test code = 71844-5) [facility] URINALYSIS W SPECIFIC [id number] 18:42:00 Test Item Value Reference Range Interpretation [...] controls Lab Interpretation Normal (test code = 99557-5) [facility] URINALYSIS W SPECIFIC [id number] 18:42:00 Test Item Value Reference Range Interpretation [...] controls Lab Interpretation Normal (test code = 03424-6) [facility]"
--- NOTE | 2023-04-16 22:41 | RAD REPORT ---
EXAM DESCRIPTION: RAD - Chest Single View - 04/16/2023 10:17 pm CLINICAL HISTORY: COUGH COMPARISON: Chest Single View dated 01/29/2023; Chest Single View dated 04/18/2020; Chest Pa And Lat (2 Views) dated 03/19/2019; Chest Single View dated 08/30/2018 FINDINGS: Lines: None. Lungs: No evidence of edema or pneumonia. Pleural: No significant pleural effusions or pneumothorax. Cardiac: The heart size is within normal limits. Mediastinum: Within normal limits. Bones: No acute fractures. Other: None IMPRESSION: No acute cardiopulmonary disease.
[2023-04-16 23:21] LABS: Protime INR 1.04
[2023-04-16 23:24] LABS: Absolute Lymphocytes (CBC) 1.3 K/uL (0.7-4.9); Hematocrit 42.1 % (36.0-45.0); Lymphocytes % 13.6 % (15.3-44.8); MCV 91.9 fL (80-100); MPV 7.8 fL (7.6-11.3); Platelets 273 thou/uL (152-406); RBC Red Blood Cell Count 4.58 M/uL (3.86-4.86); Specific Gravity 1.006 (1.005-1.030); Urine Bacteria <20 /HPF (<20); Urine Bilirubin NEGATIVE (Negative); Urine Blood Negative (Negative); Urine Clarity Turbid (Clear); Urine Color Colorless (Yellow); Urine Glucose NEGATIVE (Negative); Urine Protein NEGATIVE (Negative); Urine RBC <5 /HPF (None Seen); Urine Urobilinogen Normal (Normal); Urine pH 6.5 (5.0-7.0)
[2023-04-16 23:37] LABS: Bilirubin Direct 0.1 mg/dL (0-0.2); Bilirubin Total 0.5 mg/dL (0.2-1.0); Potassium 3.6 mEq/L (3.5-5.1)
[2023-04-16 23:38] LABS: Albumin 3.7 g/dL (3.4-5.0); Bilirubin Indirect, Calculated 0.4 mg/dL (0.2-0.8); Magnesium 1.5 mg/dL (1.6-2.4); Protein, Total 7.9 g/dL (6.4-8.2)
[2023-04-17] MEDS ORDERED: MAGNESIUM SULFATE 1 gm IVPB 1 GM/100 ML BAG IV ONE (00:48)
--- NOTE | 2023-04-17 00:56 | ER ---
Nurse's Notes [facility] Name: Amanda Guillaume Age: 42 yrs Sex: Female : 1980 Arrival Date: 04/16/2023 Time: 20:34 Bed 19 Private MD: Diagnosis: Anxiety disorder, unspecified;Pain in right leg-groin, hematoma, sp catheterization;Hypomagnesemia;Dizziness and giddiness Presentation: 04/16 20:54 Chief complaint: Patient states: I started having pain at my heart cath incision, then vc1 I got dizzy about 3 days ago. My legs go numb when I stand up. All my toes on my left foot is numb. Coronavirus screen: Client denies travel out of the [place] in the last 14 days. At this time, the client does not indicate any symptoms associated with coronavirus-19. Ebola Screen: Patient negative for fever greater than or equal to 101.5 degrees Fahrenheit, and additional compatible Ebola Virus Disease symptoms Patient denies exposure to infectious person. Patient denies travel to an Ebola-affected area in the 21 days before illness onset. No symptoms or risks identified at this time. Risk Assessment: Do you want to hurt yourself or someone else? Patient reports no desire to harm self or others. Onset of symptoms was April 14, 2023. 20:54 Method Of Arrival: Ambulatory vc1 20:54 Acuity: KATHI 3 vc1 20:56 Note heart cath for decreased blood flow done by Dr. Caruso. vc1 21:00 Initial Sepsis Screen: Does the patient meet any 2 criteria? No. Patient's initial vc1 sepsis screen is negative. Does the patient have a suspected source of infection? No. Patient's initial sepsis screen is negative. 21:00 Note "I just remembered earlier I had a pain in the back of my head and neck. 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 - Social history:: Smoking status: Patient denies any tobacco usage or history of. Screenin/04 01:27 [facility] ED Fall Risk Assessment (Adult) History of falling in the last 3 months, sg5 including since admission. [facility] ED Fall Risk Assessment (Adult) History of falling in the last 3 months, including since admission No falls in past 3 months (0 pts). Abuse screen: Denies threats or abuse. Nutritional screening: No deficits noted. Tuberculosis screening: No symptoms or risk factors identified. Assessment: 00:03 General: Appears uncomfortable, Behavior is calm, cooperative, appropriate for age. sg5 Pain: Complains of pain in right leg, groin, back. Neuro: Level of Consciousness is awake, alert, obeys commands, Oriented to person, place, time, situation, Appropriate for age. Neuro: Reports dizziness. Cardiovascular: Capillary refill < 3 seconds Patient's skin is warm and dry. Respiratory: Airway is patent Trachea midline Respiratory effort is even, unlabored, Respiratory pattern is regular, symmetrical. GI: No signs and/or symptoms were reported involving the gastrointestinal system. Abdomen is flat, non-distended. : No signs and/or symptoms were reported regarding the genitourinary system. EENT: No signs and/or symptoms were reported regarding the EENT system. Derm: right groin, upper thigh puncture from cath. Musculoskeletal: Reports numbness in right leg intermittent. Vital Signs: 04/16 20:54 Weight 66.68 kg; Height 5 ft. 3 in. ; Pain 2/10; vc1 20:58 BP 127 / 83; Pulse 80; Resp 20; Temp 98.1; Pulse Ox 100% ; vc1 21:50 BP 124 / 80; Pulse 78; Resp 16; Pulse Ox 98% on R/A; Pain 5/10; sg5 22:50 BP 136 / 68; Pulse 76; Resp 16; Pulse Ox 98% on R/A; sg5 23:50 BP 115 / 76; Pulse 74; Resp 16; Pulse Ox 98% on R/A; sg5 04/17 00:41 BP 106 / 80; Pulse 72; Resp 16; Pulse Ox 98% on R/A; sg5 04/16 20:54 Body Mass Index 26.04 (66.68 kg, 160.02 cm) vc1 04/16 20:54 Pain Scale: Adult vc1 21:50 Pain Scale: Adult sg5 ED Course: 04/16 20:42 Patient arrived in ED. es 20:56 Triage completed. vc1 20:57 Arm band placed on left wrist. vc1 21:16 Kwaku Parrish MD is Attending Physician. [facility] 22:19 XRAY Chest (1 view) In Process Unspecified. EDNV 22:30 Sweetie Joiner, RN is Primary Nurse. sg5 22:55 Inserted saline lock: 20 gauge in right antecubital area, using aseptic technique. sg5 Blood collected. 04/17 01:27 Patient has correct armband on for positive identification. Bed in low position. Call sg5 light in reach. Side rails up X 1. Adult w/ patient. Valuables Left with patient. Provided Education on: need for medication. 01:27 No provider procedures requiring assistance completed. IV discontinued. sg5 Administered Medications: 00:40 Drug: Magnesium Sulfate IVPB 1 grams Route: IVPB; Infused Over: 1 hrs; Site: right sg5 antecubital; 01:27 Follow up: IV Status: Completed infusion sg5 Medication: 01:34 VIS not applicable for this client. sg5 Outcome: 00:56 Discharge ordered by . [facility] 01:27 Discharged to home with family. sg5 01:27 Condition: good 01:27 Discharge instructions given to patient, Instructed on discharge instructions, follow up and referral plans. 01:34 Patient left the ED. sg5 Signatures: Dispatcher [employer] Kwaku Tavarez MD MD cha Salyer, Edna es Calcote, Vanessa RN RN vc1 Sweetie Joiner, QUIN RN sg5
--- NOTE | 2023-04-17 00:56 | EDPHYS ---
Physician Documentation [facility] Name: Amanda Guillaume Age: 42 yrs Sex: Female : 1980 Arrival Date: 04/16/2023 Time: 20:34 Bed 19 Private MD: ZOE Physician Kwaku Parrish HPI: 04/17 00:49 This 42 yrs old Female presents to ER via Ambulatory with complaints of leg nadege pain, dizzy. 00:49 The patient presents with pain. The complaints affect the right upper thigh. Context: nadege The problem was sustained at an unknown site, resulted from cath, right groin. Onset: The symptoms/episode began/occurred 3 day(s) ago. Modifying factors: The symptoms are alleviated by nothing. the symptoms are aggravated by nothing. Associated signs and symptoms: The patient has no apparent associated signs or symptoms. The patient has experienced similar episodes in the past, a few times. 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 - Social history:: Smoking status: Patient denies any tobacco usage or history of. ROS: 04/17 00:50 Constitutional: Negative for fever, chills, and weight loss, Eyes: Negative for injury, nadege pain, redness, and discharge, ENT: Negative for injury, pain, and discharge, Neck: Negative for injury, pain, and swelling, Cardiovascular: Negative for chest pain, palpitations, and edema, Respiratory: Negative for shortness of breath, cough, wheezing, and pleuritic chest pain, Abdomen/GI: Negative for abdominal pain, nausea, vomiting, diarrhea, and constipation, Back: Negative for injury and pain, : Negative for injury, bleeding, discharge, and swelling, Skin: Negative for injury, rash, and discoloration, Psych: Negative for depression, anxiety, suicide ideation, homicidal ideation, and hallucinations, Allergy/Immunology: Negative for hives, rash, and allergies, Endocrine: Negative for neck swelling, polydipsia, polyuria, polyphagia, and marked weight changes. MS/extremity: Positive for pain, of the right upper thigh. Neuro: Positive for dizziness. Exam: 00:50 Constitutional: This is a well developed, well nourished patient who is awake, alert, nadege and in no acute distress. Head/Face: Normocephalic, atraumatic. Eyes: Pupils equal round and reactive to light, extra-ocular motions intact. Lids and lashes normal. Conjunctiva and sclera are non-icteric and not injected. Cornea within normal limits. Periorbital areas with no swelling, redness, or edema. ENT: Nares patent. No nasal discharge, no septal abnormalities noted. Tympanic membranes are normal and external auditory canals are clear. Oropharynx with no redness, swelling, or masses, exudates, or evidence of obstruction, uvula midline. Mucous membranes moist. Neck: Trachea midline, no thyromegaly or masses palpated, and no cervical lymphadenopathy. Supple, full range of motion without nuchal rigidity, or vertebral point tenderness. No Meningismus. Chest/axilla: Normal chest wall appearance and motion. Nontender with no deformity. No lesions are appreciated. Cardiovascular: Regular rate and rhythm with a normal S1 and S2. No gallops, murmurs, or rubs. Normal PMI, no JVD. No pulse deficits. Respiratory: Lungs have equal breath sounds bilaterally, clear to auscultation and percussion. No rales, rhonchi or wheezes noted. No increased work of breathing, no retractions or nasal flaring. Abdomen/GI: Soft, non-tender, with normal bowel sounds. No distension or tympany. No guarding or rebound. No evidence of tenderness throughout. Back: No spinal tenderness. No costovertebral tenderness. Full range of motion. Skin: Warm, dry with normal turgor. Normal color with no rashes, no lesions, and no evidence of cellulitis. Neuro: Awake and alert, GCS 15, oriented to person, place, time, and situation. Cranial nerves II-XII grossly intact. Motor strength 5/5 in all extremities. Sensory grossly intact. Cerebellar exam normal. Normal gait. Psych: Awake, alert, with orientation to person, place and time. Behavior, mood, and affect are within normal limits. 00:50 Musculoskeletal/extremity: ROM: full active range of motion, full passive range of motion, Circulation is intact in all extremities. Sensation intact. Compartment Syndrome exam of affected extremity: is normal. DVT Exam: no swelling, negative Homans' sign noted on exam, no appreciated bluish discoloration, no erythema, no increased warmth, pain, tenderness. Vital Signs: 04/16 20:54 Weight 66.68 kg; Height 5 ft. 3 in. ; Pain 2/10; vc1 20:58 BP 127 / 83; Pulse 80; Resp 20; Temp 98.1; Pulse Ox 100% ; vc1 21:50 BP 124 / 80; Pulse 78; Resp 16; Pulse Ox 98% on R/A; Pain 5/10; sg5 22:50 BP 136 / 68; Pulse 76; Resp 16; Pulse Ox 98% on R/A; sg5 23:50 BP 115 / 76; Pulse 74; Resp 16; Pulse Ox 98% on R/A; sg5 04/17 00:41 BP 106 / 80; Pulse 72; Resp 16; Pulse Ox 98% on R/A; sg5 04/16 20:54 Body Mass Index 26.04 (66.68 kg, 160.02 cm) vc1 04/16 20:54 Pain Scale: Adult vc1 21:50 Pain Scale: Adult sg5 MDM: 04/16 21:16 Patient medically screened. [facility] 04/17 00:52 Differential diagnosis: contusion, abrasion, tendonitis. Differential Diagnosis altered [facility] mental status. Differential diagnosis: cardiac arrhythmia, generalized weakness, GI bleed, hypovolemia, idiopathic dizziness, near-syncope. Data reviewed: vital signs, nurses notes, lab test result(s), EKG, radiologic studies, plain films. Consideration of Admission/Observation Escalation of care including admission/observation considered. I considered the following discharge prescriptions or medication management in the emergency department Medications were administered in the Emergency Department. See MAR. Independent interpretation of the following test(s) in the Emergency Department EKG: See my EKG interpretation above. Test considered but Not performed: CT: no ct brain. Historians other than the Patient: Family Member: family. Care significantly affected by the following chronic conditions: Hypertension, anxiety. Counseling: I had a detailed discussion with the patient and/or guardian regarding the historical points, exam findings, and any diagnostic results supporting the discharge/admit diagnosis, lab results, radiology results, the need for outpatient follow up, for definitive care, a breakfast host, a family practitioner. 04/16 21:17 Order name: Basic Metabolic Panel; Complete Time: 00:05 [facility] 04/16 21:17 Order name: CBC with Diff; Complete Time: 00:05 [facility] 04/16 21:17 Order name: LFT's; Complete Time: 00:05 [facility] 04/16 21:17 Order name: Magnesium; Complete Time: 00:05 [facility] 04/16 21:17 Order name: NT PRO-BNP; Complete Time: 00:05 [facility] 04/16 21:17 Order name: PT-INR; Complete Time: 00:05 [facility] 04/16 21:17 Order name: Troponin HS; Complete Time: 00:05 [facility] 04/16 21:17 Order name: Urinalysis w/ reflexes; Complete Time: 00:05 [facility] 04/16 21:17 Order name: XRAY Chest (1 view); Complete Time: 00:05 [facility] 04/16 21:17 Order name: EKG; Complete Time: 21:19 [facility] 04/16 21:17 Order name: Cardiac monitoring; Complete Time: 22:55 [facility] 04/16 21:17 Order name: EKG - Nurse/Tech; Complete Time: 23:25 [facility] 04/16 21:17 Order name: IV Saline Lock; Complete Time: 22:55 [facility] 04/16 21:17 Order name: Labs collected and sent; Complete Time: 22:55 [facility] 04/16 21:17 Order name: O2 Per Protocol; Complete Time: 22:55 [facility] 04/16 21:17 Order name: O2 Sat Monitoring; Complete Time: 22:55 [facility] Administered Medications: 00:40 Drug: Magnesium Sulfate IVPB 1 grams Route: IVPB; Infused Over: 1 hrs; Site: right sg5 antecubital; 01:27 Follow up: IV Status: Completed infusion sg5 Disposition Summary: 04/17/23 00:56 Discharge Ordered Location: Home [place] Problem: new nadege Symptoms: have improved nadege Condition: Stable nadege Diagnosis - Anxiety disorder, unspecified nadege - Pain in right leg - groin, hematoma, sp catheterization nadege - Hypomagnesemia nadege - Dizziness and giddiness nadege Followup: nadege - With: Private Physician - When: 2 - 3 days - Reason: Recheck today's complaints, Continuance of care, Re-evaluation by your physician Discharge Instructions: - Discharge Summary Sheet nadege - Dizziness nadege - Hematoma nadege - Hematoma, [id number] nadege - Hypomagnesemia nadege - Managing Anxiety, Adult nadege Forms: - Medication Reconciliation Form nadege - Thank You Letter nadege - Antibiotic Education nadege - Prescription Opioid Use nadege - Patient Portal Instructions nadege - Leadership Thank You Letter nadege Signatures: Dispatcher [employer] Kwaku Tavarez MD MD cha Calcote, Vanessa RN RN vc1 Sweetie Joiner RN RN sg5
[2023-04-17 02:32] VITALS: TEMP 98.1
[2023-04-17 02:33] VITALS: O2SAT 98
[2023-04-17 02:37] VITALS: BP 106/80
--- NOTE | 2023-04-18 16:50 | EKG ---
Test Date: 2023-04-16 Test Time: 23:12:53 Supply And Distribution Manager: LATRICE MEASUREMENT RESULTS: Intervals: Rate: 74 ME: 152 QRSD: 80 QT: 382 QTc: 424 [place]: P: 62 ME: 152 QRS: 59 T: 59 INTERPRETIVE STATEMENTS: Normal sinus rhythm Normal ECG Compared to ECG 01/29/2023 21:38:13 No significant changes Electronically Signed On 04-18-23 16:44:58 CDT by Jonathan Pena
== END 2023-04-17 01:34 | disposition home or self-care (01) ==
LOC: ER 20:34
DX: F41.9 Anxiety disorder, unspecified (principal); L76.32 Postprocedural hematoma of skin and subcutaneous tissue following other procedure; E83.42 Hypomagnesemia; I10 Essential (primary) hypertension; Z88.1 Allergy status to other antibiotic agents; Z88.2 Allergy status to sulfonamides; Z91.048 Other nonmedicinal substance allergy status
CPT/HCPCS: 96365; 93005; 85025; 81001; 80048; 36415; 83735; 85610; 80076; 84484; 83880; 71045; 99284; J3475

== ENCOUNTER 2024-04-12 13:06 | Emergency (ER) | payer BC ==
--- OUTSIDE RECORDS SUMMARY | 2024-04-12 13:09 | XMS REPORT | Continuity of Care Document ---
Author Name Unknown Address [address] [facility] [place] [address] [place] [address] [facility] Address [address] [facility] [address] [place] [address] Care Team Providers Care Hvac R Instructor Name Role Phone TAD LONGORIA JR Primary Care Physician RADHA Torres Attending Clinician Unavailable GC_GCBZW_Kaalyciaa_S Attending Clinician UnavailRENAE Osorio Attending Clinician Unavailable ROHITH DARLING Attending Clinician Unavailable Rohith Darling MD Attending Clinician [phone] Doctor Unassigned, [place] Attending Clinician [facility] Attending Clinician Unavailable Renae Villarreal PA-C Attending Clinician [phone] Mariana Joy MA Attending Clinician Unavaila NYDIA Ferrer Attending Clinician Unavailable Valentin Montilla DO Attending Clinician [phone] Kwaku Nolasco RN Attending Clinician Unavailab Ayala Carson DO Attending Clinician [phone] NUHA HARPER Attending Clinician Unavailable Provider, [facility] Attending Clinician Un available Nuha Oviedo Attending Clinician [phone] [email or web address]_Kaalyciaa_S Admitting Clinician Wilver godinez Payers Payer Name Policy Type Policy Number Effective Date Expirati on Date Source [place] [id number] 2018 00:00:[place] [id number] 2018 00:00:00 Problems Condition Name Condition Details Condition Category Status Onset Date Resolution Date Last Treatment Date Treating Clinician Comments Source Obesity (BMI 30-39.9) Obesity (BMI 30-39.9) Disease Active 12-07 00:00: 00 [facility] Restless legs Restless legs Disease Active 11-29 00:00: 00 [facility] Infectious mononucleo sis Infectious mononucleo sis Disease Active 11-29 00:00: 00 [facility] Hypertensi ve disorder Hypertensi ve disorder Disease Active 11-29 00:00: 00 [facility] Depressive disorder Depressive disorder Disease Active 11-29 00:00: 00 [facility] Insomnia Insomnia Disease Active 04-30 00:00: 00 [facility] Hypoglycem ia Hypoglycem ia Disease Active 04-30 00:00: 00 [facility] No known active problems No known active problems Disease [facility] Allergies, Adverse Reactions, Alerts Allergy Name Allergy Type Status Severity Reaction(s) Onset Date Inactive Date Treating Clinician Comments Source SULFAMET HOXAZOLE -TRIMETH OPRIM DRUG Active Hives 1-04 00:00: 00 [facility] Sulfamet hoxazole -Trimeth oprim Drug Allergy Active Hives 1-04 00:00: 00 [facility] Sulfa (Sulfona mide Antibiot ics) Drug Allergy Active Hives 8-18 00:00: 00 [facility] SULFA (SULFONA MIDE ANTIBIOT ICS) Drug Class Active Hives 8-18 00:00: 00 [facility] Sulfa (Sulfona mide Antibiot ics) Drug Allergy Active Hives 818 00:00: 00 [facility] NO KNOWN ALLERGIE S Drug Class Active [facility] Social History Social Habit Start Date Stop Date Quantity Comments Source History of tobacco use Cigarette Smoker [facility] Exposure to SARS-CoV-2 (event) 2022-09-02 00:00:00 2022-09-12 12:40:00 Not sure [facility] Alcohol intake 2022-09-12 00:00:00 2022-09-12 00:00:00 Current drinker of alcohol (finding) [facility] Alcohol Comment 2022-08-24 00:00:00 2022-08-24 00:00:00 occasionally [facility] Tobacco use and exposure 2022-08-24 00:00:00 2022-08-24 00:00:00 Smokeless tobacco non-user [facility] History SDOH Alcohol Frequency 2020-04-06 00:00:00 2020-04-06 00:00:00 2 [facility] History SDOH Alcohol Std Drinks 2020-04-06 00:00:00 2020-04-06 00:00:00 99 [facility] History SDOH Alcohol Binge 2020-04-06 00:00:00 2020-04-06 00:00:00 99 [facility] Sex Assigned At 1980 00:00:00 1980 00:00:00 [facility] Smoking Status Start Date Stop Date Source Unknown if ever smoked [facility] Ex-smoker 2022-08-24 00:00:00 2022-08-24 00:00:00 [facility] Medications Ordered Medication Name Filled Medication Name Start Date Stop Date Current Medication? Ordering Clinician Indication Dosage Frequency Signature (SIG) Comments Components Source baclofen 10 mg tablet 08-24 14:05: 06 Yes 10mg Take 10 mg by mouth 3 (three) times daily. [facility] miSOPROStoL 200 mcg tablet 08-24 00:00: 00 09-12 00:00 :00 No [id number] Take one tablet night before procedure, then take one tablet morning of procedure [facility] omeprazole 20 mg capsule 08-16 00:00: 00 Yes [facility] ibuprofen (IBU) tablet 400 mg 04-16 14:15: 00 04-16 14:14 :00 No 400mg 400 mg, Oral, ONCE, 1 dose, [facility] 04/16/20 at 0915, CHIDI [facility] methylPREDN ISolone (METHYLPRED DP) 4 mg tablets 04-06 21:02: 36 Yes Take by mouth SEE-INSTRU CTIONS. follow package directions [facility] pantoprazol e sodium (PANTOPRAZO LE ORAL) 04-06 21:02: 36 Yes 40mg Take 40 mg by mouth. [facility] hydroCHLORO thiazide 25 mg tablet 04-06 21:02: 36 Yes 25mg Take 25 mg by mouth daily. [facility] BUPROPION HCL ORAL 04-06 21:02: 36 Yes 150mg Take 150 mg by mouth. [facility] atenoloL 50 mg tablet 04-06 21:02: 36 Yes 50mg Take 50 mg by mouth daily. [facility] busPIRone 7.5 mg tablet 04-06 21:02: 36 Yes 7.5mg Take 7.5 mg by mouth 3 (three) times daily. [facility] baclofen 10 mg tablet 04-06 21:02: 36 Yes 10mg Take 10 mg by mouth 3 (three) times daily. [facility] methylPREDN ISolone (METHYLPRED DP) 4 mg tablets 04-06 16:02: 36 Yes Take by mouth SEE-INSTRU CTIONS. follow package directions [facility] pantoprazol e sodium (PANTOPRAZO LE ORAL) 04-06 16:02: 36 Yes 40mg Take 40 mg by mouth. [facility] hydroCHLORO thiazide 25 mg tablet 04-06 16:02: 36 Yes 25mg Take 25 mg by mouth daily. [facility] BUPROPION HCL ORAL 04-06 16:02: 36 Yes 150mg Take 150 mg by mouth. [facility] atenoloL 50 mg tablet 04-06 16:02: 36 Yes 50mg Take 50 mg by mouth daily. [facility] busPIRone 7.5 mg tablet 04-06 16:02: 36 Yes 7.5mg Take 7.5 mg by mouth 3 (three) times daily. [facility] baclofen 10 mg tablet 04-06 16:02: 36 Yes 10mg Take 10 mg by mouth 3 (three) times daily. [facility] cefTRIAXone (ROCEPHIN) 1,000 mg in NaCl 0.9% (NS) 50 mL MINI-BAG 03-31 23:30: 00 03-31 23:22 :00 No 1000mg 1,000 mg, IV Piggyback, ONCE, 1 dose, 03/31/20 at 1830, 50 mL
Reas on for Anti-Infec tive: Empiric Therapy for Suspected Infection< br>Empiric Therapy Site: Urine
D uration of therapy: 72 hours [facility] iohexol (OMNIPAQUE 350 BULK-100 mL) injection 110 mL 03-31 23:00: 00 03-31 22:42 :00 No 110mL 110 mL, Intravenou s, ONCE, 1 dose, 03/31/20 at 1800, Routine [facility] ondansetron (ZOFRAN (PF)) injection 4 mg 03-31 22:15: 00 03-31 21:32 :00 No 4mg 4 mg, Slow IV Push, ONCE, 1 dose, 03/31/20 at 1715, CHIDI [facility] morpHINE injection 4 mg 03-31 22:15: 00 03-31 21:32 :00 No 4mg 4 mg, Slow IV Push, ONCE, 1 dose, 03/31/20 at 1715, STAT [facility] NaCl 0.9% (NS) bolus infusion 1,000 mL 03-31 21:15: 00 03-31 23:18 :00 No 1000mL at 999 mL/hr, 1,000 mL, IV Infusion, ONCE, 1 dose, 03/31/20 at 1615, CHIDI [facility] methylPREDN ISolone (METHYLPRED DP) 4 mg tablets 03-31 21:00: 59 Yes Take by mouth SEE-INSTRU CTIONS. follow package directions [facility] pantoprazol e sodium (PANTOPRAZO LE ORAL) 03-31 21:00: 59 Yes 40mg Take 40 mg by mouth. [facility] hydroCHLORO thiazide 25 mg tablet 03-31 21:00: 59 Yes 25mg Take 25 mg by mouth daily. [facility] BUPROPION HCL ORAL 03-31 21:00: 59 Yes 150mg Take 150 mg by mouth. [facility] atenoloL 50 mg tablet 03-31 21:00: 59 Yes 50mg Take 50 mg by mouth daily. [facility] busPIRone 7.5 mg tablet 03-31 21:00: 59 Yes 7.5mg Take 7.5 mg by mouth 3 (three) times daily. [facility] baclofen 10 mg tablet 03-31 21:00: 59 Yes 10mg Take 10 mg by mouth 3 (three) times daily. [facility] BUPROPION HCL ORAL 03-31 18:37: 27 Yes 150mg Take 150 mg by mouth. [facility] atenoloL 50 mg tablet 03-31 18:37: 27 Yes 50mg Take 50 mg by mouth daily. [facility] busPIRone 7.5 mg tablet 03-31 18:37: 27 Yes 7.5mg Take 7.5 mg by mouth 3 (three) times daily. [facility] baclofen 10 mg tablet 03-31 18:37: 27 Yes 10mg Take 10 mg by mouth 3 (three) times daily. [facility] methylPREDN ISolone (METHYLPRED DP) 4 mg tablets 03-31 18:37: 27 Yes Take by mouth SEE-INSTRU CTIONS. follow package directions [facility] pantoprazol e sodium (PANTOPRAZO LE ORAL) 03-31 18:37: 27 Yes 40mg Take 40 mg by mouth. [facility] hydroCHLORO thiazide 25 mg tablet 03-31 18:37: 27 Yes 25mg Take 25 mg by mouth daily. [facility] ondansetron (ZOFRAN ODT) 4 mg disintegrat ing tablet 03-31 00:00: 00 Yes [id number] 4mg Take 1 tablet by mouth every 8 (eight) hours as needed for Nausea and Vomiting (N/V). [facility] acetaminoph en-codeine (TYLENOL-CO DEINE #3) 300-30 mg tablet 03-31 00:00: 00 Yes [id number] 1{tbl} Take 1 tablet by mouth every 4 (four) hours as needed for Pain (scale 1-3). Indication s: acute pain [facility] cefpodoxime 100 mg tablet 03-31 00:00: 00 04-08 04:59 :00 No [id number] 100mg Take 1 tablet by mouth 2 (two) times daily for 7 days. [facility] clonazePAM 0.5 mg tablet 03-23 00:00: 00 Yes TAKE 1 TABLET (0.5 MG) BY MOUTH 2 TIMES PER DAY NEEDED [facility] Vital Signs Vital Name Observation Time Observation Value Comments S ource Systolic blood pressure 2022-09-12 19:27:00 108 mm[Hg] [facility] Diastolic blood pressure 2022-09-12 19:27:00 64 mm[Hg] [facility] Heart rate 2022-09-12 19:27:00 65 /min [facility] Body temperature 2022-09-12 19:27:00 36.61 Marixa [facility] Body height 2022-09-12 19:27:00 152.4 cm [facility] Body weight 2022-09-12 19:27:00 79.924 kg [facility] BMI 2022-09-12 19:27:00 34.41 kg/m2 [facility] Systolic blood pressure 2022-08-24 19:51:00 123 mm[Hg] [facility] Diastolic blood pressure 2022-08-24 19:51:00 88 mm[Hg] [facility] Heart rate 2022-08-24 19:51:00 58 /min [facility] Body temperature 2022-08-24 19:51:00 36.67 Marixa [facility] Respiratory rate 2022-08-24 19:51:00 17 /min [facility] Body height 2022-08-24 19:51:00 161.3 cm [facility] Body weight 2022-08-24 19:51:00 78.926 kg [facility] BMI 2022-08-24 19:51:00 30.34 kg/m2 [facility] Systolic blood pressure 2020-12-07 15:47:00 100 mm[Hg] [facility] Diastolic blood pressure 2020-12-07 15:47:00 73 mm[Hg] [facility] Heart rate 2020-12-07 15:47:00 62 /min [facility] Body temperature 2020-12-07 15:47:00 36.94 Marixa [facility] Respiratory rate 2020-12-07 15:47:00 18 /min [facility] Body height 2020-12-07 15:47:00 161.3 cm [facility] Body weight 2020-12-07 15:47:00 92.987 kg [facility] BMI 2020-12-07 15:47:00 35.74 kg/m2 [facility] Systolic blood pressure 2020-04-16 13:35:00 129 mm[Hg] [facility] Diastolic blood pressure 2020-04-16 13:35:00 89 mm[Hg] [facility] Heart rate 2020-04-16 13:35:00 96 /min [facility] Body temperature 2020-04-16 13:35:00 37 Marixa [facility] Respiratory rate 2020-04-16 13:35:00 16 /min [facility] Body height 2020-04-16 13:35:00 160 cm [facility] Body weight 2020-04-16 13:35:00 90.719 kg [facility] BMI 2020-04-16 13:35:00 35.43 kg/m2 [facility] Oxygen saturation in Arterial blood by Pulse oximetry 2020-04-16 13:35:00 98 /min [facility] Systolic blood pressure 2020-04-06 20:54:00 111 mm[Hg] [facility] Diastolic blood pressure 2020-04-06 20:54:00 75 mm[Hg] [facility] Heart rate 2020-04-06 20:54:00 74 /min [facility] Body temperature 2020-04-06 20:54:00 37.22 Marixa [facility] Respiratory rate 2020-04-06 20:54:00 18 /min [facility] Body height 2020-04-06 20:54:00 161.3 cm [facility] Body weight 2020-04-06 20:54:00 90.719 kg [facility] BMI 2020-04-06 20:54:00 34.87 kg/m2 [facility] Systolic blood pressure 2020-04-01 00:00:00 118 mm[Hg] [facility] Diastolic blood pressure 2020-04-01 00:00:00 89 mm[Hg] [facility] Heart rate 2020-04-01 00:00:00 61 /min [facility] Oxygen saturation in Arterial blood by Pulse oximetry 2020-04-01 00:00:00 97 /min [facility] Respiratory rate 2020-03-31 23:00:00 20 /min [facility] Body temperature 2020-03-31 20:51:00 37.06 Marixa [facility] Body height 2020-03-31 20:51:00 160 cm [facility] Body weight 2020-03-31 20:51:00 89.812 kg [facility] BMI 2020-03-31 20:51:00 35.07 kg/m2 [facility] Systolic blood pressure 2020-03-31 18:34:00 129 mm[Hg] [facility] Diastolic blood pressure 2020-03-31 18:34:00 91 mm[Hg] [facility] Heart rate 2020-03-31 18:31:00 91 /min [facility] Body temperature 2020-03-31 18:31:00 36.39 Marixa [facility] Respiratory rate 2020-03-31 18:31:00 20 /min [facility] Body height 2020-03-31 18:31:00 160 cm [facility] Body weight 2020-03-31 18:31:00 89.812 kg [facility] BMI 2020-03-31 18:31:00 35.07 kg/m2 [facility] Oxygen saturation in Arterial blood by Pulse oximetry 2020-03-31 18:31:00 98 /min [facility] Procedures Procedure Date / Time Performed Performing Clinician Source DISCLOSURE AND CONSENT MEDICAL & SURGICAL PROCEDURES - FEMALM 2022-09-12 06:01:00 Doctor Unassigned, [place] [facility] POCT TEST 2022-09-12 00:00:00 Rohith Darling [facility] ASSIGNMENT OF BENEFITS 2022-08-24 19:47:29 Docto r Unassigned, [place] [facility] EXTERNAL PROVIDER RECORDS 2020-12-11 05:01:00 Do ctor Unassigned, [place] [facility] US PELVIS COMPLETE WITH TRANSVAGINAL 2020-11-09 16:14:22 Renae Villarreal [facility] EXTERNAL MAMMOGRAM 2020-10-26 13:37:00 Doctor Un assigned, [place] [facility] NOTICE OF PRIVACY PRACTICES 2020-04-16 13:31:26 Doctor Unassigned, [place] [facility] CONSENT/REFUSAL FOR DIAGNOSIS AND TREATMENT 2020-04-16 13:31:16 Doctor Unassigned, [place] [facility] NO SHOW OR MISSED APPOINTMENT POLICY ACKNOWLEDGEMENT 2020-04-06 20:10:36 Doctor Unassigned, [place] [facility] CT ABDOMEN PELVIS W CONTRAST 2020-03-31 22:44:57 Ayala Saini [facility] LIPASE 2020-03-31 21:33:00 [facility] ([id number]) (ALB,T.PRO,BILI T,BU/BC,ALT,AST,ALK PHOS) 2020-03-31 21:33:00 Ayala Saini [facility] BASIC METABOLIC PANEL (NA, K, CL, CO2, GLUCOSE, BUN, CREATININE, CA) 2020-03-31 21:33:00 Ayala Saini [facility] CBC WITH DIFF 2020-03-31 21:33:00 [facility] 2020-03-31 21:33:00 Ayala [facility]aini [facility] NOTICE OF PRIVACY PRACTICES 2020-03-31 20:44:29 Doctor Unassigned, [place] [facility] CONSENT/REFUSAL FOR DIAGNOSIS AND TREATMENT 2020-03-31 20:44:20 Doctor Unassigned, [place] [facility] POCT TEST 2020-03-31 19:07:00 Nuha Harper [facility] POCT URINALYSIS 2020-03-31 18:41:00 Nuha Harper [facility] Encounters Start Date/Time End Date/Time Encounter Type Admission Type Attending Clinicians Care Facility Care Department Encounter ID Source 2023-03-13 13:30:00 Inpatient RADHA MILNER [facility] [id number] [facility] 2021-06-11 15:40:06 Emergency [facility] [id number] [facility] 2021-06-11 13:11:54 Emergency [facility] [id number] [facility] 2023-04-10 11:32:00 2023-04-10 11:32:00 Outpatient RADHA MILNER [facility] [id number] [facility] 2023-03-29 00:00:00 2023-03-29 00:00:00 Outpatient GC_GCBZW_Ka diyala_S PRIV PRIV [id number] [facility] 2023-02-28 00:00:00 2023-02-28 00:00:00 Outpatient GC_GCBZW_Ka diyala_S PRIV PRIV [id number] [facility] 2022-09-27 13:15:00 2022-09-27 13:15:00 Outpatient RENAE MOON [facility] [id number] [facility] 2022-09-12 13:00:00 2022-09-12 13:50:29 Outpatient ROHITH OCONNELL [facility] [id number] [facility] 2022-09-12 13:00:00 2022-09-12 13:50:29 Office Visit Rohith Darling [facility] [id number] 350.1.13.10 4.2.7.2.686 [id number] [facility] 2022-09-12 00:00:00 2022-09-12 00:00:00 Orders Only Doctor Unassigned, [place] [facility] 1..840.114 350.1.13.10 4.2.7.2.686 [id number] [facility] 2022-09-05 00:00:00 2022-09-05 00:00:00 Outpatient Deshaun V[facility]ARREAL [facility] [id number] [facility] 2022-09-01 10:15:00 2022-09-01 10:15:00 Outpatient R ROHITH DARLING [facility] [id number] [facility] 2022-08-24 15:00:00 2022-08-24 15:15:00 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, [facility] Cherelle Renae [facility] 1.2.840.114 350.1.13.10 4.2.7.2.686 [id number] [facility] 2022-08-24 14:30:00 2022-08-24 14:36:25 Outpatient R RENAE VILLARREAL [facility] [id number] [facility] 2022-08-24 14:30:00 2022-08-24 14:36:25 Office Visit Cherelle Renae [facility] [id number] 350.1.13.10 4.2.7.2.686 [id number] [facility] 2022-08-24 00:00:00 2022-08-24 00:00:00 Orders Only Doctor Unassigned, [place] [facility] [id number] 350.1.13.10 4.2.7.2.686 [id number] [facility] 2022-08-17 00:00:00 2022-08-17 00:00:00 Pre Visit Outreach Mariana Joy 1.2840.114 350.1.13.10 4.2.7.2.686 [id number] [facility] 2021-04-29 14:30:00 2021-04-29 14:30:00 Outpatient NYDIA VARGAS [facility] [id number] [facility] 2021-04-12 09:30:00 2021-04-12 09:30:00 Outpatient Deshaun VILLARREAL [facility] [id number] [facility] 2020-12-11 00:00:00 2020-12-11 00:00:00 Orders Only Doctor Unassigned, [place] [facility] 1.2840.114 350.1.13.10 4.2.7.2.686 [id number] [facility] 2020-12-07 10:16:00 2020-12-07 11:11:19 [facility] 1.2.114 350.1.13.10 4.2.7.2.686 [id number] [facility] 2020-12-07 10:30:00 2020-12-07 10:30:00 Outpatient Deshaun VILLARREAL [facility] [id number] [facility] 2020-11-09 10:24:19 2020-11-09 23:59:00 [facility] 1.840.114 350.1.13.10 4.2.7.2.686 [id number] [facility] 2020-11-09 00:00:00 2020-11-09 00:00:00 Outpatient R JANIRENAE NEGRON [facility] [id number] [facility] 2020-11-02 00:00:00 2020-11-02 00:00:00 Patient Outreach RoldanValentin [facility] 1.2.840.114 350.1.13.10 4.2.7.2.686 [id number] [facility] 2020-10-19 00:00:00 2020-10-19 00:00:00 Telephone Renae Villarreal [facility] 1.2.840.114 350.1.13.10 4.2.7.2.686 [id number] [facility] 2020-04-21 00:00:00 2020-04-21 00:00:00 Case Management Renae Villarreal [facility] 1.2.840.114 350.1.13.10 4.2.7.2.686 [id number] [facility] 2020-04-21 00:00:00 2020-04-21 00:00:00 Case Management Renae Villarreal [facility] 1.2.840.114 350.1.13.10 4.2.7.2.686 [id number] 2020-04-17 00:00:00 2020-04-17 00:00:00 Telephone Kwaku Nolasco [facility] 1.2.840.114 350.1.13.10 4.2.7.2.686 [id number] [facility] 2020-04-16 08:38:00 2020-04-16 09:34:00 Emergency Ayala Saini [facility] 1.2.840.114 350.1.13.10 4.2.7.2.686 [id number] [facility] 2020-04-06 15:11:54 2020-04-06 16:41:11 Office Visit Renae Villarreal [facility] 1.2.840.114 350.1.13.10 4.2.7.2.686 [id number] [facility] 2020-04-06 15:30:00 2020-04-06 15:30:00 Outpatient R CHERELLE [facility] [id number] [facility] 2020-04-06 00:00:00 2020-04-06 00:00:00 Orders Only Doctor Unassigned, [place] [facility] 1.2840.114 350.1.13.10 4.2.7.2.686 [id number] [facility] 2020-04-03 00:00:00 2020-04-03 00:00:00 Outpatient NUHA WANG [facility] [id number] [facility] 2020-03-31 16:02:00 2020-03-31 19:06:00 Emergency Ayala Saini [facility] 1.840.114 350.1.13.10 4.2.7.2.686 [id number] [facility] 2020-03-31 13:23:28 2020-03-31 15:00:02 Urgent Care Provider, [facility] Nuha Harper [facility] 1..840.114 350.1.13.10 4.2.7.2.686 [id number] [facility] 2020-03-31 13:40:00 2020-03-31 13:40:00 [id number] 2020-03-31 00:00:00 2020-03-31 00:00:00 Letter (Out) Doctor Unassigned, [place] [facility] 1.2.840.114 350.1.13.10 4.2.7.2.686 [id number] [facility] 2020-03-31 00:00:00 2020-03-31 00:00:00 Orders Only Doctor Unassigned, [place] [facility] 1.2.840.114 350.1.13.10 4.2.7.2.686 [id number] [facility] Results Test Description Test Time Test Comments Results Result Co mments Source [id number]:23:00* Test Item Value Reference Range Interpretation Comme nts POCT PREG (test code = 1605) Negative On board controls acceptable with C Line (test code = 3574) Yes POCT PREG LOT # (test code = 3575) POCT PREG TEST DATE ( test code = 3576) [facility] WITH [id number] 17:23:46Endometrial stripe measures up to 1.4 cm and [...] Results Inft User - 11/09/2020 12:24 PM CDTP ELVIC ULTRASOUND (TRANSVAGINAL AND LIMITED TRANSABDOMINAL)TECHNIQUE: Transvaginal and limited transabdominal sonography of the pelviswas performed.INDICATION: vaginal bleeding, pelvic pain COMPARISON: CT from 03/31/2020FINDINGS:Uterus measures 9.0 x 4.3 x 5.2 cm. The endometrial echo measures 1.4 cminthickness. Posterior uterine fundus contains a 1.6 x 1.4 x 1.3 cm fibroidCervix contains a few nabothian cysts. Suggestion of scar inanterior lower uterine segment.Ovaries are normal in size and configuration. The right ovary measures 2.3x 2.3 x 2.1 cm. The left ovary measures 3.8 x 2.8x 2.8 cm and contains acomplex 2.3 cm cystic structure thought to represent a cyst.No free fluid.IMPRESSIONEndometrial stripe measures up to 1.4 cm and is within limits forpremenopausal status. No discernible endometrial lesions identified.Left ovarian cystic structure measuring up to 2.3 cm probably represents acyst or crenulated follicle.[facility] [id number] 22:01:00* Test Item Value Reference Range Interpretation Comme nts APPEARANCE (test code = 3034963827) Hazy Clear A COLOR (test code = 3626749791) Yellow Yellow PH (test code = 6201175742) 4.8-8.0 SP GRAVITY (test code = 8513259670) 1.003-1.030 GLU U QUAL (test code = 3793355993) Normal Normal BLOOD (test code = 9760590449) Negative Negative INTERFERENCE FRO M ASCORBIC ACID MAY CAUSE FALSE NEGATIVE RESULT KETONES (test code = 5524622900) Negative Negative PROTEIN (test code = 2887-8) 30 mg/dL Negative A UROBILIN (test code = 1497814100) Normal Normal BILIRUBIN (test code = 3832846403) Negative Negative NITRITE (test code = 1663070171) Negative Negative LEUK JOY (test code = 0720485369) 75/uL Negative A RBC/HPF (test code = 1840624205) See_Comment [Automated [employer]] The system which generated this result transmitted reference range: 0 - 3 HPF. The reference range was not used to interpret this result as normal/abnormal. WBC/HPF (test code = 9887255961) See_Comment [Automated [employer]] The system which generated this result transmitted reference range: 0 - 5 HPF. The reference range was not used to interpret this result as normal/abnormal. BACTERIA (test code = 0059964711) Few Negative A MUCOUS (test code = 3926394657) Slight Negative LPF A SQ EPITH (test code = 4170123257) HPF HYAL CAST (test code = 4016777977) See_Comment [Automated [employer]] The system which generated this result transmitted reference range: <=2 LPF. The reference range was not used to interpret this result as normal/abnormal. Lab Interpretation (test code = 50267-6) Abnormal [facility] Metabolic Panel (NA, K, CL, CO2, GLUCOSE, BUN, CREATININE, CA)2020-03-31 22:00:00* Test Item Value Reference Range Interpretation Comme nts NA (test code = 7675524064) 138 mmol/L 135-145 K (test code = 0832572303) 4.6 mmol/L 3.5-5 CL (test code = 0260527775) 106 mmol/L 98-108 CO2 TOTAL (test code = 0502068171) 21 mmol/L 23-31 L AGAP (test code = 8779597096) 2-16 BUN (test code = 6993723039) 18 mg/dL 7-23 GLUCOSE (test code = 8440812020) 111 mg/dL 70-110 H CREATININE (test code = 2618358460) 1.01 mg/dL 0.5-1.04 CALCIUM (test code = 7938305862) 9.7 mg/dL 8.6-10.6 eGFR Calculation (Non-) (test code = 6652808543) mL/min/1.73m2 eGFR Calculation () (test code = 4021995072) mL/min/1.73m2 CHRISTIAN (test code = CHRISTIAN) Association of [...] or abnormalities in imaging tests). Lab Interpretation (test code = 89558-4) [facility] (ALB, T.PRO, BILI T, BU/BC, ALT, AST, ALK PHOS)2020-03-31 22:00:00* Test Item Value Reference Range Interpretation Comme nts TOTAL BILI (test code = 6702855177) 0.7 mg/dL 0.1-1.1 BILI UNCON (test code = 0731725110) 0.6 mg/dL 0.1-1.1 BILI CONJ (test code = 7732285096) 0.0 mg/dL 0-0.3 T PROTEIN (test code = 5150140043) 8.8 g/dL 6.3-8.2 H ALBUMIN (test code = 9197819951) 4.8 g/dL 3.5-5 ALK PHOS (test code = 0407411929) 77 U/L 34-122 ALTv (test code = 1742-6) 38 U/L 5-35 H AST(SGOT) (test code = 4677716789) 57 U/L 13-40 H Lab Interpretation (test cod e = 02194-0) [facility]normal [facility] [id number] 22:00:00* Test Item Value Reference Range Interpretation Comme nts LIPASE (test code = 3146689924) 147 U/L 0-220 Lab Interpretation (test cod e = 01169-8) Normal [facility] with [id number] 21:49:00* Test Item Value Reference Range Interpretation Comme nts WBC (test code = 6690-2) See_Comment [Automated messa ge] The system which generated this result transmitted reference range: 4.30 - 11.10 10*3/?L. The reference range was not used to interpret this result as normal/abnormal. RBC (test code = 789-8) See_Comment [Automated messa ge] The system which generated this result transmitted reference range: 3.93 - 5.25 10*6/?L. The reference range was not used to interpret this result as normal/abnormal. HGB (test code = 718-7) 15.3 g/dL 11.6-15 H HCT (test code = 4544-3) 44.2 % 35.7-45.2 MCV (test code = 787-2) 89.3 fL 80.6-95.5 MCH (test code = 785-6) 30.9 pg 25.9-32.8 MCHC (test code = 786-4) 34.6 g/dL 31.6-35.1 RDW-SD (test code = 32802-2) 42.3 fL 39-49.9 RDW-CV (test code = 788-0) 13.2 % 12-15.5 PLT (test code = 777-3) See_Comment [Automated messa ge] The system which generated this result transmitted reference range: 166 - 358 10*3/?L. The reference range was not used to interpret this result as normal/abnormal. MPV (test code = 88907-6) 9.9 fL 9.5-12.9 NRBC/100 WBC (test code = 6645056523) See_Comment [Automated [employer] ssage] The system which generated this result transmitted reference range: 0.0 - 10.0 /100 WBCs. The reference range was not used to interpret this result as normal/abnormal. NRBC x10^3 (test code = 8545013151) <0.01 See_Comment [Automated messa ge] The system which generated this result transmitted reference range: 10*3/?L. The reference range was not used to interpret this result as normal/abnormal. GRAN MAT (NEUT) % (test code = 770-8) 79.9 % IMM GRAN % (test code = 4986377926) 0.50 % LYMPH % (test code = 736-9) 14.7 % MONO % (test code = 5905-5) 3.6 % EOS % (test code = 713-8) 0.7 % BASO % (test code = 706-2) 0.6 % GRAN MAT x10^3(ANC) (test code = 9292187510) 8.63 10*3/uL 1.88-7.09 H IMM GRAN x10^3 (test code = 2512192279) 0.05 10*3/uL 0-0.06 LYMPH x10^3 (test code = 731-0) 1.59 10*3/uL 1.32-3.29 MONO x10^3 (test code = 742-7) 0.39 10*3/uL 0.33-0.92 EOS x10^3 (test code = 711-2) 0.08 10*3/uL 0.03-0.39 BASO x10^3 (test code = 704-7) 0.07 10*3/uL 0.01-0.07 Lab Interpretation (test code = 28272-9) Abnormal [facility] [id number] 19:11:00* Test Item Value Reference Range Interpretation Comme nts POCT PREG (test code = 1605) Negative On board controls acceptable with C Line (test code = 3574) Yes POCT PREG LOT # (test code = 3575) POCT PREG TEST DATE (test code = 3575) CHRISTIAN (test code = CHRISTIAN) accurate developme nt and interpretation of all internal controls Lab Interpretation (test code = 47861-9) Normal [facility] [id number] 19:11:00* Test Item Value Reference Range Interpretation Comme nts POCT PREG (test code = 1605) Negative On board controls acceptable with C Line (test code = 3574) Yes POCT PREG LOT # (test code = 3575) POCT PREG TEST DATE (test code = 3575) CHRISTIAN (test code = CHRISTIAN) accurate developme nt and interpretation of all internal controls Lab Interpretation (test code = 17093-3) [facility] [id number] 19:11:00* Test Item Value Reference Range Interpretation Comme nts POCT PREG (test code = 1605) Negative On board controls acceptable with C Line (test code = 3574) Yes POCT PREG LOT # (test code = 3575) POCT PREG TEST DATE (test code = 3576) CHRISTIAN (test code = CHRISTIAN) accurate developme nt and interpretation of all internal controls Lab Interpretation (test code = 66522-0) [facility] [id number] 19:11:00* Test Item Value Reference Range Interpretation Comme nts POCT PREG (test code = 1605) Negative On board controls acceptable with C Line (test code = 3574) Yes POCT PREG LOT # (test code = 3575) POCT PREG TEST DATE (test code = 3576) CHRISTIAN (test code = CHRISTIAN) accurate developme nt and interpretation of all internal controls Lab Interpretation (test code = 51481-5) [facility] [id number] 19:11:00* Test Item Value Reference Range Interpretation Comme nts POCT PREG (test code = 1605) Negative On board controls acceptable with C Line (test code = 3574) Yes POCT PREG LOT # (test code = 3575) POCT PREG TEST DATE (test code = 3576) CHRISTIAN (test code = CHRISTIAN) accurate developme nt and interpretation of all internal controls Lab Interpretation (test code = 63340-2) [facility] URINALYSIS W SPECIFIC [id number] 18:42:00* Test Item Value Reference Range Interpretation Comme nts POCT U SP GRAV (test code = 3255) 1.025 mg/dl 1.005-1.025 POCT PH U (test code = 3254) 5 mg/dl 5-8 POCT U LEUK EST (test code = 3263) neg Negative - Negative POCT U NIT (test code = 3262) neg Negative - Negative POCT U PROT (test code = 3259) neg Negative - Negative POCT U GLU (test code = 3256) neg Negative - Negative POCT U KETONE (test code = 3258) neg Negative - Negative POCT U UROBILI (test code = 3260) neg 0.2-1 POCT U BILI (test code = 3261) neg Negative - Negative POCT U BLD (test code = 3257) neg Negative - Negative POCT U COLOR (test code = 3266) yellow POCT U APPEAR (test code = 3267) clear CHRISTIAN (test code = CHRISTIAN) accurate developme nt and interpretation of all internal controls Lab Interpretation (test code = 05833-2) [facility] URINALYSIS W SPECIFIC [id number] 18:42:00* Test Item Value Reference Range Interpretation Comme nts POCT U SP GRAV (test code = 3255) 1.025 mg/dl 1.005-1.025 POCT PH U (test code = 3254) 5 mg/dl 5-8 POCT U LEUK EST (test code = 3263) neg Negative - Negative POCT U NIT (test code = 3262) neg Negative - Negative POCT U PROT (test code = 3259) neg Negative - Negative POCT U GLU (test code = 3256) neg Negative - Negative POCT U KETONE (test code = 3258) neg Negative - Negative POCT U UROBILI (test code = 3260) neg 0.2-1 POCT U BILI (test code = 3261) neg Negative - Negative POCT U BLD (test code = 3257) neg Negative - Negative POCT U COLOR (test code = 3266) yellow POCT U APPEAR (test code = 3267) clear CHRISTIAN (test code = CHRISTIAN) accurate developme nt and interpretation of all internal controls Lab Interpretation (test code = 25832-0) [facility] URINALYSIS W SPECIFIC [id number] 18:42:00* Test Item Value Reference Range Interpretation Comme nts POCT U SP GRAV (test code = 3255) 1.025 mg/dl 1.005-1.025 POCT PH U (test code = 3254) 5 mg/dl 5-8 POCT U LEUK EST (test code = 3263) neg Negative - Negative POCT U NIT (test code = 3262) neg Negative - Negative POCT U PROT (test code = 3259) neg Negative - Negative POCT U GLU (test code = 3256) neg Negative - Negative POCT U KETONE (test code = 3258) neg Negative - Negative POCT U UROBILI (test code = 3260) neg 0.2-1 POCT U BILI (test code = 3261) neg Negative - Negative POCT U BLD (test code = 3257) neg Negative - Negative POCT U COLOR (test code = 3266) yellow POCT U APPEAR (test code = 3267) clear CHRISTIAN (test code = CHRISTIAN) accurate developme nt and interpretation of all internal controls Lab Interpretation (test code = 51752-7) [facility] URINALYSIS W SPECIFIC [id number] 18:42:00* Test Item Value Reference Range Interpretation Comme nts POCT U SP GRAV (test code = 3255) 1.025 mg/dl 1.005-1.025 POCT PH U (test code = 3254) 5 mg/dl 5-8 POCT U LEUK EST (test code = 3263) neg Negative - Negative POCT U NIT (test code = 3262) neg Negative - Negative POCT U PROT (test code = 3259) neg Negative - Negative POCT U GLU (test code = 3256) neg Negative - Negative POCT U KETONE (test code = 3258) neg Negative - Negative POCT U UROBILI (test code = 3260) neg 0.2-1 POCT U BILI (test code = 3261) neg Negative - Negative POCT U BLD (test code = 3257) neg Negative - Negative POCT U COLOR (test code = 3266) yellow POCT U APPEAR (test code = 3267) clear CHRISTIAN (test code = CHRISTIAN) accurate developme nt and interpretation of all internal controls Lab Interpretation (test code = 42223-8) Normal [facility] URINALYSIS W SPECIFIC [id number] 18:42:00* Test Item Value Reference Range Interpretation Comme nts POCT U SP GRAV (test code = 3255) 1.025 mg/dl 1.005-1.025 POCT PH U (test code = 3254) 5 mg/dl 5-8 POCT U LEUK EST (test code = 3263) neg Negative - Negative POCT U NIT (test code = 3262) neg Negative - Negative POCT U PROT (test code = 3259) neg Negative - Negative POCT U GLU (test code = 3256) neg Negative - Negative POCT U KETONE (test code = 3258) neg Negative - Negative POCT U UROBILI (test code = 3260) neg 0.2-1 POCT U BILI (test code = 3261) neg Negative - Negative POCT U BLD (test code = 3257) neg Negative - Negative POCT U COLOR (test code = 3266) yellow POCT U APPEAR (test code = 3267) clear CHRISTIAN (test code = CHRISTIAN) accurate developme nt and interpretation of all internal controls Lab Interpretation (test code = 35372-4) [facility] [id number] 18:42:00* Test Item Value Reference Range Interpretation Comme nts POCT U SP GRAV (test code = 3255) 1.025 mg/dl 1.005-1.025 POCT PH U (test code = 3254) 5 mg/dl 5-8 POCT U LEUK EST (test code = 3263) neg Negative - Negative POCT U NIT (test code = 3262) neg Negative - Negative POCT U PROT (test code = 3259) neg Negative - Negative POCT U GLU (test code = 3256) neg Negative - Negative POCT U KETONE (test code = 3258) neg Negative - Negative POCT U UROBILI (test code = 3260) neg 0.2-1 POCT U BILI (test code = 3261) neg Negative - Negative POCT U BLD (test code = 3257) neg Negative - Negative POCT U COLOR (test code = 3266) yellow POCT U APPEAR (test code = 3267) clear CHRISTIAN (test code = CHRISTIAN) accurate developme nt and interpretation of all internal controls Lab Interpretation (test code = 09370-8) [facility]"
[2024-04-12] MEDS ORDERED: NA CHLORIDE 0.9% 1,000 ML ONE (14:22)
[2024-04-12 14:24] LABS: Absolute Basophils 0.1 K/uL (0-0.5); Absolute Eosinophils 0.1 K/uL (0-0.5); Absolute Lymphocytes (CBC) 1.4 K/uL (0.7-4.9); Absolute Monocytes 0.4 K/uL (0.1-1.3); Absolute Neutrophil 4.9 K/uL (1.8-8.0); Hematocrit 42.2 % (36.0-45.0); Hemoglobin 14.4 g/dL (12.0-15.0); Lymphocytes % 21.2 % (15.3-44.8); MCH 31.9 pg (27.0-35.0); MCHC 34.2 g/dL (32.0-36.0); MCV 93.4 fL (80-100); MPV 7.5 fL (7.6-11.3); Monocytes % 5.7 % (3.3-12.3); Neutrophils % 71.1 % (41.7-73.7); Platelets 267 thou/uL (152-406); RBC Red Blood Cell Count 4.52 M/uL (3.86-4.86); Red Cell Distribution Width 13.1 % (12.1-15.2)
[2024-04-12 14:25] LABS: Specific Gravity 1.005 (1.005-1.030); Sqamous Epithelial <5 /HPF (None Seen); Urine Bacteria <20 /HPF (<20); Urine Culture Reflex Order NOT NEEDED; Urine Micro Reflex YN NO BILL MICROSCOPIC; Urine RBC None Seen /HPF (None Seen); Urine WBC <5 /HPF (<5)
--- NOTE | 2024-04-12 14:31 | RAD REPORT ---
EXAM DESCRIPTION: RAD - Chest Single View - 04/12/2024 2:23 pm CLINICAL HISTORY: CHEST PAIN Chest pain. COMPARISON: Chest Single View dated 04/16/2023; Chest Single View dated 01/29/2023; Chest Single View d ated 04/18/2020; Chest Pa And Lat (2 Views) dated 03/19/2019 FINDINGS: Portable technique limits examination quality. The lungs are grossly clear. The heart is normal in size. No displaced fractures. IMPRESSION: No acute intrathoracic process suspected.
[2024-04-12 14:33] LABS: Barbiturates NEGATIVE (NEGATIVE); Benzodiazepines NEGATIVE (NEGATIVE); Cocaine NEGATIVE (NEGATIVE); METHAMPHETAM NEGATIVE (NEGATIVE); Methadone NEGATIVE (NEGATIVE); Opiates NEGATIVE (NEGATIVE); Phencyclidine NEGATIVE (NEGATIVE); THC Cannibis NEGATIVE (NEGATIVE)
[2024-04-12] MEDS ORDERED: LORazepam 2 MG/ML VIAL ONE (14:42)
[2024-04-12 14:44] LABS: ALT/SGPT 35 U/L (13-56); AST/SGOT 21 U/L (15-37); Albumin 4.3 g/dL (3.4-5.0); Albumin/Globulin Ratio 1.3 (1.1-1.8); Alkaline Phosphatase 60 U/L (45-117); Anion Gap 6.7 mEq/L (5.0-15.0); BUN Blood Urea Nitrogen 18 mg/dL (7-18); Bicarbonate 27 mEq/L (21-32); Bilirubin Total 0.5 mg/dL (0.2-1.0); Creatine Phosphokinase 268 U/L (26-192); Globulin 3.2 g/dL (2.3-3.5); Glomerular Filtration Rate 63 ml/min (=/>90); Glucose Level 98 mg/dL (74-106); Magnesium 1.6 mg/dL (1.6-2.4); Potassium 3.7 mEq/L (3.5-5.1); Protein, Total 7.5 g/dL (6.4-8.2); Sodium Level 137 mEq/L (136-145); Troponin High Sensitivity 25.1 pg/mL (<58.9)
[2024-04-12 14:45] LABS: PT Prothrombin Time 11.2 SECONDS (9.4-12.5)
[2024-04-12 14:47] LABS: Bilirubin Direct < 0.2 mg/dL (0-0.2); Bilirubin Indirect, Calculated 0.3 mg/dL (0.2-0.8)
--- NOTE | 2024-04-12 15:12 | RAD REPORT ---
EXAM DESCRIPTION: US - Extrem Venous W Compress Kristopher - 04/12/2024 3:07 pm CLINICAL HISTORY: PAIN Bilateral leg edema and swelling. COMPARISON: No comparisons TECHNIQUE: Real-time sonographic interrogation of the left and right lower extremity deep venous sys tems was performed. FINDINGS: Normal compressibility, flow augmentation, phasic flow and spontaneous flow is identified in both the left and right lower extremity deep venous systems. IMPRESSION: No sonographic evidence of left or right lower extremity deep venous thrombosis.
[2024-04-12 15:34] LABS: D-Dimer < 0.215 FEUug/mL (0-0.500)
--- NOTE | 2024-04-12 16:23 | RAD REPORT ---
EXAM DESCRIPTION: CT - Head Brain Wo Cont - 04/12/2024 4:12 pm CLINICAL HISTORY: near syncope Headache, drowsiness, syncope COMPARISON: Head Brain Wo Cont dated 01/29/2023; Head Brain Wo Cont dated 03/08/2016; Abdomen WWo Cont dated 08/16/2021 TECHNIQUE: All CT scans are performed using dose optimization technique as appropriate and may inclu de automated exposure control or mA/KV adjustment according to patient size. FINDINGS: No intracranial hemorrhage, hydrocephalus or extra-axial fluid collection.No areas of brai n edema or evidence of midline shift. The paranasal sinuses and mastoids are clear. The calvarium is intact. IMPRESSION: No acute intracranial abnormality.
--- NOTE | 2024-04-12 17:29 | ER ---
Nurse's Notes [facility] Name: Amanda Guillaume Age: 43 yrs Sex: Female : 1980 Arrival Date: 04/12/2024 Time: 13:06 Bed 5 Private MD: Diagnosis: Chest pain, unspecified;Syncope Near;Acute pain, not elsewhere classified Presentation: 04/12 13:27 Chief complaint: Patient states: SENT TO ED FOR POSSIBLE RHABDO. CK 217. LAB WORK DONE db YESTERDAY MORNING. HAS BEEN HAVING NEAR SYNCOPE, ABDOMINAL PAIN AND LEFT ARM PAIN. Coronavirus screen: Client denies travel out of the [place] in the last 14 days. At this time, the client does not indicate any symptoms associated with coronavirus-19. Ebola Screen: Patient negative for fever greater than or equal to 101.5 degrees Fahrenheit, and additional compatible Ebola Virus Disease symptoms Patient denies exposure to infectious person. Patient denies travel to an Ebola-affected area in the 21 days before illness onset. No symptoms or risks identified at this time. Initial Sepsis Screen: Does the patient meet any 2 criteria? No. Patient's initial sepsis screen is negative. Does the patient have a suspected source of infection? No. Patient's initial sepsis screen is negative. Risk Assessment: Do you want to hurt yourself or someone else? Patient reports no desire to harm self or others. Onset of symptoms was April 12, 2024. 13:27 Method Of Arrival: Ambulatory db 13:27 Acuity: KATHI 3 db Triage Assessment: 13:27 General: Appears in no apparent distress. comfortable, Behavior is calm, cooperative. db Pain: Complains of pain in abdomen and left arm. Neuro: Level of Consciousness is awake, alert, obeys commands, Oriented to person, place, time, situation, Reports dizziness, a syncopal episode. Respiratory: Airway is patent Respiratory effort is even, unlabored, Respiratory pattern is regular, symmetrical. Historical: - Allergies: 13:30 adhesive; db 13:30 Bactrim; db 13:30 Sulfa (Sulfonamide Antibiotics); db - PMHx: 13:30 Anxiety; Hypertension; Depression; db - PSHx: 13:30 section; heart cath; Tummy tuck; db - Immunization history:: Adult Immunizations unknown. - Infectious Disease History:: Denies. - Social history:: Smoking status: Patient denies any tobacco usage or history of. Screenin:05 [facility] ED Fall Risk Assessment (Adult) History of falling in the last 3 months, ld1 including since admission No falls in past 3 months (0 pts) Confusion or Disorientation No (0 pts) Intoxicated or Sedated No (0 pts) Impaired Gait No (0 pts) Mobility Assist Device Used No (0 pt) Altered Elimination No (0 pt) Score/Fall Risk Level 0 - 2 = Low Risk Oriented to surroundings, Maintained a safe environment, Educated pt \T\ family on fall prevention, incl call for assistance when getting out of bed, Assessed \T\ reinforced patient's understanding of fall precautions, Provided non-skid footwear, Hourly rounding (assess needs \T\ fall precautionary measures) done, Used ambulatory aids as needed (educated on \T\ assisted with), Used gait belt as appropriate. Abuse screen: Denies threats or abuse. Denies injuries from another. Nutritional screening: No deficits noted. Tuberculosis screening: No symptoms or risk factors identified. Assessment: 14:05 General: Appears in no apparent distress. comfortable, Behavior is calm, cooperative, ld1 appropriate for age. Pain: Complains of pain in abdomen and left arm Pain does not radiate. Pain currently is 8 out of 10 on a pain scale. Quality of pain is described as throbbing, Pain began suddenly, Is continuous. Neuro: Level of Consciousness is awake, alert, obeys commands, Oriented to person, place, time, situation, Appropriate for age. Cardiovascular: Capillary refill < 3 seconds Patient's skin is warm and dry. Rhythm is sinus rhythm. Respiratory: Airway is patent Respiratory effort is even, unlabored. GI: Abdomen is flat, non-distended. : No signs and/or symptoms were reported regarding the genitourinary system. EENT: No signs and/or symptoms were reported regarding the EENT system. Derm: No signs and/or symptoms reported regarding the dermatologic system. Musculoskeletal: No signs and/or symptoms reported regarding the musculoskeletal system. 15:15 Reassessment: No changes from previously documented assessment. Patient and/or family mb9 updated on plan of care and expected duration. Pain level reassessed. Patient is alert, oriented x 3, equal unlabored respirations, skin warm/dry/pink. 16:24 Reassessment: No changes from previously documented assessment. Patient and/or family ld1 updated on plan of care and expected duration. Pain level reassessed. Patient is alert, oriented x 3, equal unlabored respirations, skin warm/dry/pink. Vital Signs: 13:27 BP 138 / 96; Pulse 80; Resp 18; Temp 98.6(O); Pulse Ox 100% ; Weight 69.4 kg; Height 5 db ft. 3 in. ; Pain 6/10; 13:56 BP 121 / 69 Supine; Pulse 73; ld1 13:59 BP 122 / 90 Sitting; Pulse 81; ld1 14:03 BP 123 / 100 Standing; Pulse 97; ld1 16:24 BP 126 / 91; Pulse 68; Resp 18; Pulse Ox 99% on R/A; ld1 13:27 Body Mass Index 27.10 (69.40 kg, 160.02 cm) db 13:27 Pain Scale: Adult db ED Course: 13:08 Patient arrived in ED. mg5 13:12 Kwaku Jaime PA is PHCP. cp 13:12 Ritchie Hughes DO is Attending Physician. cp 13:27 Arm band placed on Patient placed in an exam room. db 13:28 Madeline Hughes, RN is Primary Nurse. ld1 13:30 Triage completed. db 14:05 Patient has correct armband on for positive identification. Placed in gown. Bed in low ld1 position. Call light in reach. Side rails up X2. laborer wharf on. Pulse ox on. NIBP on. Door closed. Noise minimized. Warm blanket given. 14:05 No provider procedures requiring assistance completed. ld1 14:16 UDS Sent. ld1 14:16 Test, Urine Sent. ld1 14:16 Urine Microscopic Only Sent. ld1 14:17 Initial lab(s) drawn, by me, sent to lab. Inserted saline lock: 22 gauge in left zm antecubital area, using aseptic technique. Blood collected. Flushed with 10 mL NS. 14:17 Urine collected: clean catch specimen, clear, yellow. zm 14:18 CK Sent. zm 14:18 Troponin HS Sent. zm 14:18 PT-INR Sent. zm 14:18 Magnesium Sent. zm 14:18 LFT's Sent. zm 14:18 D-Dimer Sent. zm 14:18 CBC with Diff Sent. zm 14:18 Basic Metabolic Panel Sent. zm 14:25 XRAY Chest (1 view) In Process Unspecified. EDMS 15:09 US Extremity Venous W Compression Kristopher In Process Unspecified. EDMS 16:13 CT Head Brain wo Cont In Process Unspecified. EDMS 17:27 Jonathan Pena MD is Referral Physician. cp 17:40 Provided Education on: follow up instructions. ld1 17:40 IV discontinued, intact, bleeding controlled, No redness/swelling at site. ld1 Administered Medications: 14:40 Drug: NS 0.9% IV 1000 ml IV at 1 bolus Per protocol Route: IV; Rate: 1 bolus; Site: mb9 left antecubital; 15:00 Follow up: Response: No adverse reaction; IV Status: Completed infusion; IV Intake: ld1 1000ml 14:44 Drug: Ativan IVP 1 mg IVP once Route: IVP; Site: left antecubital; 9 15:30 Follow up: Response: No adverse reaction ld1 Medication: 17:40 VIS not applicable for this client. ld1 Intake: 15:00 IV: 1000ml; Total: 1000ml. ld1 Outcome: 17:28 Discharge ordered by MD. cp 17:39 Discharged to home ambulatory, with family, ld1 17:39 Condition: stable 17:39 Discharge instructions given to patient, Instructed on discharge instructions, follow up and referral plans. Demonstrated understanding of instructions, follow-up care, 17:40 Patient left the ED. ld1 Signatures: Dispatcher [employer] EDTN Kwaku Jaime PA PA cp Sims, Lauren, RN RN ld1 Kim Colon Danielle, RN RN db Wilkerson, Mary Beth, RN RN mb9 Angeles Burris mg5 Corrections: (The following items were deleted from the chart) 13:30 13:27 Temp 98.6F Oral; 69.4 kg; Height 5 ft. 3 in.; BMI: 27.1; Pain 6/10, Adult; db claudia
--- NOTE | 2024-04-12 17:30 | EDPHYS ---
Physician Documentation [facility] Name: Amanda Guillaume Age: 43 yrs Sex: Female : 1980 Arrival Date: 04/12/2024 Time: 13:06 Bed 5 Private MD: ED Physician Ritchie Hughes HPI: 04/12 13:40 This 43 yrs old Female presents to ER via Ambulatory with complaints of Syncope, cp Abnormal Lab Results, Abdominal Pain, Arm Swelling. 13:40 The patient has experienced near-syncope, almost passed out, felt faint. cp 13:40 Duration: The patient has had multiple episodes. Patient is a 43-year-old female with cp past medical history significant for hypertension. She presents to the emergency department with complaints of lightheadedness and near syncopal episodes. Patient reports about a week ago she reportedly was diagnosed with rhabdomyolysis after a intense workout. She was seen in an urgent care with complaints of left arm pain. She had an ultrasound to rule out a blood clot that was negative and she was told she had rhabdo. Patient reports she is continue to have some dizziness, lightheadedness, intermittent chest pain and pain in her legs. Patient also complains of abdominal pain. Historical: - Allergies: 13:30 adhesive; db 13:30 Bactrim; db 13:30 Sulfa (Sulfonamide Antibiotics); db - PMHx: 13:30 Anxiety; Hypertension; Depression; db - PSHx: 13:30 section; heart cath; Tummy tuck; db - Immunization history:: Adult Immunizations unknown. - Infectious Disease History:: Denies. - Social history:: Smoking status: Patient denies any tobacco usage or history of. ROS: 13:45 Constitutional: Positive for muscle aches, Negative for chills, fever, poor PO intake, cp 13:45 Eyes: Negative for injury, pain, redness, and discharge, cp 13:45 ENT: Negative for drainage from ear(s), ear pain, difficulty swallowing, difficulty handling secretions, 13:45 Cardiovascular: Positive for chest pain, 13:45 Respiratory: Negative for cough, shortness of breath, wheezing, 13:45 Abdomen/GI: Positive for abdominal pain, Negative for vomiting, diarrhea, constipation, 13:45 : Negative for urinary symptoms, vaginal bleeding, 13:45 Skin: Negative for rash, 13:45 Neuro: Positive for near syncope, weakness, Negative for altered mental status, numbness, 13:45 All other systems are negative, Exam: 13:50 Constitutional: The patient appears in no acute distress, alert, awake, cp non-diaphoretic, non-toxic, well developed, well nourished, uncomfortable, 13:50 Head/Face: Normocephalic, atraumatic. cp 13:50 Eyes: Periorbital structures: appear normal, Pupils: equal, round, and reactive to light and accomodation, Extraocular movements: intact throughout, Conjunctiva: normal, no exudate, no injection, Sclera: no appreciated abnormality, Lids and lashes: appear normal, bilaterally, 13:50 ENT: External ear(s): are unremarkable, Nose: is normal, Mouth: Lips: moist, Oral mucosa: pink and intact, moist, Posterior pharynx: Airway: no evidence of obstruction, patent, erythema, is not appreciated, exudate, is not appreciated, 13:50 Neck: ROM/movement: is normal, is supple, without pain, no range of motions limitations, 13:50 Chest/axilla: Inspection: normal, 13:50 Cardiovascular: Rate: normal, Rhythm: regular, Edema: is not appreciated, JVD: is not appreciated, 13:50 Respiratory: the patient does not display signs of respiratory distress, Respirations: normal, no use of accessory muscles, no retractions, labored breathing, is not present, Breath sounds: are clear throughout, no decreased breath sounds, no stridor, no wheezing, 13:50 Abdomen/GI: Inspection: abdomen appears normal, Bowel sounds: active, all quadrants, Palpation: soft, in all quadrants, mild abdominal tenderness, in the right upper quadrant and left upper quadrant, rebound tenderness, is not appreciated, involuntary guarding, is not appreciated, 13:50 Back: CVA tenderness, is absent, 13:50 Neuro: Orientation: to person, place \T\ time. Mentation: is normal, Motor: moves all fours, no focal deficits, Sensation: no obvious gross deficits, Gait: is steady, 14:20 ECG was reviewed by the Attending Physician. cp Vital Signs: 13:27 BP 138 / 96; Pulse 80; Resp 18; Temp 98.6(O); Pulse Ox 100% ; Weight 69.4 kg; Height 5 db ft. 3 in. ; Pain 6/10; 13:56 BP 121 / 69 Supine; Pulse 73; ld1 13:59 BP 122 / 90 Sitting; Pulse 81; ld1 14:03 BP 123 / 100 Standing; Pulse 97; ld1 16:24 BP 126 / 91; Pulse 68; Resp 18; Pulse Ox 99% on R/A; ld1 13:27 Body Mass Index 27.10 (69.40 kg, 160.02 cm) db 13:27 Pain Scale: Adult db MDM: 13:32 Patient medically screened. 14:00 Differential Diagnosis: cardiac arrhythmia, cerebrovascular accident, GI bleed, cp , seizure, sepsis, vasovagal episode. 17:28 Data reviewed: vital signs, nurses notes, lab test result(s), EKG, radiologic studies, cp CT scan, plain films, and as a result, I will discharge patient. 17:28 I considered the following discharge prescriptions or medication management in the emergency department Medications were administered in the Emergency Department. See MAR. Independent interpretation of the following test(s) in the Emergency Department EKG: See my EKG interpretation above. Care significantly affected by the following chronic conditions: Hypertension. Counseling: I had a detailed discussion with the patient and/or guardian regarding the historical points, exam findings, and any diagnostic results supporting the discharge/admit diagnosis, lab results, radiology results, the need for outpatient follow up, a oncology nurse, a family practitioner, to return to the emergency department if symptoms worsen or persist or if there are any questions or concerns that arise at home. Response to treatment: the patient's symptoms have markedly improved after treatment, and as a result, I will discharge patient. 04/12 13:33 Order name: Urine Microscopic Only; Complete Time: 14:38 04/12 13:33 Order name: Test, Urine; Complete Time: 14:38 04/12 13:48 Order name: CK; Complete Time: 15:06 04/12 15:06 Interpretation: Abnormal: CPK 268. 04/12 13:48 Order name: Basic Metabolic Panel; Complete Time: 15:06 04/12 15:06 Interpretation: Normal except: CRE 1.13; GFR 63. 04/12 13:48 Order name: CBC with Diff; Complete Time: 15:06 04/12 13:48 Order name: D-Dimer; Complete Time: 15:42 cp 30 15:42 Interpretation: Reviewed. cp 04/12 13:48 Order name: LFT's; Complete Time: 15:06 cp 04/12 13:48 Order name: Magnesium; Complete Time: 15:06 cp 30 15:31 Interpretation: Reviewed. cp 04/12 13:48 Order name: PT-INR; Complete Time: 15:42 cp 04/12 15:42 Interpretation: Reviewed. cp 04/12 13:48 Order name: Troponin HS; Complete Time: 15:06 cp 04/12 15:07 Interpretation: Reviewed. cp 04/12 13:48 Order name: UDS; Complete Time: 14:38 cp 04/12 13:48 Order name: XRAY Chest (1 view); Complete Time: 14:38 cp 04/12 14:39 Order name: US Extremity Venous W Compression Kristopher; Complete Time: 15:31 cp 04/12 15:31 Interpretation: Report reviewed. cp 04/12 15:43 Order name: CT Head Brain wo Cont; Complete Time: 16:44 cp 04/12 16:44 Interpretation: Report reviewed. cp 04/12 13:34 Order name: EKG; Complete Time: 13:35 cp 04/12 13:34 Order name: Orthostatics; Complete Time: 14:05 cp 04/12 13:34 Order name: EKG - Nurse/Tech; Complete Time: 13:54 cp 04/12 13:48 Order name: Cardiac monitoring; Complete Time: 13:54 cp 04/12 13:48 Order name: IV Saline Lock; Complete Time: 14:18 cp 04/12 13:48 Order name: Labs collected and sent; Complete Time: 14:18 cp 04/12 13:48 Order name: O2 Per Protocol; Complete Time: 13:54 cp 04/12 13:48 Order name: O2 Sat Monitoring; Complete Time: 13:54 cp EC:20 Rate is 68 beats/min. Rhythm is regular. SD interval is normal. QRS interval is normal. cp QT interval is normal. T waves are Inverted in lead aVR. Interpreted by me. Reviewed by me. Administered Medications: 14:40 Drug: NS 0.9% IV 1000 ml IV at 1 bolus Per protocol Route: IV; Rate: 1 bolus; Site: mb9 left antecubital; 15:00 Follow up: Response: No adverse reaction; IV Status: Completed infusion; IV Intake: ld1 1000ml 14:44 Drug: Ativan IVP 1 mg IVP once Route: IVP; Site: left antecubital; mb9 15:30 Follow up: Response: No adverse reaction ld1 Disposition: 21:33 I was immediately available on-site in the Emergency Department for consultation in the ms3 care of the patient. Disposition Summary: 04/12/24 17:28 Discharge Ordered Notes: Location: Home cp Problem: new cp Symptoms: have improved cp Condition: Stable cp Diagnosis - Chest pain, unspecified cp - Syncope Near cp - Acute pain, not elsewhere classified cp Followup: cp - With: Jonathan Pena MD - When: 2 - 3 days - Reason: Recheck today's complaints Discharge Instructions: - Discharge Summary Sheet cp - Nonspecific Chest Pain, Adult cp - Musculoskeletal Pain cp - Near-Syncope cp - Aspirin and Your Heart cp Forms: - Medication Reconciliation Form cp - Antibiotic Education cp - Prescription Opioid Use cp - Patient Portal Instructions cp - Leadership Thank You Letter cp Addendum: 04/17/2024 10:38 I was immediately available on-site in the Emergency Department for consultation in the m s3 care of the patient. Signatures: Dispatcher [employer] EDMS Kwaku Jaime PA PA cp Sims, Marcus, DO DO ms3 Alissa Maher RN RN Saray Sanford RN QUIN mb9 Madeline Hughes RN ld1 Corrections: (The following items were deleted from the chart) 04/12 13:49 13:49 CREATINE PHOSPHOKINASE+C.LAB.BRZ ordered. EDMS EDMS 13:49 13:49 BASIC METABOLIC PANEL+C.LAB.BRZ ordered. EDMS EDMS 13:49 13:49 CBC+H.LAB.BRZ ordered. EDMS EDMS 13:49 13:49 D-DIMER+COAG.LAB.BRZ ordered. EDMS EDMS 13:49 13:49 HEPATIC FUNCTION+C.LAB.BRZ ordered. EDMS EDMS 13:49 13:49 MAGNESIUM+C.LAB.BRZ ordered. EDMS EDMS 13:49 13:49 PROTIME (+INR)+COAG.LAB.BRZ ordered. EDMS EDMS 13:49 13:49 Troponin High Sensitivity+C.LAB.BRZ ordered. EDMS EDMS 13:49 13:49 URINE DRUG SCREEN+UC.LAB.BRZ ordered. EDMS EDMS 13:49 13:49 Chest Single View+RAD.RAD.BRZ ordered. EDMS EDMS 15:43 15:43 Head Brain Wo Cont+CT.RAD.BRZ ordered. EDMS EDMS
[2024-04-12 18:24] VITALS: TEMP 98.6
[2024-04-12 18:31] VITALS: BP 126/91; O2SAT 99
--- NOTE | 2024-04-16 12:50 | EKG ---
Test Date: 2024-04-12 Test Time: 14:12:36 Contract Clerk: ROBBY MEASUREMENT RESULTS: Intervals: Rate: 68 OK: 148 QRSD: 80 QT: 400 QTc: 425 [place]: P: 66 OK: 148 QRS: 74 T: 65 INTERPRETIVE STATEMENTS: Normal sinus rhythm Normal ECG Compared to ECG 04/16/2023 23:12:53 No significant changes Electronically Signed On 04-16-24 12:43:15 CDT by James Mustafa
== END 2024-04-12 17:40 | disposition home or self-care (01) ==
LOC: ER 13:06
DX: R07.9 Chest pain, unspecified (principal); R55 Syncope and collapse; R79.89 Other specified abnormal findings of blood chemistry; M79.602 Pain in left arm; R10.9 Unspecified abdominal pain; M79.10 Myalgia, unspecified site
CPT/HCPCS: 93005; 85025; 80048; 36415; 83735; 82550; 81025; 85610; 85379; 80076; 81015; 84484; 80307; 70450; 71045; 93970; 96374; 99285; J7030

== ENCOUNTER 2024-04-15 18:10 | Emergency (ER) | payer BC ==
--- OUTSIDE RECORDS SUMMARY | 2024-04-15 18:14 | XMS REPORT | Continuity of Care Document ---
Author Name Unknown Address [address] [place] [address] [facility] Address [address] [place] [address] Care Team Providers Care Executive Director Global Brand Marketing Name Role Phone TAD LONGORIA JR Primary Care Physician RADHA Torres Attending Clinician Unavailable [email or web address]_Kaalyciaa_S Attending Clinician UnavailRENAE Osorio Attending Clinician Unavailable ROHITH DARLING Attending Clinician Unavailable Rohith Darling MD Attending Clinician [phone] Doctor Unassigned, [place] Attending Clinician [facility] Attending Clinician Unavailable Renae Villarreal PA-C Attending Clinician [phone] Mariana Joy MA Attending Clinician Unavaila NYDIA Ferrer Attending Clinician Unavailable Valentin Montilla DO Attending Clinician [phone] Kwaku Nolasco RN Attending Clinician Unavailab Ayala Carson DO Attending Clinician [phone] NUHA HARPER Attending Clinician Unavailable Provider, [facility] Attending Clinician Un available Nuha Oviedo Attending Clinician [phone] [email or web address]_S Admitting Clinician Wilver godinez Payers Payer Name Policy Type Policy Number Effective Date Expirati on Date Source [place] [id number] 2018 00:00:[place] [id number] 2018 00:00:00 Problems Condition Name Condition Details Condition Category Status Onset Date Resolution Date Last Treatment Date Treating Clinician Comments Source Obesity (BMI 30-39.9) Obesity (BMI 30-39.9) Disease Active 12-07 00:00: 00 [facility] Restless legs Restless legs Disease Active 11-29 00:00: 00 [facility] Infectious mononucleo sis Infectious mononucleo sis Disease Active 11-29 00:00: 00 [facility] Hypertensi ve disorder Hypertensi ve disorder Disease Active 11-29 00:00: 00 [facility] Depressive disorder Depressive disorder Disease Active 11-29 00:00: 00 [facility] Insomnia Insomnia Disease Active 04-30 00:00: 00 [facility] Hypoglycem ia Hypoglycem ia Disease Active 04-30 00:00: 00 [facility] No known active problems No known active problems Disease [facility] Allergies, Adverse Reactions, Alerts Allergy Name Allergy Type Status Severity Reaction(s) Onset Date Inactive Date Treating Clinician Comments Source SULFAMET HOXAZOLE -TRIMETH OPRIM DRUG Active Hives 1-04 00:00: 00 [facility] Sulfamet hoxazole -Trimeth oprim Drug Allergy Active Hives 1-04 00:00: 00 [facility] Sulfa (Sulfona mide Antibiot ics) Drug Allergy Active Hives 8-18 00:00: 00 [facility] SULFA (SULFONA MIDE ANTIBIOT ICS) Drug Class Active Hives 8-18 00:00: 00 [facility] Sulfa (Sulfona mide Antibiot ics) Drug Allergy Active Hives 818 00:00: 00 [facility] NO KNOWN ALLERGIE S Drug Class Active [facility] Social History Social Habit Start Date Stop Date Quantity Comments Source History of tobacco use Cigarette Smoker [facility] Exposure to SARS-CoV-2 (event) 2022-09-02 00:00:00 2022-09-12 12:40:00 Not sure [facility] Alcohol intake 2022-09-12 00:00:00 2022-09-12 00:00:00 Current drinker of alcohol (finding) [facility] Alcohol Comment 2022-08-24 00:00:00 2022-08-24 00:00:00 occasionally [facility] Tobacco use and exposure 2022-08-24 00:00:00 2022-08-24 00:00:00 Smokeless tobacco non-user [facility] History SDOH Alcohol Frequency 2020-04-06 00:00:00 2020-04-06 00:00:00 2 [facility] History SDOH Alcohol Std Drinks 2020-04-06 00:00:00 2020-04-06 00:00:00 99 [facility] History SDOH Alcohol Binge 2020-04-06 00:00:00 2020-04-06 00:00:00 99 [facility] Sex Assigned At 1980 00:00:00 1980 00:00:00 [facility] Smoking Status Start Date Stop Date Source Unknown if ever smoked [facility] Ex-smoker 2022-08-24 00:00:00 2022-08-24 [facility]00[facility]00 [facility] Ordered Medication Name Filled Medication Name Start Date Stop Date Current Medication? Ordering Clinician Indication Dosage Frequency Signature (SIG) Comments Components Source baclofen 10 mg tablet 08-24 14:05: 06 Yes 10mg Take 10 mg by mouth 3 (three) times daily. [facility] miSOPROStoL 200 mcg tablet 08-24 00:00: 00 09-12 00:00 :00 No [id number] Take one tablet night before procedure, then take one tablet morning of procedure [facility] omeprazole 20 mg capsule 08-16 00:00: 00 Yes [facility] ibuprofen (IBU) tablet 400 mg 04-16 14:15: 00 04-16 14:14 :00 No 400mg 400 mg, Oral, ONCE, 1 dose, [facility] 04/16/20 at 0915, CHIDI [facility] methylPREDN ISolone (METHYLPRED DP) 4 mg tablets 04-06 21:02: 36 Yes Take by mouth SEE-INSTRU CTIONS. follow package directions [facility] pantoprazol e sodium (PANTOPRAZO LE ORAL) 04-06 21:02: 36 Yes 40mg Take 40 mg by mouth. [facility] hydroCHLORO thiazide 25 mg tablet 04-06 21:02: 36 Yes 25mg Take 25 mg by mouth daily. [facility] BUPROPION HCL ORAL 04-06 21:02: 36 Yes 150mg Take 150 mg by mouth. [facility] atenoloL 50 mg tablet 04-06 21:02: 36 Yes 50mg Take 50 mg by mouth daily. [facility] busPIRone 7.5 mg tablet 04-06 21:02: 36 Yes 7.5mg Take 7.5 mg by mouth 3 (three) times daily. [facility] baclofen 10 mg tablet 04-06 21:02: 36 Yes 10mg Take 10 mg by mouth 3 (three) times daily. [facility] methylPREDN ISolone (METHYLPRED DP) 4 mg tablets 04-06 16:02: 36 Yes Take by mouth SEE-INSTRU CTIONS. follow package directions [facility] pantoprazol e sodium (PANTOPRAZO LE ORAL) 04-06 16:02: 36 Yes 40mg Take 40 mg by mouth. [facility] hydroCHLORO thiazide 25 mg tablet 04-06 16:02: 36 Yes 25mg Take 25 mg by mouth daily. [facility] BUPROPION HCL ORAL 04-06 16:02: 36 Yes 150mg Take 150 mg by mouth. [facility] atenoloL 50 mg tablet 04-06 16:02: 36 Yes 50mg Take 50 mg by mouth daily. [facility] busPIRone 7.5 mg tablet 04-06 16:02: 36 Yes 7.5mg Take 7.5 mg by mouth 3 (three) times daily. [facility] baclofen 10 mg tablet 04-06 16:02: 36 Yes 10mg Take 10 mg by mouth 3 (three) times daily. [facility] cefTRIAXone (ROCEPHIN) 1,000 mg in NaCl 0.9% (NS) 50 mL MINI-BAG 03-31 23:30: 00 03-31 23:22 :00 No 1000mg 1,000 mg, IV Piggyback, ONCE, 1 dose, 03/31/20 at 1830, 50 mL
Reas on for Anti-Infec tive: Empiric Therapy for Suspected Infection< br>Empiric Therapy Site: Urine
D uration of therapy: 72 hours [facility] iohexol (OMNIPAQUE 350 BULK-100 mL) injection 110 mL 03-31 23:00: 00 03-31 22:42 :00 No 110mL 110 mL, Intravenou s, ONCE, 1 dose, 03/31/20 at 1800, Routine [facility] ondansetron (ZOFRAN (PF)) injection 4 mg 03-31 22:15: 00 03-31 21:32 :00 No 4mg 4 mg, Slow IV Push, ONCE, 1 dose, 03/31/20 at 1715, CHIDI [facility] morpHINE injection 4 mg 03-31 22:15: 00 03-31 21:32 :00 No 4mg 4 mg, Slow IV Push, ONCE, 1 dose, 03/31/20 at 1715, STAT [facility] NaCl 0.9% (NS) bolus infusion 1,000 mL 03-31 21:15: 00 03-31 23:18 :00 No 1000mL at 999 mL/hr, 1,000 mL, IV Infusion, ONCE, 1 dose, 03/31/20 at 1615, CHIDI [facility] methylPREDN ISolone (METHYLPRED DP) 4 mg tablets 03-31 21:00: 59 Yes Take by mouth SEE-INSTRU CTIONS. follow package directions [facility] pantoprazol e sodium (PANTOPRAZO LE ORAL) 03-31 21:00: 59 Yes 40mg Take 40 mg by mouth. [facility] hydroCHLORO thiazide 25 mg tablet 03-31 21:00: 59 Yes 25mg Take 25 mg by mouth daily. [facility] BUPROPION HCL ORAL 03-31 21:00: 59 Yes 150mg Take 150 mg by mouth. [facility] atenoloL 50 mg tablet 03-31 21:00: 59 Yes 50mg Take 50 mg by mouth daily. [facility] busPIRone 7.5 mg tablet 03-31 21:00: 59 Yes 7.5mg Take 7.5 mg by mouth 3 (three) times daily. [facility] baclofen 10 mg tablet 03-31 21:00: 59 Yes 10mg Take 10 mg by mouth 3 (three) times daily. [facility] BUPROPION HCL ORAL 03-31 18:37: 27 Yes 150mg Take 150 mg by mouth. [facility] atenoloL 50 mg tablet 03-31 18:37: 27 Yes 50mg Take 50 mg by mouth daily. [facility] busPIRone 7.5 mg tablet 03-31 18:37: 27 Yes 7.5mg Take 7.5 mg by mouth 3 (three) times daily. [facility] baclofen 10 mg tablet 03-31 18:37: 27 Yes 10mg Take 10 mg by mouth 3 (three) times daily. [facility] methylPREDN ISolone (METHYLPRED DP) 4 mg tablets 03-31 18:37: 27 Yes Take by mouth SEE-INSTRU CTIONS. follow package directions [facility] pantoprazol e sodium (PANTOPRAZO LE ORAL) 03-31 18:37: 27 Yes 40mg Take 40 mg by mouth. [facility] hydroCHLORO thiazide 25 mg tablet 03-31 18:37: 27 Yes 25mg Take 25 mg by mouth daily. [facility] ondansetron (ZOFRAN ODT) 4 mg disintegrat ing tablet 03-31 00:00: 00 Yes [id number] 4mg Take 1 tablet by mouth every 8 (eight) hours as needed for Nausea and Vomiting (N/V). [facility] acetaminoph en-codeine (TYLENOL-CO DEINE #3) 300-30 mg tablet 03-31 00:00: 00 Yes [id number] 1{tbl} Take 1 tablet by mouth every 4 (four) hours as needed for Pain (scale 1-3). Indication s: acute pain [facility] cefpodoxime 100 mg tablet 03-31 00:00: 00 04-08 04:59 :00 No [id number] 100mg Take 1 tablet by mouth 2 (two) times daily for 7 days. [facility] clonazePAM 0.5 mg tablet 03-23 00:00: 00 Yes TAKE 1 TABLET (0.5 MG) BY MOUTH 2 TIMES PER DAY NEEDED [facility] Vital Signs Vital Name Observation Time Observation Value Comments S ource Systolic blood pressure 2022-09-12 19:27:00 108 mm[Hg] [facility] Diastolic blood pressure 2022-09-12 19:27:00 64 mm[Hg] [facility] Heart rate 2022-09-12 19:27:00 65 /min [facility] Body temperature 2022-09-12 19:27:00 36.61 Marixa [facility] Body height 2022-09-12 19:27:00 152.4 cm [facility] Body weight 2022-09-12 19:27:00 79.924 kg [facility] BMI 2022-09-12 19:27:00 34.41 kg/m2 [facility] Systolic blood pressure 2022-08-24 19:51:00 123 mm[Hg] [facility] Diastolic blood pressure 2022-08-24 19:51:00 88 mm[Hg] [facility] Heart rate 2022-08-24 19:51:00 58 /min [facility] Body temperature 2022-08-24 19:51:00 36.67 [place] [facility] Respiratory rate 2022-08-24 19:51:00 17 /min [facility] Body height 2022-08-24 19:51:00 161.3 cm [facility] Body weight 2022-08-24 19:51:00 78.926 kg [facility] BMI 2022-08-24 19:51:00 30.34 kg/m2 [facility] Systolic blood pressure 2020-12-07 15:47:00 100 mm[Hg] [facility] Diastolic blood pressure 2020-12-07 15:47:00 73 mm[Hg] [facility] Heart rate 2020-12-07 15:47:00 62 /min [facility] Body temperature 2020-12-07 15:47:00 36.94 [place] [facility] Respiratory rate 2020-12-07 15:47:00 18 /min [facility] Body height 2020-12-07 15:47:00 161.3 cm [facility] Body weight 2020-12-07 15:47:00 92.987 kg [facility] BMI 2020-12-07 15:47:00 35.74 kg/m2 [facility] Systolic blood pressure 2020-04-16 13:35:00 129 mm[Hg] [facility] Diastolic blood pressure 2020-04-16 13:35:00 89 mm[Hg] [facility] Heart rate 2020-04-16 13:35:00 96 /min [facility] Body temperature 2020-04-16 13:35:00 37 [place] [facility] Respiratory rate 2020-04-16 13:35:00 16 /min [facility] Body height 2020-04-16 13:35:00 160 cm [facility] Body weight 2020-04-16 13:35:00 90.719 kg [facility] BMI 2020-04-16 13:35:00 35.43 kg/m2 [facility] Oxygen saturation in Arterial blood by Pulse oximetry 2020-04-16 13:35:00 98 /min [facility] Systolic blood pressure 2020-04-06 20:54:00 111 mm[Hg] [facility] Diastolic blood pressure 2020-04-06 20:54:00 75 mm[Hg] [facility] Heart rate 2020-04-06 20:54:00 74 /min [facility] Body temperature 2020-04-06 20:54:00 37.22 [place] [facility] Respiratory rate 2020-04-06 20:54:00 18 /min [facility] Body height 2020-04-06 20:54:00 161.3 cm [facility] Body weight 2020-04-06 20:54:00 90.719 kg [facility] BMI 2020-04-06 20:54:00 34.87 kg/m2 [facility] Systolic blood pressure 2020-04-01 00:00:00 118 mm[Hg] [facility] Diastolic blood pressure 2020-04-01 00:00:00 89 mm[Hg] [facility] Heart rate 2020-04-01 00:00:00 61 /min [facility] Oxygen saturation in Arterial blood by Pulse oximetry 2020-04-01 00:00:00 97 /min [facility] Respiratory rate 2020-03-31 23:00:00 20 /min [facility] Body temperature 2020-03-31 20:51:00 37.06 Marixa [facility] Body height 2020-03-31 20:51:00 160 cm [facility] Body weight 2020-03-31 20:51:00 89.812 kg [facility] BMI 2020-03-31 20:51:00 35.07 kg/m2 [facility] Systolic blood pressure 2020-03-31 18:34:00 129 mm[Hg] [facility] Diastolic blood pressure 2020-03-31 18:34:00 91 mm[Hg] [facility] Heart rate 2020-03-31 18:31:00 91 /min [facility] Body temperature 2020-03-31 18:31:00 36.39 Marixa [facility] Respiratory rate 2020-03-31 18:31:00 20 /min [facility] Body height 2020-03-31 18:31:00 160 cm [facility] Body weight 2020-03-31 18:31:00 89.812 kg [facility] BMI 2020-03-31 18:31:00 35.07 kg/m2 [facility] Oxygen saturation in Arterial blood by Pulse oximetry 2020-03-31 18:31:00 98 /min [place] [facility] Procedures Procedure Date / Time Performed Performing Clinician Source DISCLOSURE AND CONSENT MEDICAL & SURGICAL PROCEDURES - FEMALM 2022-09-12 06:01:00 Doctor Unassigned, [place] [facility] POCT TEST 2022-09-12 00:00:00 Rohith Darling [facility] ASSIGNMENT OF BENEFITS 2022-08-24 19:47:29 Docto r Unassigned, [place] [facility] EXTERNAL PROVIDER RECORDS 2020-12-11 05:01:00 Do ctor Unassigned, [place] [facility] US PELVIS COMPLETE WITH TRANSVAGINAL 2020-11-09 16:14:22 Renae Villarreal [facility] EXTERNAL MAMMOGRAM 2020-10-26 13:37:00 Doctor Un assigned, [place] [facility] NOTICE OF PRIVACY PRACTICES 2020-04-16 13:31:26 Doctor Unassigned, [place] [facility] CONSENT/REFUSAL FOR DIAGNOSIS AND TREATMENT 2020-04-16 13:31:16 Doctor Unassigned, [place] [facility] NO SHOW OR MISSED APPOINTMENT POLICY ACKNOWLEDGEMENT 2020-04-06 20:10:36 Doctor Unassigned, [place] [facility] CT ABDOMEN PELVIS W CONTRAST 2020-03-31 22:44:57 Ayala Saini [facility] LIPASE 2020-03-31 21:33:00 [facility] (59120) (ALB,T.PRO,BILI T,BU/BC,ALT,AST,ALK PHOS) 2020-03-31 21:33:00 Ayala Saini [facility] BASIC METABOLIC PANEL (NA, K, CL, CO2, GLUCOSE, BUN, CREATININE, CA) 2020-03-31 21:33:00 Ayala Saini [facility] CBC WITH DIFF 2020-03-31 21:33:00 [facility] 2020-03-31 21:33:00 [facility] NOTICE OF PRIVACY PRACTICES 2020-03-31 20:44:29 Doctor Unassigned, [place] [facility] CONSENT/REFUSAL FOR DIAGNOSIS AND TREATMENT 2020-03-31 20:44:20 Doctor Unassigned, [place] [facility] POCT TEST 2020-03-31 19:07:00 Nuha Harper [facility] POCT URINALYSIS 2020-03-31 18:41:00 Nuha Harper [facility] Encounters Start Date/Time End Date/Time Encounter Type Admission Type Attending Clinicians Care Facility Care Department Encounter ID Source 2023-03-13 13:30:00 Inpatient RADHA MILNER [facility] [id number] [facility] 2021-06-11 15:40:06 Emergency [facility] [id number] [facility] 2021-06-11 13:11:54 Emergency [facility] [id number] [facility] 2023-04-10 11:32:00 2023-04-10 11:32:00 Outpatient RADHA MILNER [facility] [id number] [facility] 2023-03-29 00:00:00 2023-03-29 00:00:00 Outpatient GC_GCBZW_Ka diyala_S PRIV PRIV [id number] [facility] 2023-02-28 00:00:00 2023-02-28 00:00:00 Outpatient GC_GCBZW_Ka diyala_S PRIV PRIV [id number] [facility] 2022-09-27 13:15:00 2022-09-27 13:15:00 Outpatient RENAE MOON [facility] [id number] [facility] 2022-09-12 13:00:00 2022-09-12 13:50:29 Outpatient ROHITH OCONNELL [facility] [id number] [facility] 2022-09-12 13:00:00 2022-09-12 13:50:29 Office Visit Rohith Darling [facility] [id number] 350.1.13.10 4.2.7.2.686 [id number] [facility] 2022-09-12 00:00:00 2022-09-12 00:00:00 Orders Only Doctor Unassigned, [place] [facility] 1..840.114 350.1.13.10 4.2.7.2.686 [id number] [facility] 2022-09-05 00:00:00 2022-09-05 00:00:00 [facility] [id number] [facility] 2022-09-01 10:15:00 2022-09-01 10:15:00 Outpatient R ROHITH DARLING [facility] [id number] [facility] 2022-08-24 15:00:00 2022-08-24 15:15:00 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, 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 Cherelle Renae [facility] [id number] 350.1.13.10 4.2.7.2.686 [id number] [facility] 2022-08-24 14:30:00 2022-08-24 14:36:25 Outpatient R RENAE VILLARREAL [facility] [id number] [facility] 2022-08-24 14:30:00 2022-08-24 14:36:25 Office Visit Cherelle Renae [facility] [id number] 350.1.13.10 4.2.7.2.686 [id number] [facility] 2022-08-24 00:00:00 2022-08-24 00:00:00 Orders Only Doctor Unassigned, [place] [facility] [id number] 350.1.13.10 4.2.7.2.686 [id number] [facility] 2022-08-17 00:00:00 2022-08-17 00:00:00 Pre Visit Outreach Mariana Joy [id number] 350.1.13.10 4.2.7.2.686 [id number] [facility] 2021-04-29 14:30:00 2021-04-29 14:30:00 Outpatient NYDIA VARGAS [facility] [id number] [facility] 2021-04-12 09:30:00 2021-04-12 09:30:00 Outpatient Deshaun [facility] [id number] [facility] 2020-12-11 00:00:00 2020-12-11 00:00:00 Orders Only Doctor Unassigned, [place] [facility] 1.2840.114 350.1.13.10 4.2.7.2.686 [id number] [facility] 2020-12-07 10:16:00 2020-12-07 11:11:19 [facility] 1.2.114 350.1.13.10 4.2.7.2.686 [id number] [facility] 2020-12-07 10:30:00 2020-12-07 10:30:00 Outpatient Deshaun [facility] [id number] [facility] 2020-11-09 10:24:19 2020-11-09 23:59:00 [facility] 1.840.114 350.1.13.10 4.2.7.2.686 [id number] [facility] 2020-11-09 00:00:00 2020-11-09 00:00:00 Outpatient R JANIRENAE NEGRON [facility] [id number] [facility] 2020-11-02 00:00:00 2020-11-02 00:00:00 Patient Outreach RoldanValentin [facility] 1.2.840.114 350.1.13.10 4.2.7.2.686 [id number] [facility] 2020-10-19 00:00:00 2020-10-19 00:00:00 Telephone Renae Villarreal [facility] 1.2.840.114 350.1.13.10 4.2.7.2.686 [id number] [facility] 2020-04-21 00:00:00 2020-04-21 00:00:00 Case Management Renae Villarreal [facility] 1.2.840.114 350.1.13.10 4.2.7.2.686 [id number] [facility] 2020-04-21 00:00:00 2020-04-21 00:00:00 Case Management Renae Villarreal [facility] 1.2.840.114 350.1.13.10 4.2.7.2.686 [id number] 2020-04-17 00:00:00 2020-04-17 00:00:00 Telephone Kwaku Nolasco [facility] 1.2.840.114 350.1.13.10 4.2.7.2.686 [id number] [facility] 2020-04-16 08:38:00 2020-04-16 09:34:00 Emergency Ayala Saini [facility] 1.2.840.114 350.1.13.10 4.2.7.2.686 [id number] [facility] 2020-04-06 15:11:54 2020-04-06 16:41:11 Office Visit Renae Villarreal [facility] 1.2.840.114 350.1.13.10 4.2.7.2.686 [id number] [facility] 2020-04-06 15:30:00 2020-04-06 15:30:00 Outpatient R [facility] [id number] [facility] 2020-04-06 00:00:00 2020-04-06 00:00:00 Orders Only Doctor Unassigned, [place] [facility] 1.2840.114 350.1.13.10 4.2.7.2.686 [id number] [facility] 2020-04-03 00:00:00 2020-04-03 00:00:00 Outpatient NUHA WANG [facility] [id number] [facility] 2020-03-31 16:02:00 2020-03-31 19:06:00 Emergency Ayala Saini [facility] 1.840.114 350.1.13.10 4.2.7.2.686 [id number] [facility] 2020-03-31 13:23:28 2020-03-31 15:00:02 Urgent Care Provider, [facility] Nuha Harper [facility] [address] [facility] 1..840.114 350.1.13.10 4.2.7.2.686 [id number] [facility] 2020-03-31 13:40:00 2020-03-31 13:40:00 [id number] 2020-03-31 00:00:00 2020-03-31 00:00:00 Letter (Out) Doctor Unassigned, [place] [facility] [id number] [facility] 2020-03-31 00:00:00 2020-03-31 00:00:00 Orders Only Doctor Unassigned, [place] [facility] [id number] [facility] Results Test Description Test Time Test Comments Results Result Co mments Source [facility] [id number] 19:23:00* Test Item Value Reference Range Interpretation Comme nts POCT PREG (test code = 1605) Negative On board controls acceptable with C Line (test code = 3574) Yes POCT PREG LOT # (test code = 3575) POCT PREG TEST DATE ( test code = 3576) [facility] PEL[facility] COMPLETE WITH [id number] 17:23:46Endometrial stripe measures up to 1.4 cm [...] 2.3 cm probably represents acyst or crenulated follicle.[facility] [id number] 22:01:00* Test Item Value Reference Range Interpretation Comme nts APPEARANCE (test code = 8819172588) Hazy Clear A COLOR (test code = 5698277909) Yellow Yellow PH (test code = 6376729201) 4.8-8.0 SP GRAVITY (test code = 4418328444) 1.003-1.030 GLU U QUAL (test code = 1783752105) Normal Normal BLOOD (test code = 6729189438) Negative Negative INTERFERENCE FRO M ASCORBIC ACID MAY CAUSE FALSE NEGATIVE RESULT KETONES (test code = 2427830248) Negative Negative PROTEIN (test code = 2887-8) 30 mg/dL Negative A UROBILIN (test code = 3491192040) Normal Normal BILIRUBIN (test code = 9549824157) Negative Negative NITRITE (test code = 2889852847) Negative Negative LEUK JOY (test code = 9665555074) 75/uL Negative A RBC/HPF (test code = 6366083552) See_Comment [Automated AssayMetrics] The system which generated this result transmitted reference range: 0 - 3 HPF. The reference range was not used to interpret this result as normal/abnormal. WBC/HPF (test code = 9881707569) See_Comment [Automated AssayMetrics] The system which generated this result transmitted reference range: 0 - 5 HPF. The reference range was not used to interpret this result as normal/abnormal. BACTERIA (test code = 4260301462) Few Negative A MUCOUS (test code = 3550976155) Slight Negative LPF A SQ EPITH (test code = 5418975522) HPF HYAL CAST (test code = 7442061121) See_Comment [Automated AssayMetrics] The system which generated this result transmitted reference range: <=2 LPF. The reference range was not used to interpret this result as normal/abnormal. Lab Interpretation (test code = 98215-6) Abnormal [facility] Metabolic Panel (NA, K, CL, CO2, GLUCOSE, BUN, CREATININE, CA)2020-03-31 22:00:00* Test Item Value Reference Range Interpretation Comme nts NA (test code = 2441035427) 138 mmol/L 135-145 K (test code = 2296068218) 4.6 mmol/L 3.5-5 CL (test code = 0995755342) 106 mmol/L 98-108 CO2 TOTAL (test code = 9364753893) 21 mmol/L 23-31 L AGAP (test code = 8167753212) 2-16 BUN (test code = 3309421564) 18 mg/dL 7-23 GLUCOSE (test code = 9134206007) 111 mg/dL 70-110 H CREATININE (test code = 2255965636) 1.01 mg/dL 0.5-1.04 CALCIUM (test code = 4653158612) 9.7 mg/dL 8.6-10.6 eGFR Calculation (Non-) (test code = 2412038146) mL/min/1.73m2 eGFR Calculation () (test code = 9388742785) mL/min/1.73m2 CHRISTIAN (test code = CHRISTIAN) Association [...] imaging tests). Lab Interpretation (test code = 75842-4) Abnormal [facility] (ALB, T.PRO, BILI T, BU/BC, ALT, AST, ALK PHOS)2020-03-31 22:00:00* Test Item Value Reference Range Interpretation Comme nts TOTAL BILI (test code = 4269026495) 0.7 mg/dL 0.1-1.1 BILI UNCON (test code = 9038214261) 0.6 mg/dL 0.1-1.1 BILI CONJ (test code = 6802218465) 0.0 mg/dL 0-0.3 T PROTEIN (test code = 9833540945) 8.8 g/dL 6.3-8.2 H ALBUMIN (test code = 2662867853) 4.8 g/dL 3.5-5 ALK PHOS (test code = 6928070303) 77 U/L 34-122 ALTv (test code = 1742-6) 38 U/L 5-35 H AST(SGOT) (test code = 0707899763) 57 U/L 13-40 H Lab Interpretation (test cod e = 76448-3) Abnormal [facility] Campus[facility]ase [id number] 22:00:00* Test Item Value Reference Range Interpretation Comme nts LIPASE (test code = 0778646666) 147 U/L 0-220 Lab Interpretation (test cod e = 48801-3) Normal [facility] with [id number] 21:49:00* Test Item Value Reference Range Interpretation [...] 34.6 g/dL 31.6-35.1 RDW-SD (test code = 14931-8) 42.3 fL 39-49.9 RDW-CV (test code = 788-0) 13.2 % 12-15.5 PLT (test code = 777-3) See_Comment [Automated messa ge] The system which generated this result transmitted reference range: 166 - 358 10*3/?L. The reference range was not used to interpret this result as normal/abnormal. MPV (test code = 12147-5) 9.9 fL 9.5-12.9 NRBC/100 WBC (test code = 9605607072) See_Comment [Automated PEVESA ssage] The system which generated this result transmitted reference range: 0.0 - 10.0 /100 WBCs. The reference range was not used to interpret this result as normal/abnormal. NRBC x10^3 (test code = 7942108842) <0.01 See_Comment [Automated messa ge] The system which generated this result transmitted reference range: 10*3/?L. The reference range was not used to interpret this result as normal/abnormal. GRAN MAT (NEUT) % (test code = 770-8) 79.9 % IMM GRAN % (test code = 6548088910) 0.50 % LYMPH % (test code = 736-9) 14.7 % MONO % (test code = 5905-5) 3.6 % EOS % (test code = 713-8) 0.7 % BASO % (test code = 706-2) 0.6 % GRAN MAT x10^3(ANC) (test code = 3955423663) 8.63 10*3/uL 1.88-7.09 H IMM GRAN x10^3 (test code = 7010620258) 0.05 10*3/uL 0-0.06 LYMPH x10^3 (test code = 731-0) 1.59 10*3/uL 1.32-3.29 MONO x10^3 (test code = 742-7) 0.39 10*3/uL 0.33-0.92 EOS x10^3 (test code = 711-2) 0.08 10*3/uL 0.03-0.39 BASO x10^3 (test code = 704-7) 0.07 10*3/uL 0.01-0.07 Lab Interpretation (test code = 16060-2) Abnormal [facility] [id number] 19:11:00* Test Item Value Reference Range Interpretation Comme nts POCT PREG (test code = 1605) Negative On board controls acceptable with C Line (test code = 3574) Yes POCT PREG LOT # (test code = 3575) POCT PREG TEST DATE (test code = 3575) CHRISTIAN (test code = CHRISTIAN) accurate developme nt and interpretation of all internal controls Lab Interpretation (test code = 43179-6) Normal [facility] [id number] 19:11:00* Test Item Value Reference Range Interpretation Comme nts POCT PREG (test code = 1605) Negative On board controls acceptable with C Line (test code = 3574) Yes POCT PREG LOT # (test code = 3575) POCT PREG TEST DATE (test code = 3575) CHRISTIAN (test code = CHRISTIAN) accurate developme nt and interpretation of all internal controls Lab Interpretation (test code = 92180-5) [facility] [id number] 19:11:00* Test Item Value Reference Range Interpretation Comme nts POCT PREG (test code = 1605) Negative On board controls acceptable with C Line (test code = 3574) Yes POCT PREG LOT # (test code = 3575) POCT PREG TEST DATE (test code = 3576) CHRISTIAN (test code = CHRISTIAN) accurate developme nt and interpretation of all internal controls Lab Interpretation (test code = 38034-3) [facility] [id number] 19:11:00* Test Item Value Reference Range Interpretation Comme nts POCT PREG (test code = 1605) Negative On board controls acceptable with C Line (test code = 3574) Yes POCT PREG LOT # (test code = 3575) POCT PREG TEST DATE (test code = 3576) CHRISTIAN (test code = CHRISTIAN) accurate developme nt and interpretation of all internal controls Lab Interpretation (test code = 78919-5) [facility] [id number] 19:11:00* Test Item Value Reference Range Interpretation Comme nts POCT PREG (test code = 1605) Negative On board controls acceptable with C Line (test code = 3574) Yes POCT PREG LOT # (test code = 3575) POCT PREG TEST DATE (test code = 3576) CHRISTIAN (test code = CHRISTIAN) accurate developme nt and interpretation of all internal controls Lab Interpretation (test code = 98125-8) [facility] URINALYSIS W SPECIFIC [id number] 18:42:00* Test Item Value Reference Range Interpretation [...] internal controls Lab Interpretation (test code = 90144-5) [facility] URINALYSIS W SPECIFIC [id number] 18:42:00* Test Item Value Reference Range Interpretation [...] internal controls Lab Interpretation (test code = 90741-5) [facility] URINALYSIS W SPECIFIC [id number] 18:42:00* Test Item Value Reference Range Interpretation [...] internal controls Lab Interpretation (test code = 35422-6) [facility] URINALYSIS W SPECIFIC [id number] 18:42:00* Test Item Value Reference Range Interpretation [...] internal controls Lab Interpretation (test code = 89529-7) Normal [facility] URINALYSIS W SPECIFIC [id number] 18:42:00* Test Item Value Reference Range Interpretation [...] internal controls Lab Interpretation (test code = 17081-1) Normal [facility] W SPECIFIC [id number] 18:42:00* Test Item Value Reference Range Interpretation [...] internal controls Lab Interpretation (test code = 97805-1) [facility]"
[2024-04-15] MEDS ORDERED: ONDANSETRON 4 MG/2 ML VIAL ONE (18:52)
[2024-04-15] MEDS ORDERED: NITROGLYCERIN 0.4 MG/TAB SL ONE (18:53)
[2024-04-15] MEDS ORDERED: ASPIRIN 81 MG CHEWABLE TABLET ONE (18:53)
[2024-04-15] MEDS ORDERED: MORPHINE 4 MG/ML SYR ONE (18:54)
--- NOTE | 2024-04-15 18:54 | RAD REPORT ---
EXAM DESCRIPTION: RAD - Chest Single View - 04/15/2024 6:45 pm CLINICAL HISTORY: CHEST PAIN COMPARISON: Chest Single View dated 04/12/2024; Chest Single View dated 04/16/2023; Chest Single View d ated 01/29/2023; Chest Single View dated 04/18/2020 FINDINGS: Lines: None. Lungs: No evidence of edema or pneumonia. Pleural: No significant pleural effusions or pneumothorax. Cardiac: The heart size is within normal limits. Mediastinum: Within normal limits. Bones: No acute fractures. Other: None IMPRESSION: No acute cardiopulmonary disease.
[2024-04-15 19:02] LABS: Absolute Basophils 0.1 K/uL (0-0.5); Absolute Eosinophils 0.3 K/uL (0-0.5); Absolute Lymphocytes (CBC) 2.5 K/uL (0.7-4.9); Absolute Monocytes 0.8 K/uL (0.1-1.3); Absolute Neutrophil 6.5 K/uL (1.8-8.0); Basophils % 0.8 % (0-1.3); Eosinophils % 2.6 % (0-4.4); Hematocrit 48.8 % (36.0-45.0); Hemoglobin 16.4 g/dL (12.0-15.0); Lymphocytes % 24.4 % (15.3-44.8); MCH 31.5 pg (27.0-35.0); MCHC 33.6 g/dL (32.0-36.0); MCV 93.7 fL (80-100); MPV 7.8 fL (7.6-11.3); Neutrophils % 64.2 % (41.7-73.7); Platelets 306 thou/uL (152-406); RBC Red Blood Cell Count 5.21 M/uL (3.86-4.86); Red Cell Distribution Width 13.2 % (12.1-15.2)
[2024-04-15 19:16] LABS: ALT/SGPT 33 U/L (13-56); AST/SGOT 24 U/L (15-37); Albumin 4.1 g/dL (3.4-5.0); Albumin/Globulin Ratio 0.9 (1.1-1.8); Alkaline Phosphatase 77 U/L (45-117); Anion Gap 10.8 mEq/L (5.0-15.0); BUN Blood Urea Nitrogen 20 mg/dL (7-18); Bicarbonate 25 mEq/L (21-32); Bilirubin Total 0.3 mg/dL (0.2-1.0); Globulin 4.4 g/dL (2.3-3.5); Glomerular Filtration Rate 57 ml/min (=/>90); Glucose Level 107 mg/dL (74-106); Magnesium 1.8 mg/dL (1.6-2.4); Potassium 3.8 mEq/L (3.5-5.1); Protein, Total 8.5 g/dL (6.4-8.2); Sodium Level 133 mEq/L (136-145); Troponin High Sensitivity 23.8 pg/mL (<58.9)
[2024-04-15 19:17] LABS: Bilirubin Direct < 0.2 mg/dL (0-0.2); Bilirubin Indirect, Calculated 0.1 mg/dL (0.2-0.8)
[2024-04-15 19:55] LABS: Creatine Phosphokinase 162 U/L (26-192)
--- NOTE | 2024-04-15 20:30 | RAD REPORT ---
EXAM DESCRIPTION: CTAngio Aorta For Dissection - 04/15/2024 8:09 pm CLINICAL HISTORY: chest, back pain COMPARISON: Chest For Pe Angio dated 01/29/2023; Abdomen WWo Cont dated 08/16/2021 TECHNIQUE: CTA of the chest, abdomen, and pelvis was performed with IV contrast. 3D maximum intensit y pixel (MIP) reconstructions were created All CT scans are performed using dose optimization technique as appropriate and may include automated exposure control or mA/KV adjustment according to patient size. FINDINGS: Thorax: Chest Wall: 15 mm left thyroid nodule. This is indeterminate. An 18 mm nodule is present in the right lobe. Lungs: No acute abnormality. Pleura: No effusions or pneumothorax. Cyndi/Mediastinum: No lymphadenopathy. Aorta/Pulmonary Arteries: Unremarkable Heart: Normal size. Abdomen/Pelvis: Liver: Vascular lesion in segment 3 liver has been previously evaluated. This measures 2.6 cm and lik tripp represents focal nodular hyperplasia. The lesion has been previously evaluated with MRI. It is si milar in size Biliary: Cholecystectomy Stomach: No significant focal abnormality. Duodenum: No significant focal abnormality. Pancreas: No significant abnormality. Spleen: No significant abnormality. Adrenal: No suspicious lesions. Kidney/ureter: No hydronephrosis. No renal calculi. Retroperitoneum: No retroperitoneal adenopathy. Vascular: No aneurysm. Bowel: Moderate rectal stool.. Peritoneum: No ascites or free air. Bladder: Grossly unremarkable. Reproductive: No adnexal masses. Bones: No acute fracture. Other: n/a IMPRESSION: No acute findings within the chest, abdomen, or pelvis. Specifically, no thoracic aortic aneurysm, thoracic dissection, or pulmonary embolus identified. Bilateral thyroid nodules. Recommend nonemergent thyroid ultrasound.
[2024-04-15 20:41] LABS: Specific Gravity 1.007 (1.005-1.030); Sqamous Epithelial <5 /HPF (None Seen); Urine Bacteria <20 /HPF (<20); Urine Bilirubin NEGATIVE (Negative); Urine Blood Negative (Negative); Urine Clarity Clear (Clear); Urine Color Colorless (Yellow); Urine Culture Reflex Order NOT NEEDED; Urine Glucose NEGATIVE (Negative); Urine Ketones NEGATIVE (Negative); Urine Micro Reflex YN NO BILL MICROSCOPIC; Urine Nitrite NEGATIVE (Negative); Urine Protein NEGATIVE (Negative); Urine RBC <5 /HPF (None Seen); Urine Urobilinogen Normal (Normal); Urine WBC <5 /HPF (<5); Urine pH 7.5 (5.0-7.0)
--- NOTE | 2024-04-15 21:28 | ER ---
Nurse's Notes [facility] Name: Amanda Guillaume Age: 43 yrs Sex: Female : 1980 Arrival Date: 04/15/2024 Time: 18:10 Bed 5 Private MD: Diagnosis: Chest pain, unspecified;Thyroid Nodules Presentation: 04/15 18:22 Chief complaint: Patient states: CHEST PRESSURE X 30 MIN WITH BACK PAIN AND HIGH BP. db Coronavirus screen: Client denies travel out of the [place] in the last 14 days. At this time, the client does not indicate any symptoms associated with coronavirus-19. Ebola Screen: Patient negative for fever greater than or equal to 101.5 degrees Fahrenheit, and additional compatible Ebola Virus Disease symptoms Patient denies exposure to infectious person. Patient denies travel to an Ebola-affected area in the 21 days before illness onset. No symptoms or risks identified at this time. Initial Sepsis Screen: Does the patient meet any 2 criteria? No. Patient's initial sepsis screen is negative. Does the patient have a suspected source of infection? No. Patient's initial sepsis screen is negative. Risk Assessment: Do you want to hurt yourself or someone else? Patient reports no desire to harm self or others. Onset of symptoms was April 15, 2024. 18:22 Method Of Arrival: Ambulatory db 18:22 Acuity: KATHI 2 db Triage Assessment: 18:24 General: Appears in no apparent distress. uncomfortable, Behavior is cooperative, db anxious. Pain: Complains of pain in chest. Pain: Pain radiates to left arm. Neuro: Level of Consciousness is awake, alert, obeys commands, Oriented to person, place, time, situation. Cardiovascular: Reports chest pain, Capillary refill < 3 seconds. 18:24 Respiratory: Airway is patent Respiratory effort is even, unlabored, Respiratory db pattern is regular, symmetrical. VP HR DIVERSITY: 18:25 LMP N/A - Post-menopause, Not db Historical: - Allergies: 18:24 adhesive; db 18:24 Sulfa (Sulfonamide Antibiotics); db 18:24 Bactrim; db - PMHx: 18:24 Hypertension; Anxiety; Depression; db - PSHx: 18:24 section; heart cath; Tummy tuck; db - Immunization history:: Adult Immunizations unknown. - Infectious Disease History:: Denies. - Social history:: Smoking status: Patient denies any tobacco usage or history of. - Family history:: not pertinent. Screenin:41 [facility] ED Fall Risk Assessment (Adult) History of falling in the last 3 months, dd2 including since admission No falls in past 3 months (0 pts) Confusion or Disorientation No (0 pts) Intoxicated or Sedated No (0 pts) Impaired Gait No (0 pts) Mobility Assist Device Used No (0 pt) Altered Elimination No (0 pt) Score/Fall Risk Level 0 - 2 = Low Risk Oriented to surroundings, Maintained a safe environment, Hourly rounding (assess needs \T\ fall precautionary measures) done. Abuse screen: Denies threats or abuse. Nutritional screening: No deficits noted. Tuberculosis screening: No symptoms or risk factors identified. Assessment: 18:41 General: Appears in no apparent distress. Behavior is calm, cooperative, appropriate dd2 for age. Pain: Complains of pain in anterior aspect of left upper chest and mid-sternal area Pain radiates to left jaw and left arm Pain currently is 5 out of 10 on a pain scale. Quality of pain is described as heavy, pressure, Pain began 2-3 days ago. Neuro: Level of Consciousness is awake, alert, obeys commands, Oriented to person, place, time, situation, Appropriate for age. Cardiovascular: Reports chest pain, Patient's skin is warm and dry. Rhythm is sinus rhythm. Respiratory: No deficits noted. Airway is patent. GI: No signs and/or symptoms were reported involving the gastrointestinal system. Abdomen is non-distended, Abd is soft and non tender. : No deficits noted. No signs and/or symptoms were reported regarding the genitourinary system. EENT: No deficits noted. No signs and/or symptoms were reported regarding the EENT system. Derm: No deficits noted. No signs and/or symptoms reported regarding the dermatologic system. Musculoskeletal: No deficits noted. No signs and/or symptoms reported regarding the musculoskeletal system. 19:13 Reassessment: Patient appears in no apparent distress at this time. Patient and/or bm8 family updated on plan of care and expected duration. Pain level reassessed. Patient is alert, oriented x 3, equal unlabored respirations, skin warm/dry/pink. Patient states symptoms have improved. General: Appears in no apparent distress. comfortable, Behavior is calm, cooperative, appropriate for age. Pain: Complains of pain in head Pain currently is 2 out of 10 on a pain scale. Quality of pain is described as aching. Neuro: Level of Consciousness is awake, alert, obeys commands, Oriented to person, place, time, situation, Appropriate for age. Cardiovascular: Capillary refill < 3 seconds Patient's skin is warm and dry. Respiratory: Airway is patent Trachea midline Respiratory effort is even, unlabored, Respiratory pattern is regular, symmetrical, Breath sounds are clear bilaterally. GI: Reports nausea. : No signs and/or symptoms were reported regarding the genitourinary system. : No signs and/or symptoms were reported regarding the genitourinary system. EENT: No signs and/or symptoms were reported regarding the EENT system. Derm: No signs and/or symptoms reported regarding the dermatologic system. Musculoskeletal: No signs and/or symptoms reported regarding the musculoskeletal system. 21:40 Reassessment: Patient appears in no apparent distress at this time. Patient and/or bm8 family updated on plan of care and expected duration. Pain level reassessed. Patient is alert, oriented x 3, equal unlabored respirations, skin warm/dry/pink. Patient denies pain at this time. Patient states feeling better. Patient states symptoms have improved. Vital Signs: 18:22 BP 180 / 103; Pulse 67; Resp 18; Temp 98.5(O); Pulse Ox 100% ; Weight 68.04 kg (M); db Height 5 ft. 4 in. ; 18:41 BP 168 / 97; Pulse 61; Resp 16; Pulse Ox 100% ; dd2 19:02 BP 140 / 102; Pulse 74; Resp 16; Pulse Ox 98% ; dd2 19:13 BP 129 / 63; Pulse 78; Resp 17; Temp 98.5; Pulse Ox 97% ; Pain 2/10; bm8 21:40 BP 118 / 85; Pulse 73; Resp 17; Temp 98.5; Pulse Ox 96% on R/A; Pain 2/10; bm8 18:22 Body Mass Index 25.75 (68.04 kg, 162.56 cm) db 19:13 Pain Scale: Adult bm8 21:40 Pain Scale: Adult bm8 [place] Coma Score: 19:13 Eye Response: spontaneous(4). Motor Response: obeys commands(6). Verbal Response: bm8 oriented(5). Total: 15. 21:40 Eye Response: spontaneous(4). Motor Response: obeys commands(6). Verbal Response: bm8 oriented(5). Total: 15. ED Course: 18:12 Patient arrived in ED. ra3 18:16 Kaushik Zepeda MD is Attending Physician. rt 18:24 Triage completed. db 18:25 Arm band placed on right wrist. Patient placed in an exam room. db 18:32 PAULINA MELGAR, RN is Primary Nurse. dd2 18:39 Initial lab(s) drawn, by me, sent to lab. Inserted saline lock: 20 gauge in left zm antecubital area, using aseptic technique. Blood collected. Flushed with 10 mL NS. 18:39 Basic Metabolic Panel Sent. zm 18:39 CBC with Diff Sent. zm 18:39 LFT's Sent. zm 18:39 Magnesium Sent. zm 18:39 Troponin HS Sent. zm 18:41 Patient has correct armband on for positive identification. Bed in low position. Call dd2 light in reach. Side rails up X 1. Provided Education on: call light, procedures, labs, medication. Client placed on continuous cardiac and pulse oximetry monitoring. NIBP monitoring applied. environmental monitoring specialist on. Door closed. Verbal reassurance given. 18:41 No provider procedures requiring assistance completed. EKG done, by ED staff, reviewed dd2 by Kaushik Zepeda MD. Patient maintains SpO2 saturation greater than 95% on room air. 18:41 X-ray(s) taken. dd2 18:47 XRAY Chest (1 view) In Process Unspecified. EDMS 20:03 Attending Physician role handed off by Kaushik Zepeda MD ec2 20:03 Jose Alejandro Ding MD is Attending Physician. ec2 20:10 Urine collected: clean catch specimen, clear. bm8 20:11 CT Aorta for Dissection In Process Unspecified. EDMS 21:23 EKG done, by ED staff, reviewed by Jose Alejandro Ding MD. oe 21:40 IV discontinued, intact, bleeding controlled, No redness/swelling at site. Pressure bm8 dressing applied. Administered Medications: 19:00 Drug: Nitroglycerin Sublingual 0.4 mg Sublingual once; every five minute if needed x3 dd2 Route: Sublingual; 20:10 Follow up: Response: No adverse reaction bm8 19:00 Drug: morphine IVP or IV 4 mg IVP once over 4 mins Route: IVP; Infused Over: 4 mins; dd2 Site: left antecubital; 20:10 Follow up: Response: No adverse reaction bm8 19:00 Drug: Ondansetron IVP 4 mg IVP once; over 2 minutes Route: IVP; Site: left antecubital; dd2 20:10 Follow up: Response: No adverse reaction bm8 19:01 Drug: Aspirin PO 162 mg PO once Route: PO; dd2 20:10 Follow up: Response: No adverse reaction bm8 Medication: 18:41 VIS not applicable for this client. dd2 Outcome: 21:28 Discharge ordered by . ec2 21:40 Discharged to home ambulatory, bm8 21:40 Condition: stable 21:40 Discharge instructions given to patient, family, Instructed on discharge instructions, follow up and referral plans. safety practices, Demonstrated understanding of instructions, follow-up care, medications, 21:41 Patient left the ED. bm8 Signatures: Dispatcher [employer] EDMS Roberto Rosen Zaina zm Benton, Danielle, QUIN RN db Kaushik Zepeda MD MD rt Jose Alejandro Ding MD MD ec2 Jessenia Greco ra3 Jalen Suarez RN RN bm8 PAULINA MELGAR RN RN dd2
--- NOTE | 2024-04-15 21:28 | EDPHYS ---
Physician Documentation [facility] Name: Amanda Guillaume Age: 43 yrs Sex: Female : 1980 Arrival Date: 04/15/2024 Time: 18:10 Bed 5 Private MD: ED Physician Jose Alejandro Ding HPI: 04/15 19:53 This 43 yrs old Female presents to ER via Ambulatory with complaints of Chest Pressure, rt High Blood Pressure. 19:53 Patient presents to the ED with an acute onset of chest pain, reported hypertension. rt Patient states that the chest pain radiates to the back. This started about 30 minutes prior to arrival. She reports a "cold sensation to her chest all states that the pain radiates to her jaw. Has associated nausea. Denies other acute complaints at this time, symptoms are moderate in severity, no other aggravating or alleviating factors.. GEAR ROLLER: 18:25 LMP N/A - Post-menopause, Not db Historical: - Allergies: 18:24 adhesive; db 18:24 Sulfa (Sulfonamide Antibiotics); db 18:24 Bactrim; db - PMHx: 18:24 Hypertension; Anxiety; Depression; db - PSHx: 18:24 section; heart cath; Tummy tuck; db - Immunization history:: Adult Immunizations unknown. - Infectious Disease History:: Denies. - Social history:: Smoking status: Patient denies any tobacco usage or history of. - Family history:: not pertinent. ROS: 19:53 Constitutional: Negative for fever, chills, and weight loss, Respiratory: Negative for rt shortness of breath, cough, wheezing, and pleuritic chest pain, MS/Extremity: Negative for injury and deformity, Skin: Negative for injury, rash, and discoloration, Neuro: Negative for headache, weakness, numbness, tingling, and seizure, 19:53 Cardiovascular: Positive for chest pain, Negative for edema, 19:53 Abdomen/GI: Positive for nausea, Negative for abdominal pain, 19:53 Back: Positive for pain at rest, Negative for injury or acute deformity, Exam: 19:53 Constitutional: This is a well developed, well nourished patient who is awake, alert, rt and in no acute distress. Head/Face: Normocephalic, atraumatic. Chest/axilla: Normal chest wall appearance and motion. Nontender with no deformity. No lesions are appreciated. Cardiovascular: Regular rate and rhythm with a normal S1 and S2. No gallops, murmurs, or rubs. Normal PMI, no JVD. No pulse deficits. Respiratory: Lungs have equal breath sounds bilaterally, clear to auscultation and percussion. No rales, rhonchi or wheezes noted. No increased work of breathing, no retractions or nasal flaring. Abdomen/GI: Soft, non-tender, with normal bowel sounds. No distension or tympany. No guarding or rebound. No evidence of tenderness throughout. Skin: Warm, dry with normal turgor. Normal color with no rashes, no lesions, and no evidence of cellulitis. MS/ Extremity: Pulses equal, no cyanosis. Neurovascular intact. Full, normal range of motion. Neuro: Awake and alert, GCS 15, oriented to person, place, time, and situation. Cranial nerves II-XII grossly intact. Motor strength 5/5 in all extremities. Sensory grossly intact. Cerebellar exam normal. Normal gait. 19:53 ECG was reviewed by the Attending Physician. Vital Signs: 18:22 BP 180 / 103; Pulse 67; Resp 18; Temp 98.5(O); Pulse Ox 100% ; Weight 68.04 kg (M); db Height 5 ft. 4 in. ; 18:41 BP 168 / 97; Pulse 61; Resp 16; Pulse Ox 100% ; dd2 19:02 BP 140 / 102; Pulse 74; Resp 16; Pulse Ox 98% ; dd2 19:13 BP 129 / 63; Pulse 78; Resp 17; Temp 98.5; Pulse Ox 97% ; Pain 2/10; bm8 21:40 BP 118 / 85; Pulse 73; Resp 17; Temp 98.5; Pulse Ox 96% on R/A; Pain 2/10; bm8 18:22 Body Mass Index 25.75 (68.04 kg, 162.56 cm) db 19:13 Pain Scale: Adult bm8 21:40 Pain Scale: Adult bm8 [place] Coma Score: 19:13 Eye Response: spontaneous(4). Motor Response: obeys commands(6). Verbal Response: bm8 oriented(5). Total: 15. 21:40 Eye Response: spontaneous(4). Motor Response: obeys commands(6). Verbal Response: bm8 oriented(5). Total: 15. MDM: 18:27 Patient medically screened. rt 20:04 Data reviewed: vital signs. ec2 20:24 ED course: Patient signed out to the ER. Physician, in brief arrives today for chest ec2 pain. Plan is follow-up CT chest and repeat EKG and troponin and possible discharge home. Lab work is remarkable for reassuring metabolic profile, reassuring CBC, chest x-ray that shows no acute intrathoracic process. . 20:49 ED course: Urine is noninfectious. CT scan of the chest shows no acute process. Patient ec2 has nonemergent thyroid nodules that she can follow-up outpatient. . 21:15 ED course: Repeat EKG independently reviewed and interpreted by me, shows normal sinus ec2 rhythm, rate 67, no acute ST segment elevations, intervals are nonconcerning.. 21:27 ED course: Repeat troponin with no marked change. Will discharge home. Return ec2 precautions given . 04/15 18:37 Order name: Basic Metabolic Panel; Complete Time: 19:55 rt 04/15 18:37 Order name: CBC with Diff; Complete Time: 19:55 rt 04/15 18:37 Order name: LFT's; Complete Time: 19:55 rt 04/15 18:37 Order name: Magnesium; Complete Time: 19:55 rt 04/15 18:37 Order name: Troponin HS; Complete Time: 19:55 rt 04/15 18:37 Order name: UAM; Complete Time: 20:49 rt 04/15 18:37 Order name: Test, Serum; Complete Time: 19:55 rt 04/15 19:45 Order name: Creatine Phosphokinase; Complete Time: 19:55 EDMS 04/15 20:54 Order name: Troponin High Sensitivity; Complete Time: 21:27 bm8 02 18:37 Order name: XRAY Chest (1 view); Complete Time: 19:55 rt 04/15 18:37 Order name: CT Aorta for Dissection; Complete Time: 20:49 rt 04/15 18:37 Order name: EKG; Complete Time: 18:37 rt 04/15 18:37 Order name: Cardiac monitoring; Complete Time: 18:40 rt 04/15 18:37 Order name: EKG - Nurse/Tech; Complete Time: 18:40 rt 04/15 18:37 Order name: IV Saline Lock; Complete Time: 18:39 rt 04/15 18:37 Order name: Labs collected and sent; Complete Time: 18:39 rt 04/15 18:37 Order name: O2 Per Protocol; Complete Time: 18:40 rt 09 18:37 Order name: O2 Sat Monitoring; Complete Time: 18:40 rt 09 20:04 Order name: Misc. Order: repeat ekg/trop 2100; Complete Time: 21:32 ec2 EC:53 Rate is 72 beats/min. Rhythm is regular, Normal Sinus Rhythm with No ectopy. QRS [place] rt is Normal. [place] interval is normal. QRS interval is normal. QT interval is normal. No Q waves. T waves are Normal. No ST changes noted. Interpreted by me. Administered Medications: 19:00 Drug: Nitroglycerin Sublingual 0.4 mg Sublingual once; every five minute if needed x3 dd2 Route: Sublingual; 20:10 Follow up: Response: No adverse reaction bm8 19:00 Drug: morphine IVP or IV 4 mg IVP once over 4 mins Route: IVP; Infused Over: 4 mins; dd2 Site: left antecubital; 20:10 Follow up: Response: No adverse reaction bm8 19:00 Drug: Ondansetron IVP 4 mg IVP once; over 2 minutes Route: IVP; Site: left antecubital; dd2 20:10 Follow up: Response: No adverse reaction bm8 19:01 Drug: Aspirin PO 162 mg PO once Route: PO; dd2 20:10 Follow up: Response: No adverse reaction bm8 Disposition Summary: 04/15/24 21:28 Discharge Ordered Notes: Location: Home ec2 Condition: Stable ec2 Diagnosis - Chest pain, unspecified ec2 - Thyroid Nodules ec2 Followup: ec2 - With: Private Physician - When: - Reason: Re-evaluation by your physician Discharge Instructions: - Discharge Summary Sheet ec2 - Thyroid Nodule ec2 - Nonspecific Chest Pain, Adult, [id number] ec2 Forms: - Medication Reconciliation Form ec2 - Antibiotic Education ec2 - Prescription Opioid Use ec2 - Patient Portal Instructions ec2 - Leadership Thank You Letter ec2 Signatures: Dispatcher [employer] Alissa Mccann RN RN Kaushik Winn MD MD rt Jose Alejandro Ding MD MD ec2 PAULINA MELGAR RN RN dd2 Jalen Suarez RN bm8 Corrections: (The following items were deleted from the chart) 19:45 18:49 CREATINE PHOSPHOKINASE+C.LAB.BRZ ordered. EDMS EDMS
[2024-04-15 22:05] VITALS: TEMP 98.5
[2024-04-15 22:10] VITALS: BP 118/85; O2SAT 96
--- NOTE | 2024-04-16 12:36 | EKG ---
Test Date: 2024-04-15 Test Time: 21:09:54 Training And Development Officer: ZOE MEASUREMENT RESULTS: Intervals: Rate: 67 VT: 154 QRSD: 76 QT: 396 QTc: 418 [place]: P: 60 VT: 154 QRS: 54 T: 58 INTERPRETIVE STATEMENTS: Normal sinus rhythm Normal ECG Compared to ECG 04/16/2023 23:12:53 No significant changes Electronically Signed On 04-16-24 12:35:25 CDT by James Mustafa
--- NOTE | 2024-04-16 12:37 | EKG ---
Test Date: 2024-04-15 Test Time: 18:37:59 Flexible Nanny: BRITT MEASUREMENT RESULTS: Intervals: Rate: 72 OK: 148 QRSD: 84 QT: 382 QTc: 418 [place]: P: 71 OK: 148 QRS: 66 T: 69 INTERPRETIVE STATEMENTS: Normal sinus rhythm Normal ECG Compared to ECG 04/12/2024 14:12:36 No significant changes Electronically Signed On 04-16-24 12:36:00 CDT by James Mustafa
== END 2024-04-15 21:41 | disposition home or self-care (01) ==
LOC: ER 18:10
DX: R07.89 Other chest pain (principal); E04.1 Nontoxic single thyroid nodule; I10 Essential (primary) hypertension
CPT/HCPCS: 93005; 96374; 96375; 99285

== ENCOUNTER 2025-03-25 19:10 | Emergency (ER) | payer BC ==
[2025-03-25 20:34] LABS: Absolute Lymphocytes (CBC) 2.1 K/uL (0.7-4.9); Hematocrit 41.5 % (36.0-45.0); Hemoglobin 14.2 g/dL (12.0-15.0); MCH 31.9 pg (27.0-35.0); MCHC 34.3 g/dL (32.0-36.0); MCV 93.0 fL (80-100); MPV 7.7 fL (7.6-11.3); Nucleated RBC Absolute Count 0.0 (0-0); Nucleated Red Blood Cells % 0.0 % (0-0); RBC Red Blood Cell Count 4.46 M/uL (3.86-4.86); White Blood Count 6.00 thou/uL (4.3-10.9)
[2025-03-25 20:38] LABS: Sqamous Epithelial <5 /HPF (None Seen); Urine Crystals Unidentified Few /HPF (None Seen); Urine Culture Reflex Order NOT NEEDED; Urine Microscopic Reflex YN ORDER UMIC; Urine Yeast (Budding) Trace /HPF (None Seen)
[2025-03-25] MEDS ORDERED: NA CHLORIDE 0.9% 1,000 ML ONE (20:46)
[2025-03-25 20:52] LABS: ALT/SGPT 32.0 U/L (13-56); AST/SGOT 27.0 U/L (15-37); Albumin 3.7 g/dL (3.4-5.0); Albumin/Globulin Ratio 1.1 (1.1-1.8); Alkaline Phosphatase 49.0 U/L (45-117); Anion Gap 6.2 mEq/L (5.0-15.0); BUN Blood Urea Nitrogen 11.0 mg/dL (7-18); Globulin 3.5 g/dL (2.3-3.5); Glucose Level 77.0 mg/dL (74-106); Potassium 3.2 mEq/L (3.5-5.1)
[2025-03-25] MEDS ORDERED: ACETAMINOPHEN 500 MG TAB ONE (21:15)
[2025-03-25] MEDS ORDERED: KETOROLAC 30 MG/ML INJ ONE (21:15)
[2025-03-25] MEDS ORDERED: POTASSIUM CL SA 10 MEQ TAB PO ONE (21:15)
--- NOTE | 2025-03-25 21:58 | ER ---
Nurse's Notes [facility] Name: Amanda Guillaume Age: 44 yrs Sex: Female : 1980 Arrival Date: 03/25/2025 Time: 19:10 Bed 2 Private MD: Diagnosis: Dehydration Presentation: 03/25 19:17 Chief complaint: Patient states: feeling unwell for the past 2-3 weeks. i think i have lg3 an electrolyte imbalance. Coronavirus screen: Client denies travel out of the [place] in the last 14 days. At this time, the client does not indicate any symptoms associated with coronavirus-19. Ebola Screen: No symptoms or risks identified at this time. Initial Sepsis Screen: Does the patient meet any 2 criteria? No. Patient's initial sepsis screen is negative. Does the patient have a suspected source of infection? No. Patient's initial sepsis screen is negative. Risk Assessment: Do you want to hurt yourself or someone else? Patient reports no desire to harm self or others. Onset of symptoms is unknown. 19:17 Method Of Arrival: Ambulatory lg3 19:17 Acuity: KATHI 3 lg3 Triage Assessment: 19:19 General: Appears in no apparent distress. uncomfortable, Behavior is calm, cooperative. lg3 Pain: Denies pain. EENT: No deficits noted. No signs and/or symptoms were reported regarding the EENT system. Neuro: [place] Agitation-Sedation Scale (RASS): 0 - Alert and Calm Level of Consciousness is awake, alert, obeys commands, Oriented to person, place, time, situation, Reports dizziness, headache weakness. Cardiovascular: No deficits noted. Denies chest pain, shortness of breath, Capillary refill < 3 seconds Clubbing of nail beds is absent JVD is absent Patient's skin is warm and dry. Respiratory: No deficits noted. Airway is patent Respiratory effort is even, unlabored, Respiratory pattern is regular, symmetrical. GI: No deficits noted. No signs and/or symptoms were reported involving the gastrointestinal system. : No signs and/or symptoms were reported regarding the genitourinary system. Derm: No deficits noted. No signs and/or symptoms reported regarding the dermatologic system. Skin is intact, is healthy with good turgor, Skin is dry, Skin is normal, Skin temperature is warm. Musculoskeletal: No deficits noted. Circulation, motion, and sensation intact. Range of motion: intact in all extremities. 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 - Infectious Disease History:: Denies. - Social history:: Smoking status: Patient denies any tobacco usage or history of. Patient/guardian denies using alcohol, street drugs. Screenin:20 [facility] ED Fall Risk Assessment (Adult) History of falling in the last 3 months, lg3 including since admission No falls in past 3 months (0 pts) Confusion or Disorientation No (0 pts) Intoxicated or Sedated No (0 pts) Impaired Gait No (0 pts) Mobility Assist Device Used No (0 pt) Altered Elimination No (0 pt) Score/Fall Risk Level 0 - 2 = Low Risk Oriented to surroundings, Maintained a safe environment, Educated pt \T\ family on fall prevention, incl call for assistance when getting out of bed, Assessed \T\ reinforced patient's understanding of fall precautions. Abuse screen: Denies threats or abuse. Denies injuries from another. Nutritional screening: No deficits noted. Tuberculosis screening: No symptoms or risk factors identified. Assessment: 19:20 General: see triage assessment. lg3 21:21 Reassessment: Patient appears in no apparent distress at this time. No changes from lg3 previously documented assessment. Patient and/or family updated on plan of care and expected duration. Pain level reassessed. Patient is alert, oriented x 3, equal unlabored respirations, skin warm/dry/pink. 21:52 Pain: Complains of pain in headache. Neuro: Level of Consciousness is awake, alert, kd3 obeys commands, Oriented to person, place, time, situation. Cardiovascular: Patient's skin is warm and dry. Respiratory: Airway is patent Trachea midline Respiratory effort is even, unlabored, Respiratory pattern is regular, symmetrical. GI: No signs and/or symptoms were reported involving the gastrointestinal system. : No signs and/or symptoms were reported regarding the genitourinary system. EENT: No signs and/or symptoms were reported regarding the EENT system. Derm: No signs and/or symptoms reported regarding the dermatologic system. Musculoskeletal: No signs and/or symptoms reported regarding the musculoskeletal system. Vital Signs: 19:17 BP 162 / 98; Pulse 53; Resp 16 S; Temp 97.8(O); Pulse Ox 100% ; Weight 66.68 kg; Height lg3 5 ft. 3 in. ; 21:53 BP 126 / 82; Pulse 50; Resp 18; Pulse Ox 99% on R/A; kd3 19:17 Body Mass Index 26.04 (66.68 kg, 160.02 cm) lg3 ED Course: 19:13 Patient arrived in ED. im 19:16 Lorne Cross, DEBBIE-C is PHCP. dr5 19:16 María Patel MD is Attending Physician. dr5 19:17 Attending Physician role handed off by María Patel MD sp4 19:17 Monroe Arroyo MD is Attending Physician. sp4 19:19 Triage completed. lg3 19:19 Arm band placed on right wrist. lg3 19:20 Patient has correct armband on for positive identification. Placed in gown. Bed in low lg3 position. Call light in reach. Side rails up X 1. Client placed on continuous cardiac and pulse oximetry monitoring. NIBP monitoring applied. Door closed. Noise minimized. Warm blanket given. Pillow given. 19:44 Lela Lan, RN is Primary Nurse. kd3 20:27 Inserted saline lock: 20 gauge in left antecubital area, using aseptic technique. Blood hw collected. Flushed with 10 mL NS. 20:28 CBC with Diff Sent. hw 20:28 CMP Sent. hw 20:28 UA Rfx Prashanth Cult if indicated Sent. hw 20:28 Test, Urine Sent. hw 22:22 No provider procedures requiring assistance completed. IV discontinued, intact, lg3 bleeding controlled, No redness/swelling at site. Pressure dressing applied. Administered Medications: 20:51 Drug: NS 0.9% IV 1000 ml IV at 1000 ml once; to be given as a bolus over 60 minutes lg3 Route: IV; Rate: 1000 ml; Site: left antecubital; 22:01 Follow up: Response: No adverse reaction; IV Status: Completed infusion; IV Intake: lg3 1000ml 21:18 Drug: Ketorolac IVP 15 mg IVP once Route: IVP; Site: left antecubital; lg3 22:01 Follow up: Response: No adverse reaction; Marked relief of symptoms lg3 21:19 Drug: Potassium Chloride PO 40 mEq PO once Route: PO; lg3 22:01 Follow up: Response: No adverse reaction lg3 21:19 Drug: Acetaminophen PO 1000 mg PO once Route: PO; lg3 22:01 Follow up: Response: No adverse reaction; Marked relief of symptoms lg3 Medication: 19:20 VIS not applicable for this client. lg3 Intake: 22:01 IV: 1000ml; Total: 1000ml. lg3 Outcome: 21:58 Discharge ordered by . dr5 22:22 Discharged to home ambulatory, lg3 22:22 Condition: stable 22:22 Discharge instructions given to patient, Instructed on discharge instructions, follow up and referral plans. Demonstrated understanding of instructions, follow-up care, 22:23 Patient left the ED. lg3 Signatures: Lary Guevara RN RN lg3 Lela Lan RN RN adelina3 Monroe Arroyo MD MD sp4 Nava Marquez Hailey hw Rhodes, Dustin, CLIENT SERVICES ASSISTANT-C CLIENT SERVICES ASSISTANT-Cdr5 Corrections: (The following items were deleted from the chart) 19:24 19:17 BP 159 / 105; Pulse 53bpm; Resp 16bpm; Spontaneous; Pulse Ox 100%; Temp 97.8F lg3 Oral; 66.68 kg; Height 5 ft. 3 in.; BMI: 26.0; lg3 19:24 19:19 Neuro: [place] Agitation-Sedation Scale (RASS): 0 - Alert and Calm Level of lg3 Consciousness is awake, alert, obeys commands, Oriented to person, place, time, situation, Reports weakness lg3
--- NOTE | 2025-03-25 21:58 | EDPHYS ---
Physician Documentation [facility] Name: Amanda Guillaume Age: 44 yrs Sex: Female : 1980 Arrival Date: 03/25/2025 Time: 19:10 Bed 2 Private MD: ED Physician Monroe Arroyo HPI: 03/25 19:17 This 44 yrs old Female presents to ER via Unassigned with complaints of sp4 dehydration. 23:13 Onset: The symptoms/episode began/occurred 2 week(s) ago. 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 Patient reports that she has had dehydration before in the past and this feels like that. Patient denies chest pain, shortness of breath, abdominal pain, nausea, vomiting, diarrhea,.. 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 - Infectious Disease History:: Denies. - Social history:: Smoking status: Patient denies any tobacco usage or history of. Patient/guardian denies using alcohol, street drugs. ROS: 23:13 Constitutional: as per hpi dr5 Exam: 23:13 Constitutional: This is a well developed, well nourished patient who is awake, alert, dr5 and in no acute distress. Head/Face: Normocephalic, atraumatic. Eyes: Pupils equal round and reactive to light, extra-ocular motions intact. Lids and lashes normal. Conjunctiva and sclera are non-icteric and not injected. Cornea within normal limits. Periorbital areas with no swelling, redness, or edema. Neck: Trachea midline, no thyromegaly or masses palpated, and no cervical lymphadenopathy. Supple, full range of motion without nuchal rigidity, or vertebral point tenderness. No Meningismus. Chest/axilla: Normal chest wall appearance and motion. Nontender with no deformity. No lesions are appreciated. Cardiovascular: Regular rate and rhythm with a normal S1 and S2. Normal PMI, no JVD. No pulse deficits. Respiratory: Lungs have equal breath sounds bilaterally, clear to auscultation. No rales, rhonchi or wheezes noted. No increased work of breathing, no retractions or nasal flaring. Abdomen/GI: Soft, non-tender, non-distended Back: No spinal tenderness. No costovertebral tenderness. Full range of motion. Skin: Warm, dry with normal turgor. Normal color with no rashes, no lesions, and no evidence of cellulitis. MS/ Extremity: Pulses equal, no cyanosis. Neurovascular intact. Full, normal range of motion. Neuro: Awake and alert, GCS 15, oriented to person, place, time, and situation. Cranial nerves II-XII grossly intact. Motor strength 5/5 in all extremities. Sensory grossly intact. Cerebellar exam normal. Normal gait. Vital Signs: 19:17 BP 162 / 98; Pulse 53; Resp 16 S; Temp 97.8(O); Pulse Ox 100% ; Weight 66.68 kg; Height lg3 5 ft. 3 in. ; 21:53 BP 126 / 82; Pulse 50; Resp 18; Pulse Ox 99% on R/A; kd3 19:17 Body Mass Index 26.04 (66.68 kg, 160.02 cm) lg3 MDM: 19:16 Medical Screening Exam initiated dr5 23:13 Differential diagnosis: viral Infection, URI, Electrolyte abnormality, dehydration, dr5 acute kidney injury. Data reviewed: vital signs, nurses notes, lab test result(s), CBC, white blood cell count, hemoglobin, hematocrit, platelets, electrolytes, sodium, potassium, chloride, serum bicarbonate, BUN, creatinine, serum glucose, urinalysis. Consideration of Admission/Observation Escalation of care including admission/observation considered. Consider admission if patient found to have a severe electrolyte abnormality. I considered the following discharge prescriptions or medication management in the emergency department I discussed and recommended Over The Counter medications, Medications were administered in the Emergency Department. See MAR. Care significantly affected by the following chronic conditions: Anxiety, depression, hypertension. Care significantly affected by the following Social Determinants of Health: Poor access to healthcare and/or lack of insurance, Poor access to transportation, Problems related to employment. Counseling: I had a detailed discussion with the patient and/or guardian regarding the historical points, exam findings, and any diagnostic results supporting the discharge/admit diagnosis, the presence of at least one elevated blood pressure reading (>120/80) during this emergency department visit, lab results, the need for outpatient follow up, for definitive care, a family practitioner, to return to the emergency department if symptoms worsen or persist or if there are any questions or concerns that arise at home. Medication response: Normal saline, Toradol, potassium, Tylenol. Response to treatment: the patient's symptoms have resolved after treatment, the patient's condition has returned to base line, the patient is now symptom free. Special discussion: I discussed with the patient/guardian in detail that at this point there is no indication for admission to the hospital. It is understood, however, that if the symptoms persist or worsen the patient needs to return immediately for re-evaluation. Based on the history and exam findings, there is no indication for further emergent testing or inpatient evaluation. I discussed with the patient/guardian the need to see the primary care provider for further evaluation of the symptoms. ED course: Patient reports she is feeling much better after medication. Patient had slight headache during his ER stay that Toradol resolved. Patient reports feeling much better after IV fluids. Recommended patient follow-up with primary care doctor. Strict ER precautions were given. All questions answered.. 03/25 19:21 Order name: CBC with Diff; Complete Time: 20:38 dr5 03/25 19:21 Order name: CMP; Complete Time: 20:54 dr5 03/25 19:21 Order name: UA Rfx Prashanth Cult if indicated; Complete Time: 20:44 03/25 19:21 Order name: Test, Urine; Complete Time: 20:38 dr5 03/25 19:21 Order name: IV Saline Lock; Complete Time: 20:28 [facility] 03/25 19:21 Order name: Labs collected and sent; Complete Time: 20:28 [facility] 03/25 19:21 Order name: O2 Per Protocol; Complete Time: 20:28 [facility] 03/25 19:21 Order name: O2 Sat Monitoring; Complete Time: 20:28 dr5 Administered Medications: 20:51 Drug: NS 0.9% IV 1000 ml IV at 1000 ml once; to be given as a bolus over 60 minutes lg3 Route: IV; Rate: 1000 ml; Site: left antecubital; 22:01 Follow up: Response: No adverse reaction; IV Status: Completed infusion; IV Intake: lg3 1000ml 21:18 Drug: Ketorolac IVP 15 mg IVP once Route: IVP; Site: left antecubital; lg3 22:01 Follow up: Response: No adverse reaction; Marked relief of symptoms lg3 21:19 Drug: Potassium Chloride PO 40 mEq PO once Route: PO; lg3 22:01 Follow up: Response: No adverse reaction lg3 21:19 Drug: Acetaminophen PO 1000 mg PO once Route: PO; lg3 22:01 Follow up: Response: No adverse reaction; Marked relief of symptoms lg3 Disposition: 03/26 03:48 Co-signature as Attending Physician, Monroe Arroyo MD I agree with the assessment sp4 and plan of care. I reviewed the patient's care provided by the Advanced Practice Provider and agree with the diagnosis and treatment plan. Disposition Summary: 03/25/25 21:58 Discharge Ordered Notes: Location: Home dr5 Condition: Stable dr5 Diagnosis - Dehydration dr5 Followup: dr5 - With: Emergency Department - When: As needed - Reason: Worsening of condition Followup: dr5 - With: Private Physician - When: 1 - 2 days - Reason: Recheck today's complaints, Continuance of care, Re-evaluation by your physician Discharge Instructions: - Discharge Summary Sheet dr5 - Dehydration, Adult dr5 - Postural Orthostatic Tachycardia Syndrome dr5 Forms: - Medication Reconciliation Form dr5 - Patient Portal Instructions dr5 - Leadership Thank You Letter dr5 Signatures: Dispatcher [employer] Lary Reyes RN RN lg3 Monroe Arroyo MD MD sp4 Lorne Cross, ELECTROCARDIOGRAM TECHNICIAN-C ELECTROCARDIOGRAM TECHNICIAN-Cdr5 Corrections: (The following items were deleted from the chart) 03/25 19:22 19:22 CBC+H.LAB.BRZ ordered. EDMS EDMS 19:22 19:22 COMPREHENSIVE METABOLIC PANEL+C.LAB.BRZ ordered. EDMS EDMS 19:22 19:22 UA Rfx Prashanth Cult if indicated+U.LAB.BRZ ordered. EDMS EDMS : 19:22 Test, Urine+UC.LAB.BRZ ordered. EDMS EDMS
[2025-03-25 22:51] VITALS: TEMP 97.8
[2025-03-25 22:52] VITALS: BP 126/82; O2SAT 99
== END 2025-03-25 22:23 | disposition home or self-care (01) ==
LOC: ER 19:10
DX: E86.0 Dehydration (principal)
CPT/HCPCS: 96361; 85025; 81001; 36415; 81025; 80053; 96374; 99284; J7030

== ENCOUNTER 2025-03-29 11:54 | Emergency (ER) | payer BC ==
--- NOTE | 2025-03-29 12:25 | RAD REPORT ---
EXAM: CT brain without contrast HISTORY: Left-sided numbness COMPARISON: 2023 TECHNIQUE: Multiple contiguous axial images were obtained and a CT of the brain without contrast. Sagittal and coronal reformats were performed. Automated exposure control, adjustment of the mA and/or kV according to patient size, and/or itera tive reconstruction. 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 Ventricles are normal caliber No extra-axial fluid collection noted No significant hypodensity within the brain No fluid within the visualized sinuses or mastoids noted. IMPRESSION: No acute intracranial abnormality noted. If the patient's symptoms persist MRI of the brain would be recommended. from the emergency room was notified at 12:06 PM March 28, 2025
[2025-03-29 12:28] LABS: Absolute Lymphocytes (CBC) 1.3 K/uL (0.7-4.9); Hematocrit 43.5 % (36.0-45.0); Hemoglobin 14.7 g/dL (12.0-15.0); MCH 31.6 pg (27.0-35.0); MCHC 33.7 g/dL (32.0-36.0); MCV 93.6 fL (80-100); MPV 8.0 fL (7.6-11.3); Nucleated RBC Absolute Count 0.0 (0-0); Nucleated Red Blood Cells % 0.0 % (0-0); RBC Red Blood Cell Count 4.65 M/uL (3.86-4.86); White Blood Count 7.30 thou/uL (4.3-10.9)
[2025-03-29 12:38] LABS: PT Prothrombin Time 10.5 SECONDS (10-13.0); PTT, Activated Partial Thromb 33.0 SECONDS (27.2-37.4); Protime INR 0.93
[2025-03-29 12:49] LABS: ALT/SGPT 39 U/L (13-56); AST/SGOT 20 U/L (15-37); Albumin 3.9 g/dL (3.4-5.0); Albumin/Globulin Ratio 1.0 (1.1-1.8); Alkaline Phosphatase 65 U/L (45-117); Anion Gap 8.9 mEq/L (5.0-15.0); BUN Blood Urea Nitrogen 16 mg/dL (7-18); Globulin 3.8 g/dL (2.3-3.5); Glucose Level 94 mg/dL (74-106); Magnesium 2.2 mg/dL (1.6-2.4); Potassium 3.9 mEq/L (3.5-5.1); Troponin High Sensitivity 49.6 pg/mL (<58.9)
[2025-03-29 13:02] LABS: Bilirubin Indirect, Calculated 0.2 mg/dL (0.2-0.8)
--- NOTE | 2025-03-29 13:04 | EDPHYS ---
Physician Documentation [facility] Name: Amanda Guillaume Age: 44 yrs Sex: Female : 1980 Arrival Date: 03/29/2025 Time: 11:54 Bed 5 Private MD: ED Physician María Patel HPI: 03/29 12:18 This 44 yrs old Female presents to ER via Unassigned with complaints of S/S of Possible sp3 Stroke. 12:18 44-year-old female with history of type I Arnold-Chiari malformation who sees Dr. alireza Coppola presents to the ED with chief complaint slurred speech and shaking now resolved. She denies any head injury, significant headache, other pain in the body or any other signs or symptoms on ROS at this time. She describes a body wide tingling which has also now resolved. No focal deficits, weakness standpoint reported.. Historical: - Allergies: 12:21 adhesive; hb 12:21 Bactrim; hb 12:21 Sulfa (Sulfonamide Antibiotics); hb - PMHx: 12:21 Anxiety; chiari malformation type 1 (Hypertension); Depression; Hypertension; hb - PSHx: 12:21 heart cath; section; Tummy tuck; hb - Immunization history:: Adult Immunizations up to date. - Infectious Disease History:: Denies. - Social history:: Smoking status: Patient/guardian denies using tobacco. ROS: 12:19 Constitutional: Negative for fever, chills, and weight loss, Eyes: Negative for injury, sp3 pain, redness, and discharge, ENT: Negative for injury, pain, and discharge, Neck: Negative for injury, pain, and swelling, Cardiovascular: Negative for chest pain, palpitations, and edema, Respiratory: Negative for shortness of breath, cough, wheezing, and pleuritic chest pain, Abdomen/GI: Negative for abdominal pain, nausea, vomiting, diarrhea, and constipation, Back: Negative for injury and pain, MS/Extremity: Negative for injury and deformity, Skin: Negative for injury, rash, and discoloration, Psych: Negative for depression, anxiety, suicide ideation, homicidal ideation, and hallucinations, Allergy/Immunology: Negative for hives, rash, and allergies, Endocrine: Negative for neck swelling, polydipsia, polyuria, polyphagia, and marked weight changes, Hematologic/Lymphatic: Negative for swollen nodes, abnormal bleeding, and unusual bruising, 12:19 All other systems are negative, Exam: 12:19 Constitutional: This is a well developed, well nourished patient who is awake, alert, sp3 and in no acute distress. Head/Face: Normocephalic, atraumatic. Eyes: Pupils equal round and reactive to light, extra-ocular motions intact. Lids and lashes normal. Conjunctiva and sclera are non-icteric and not injected. Cornea within normal limits. Periorbital areas with no swelling, redness, or edema. Neck: Trachea midline, no thyromegaly or masses palpated, and no cervical lymphadenopathy. Supple, full range of motion without nuchal rigidity, or vertebral point tenderness. No Meningismus. Chest/axilla: Normal chest wall appearance and motion. Nontender with no deformity. No lesions are appreciated. Cardiovascular: Regular rate and rhythm with a normal S1 and S2. No gallops, murmurs, or rubs. Normal PMI, no JVD. No pulse deficits. Respiratory: Lungs have equal breath sounds bilaterally, clear to auscultation and percussion. No rales, rhonchi or wheezes noted. No increased work of breathing, no retractions or nasal flaring. Abdomen/GI: Soft, non-tender, with normal bowel sounds. No distension or tympany. No guarding or rebound. No evidence of tenderness throughout. Back: No spinal tenderness. No costovertebral tenderness. Full range of motion. Skin: Warm, dry with normal turgor. Normal color with no rashes, no lesions, and no evidence of cellulitis. MS/ Extremity: Pulses equal, no cyanosis. Neurovascular intact. Full, normal range of motion. Neuro: Awake and alert, GCS 15, oriented to person, place, time, and situation. Cranial nerves II-XII grossly intact. Motor strength 5/5 in all extremities. Sensory grossly intact. Cerebellar exam normal. Normal gait. Psych: Awake, alert, with orientation to person, place and time. Behavior, mood, and affect are within normal limits. 12:21 ECG was reviewed by the Attending Physician. EKG demonstrates normal sinus rhythm at 63 sp3 bpm with normal intervals, normal QRS, normal axis and nonspecific diffuse ST/T changes without evidence of acute ischemia. Vital Signs: 11:55 BP 160 / 100; Pulse 61; Resp 16; Temp 98.4(TE); Pulse Ox 100% on R/A; Weight 66.68 kg; ss Height 5 ft. 3 in. ; Pain 0/10; 13:30 BP 140 / 93; Pulse 60; Resp 16; Pulse Ox 97% ; hb 11:55 Body Mass Index 26.04 (66.68 kg, 160.02 cm) ss 11:55 Pain Scale: Adult ss NIH Stroke Scale Scores: 11:55 NIHSS Score: 1 hb MDM: 11:58 Medical Screening Exam initiated sp3 12:19 Data reviewed: vital signs, nurses notes, old medical records, lab test result(s), EKG, sp3 radiologic studies. ED course: 44-year-old female with shaking episode coupled with slurred speech now fully resolved. Normal neurological exam here. Differential diagnosis includes complicated migraine versus Arnold-Chiari symptomatic presentation, into a much lesser degree of TIA or stroke. I am not highly suspicious of the latter. We will obtain CT scan of the head which is normal other than the minimal Chiari malformation. General labs are also pending. EKG also pending. If workup negative and patient maintains normal neurological exam, we will safely discharge her home to neurology and PCP follow-up.. 13:03 ED course: Patient improved and back to baseline. Full workup negative and we will sp3 safely discharge patient home at this time.. 13:34 ED course: Discussed the case with Dr. Coppola who agrees on the plan. He will see the sp3 patient in the office on Monday. He recommends starting 81 mg of aspirin in the meantime.. 03/29 11:58 Order name: Basic Metabolic Panel; Complete Time: 13:03 sp3 03/29 11:58 Order name: CBC with Diff; Complete Time: 13:03 3 03/29 11:58 Order name: Hepatic Function; Complete Time: 13:03 3 03/29 11:58 Order name: High Sensitivity Troponin; Complete Time: 13:03 sp3 03/29 11:58 Order name: Magnesium; Complete Time: 13:03 3 03/29 11:58 Order name: Protime (+inr); Complete Time: 13:03 3 03/29 11:58 Order name: Ptt, Activated; Complete Time: 13:03 sp3 03/29 12:27 Order name: Glucose, Ancillary Testing; Complete Time: 13:03 EDMS 03/29 11:58 Order name: CT Stroke Brain w/o Contrast; Complete Time: 13:03 sp3 03/29 11:58 Order name: EKG; Complete Time: 11:58 sp3 03/29 11:58 Order name: Cardiac monitoring; Complete Time: 12:29 sp3 03/29 11:58 Order name: EKG - Nurse/Tech; Complete Time: 12:29 sp3 03/29 11:58 Order name: IV Saline Lock; Complete Time: 12:29 sp3 03/29 11:58 Order name: Labs collected and sent; Complete Time: 12:29 sp3 03/29 11:58 Order name: NPO; Complete Time: 13:41 sp3 03/29 11:58 Order name: O2 Per Protocol; Complete Time: 12:29 sp3 03/29 11:58 Order name: O2 Sat Monitoring; Complete Time: 12:29 sp3 03/29 11:58 Order name: Stroke Swallow Screen; Complete Time: 13:41 sp3 Administered Medications: 13:55 Drug: Aspirin PO 81 mg PO once Route: PO; hb Point of Care Testing: Blood Glucose: 12:15 Blood Glucose: 82 mg/dL; hb Ranges: Critical Glucose Levels:Adult <50 mg/dl or >400 mg/dl <40 mg/dl or >180 mg/dl Disposition Summary: 03/29/25 13:04 Discharge Ordered Notes: Location: Home sp3 Condition: Stable sp3 Diagnosis - Arnold-Chiari malformation, slurred speech resolved sp3 Followup: sp3 - With: Private Physician - When: Upon discharge from the Emergency Department - Reason: Continuance of care Discharge Instructions: - Discharge Summary Sheet sp3 Forms: - Medication Reconciliation Form sp3 - Antibiotic Education sp3 - Prescription Opioid Use sp3 - Patient Portal Instructions sp3 - Leadership Thank You Letter sp3 NIH Stroke Scale - NIH Stroke Score Date: 03/29/2025 Time: 11:55 Total Score = 1 10. Dysarthria (speech clarity - read or repeat words) - 1(Mild to Moderate) 11. Extinction and Inattention (visual/tactile/auditory/spatial/personal) - 0(No abnormality) 1a. Level of Consciousness (LOC) - 0(Alert) 1b. Level of Consciousness (LOC) (Month \T\ Age) - 0(Both) 1c. LOC Commands (Open \T\ Closes Eyes/Copyright Manager) - 0(Both) 2. Best Gaze (Lateral Gaze Paresis) - 0(Normal) 3. Visual Field Loss - 0(No visual loss) 4. Facial Palsy - 0(Normal) 5a. Left Arm: Motor (10-second hold) - 0(No drift) 5b. Right Arm: Motor (10-second hold) - 0(No drift) 6a. Left Leg: Motor (5-second hold - always test supine) - 0(No drift) 6b. Right Leg: Motor (5-second hold - always test supine) - 0(No drift) 7. Limb Ataxia (finger/nose \T\ heel/walton - test with eyes open) - 0(Absent) 8. Sensory Loss (pinprick arms/legs/face) - 0(Normal) 9. Best Language: Aphasia (description/naming/reading) - 0(No aphasia) Initials: Signatures: Dispatcher [employer] Ellen Otto RN RN hb Patel, Setul, MD MD sp3
--- NOTE | 2025-03-29 13:04 | ER ---
Nurse's Notes [facility] Name: Amanda Guillaume Age: 44 yrs Sex: Female : 1980 Arrival Date: 03/29/2025 Time: 11:54 Bed 5 Private MD: Diagnosis: Arnold-Chiari malformation, slurred speech resolved Presentation: 03/29 11:55 Chief complaint: Patient states: trouble speaking and tingling to L arm and face that ss began 2 hours ago. Pt reports a hx of Chiari Malformation and "episodes," but this one feels different.". Coronavirus screen: Client denies travel out of the [place] in the last 14 days. Ebola Screen: Patient denies exposure to infectious person. Patient denies travel to an Ebola-affected area in the 21 days before illness onset. An acute neurological deficit is present. Pre-hospital glucose is not applicable to this patient. Initial Sepsis Screen: Does the patient meet any 2 criteria? No. Patient's initial sepsis screen is negative. Does the patient have a suspected source of infection? No. Patient's initial sepsis screen is negative. Risk Assessment: Do you want to hurt yourself or someone else? Patient reports no desire to harm self or others. Onset of symptoms was March 29, 2025 at 10:00. 11:55 Method Of Arrival: Ambulatory ss 11:55 Acuity: KATHI 2 ss Stroke Activation: Symptom onset < 3 hours Physician: ED Attending; Name: ; Notified At: ; Arrived At: Physician: Mid-Level Provider; Name: ; Notified At: ; Arrived At: Physician: [not used]; Name: ; Notified At: ; Arrived At: Physician: [not used]; Name: ; Notified At: ; Arrived At: Physician: [not used]; Name: ; Notified At: ; Arrived At: Historical: - Allergies: 12:21 adhesive; hb 12:21 Bactrim; hb 12:21 Sulfa (Sulfonamide Antibiotics); hb - PMHx: 12:21 Anxiety; chiari malformation type 1 (Hypertension); Depression; Hypertension; hb - PSHx: 12:21 heart cath; section; Tummy tuck; hb - Immunization history:: Adult Immunizations up to date. - Infectious Disease History:: Denies. - Social history:: Smoking status: Patient/guardian denies using tobacco. Screenin:31 [facility] ED Fall Risk Assessment (Adult) History of falling in the last 3 months, hb including since admission No falls in past 3 months (0 pts) Confusion or Disorientation No (0 pts) Intoxicated or Sedated No (0 pts) Impaired Gait No (0 pts) Mobility Assist Device Used No (0 pt) Altered Elimination No (0 pt) Score/Fall Risk Level 0 - 2 = Low Risk Oriented to surroundings, Maintained a safe environment, Educated pt \\T\\ family on fall prevention, incl call for assistance when getting out of bed. Abuse screen: Denies threats or abuse. Denies injuries from another. Nutritional screening: No deficits noted. Tuberculosis screening: No symptoms or risk factors identified. 13:15 [place] Swallow Protocol Exclusion Criteria: Unable to remain alert for testing: No NPO hb for medical/surgical reason by provider order No Head-of-bed restricted <30 degrees Tracheostomy tube present No No thin liquids due to preexisting dysphagia/baseline modified diet thickened liquids No Exclusion Criteria Result: Proceed Brief Cognitive Screen What is your name? Normal, Where are you right now? Normal, What year is it? Normal. Oral Mechanism Examination Facial Symmetry: Normal, Motion: Normal, Lip Closure: Normal, Oral Mechanism Result: Normal. 3 oz Water Swallow Challenge: Pt able to drink all water without stopping, coughing, choking or throat clearing: Yes Result: PASS. Assessment: 11:55 Reassessment: CODE STROKE CALLED, PT TO CT. hb 12:09 VAN Scoring: Arm Drift: Patients demonstrates NO arm weakness. Patient is VAN Negative. ss Visual Disturbance: No visual disturbance noted. Reassessment: at bedside assessing patient. Vital Signs: 11:55 BP 160 / 100; Pulse 61; Resp 16; Temp 98.4(TE); Pulse Ox 100% on R/A; Weight 66.68 kg; ss Height 5 ft. 3 in. ; Pain 0/10; 13:30 BP 140 / 93; Pulse 60; Resp 16; Pulse Ox 97% ; hb 11:55 Body Mass Index 26.04 (66.68 kg, 160.02 cm) ss 11:55 Pain Scale: Adult ss NIH Stroke Scale Scores: 11:55 NIHSS Score: 1 hb ED Course: 11:56 Patient arrived in ED. im 11:56 María Patel MD is Attending Physician. sp3 12:04 Inserted saline lock: 22 gauge in right antecubital area, using aseptic technique. ss Blood collected. Flushed with 10 mL NS. 12:12 CT Stroke Brain w/o Contrast In Process Unspecified. EDMS 12:21 Arm band placed on. hb 12:25 Triage completed. ss 12:31 Patient has correct armband on for positive identification. Bed in low position. Call hb light in reach. Provided Education on: tests, result times, call light . 14:00 IV discontinued, intact, bleeding controlled, No redness/swelling at site. Pressure hb dressing applied. Administered Medications: 13:55 Drug: Aspirin PO 81 mg PO once Route: PO; hb Point of Care Testing: Blood Glucose: 12:15 Blood Glucose: 82 mg/dL; hb Ranges: Outcome: 13:04 Discharge ordered by . sp3 14:00 Admitted to ER Hold. Please see Fylet for further documentation. hb 14:00 Condition: stable 14:00 Discharge instructions given to patient, family, Instructed on discharge instructions, follow up and referral plans. medication usage, Demonstrated understanding of instructions, follow-up care, medications, 14:01 Patient left the ED. hb NIH Stroke Scale - NIH Stroke Score Date: 03/29/2025 Time: 11:55 Total Score = 1 10. Dysarthria (speech clarity - read or repeat words) - 1(Mild to Moderate) 11. Extinction and Inattention (visual/tactile/auditory/spatial/personal) - 0(No abnormality) 1a. Level of Consciousness (LOC) - 0(Alert) 1b. Level of Consciousness (LOC) (Month \\T\\ Age) - 0(Both) 1c. LOC Commands (Open \\T\\ Closes Eyes/Optometry Assistant) - 0(Both) 2. Best Gaze (Lateral Gaze Paresis) - 0(Normal) 3. Visual Field Loss - 0(No visual loss) 4. Facial Palsy - 0(Normal) 5a. Left Arm: Motor (10-second hold) - 0(No drift) 5b. Right Arm: Motor (10-second hold) - 0(No drift) 6a. Left Leg: Motor (5-second hold - always test supine) - 0(No drift) 6b. Right Leg: Motor (5-second hold - always test supine) - 0(No drift) 7. Limb Ataxia (finger/nose \\T\\ heel/walton - test with eyes open) - 0(Absent) 8. Sensory Loss (pinprick arms/legs/face) - 0(Normal) 9. Best Language: Aphasia (description/naming/reading) - 0(No aphasia) Initials: hb Signatures: Dispatcher [employer] Kathryn Lyn RN RN Ellen Thrasher RN RN María Patel MD MD sp3 Nava Marquez
[2025-03-29] MEDS ORDERED: ASPIRIN 81 MG CHEWABLE TABLET ONE (13:51)
[2025-03-29 19:29] VITALS: TEMP 98.4
[2025-03-29 19:30] VITALS: BP 140/93; O2SAT 97
== END 2025-03-29 14:01 | disposition home or self-care (01) ==
LOC: ER 11:54
DX: Q07.00 Arnold-Chiari syndrome without spina bifida or hydrocephalus (principal)
CPT/HCPCS: 36415; 70450; 80048; 80076; 82947; 83735; 84484; 85025; 85610; 85730; 93005; 99285